=== PATIENT | male | born 1940 | race Caucasian/White ===

== ENCOUNTER → 2018-11-06 | Outpatient (CLI) | payer MEDICARE, BC ==
[2018-11-06 12:53] LABS: HCT 50.4 % (39.0-53.0); HGB 16.2 gm/dL (13.0-17.5); MCH 29.8 pg (25.0-35.0); MCHC 32.2 g/dL (31.0-37.0); MCV 92.6 fL (80.0-100.0); Mean Platelet Volume 7.2; Platelet Count 261 k/uL (150-450); RBC 5.45 m/uL (4.30-5.90); RDW 14.3 % (11.5-15.5)
[2018-11-06 13:05] LABS: Potassium 5.4 mmol/L (3.5-5.1)
== END ==
LOC: LABPAT 12:06
PROVIDERS: ATTEND Internal Medicine Cardiovascular Disease
DX: Z01.812 Encounter for preprocedural laboratory examination (principal); R07.2 Precordial pain
CPT/HCPCS: 36415; 80051; 82565; 84520; 85027

== ENCOUNTER 2018-11-14 06:08 | Day surgery (SDC) | payer MEDICARE, BC ==
[2018-11-06 14:20] VITALS: BMI 28.5
[2018-11-14] MEDS ORDERED: ATORVASTATIN 80 MG TAB PO STA (06:21)
[2018-11-14] MEDS ORDERED: ALPRAZolam 0.5 MG TAB PO PRN (06:21)
[2018-11-14] MEDS ORDERED: ALPRAZolam 0.25 MG TAB PO PRN (06:21)
[2018-11-14] MEDS ORDERED: ASPIRIN 325 MG TAB PO STA (06:21)
[2018-11-14] MEDS ORDERED: SODIUM CHLORIDE 0.9% 1,000 ML in EMPTY BAG 1 BAG IV ONE (06:21)
[2018-11-14] MEDS ORDERED: NITROGLYCERIN SL TABS 0.4 MG TAB SUBLINGUAL PRN ×2 (06:21→13:53)
[2018-11-14] MEDS ORDERED: SODIUM CHLORIDE 0.9% 1,000 ML IV ONE (07:06)
[2018-11-14 07:09] VITALS: TEMP 97.9
[2018-11-14] MEDS ORDERED: fentaNYL (PF) 50 MCG/ML 2 ML AMP IV ONE (07:35)
[2018-11-14] MEDS: MIDAZOLAM 2 MG/2 ML VIAL IV ONE ×2 (07:36→08:01)
[2018-11-14] MEDS ORDERED: LIDOCAINE 1% INJ 10MG/ML (20 ML MDV) SQ ONE (07:37)
[2018-11-14] MEDS ORDERED: RX INFO: IV CONTRAST WAS GIVEN 1 EACH MISC MISCELLANE PRN (08:11)
[2018-11-14] MEDS ORDERED: SODIUM CHLORIDE 0.9% 1,000 ML IV SCH (08:15)
--- NOTE | 2018-11-14 08:36 | CC ---
CARDIAC CATHETERIZATION REPORT INDICATION: Unstable angina. This is a 78-year-old gentleman with history of coronary artery disease, status post CABG, who presented to me with symptoms of progressively worsening shortness of breath and episodes of chest tightness for which he was taking sublingual nitroglycerin. Due to this, I advised him to undergo cardiac catheterization to evaluate his coronary anatomy and streamline his management. The patient was explained of risks, benefits and alternatives, understood and accepted. PROCEDURE NOTE: After obtaining informed consent, left heart catheterization and coronary angiogram are performed via the right femoral artery using standard Belkis catheters. Patient tolerated the procedure well without any obvious immediate complications. A femoral angiogram was performed and Angio-Seal was deployed for hemostasis. Patient received moderate conscious sedation. Total sedation time was 22. FINDINGS: 1. HEMODYNAMICS: Left ventricular end-diastolic pressure is 14 mm. There is no significant gradient across aortic valve. 2. LEFT VENTRICULOGRAM: Left ventriculogram is not performed. 3. ANGIOGRAPHIC DATA: [place] CORONARIES: Left main coronary artery appears calcified shows 30% to 40% stenosis. Divides into left anterior descending coronary artery and circumflex coronary artery. Circumflex coronary artery shows a focal 95% stenosis in the proximal portion. LAD appears totally occluded in its midportion with severe disease proximally. Right coronary artery is a large dominant vessel that is heavily calcified and shows diffuse disease. There are multiple segmental lesions involving the ostial proximal mid and distal portions and more significant lesion seems to be just as it bifurcates into PDA and PLV. SELECTIVE INJECTION OF THE BYPASS GRAFTS: 1. FREEDMAN to LAD: FREEDMAN appears patent. Both proximal and distal anastomotic sites are free of disease and [place] LAD is free of significant disease. 2. Venous graft to the OM branch appears patent. Proximal and distal anastomotic sites and the body of the graft are free of disease. [place]-Na OM shows mild disease. 3. Venous graft to the PDA, PLV appears occluded. CONCLUSIONS: 1. Cheesh-Na 3-vessel coronary artery disease as described above. 2. Patent FREEDMAN to LAD and venous graft to OM. 3. Occluded venous graft to PDA, PLV. PLAN: I reviewed angiographic data with Dr. Arlene Walls the on-call hydro plant technician. The right coronary artery appears diffusely diseased and heavily calcified and not easily amenable to angioplasty. The plan at this stage is to treat him with medical therapy and encourage him to quit smoking and if symptoms persist, bring him back and do high risk angioplasty of the right coronary artery. I did review these issues at length with the patient. He understands and is in agreement with the plans. The patient has been intolerant of statins. He is currently on aspirin, nitrates and beta blockers, which I am going to continue. LORETA / HIWOT: [id number] /
[2018-11-14 13:26] VITALS: RESP 16
[2018-11-14 13:27] VITALS: BP 121/69; PULSE 69
[2018-11-14] MEDS ORDERED: ISOSORBIDE MONONITRATE ER 30 MG TAB.ER.24H PO SCH (21:00)
[2018-11-15] MEDS ORDERED: ASPIRIN 325 MG TAB PO SCH (09:00)
[2018-11-15] MEDS ORDERED: ATENOLOL 25 MG PO SCH (09:00)
== END 2018-11-14 14:38 | disposition home or self-care (01) ==
LOC: CATHCVL 06:08
PROVIDERS: ATTEND Internal Medicine Cardiovascular Disease
DX: I25.720 Atherosclerosis of autologous artery coronary artery bypass graft(s) with unstable angina pectoris (principal); I25.82 Chronic total occlusion of coronary artery; I25.5 Ischemic cardiomyopathy; I10 Essential (primary) hypertension; Z88.8 Allergy status to other drugs, medicaments and biological substances; Z79.82 Long term (current) use of aspirin; Z95.1 Presence of aortocoronary bypass graft; Z91.041 Radiographic dye allergy status; Z79.899 Other long term (current) drug therapy
CPT/HCPCS: 93459; 84132; C1760; C1894; C1769; J2250; J2001; J3010

== ENCOUNTER 2018-11-27 08:55 | Day surgery (SDC) | payer MEDICARE, BC ==
[~2018-11-27 08:55] MED LIST: ALPRAZolam 0.25 MG TAB PO PRN; ALPRAZolam 0.5 MG TAB PO PRN; ASPIRIN 325 MG TAB PO STA; ATORVASTATIN 80 MG TAB PO STA; NITROGLYCERIN SL TABS 0.4 MG TAB SUBLINGUAL PRN; SODIUM CHLORIDE 0.9% 1,000 ML in EMPTY BAG 1 BAG IV ONE
[2018-11-27] MEDS ORDERED: SODIUM CHLORIDE 0.9% 1,000 ML IV ONE (09:37)
[2018-11-27] MEDS ORDERED: LIDOCAINE 1% INJ 10MG/ML (20 ML MDV) ONE (10:30)
[2018-11-27] MEDS ORDERED: MIDAZOLAM 2 MG/2 ML VIAL IVP ONE (10:51)
[2018-11-27] MEDS ORDERED: LIDOCAINE 1% INJ 10MG/ML (20 ML MDV) SQ ONE (10:52)
[2018-11-27] MEDS: LIDOCAINE 1% INJ 10MG/ML (20 ML MDV) SQ ONE ×2 (10:52→10:56)
[2018-11-27] MEDS ORDERED: HEPARIN SODIUM 1,000 UN/ML (10ML VL) ONE (11:02)
[2018-11-27] MEDS: HEPARIN SODIUM 1,000 UN/ML (10ML VL) IV ONE ×2 (11:03→12:15)
[2018-11-27] MEDS ORDERED: IOPAMIDOL-370 100ML BTL INJ ONE ×2 (11:32→12:28)
[2018-11-27] MEDS: NITROGLYCERIN 1000MCG/10ML SYRINGE INTRACORON ONE ×3 (11:36→12:24)
[2018-11-27] MEDS ORDERED: niCARdipine Syringe (1,000 mcg/10 mL) INTRACORON ONE (12:23)
[2018-11-27] MEDS ORDERED: TICAGRELOR 90 MG TAB ONE (12:26)
[2018-11-27] MEDS ORDERED: TICAGRELOR 90 MG TAB PO ONE (12:28)
[2018-11-27] MEDS ORDERED: HYDROmorphone 2 MG/ML 1 ML SYRINGE IVP ONE (12:30)
[2018-11-27] MEDS ORDERED: MAG HYDROX/AL HYDROX/SIMETH 30 ML CUP PO PRN (12:42)
[2018-11-27] MEDS ORDERED: NITROGLYCERIN SL TABS 0.4 MG TAB SUBLINGUAL PRN ×2 (12:42→13:08)
[2018-11-27] MEDS ORDERED: ATROPINE SULFATE 0.1 MG/ML 10ML SYRINGE IV PRN (12:42)
[2018-11-27] MEDS ORDERED: RX INFO: IV CONTRAST WAS GIVEN 1 EACH MISC MISCELLANE PRN (12:42)
[2018-11-27] MEDS ORDERED: ZOLPIDEM 5 MG TAB PO PRN (12:42)
[2018-11-27 16:08] VITALS: BMI 29.0
[2018-11-27] MEDS: SODIUM CHLORIDE 0.9% 1,000 ML IV SCH (16:50)
[2018-11-27] MEDS: METOPROLOL TARTRATE 25 MG TAB PO SCH (20:36)
[2018-11-27] MEDS: ISOSORBIDE MONONITRATE ER 30 MG TAB.ER.24H PO SCH (20:36)
[2018-11-27] MEDS ORDERED: ATORVASTATIN 80 MG TAB PO SCH (21:00)
--- NOTE | 2018-11-27 23:24 | PTCA ---
PERCUTANEOUSTRANS CORORONARY ANGIOGRAPHY DATE OF SERVICE: 11/27/2018. 1. Transvenous temporary pacemaker from right femoral venous approach. 2. Orbital atherectomy of proximal calcified right coronary artery. 3. PTCA and stenting of distal RCA with a drug-eluting stent and 2 separate drug- eluting stents in the proximal RCA. PERFORMED BY: Dr. Rolf Walls. SEDATION: Moderate conscious sedation time was 97 minutes. Patient was administered Versed. Oxygen saturation, hemodynamics and EKG were monitored closely. CLINICAL INFORMATION: Mr. Emmanuel Zabala is a 78-year-old gentleman, a patient of Dr. Horowitz, who also sees Dr. Pink as his primary care physician. This gentleman underwent aortocoronary bypass surgery a few years ago with a FREEDMAN to LAD, vein graft to the obtuse marginal and a jump vein graft to the 2 branches of RCA. Recent cardiac cath about 10 days ago revealed that the vein graft to the branches of RCA was occluded. The FREEDMAN to LAD as well as a vein graft to the obtuse marginal were patent. Distal RCA had a significant lesion and proximal RCA had a heavily calcified tortuous segment with 60-70 percent lesion. The patient was advised intervention. I explained to the patient the high- risk nature of the procedure, the distal location of the RCA lesion and heavy calcification and tortuosity. The patient and family understood all details and wished to proceed with the procedure. PROCEDURE NOTE: Under local anesthesia and strict aseptic precautions, a 6-Malawian introducer was placed in the left femoral artery. A 4-[place]awian introducer was placed in the right femoral vein under strict aseptic precautions and local anesthesia. I used a All Right 3.5 guide catheter to cannulate the right coronary artery. I used a run-through wire to get it distally beyond the lesion in the distal RCA into the secondary branches. I tried to advance a 2.5 caliber NC Trek balloon of 12 mm length without success. I then used another whisper wire as a jennifer wire and this wire was kept alongside the run-through wire. Over the whisper wire, I advanced a 2.5 caliber 12 mm NC Trek balloon. With this, I was able to pre-dilate the lesion. I then deployed a 2.0 caliber 12 mm on [place] stent in the distal RCA. This stent was postdilated with a 2.75 caliber 12 mm long NC Trek balloon at 14 atmospheres. Excellent angiographic result was achieved. I then turned my attention to the proximal RCA. Prior to the intervention of the proximal RCA with orbital atherectomy, I exchanged the right femoral venous sheath over a wire to a 6-Malawian sheath and placed a balloon tipped pacemaker in the right ventricular apex. I have made sure the capture and thresholds were very good. This pacemaker was set at a backup rate of 40 with a mA of 5. I then proceeded to perform orbital atherectomy. I exchanged the existing short wire for 1 long run-through wire and using a Teleport exchange catheter, I advanced a Viper wire into the distal RCA. Over the ViperWire an orbital atherectomy catheter was advanced and I did multiple passes in the entire length of the RCA lesion. After multiple passes, I then took the orbital atherectomy catheter out and over the same wire, I deployed a 15 mm long 3.5 caliber Xience stent in the distal aspect and another 15 mm long 3.5 caliber Xience stent in the proximal aspect of the proximal RCA lesion. These stents were deployed at 13 to 14 atmospheres. Excellent angiographic result without complication was achieved. I gave some additional nitroglycerin and nicardipine and the entire vessel had a remarkably good angiographic appearance and flow. Patient never used a backup pacemaker. He developed some mild chest discomfort with some bradycardia during inflations. Excellent angiographic result without complication was achieved. He received intravenous heparin and ACT was kept between 250 and 300. Excellent angiographic result without complication was achieved. I took the left femoral arterial sheath out and used a Perclose device to secure hemostasis but because of some oozing, I used a Femstop. The right femoral venous sheath will be pulled after 2 hours. Results were then discussed in great detail with the patient as well as family members and I expect he will be discharged home tomorrow if he remains stable. Excellent angiographic result without complication was achieved. MMODL / IJN: [id number] /
[2018-11-28] MEDS: SODIUM CHLORIDE 0.9% 1,000 ML IV SCH (03:36)
[2018-11-28 07:00] LABS: Basophils # (A) 0.1 k/uL (0-0.2); Basophils % (A) 1 %; Eosinophils % (A) 0 %; HCT 43.5 % (39.0-53.0); HGB 14.3 gm/dL (13.0-17.5); Lymphocytes % (A) 15 %; MCH 29.9 pg (25.0-35.0); MCHC 32.8 g/dL (31.0-37.0); MCV 91.1 fL (80.0-100.0); Mean Platelet Volume 6.7; Monocytes # (A) 0.6 k/uL (0-1.0); Monocytes % (A) 5 %; Neutrophils # (A) 10.7 k/uL (1.3-7.7); Neutrophils % (A) 79 %; Platelet Count 223 k/uL (150-450); RBC 4.77 m/uL (4.30-5.90); RDW 14.1 % (11.5-15.5); WBC 13.5 k/uL (3.8-10.6)
[2018-11-28 07:19] LABS: Calcium 8.9 mg/dL (8.4-10.2); Potassium 4.5 mmol/L (3.5-5.1)
[2018-11-28] MEDS ORDERED: ASCORBIC ACID 500 MG TAB PO SCH (09:00)
[2018-11-28] MEDS ORDERED: ASPIRIN 81 MG PO SCH (09:00)
[2018-11-28] MEDS ORDERED: TICAGRELOR 90 MG TAB PO SCH (09:00)
[2018-11-28] MEDS ORDERED: NIACIN TR 500 MG CAPLET PO SCH (09:00)
[2018-11-28] MEDS ORDERED: NICOTINE 21MG/24HR PATCH TRANSDERM SCH (09:00)
[2018-11-28] MEDS: ISOSORBIDE MONONITRATE ER 30 MG TAB.ER.24H PO SCH (09:18)
[2018-11-28] MEDS: METOPROLOL TARTRATE 25 MG TAB PO SCH (09:18)
[2018-11-28 11:10] VITALS: BP 122/76; PULSE 66; RESP 22; TEMP 98.1
== END 2018-11-28 12:27 | disposition home or self-care (01) ==
LOC: CATHCVL 08:55 → 3SCARD 12:28 → CATHCVL 11-28 12:27
PROVIDERS: ATTEND Internal Medicine Interventional Cardiology
DX: I25.10 Atherosclerotic heart disease of native coronary artery without angina pectoris (principal); I25.84 Coronary atherosclerosis due to calcified coronary lesion; I10 Essential (primary) hypertension; I77.1 Stricture of artery; Z95.1 Presence of aortocoronary bypass graft; F17.210 Nicotine dependence, cigarettes, uncomplicated; Z79.82 Long term (current) use of aspirin; Z79.899 Other long term (current) drug therapy; Z88.8 Allergy status to other drugs, medicaments and biological substances; Z91.048 Other nonmedicinal substance allergy status
CPT/HCPCS: 92933; 80048; 85025; C1769 ×6; C1887; C1725 ×2; C1894 ×2; C1714; C1760; C1874 ×2; J2250; J1170; J2001; J1644; Q9967

== ENCOUNTER 2019-03-29 07:44 | Emergency (ER) | payer MEDICARE, BC ==
[2019-03-29 07:52] VITALS: BP 104/64; PULSE 97; RESP 18; TEMP 98.3
--- NOTE | 2019-03-29 08:24 | ED ---
General Adult HPI - General Chief complaint: Urogenital Stated complaint: Blocked catheter Time Seen by Provider: 03/29/19 07:57 Source: patient Mode of arrival: ambulatory Limitations: no limitations - History of Present Illness Initial comments: 78-year-old male patient with past history significant for BPH, patient had a catheter placed yesterday and comprehensive urology due to urinary retention. Patient reports today to ED because his catheter is not draining. Patient visits his bladder is very full. Patient denies any pain, denies any other co mplaints. Systemic: Pt denies fatigue, fever/chills, rash. Pt denies weakness, night sweats, weight loss. Neuro: Pt denies headache, visual disturbances, syncope or pre-syncope. HEENT: Pt denies ocular discharge or irritation, otalgia, rhinorrhea, pharyngitis or notable lymphadenopathy. Cardiopulmonary: Pt denies chest pain, SOB, heart palpitations, dyspnea on exertion. Abdominal/GI: Pt denies abdominal pain, n/v/d. : Pt denies dysuria, burning w/ urination, frequency/urgency. Denies new onset urinary or bowel incontinence. MSK: Pt denies myalgia, loss of strength or function in extremities. Neuro: Pt denies new onset weakness, paresthesias. - Related Data Home Medications Medication Instructions Recorded Confirmed Atenolol 25 mg PO QAM 11/06/18 11/27/18 Ascorbic Acid [Vitamin C] 500 mg PO DAILY 11/22/18 11/27/18 Niacin [Slo-Niacin] 500 mg PO DAILY 11/22/18 11/27/18 Nicotine 21Mg/24Hr Patch [Habitrol] 1 each TRANSDERM DAILY 11/22/18 11/27/18 Ranolazine [Ranexa] 500 mg PO BID 11/22/18 11/27/18 Vitamin E (Dl,Tocopheryl Acet) 400 unit PO DAILY 11/22/18 11/27/18 [Vitamin E] Previous Rx's Medication Instructions Recorded Isosorbide Mononitrate [Isosorbide 30 mg PO BID #60 tab 11/14/18 Mononitrate ER] Nitroglycerin Sl Tabs [Nitrostat] 0.4 mg SUBLINGUAL Q5M PRN #25 tab 11/14/18 Aspirin 81 mg PO DAILY chew 11/28/18 Rosuvastatin Calcium [Crestor] 10 mg PO DAILY #90 tab 11/28/18 Ticagrelor [Brilinta] 90 mg PO BID #60 tab 11/28/18 Allergies Allergy/AdvReac Type Severity Reaction Status Date / Time Iodinated Contrast- Oral and Allergy my face Verified 03/29/19 07:49 IV Dye turned red and broke out." "Had dye since and no rx Yvfcphg-Opb-Olc Reductase AdvReac "Had every Verified 03/29/19 07:49 Inhibitor side effect listed on list of possible side effec Review of Systems ROS Statement: Those systems with pertinent positive or pertinent negative responses have been documented in the HPI. ROS Other: All systems not noted in ROS Statement are negative. Past Medical History Past Medical History: Chest Pain / Angina, COPD, Hearing Disorder / Deafness, Myocardial Infarction ([place]), Prostate Disorder Additional Past Medical History / Comment(s): current SOB with exertiona and intermittent chest pain. Steroid November 2018,Hx irregular heartbeat,enlarged prostate,[place] x 2,[place], [place] 9 years ago. Last Myocardial Infarction Date:: 1998 History of Any Multi-Drug Resistant Organisms: None Reported Past Surgical History: Coronary Bypass/CABG, Heart Catheterization, Heart Catheterization With Stent, Tonsillectomy Additional Past Surgical History / Comment(s): quadruple bypass 8-9 years ago,cardiac stents x2,angioplasty x2 Past Anesthesia/Blood Transfusion Reactions: No Reported Reaction Additional Past Anesthesia/Blood Transfusion Reaction / Comment(s): no known hx blood transfusion Date of Last Stent Placement:: unk Past Psychological History: No Psychological Hx Reported Smoking Status: Current every day smoker Past Alcohol Use History: None Reported Past Drug Use History: None Reported - Past Family History Father Family Medical History: No Reported History General Exam - General Exam Comments Initial Comments: Constitutional: NAD, AOX3, Pt has pleasant affect. HEENT: NC/AT, trachea midline, neck supple, no lymphadenopathy. Posterior pharynx non erythematous, without exudates. External ears appear normal, without discharge. Mucous membranes moist. Eyes PERRLA, EOM intact. There is no scleral icterus. No pallor noted. Cardiopulmonary: RRR, no murmurs, rubs or gallops, no JVD noted. Lungs CTAB in anterior and posterior thompson. No peripheral edema. Abdominal exam: Abdomen soft and non-distended. Abdomen non-tender to palpation in all 4 quadrants. Bowel sounds active in LLQ. No hepatosplenomegaly. No ecchymosis Neuro: CN II-XII grossly intact. No nuchal rigidity. No raccon eyes, no bautista sign, no hemotympanum. No cervical spinal tenderness. MSK: No posterior calf tenderness bilaterally, homans sign negative bilaterally. Posterior tibialis and radial pulse +2 bilaterally. Sensation intact in upper and lower extremities. Full active ROM in upper and lower extremities, 5/5 stregnth. Limitations: no limitations Course Vital Signs 03/29/19 07:49 Temperature 98.3 F Pulse Rate 97 Respiratory 18 Rate Blood Pressure 104/64 O2 Sat by Pulse 95 Oximetry Medical Decision Making - Medical Decision Making 78-year-old male patient presents to the chief complaint of catheter dysfunction, not draining properly. Patient vital signs stable, afebrile. Physical exam didn't display acute pathology. Catheter is flushed and replaced in ED. Clot was noted and catheter. Catheter not draining well. Patient is currently taking prophylactic Bactrim prescribed as to after catheter placement. Patient will be discharged, will follow up with urologist for further care. Case discussed with Dr. Peck. Disposition Clinical Impression: Urinary catheter dysfunction Disposition: HOME SELF-CARE Condition: Stable Instructions (If sedation given, give patient instructions): Enlarged Prostate (BPH) (ED), Ayala Catheter Placement and Care (ED) Additional Instructions: Patient to adhere to previously discussed treatment plan and will take medication(s) as directed. Patient to follow up with PCP in 1-2 days. Patient to return to ED if symptoms do not improve. Follow-up with urologist today, return to ER if condition worsens. Is patient prescribed a controlled substance at d/c from ED?: No Referrals: None,Stated [Primary Care Provider] - 1-2 days Jaylon Daniels MD [STAFF PHYSICIAN] - 1-2 days Rafael Villegas MD [STAFF PHYSICIAN] - 1-2 days
== END 2019-03-29 08:26 | disposition home or self-care (01) ==
LOC: EC 07:44
DX: T83.098A Other mechanical complication of other urinary catheter, initial encounter (principal); I25.2 Old myocardial infarction; F17.200 Nicotine dependence, unspecified, uncomplicated; Z79.899 Other long term (current) drug therapy; Z91.041 Radiographic dye allergy status; Z88.8 Allergy status to other drugs, medicaments and biological substances; Z95.1 Presence of aortocoronary bypass graft; Z95.5 Presence of coronary angioplasty implant and graft
CPT/HCPCS: 51702; 99283

== ENCOUNTER 2019-03-30 16:09 | Emergency (ER) | payer MEDICARE, BC ==
--- NOTE | 2019-03-30 17:27 | ED ---
General Adult HPI - General Chief complaint: Urogenital Stated complaint: BLOCKED CATHETER Time Seen by Provider: 03/30/19 16:24 Source: patient Mode of arrival: ambulatory Limitations: no limitations - History of Present Illness Initial comments: Patient is a 78-year-old male presents emergency Department with a chief complaint of a blocked Ayala catheter. Patient reports he was in emergency department yesterday for the same complaint. Patient reports that today he noticed a blood clot in the urine bag which is causing him back up of urine. Patient reports increased suprapubic pressure. Patient denies any nausea or vomiting. Patient denies any hematuria. Patient reports the pain is an 8 and constant. - Related Data Home Medications Medication Instructions Recorded Confirmed Atenolol 25 mg PO QAM 11/06/18 03/29/19 Sulfamethox-Tmp 800-160Mg [Bactrim 1 tab PO Q12HR 03/29/19 03/29/19 DS 800-160 mg] Tamsulosin [Flomax] 0.4 mg PO DAILY 03/29/19 03/29/19 Previous Rx's Medication Instructions Recorded Isosorbide Mononitrate [Isosorbide 30 mg PO BID #60 tab 11/14/18 Mononitrate ER] Nitroglycerin Sl Tabs [Nitrostat] 0.4 mg SUBLINGUAL Q5M PRN #25 tab 11/14/18 Aspirin 81 mg PO DAILY chew 11/28/18 Ticagrelor [Brilinta] 90 mg PO BID #60 tab 11/28/18 Allergies Allergy/AdvReac Type Severity Reaction Status Date / Time Iodinated Contrast- Oral and Allergy my face Verified 03/30/19 16:15 IV Dye turned red and broke out." "Had dye since and no rx Igqxezh-Yoc-Gxh Reductase AdvReac "Had every Verified 03/30/19 16:15 Inhibitor side effect listed on list of possible side effec Review of Systems ROS Statement: Those systems with pertinent positive or pertinent negative responses have been documented in the HPI. ROS Other: All systems not noted in ROS Statement are negative. Past Medical History Past Medical History: Chest Pain / Angina, COPD, Hearing Disorder / Deafness, Myocardial Infarction ([place]), Prostate Disorder Additional Past Medical History / Comment(s): current SOB with exertiona and intermittent chest pain. Steroid November 2018,Hx irregular heartbeat,enlarged prostate,[place] x 2,[place], [place] 9 years ago. Last Myocardial Infarction Date:: 1998 History of Any Multi-Drug Resistant Organisms: None Reported Past Surgical History: Coronary Bypass/CABG, Heart Catheterization, Heart Catheterization With Stent, Tonsillectomy Additional Past Surgical History / Comment(s): quadruple bypass 8-9 years ago,cardiac stents x2,angioplasty x2 Past Anesthesia/Blood Transfusion Reactions: No Reported Reaction Additional Past Anesthesia/Blood Transfusion Reaction / Comment(s): no known hx blood transfusion Date of Last Stent Placement:: unk Past Psychological History: No Psychological Hx Reported Smoking Status: Current every day smoker Past Alcohol Use History: None Reported Past Drug Use History: None Reported - Past Family History Father Family Medical History: No Reported History General Exam Limitations: no limitations General appearance: alert, in no apparent distress Head exam: Present: atraumatic, normocephalic, normal inspection Eye exam: Present: normal appearance, PERRL, EOMI Pupils: Present: normal accommodation ENT exam: Present: normal exam, mucous membranes moist, normal external ear exam Neck exam: Present: normal inspection, full ROM Respiratory exam: Present: normal lung sounds bilaterally Cardiovascular Exam: Present: regular rate, normal rhythm, normal heart sounds GI/Abdominal exam: Present: soft, normal bowel sounds exam: Present: normal inspection, circumcision, other (Ayala catheter appears to be kinked and causing blockage of urine.). Absent: testicular tenderness, urethral discharge, scrotal swelling, vertical testicular lie Extremities exam: Present: normal inspection, full ROM Back exam: Present: normal inspection, full ROM Neurological exam: Present: alert, oriented X3 Psychiatric exam: Present: normal affect, normal mood Skin exam: Present: warm, intact, normal color Course Vital Signs 03/30/19 03/30/19 16:12 17:32 Temperature 98.2 F 98.1 F Pulse Rate 88 70 Respiratory 16 17 Rate Blood Pressure 113/76 114/74 O2 Sat by Pulse 98 97 Oximetry Medical Decision Making - Medical Decision Making patient is a 78-year-old male presenting to emergency Department with a chief complaint of a blockage of the full catheter. Upon initial physical examination with the nurse Livia, the Ayala catheter appears to be kinked. The kink was fixed and the patient was able to evacuate. Initial bladder scan prior to fixing the catheter was approximately 700 milliliters. Post void bladder scan was approximately 100 mL. Patient reports she feels much better with decreased suprapubic pressure. Patient reports the pain is a 3 at this point. Patient advised to follow with primary care. Strict return parameters were thoroughly discussed the patient was a nursing and agreeable. Case discussed with physician. Disposition Clinical Impression: Urinary catheter dysfunction Disposition: HOME SELF-CARE Condition: Stable Instructions (If sedation given, give patient instructions): Ayala Catheter Placement and Care (ED), Ayala Catheter Removal (DC) Additional Instructions: Please follow proper Ayala catheter care. He is follow with primary care. Marni ent to emergency department if symptoms worsen. Is patient prescribed a controlled substance at d/c from ED?: No Referrals: None,Stated [Primary Care Provider] - 1-2 days Time of Disposition: 17:26
[2019-03-30 17:34] VITALS: BP 114/74; PULSE 70; RESP 17; TEMP 98.1
== END 2019-03-30 17:35 | disposition home or self-care (01) ==
LOC: EC 16:09
DX: T83.098A Other mechanical complication of other urinary catheter, initial encounter (principal); I25.2 Old myocardial infarction; N40.0 Benign prostatic hyperplasia without lower urinary tract symptoms; F17.200 Nicotine dependence, unspecified, uncomplicated; Z95.1 Presence of aortocoronary bypass graft; Z95.818 Presence of other cardiac implants and grafts; Z95.5 Presence of coronary angioplasty implant and graft; Z79.899 Other long term (current) drug therapy; Z91.041 Radiographic dye allergy status; Z88.8 Allergy status to other drugs, medicaments and biological substances; Y84.6 Urinary catheterization as the cause of abnormal reaction of the patient, or of later complication, without mention of misadventure at the time of the procedure
CPT/HCPCS: 99283

== ENCOUNTER 2019-04-08 22:51 | Emergency (ER) | payer MEDICARE, BC ==
--- NOTE | 2019-04-08 23:08 | ED ---
General Adult HPI - General Chief complaint: Urogenital Stated complaint: Urine Retention Time Seen by Provider: 04/08/19 23:01 Source: patient, RN notes reviewed Mode of arrival: ambulatory Limitations: no limitations - History of Present Illness Initial comments: Patient is a pleasant 78-year-old male presenting to the emergency department with urinary retention. This is a chronic problem for him. Under direction of his urologist patient removed his catheter this morning. Patient has only urinated a very small amount, proximally and out since that time. Patient did go to the urologist this afternoon however was still unable to urinate. Patient is now having more fullness in the suprapubic region similar to previous urinary retention. No fevers. No vomiting. - Related Data Home Medications Medication Instructions Recorded Confirmed Atenolol 25 mg PO QAM 11/06/18 04/08/19 Tamsulosin [Flomax] 0.4 mg PO DAILY 03/29/19 04/08/19 Previous Rx's Medication Instructions Recorded Isosorbide Mononitrate [Isosorbide 30 mg PO BID #60 tab 11/14/18 Mononitrate ER] Nitroglycerin Sl Tabs [Nitrostat] 0.4 mg SUBLINGUAL Q5M PRN #25 tab 11/14/18 Aspirin 81 mg PO DAILY chew 11/28/18 Ticagrelor [Brilinta] 90 mg PO BID #60 tab 11/28/18 Allergies Allergy/AdvReac Type Severity Reaction Status Date / Time Iodinated Contrast- Oral and Allergy my face Verified 04/08/19 23:24 IV Dye turned red and broke out." "Had dye since and no rx Paazyla-Dig-Otc Reductase AdvReac "Had every Verified 04/08/19 23:24 Inhibitor side effect listed on list of possible side effec Review of Systems ROS Statement: Those systems with pertinent positive or pertinent negative responses have been documented in the HPI. ROS Other: All systems not noted in ROS Statement are negative. Constitutional: Denies: fever Eyes: Denies: eye pain ENT: Denies: ear pain Respiratory: Denies: cough Cardiovascular: Denies: chest pain Endocrine: Denies: as per HPI Gastrointestinal: Reports: as per HPI Genitourinary: Reports: urgency Musculoskeletal: Denies: back pain Skin: Denies: rash Neurological: Denies: weakness Past Medical History Past Medical History: Chest Pain / Angina, COPD, Hearing Disorder / Deafness, Myocardial Infarction ([place]), Prostate Disorder Additional Past Medical History / Comment(s): current SOB with exertiona and intermittent chest pain. Steroid November 2018,Hx irregular heartbeat,enlarged prostate,[place] x 2,[place], CABAG 9 years ago. Last Myocardial Infarction Date:: 1998 History of Any Multi-Drug Resistant Organisms: None Reported Past Surgical History: Coronary Bypass/CABG, Heart Catheterization, Heart Catheterization With Stent, Tonsillectomy Additional Past Surgical History / Comment(s): quadruple bypass 8-9 years ago,cardiac stents x2,angioplasty x2 Past Anesthesia/Blood Transfusion Reactions: No Reported Reaction Additional Past Anesthesia/Blood Transfusion Reaction / Comment(s): no known hx blood transfusion Date of Last Stent Placement:: unk Past Psychological History: No Psychological Hx Reported Smoking Status: Current every day smoker Past Alcohol Use History: None Reported Past Drug Use History: None Reported - Past Family History Father Family Medical History: No Reported History General Exam Limitations: no limitations General appearance: alert, in no apparent distress Head exam: Present: atraumatic Eye exam: Present: normal appearance, PERRL ENT exam: Present: normal oropharynx Neck exam: Present: normal inspection Respiratory exam: Present: normal lung sounds bilaterally Cardiovascular Exam: Present: regular rate, normal rhythm Expanded Peripheral pulses: 2+: Dorsalis Pedis (R), Dorsalis Pedis (L) GI/Abdominal exam: Present: soft, tenderness (Mild tenderness and fullness in the suprapubic region) exam: Present: normal inspection. Absent: testicular tenderness, scrotal swelling Extremities exam: Present: normal inspection. Absent: calf tenderness Neurological exam: Present: alert Psychiatric exam: Present: normal affect, normal mood Skin exam: Present: normal color Course Vital Signs 04/08/19 22:54 Temperature 97.8 F Pulse Rate 84 Respiratory 16 Rate Blood Pressure 184/87 O2 Sat by Pulse 98 Oximetry Medical Decision Making - Medical Decision Making Patient reevaluated and symptom-free following Ayala catheter placement. Greater than 1 L output. Patient updated on need for follow-up and states he will call Dr. Knight tomorrow as he had previously planned follow-up at noon. Disposition Clinical Impression: Urinary retention Disposition: HOME SELF-CARE Condition: Stable Instructions (If sedation given, give patient instructions): Urinary Retention in Men (ED) Additional Instructions: Please follow-up with primary care physician in the next couple days for recheck. Please follow-up with your urologist, Dr. Knight tomorrow as planned. Return for abdominal pain, fever, worsening symptoms or other concerns. Is patient prescribed a controlled substance at d/c from ED?: No Referrals: Estrella Pruett MD [STAFF PHYSICIAN] - 1-2 days Emmanuel Tavares MD [STAFF PHYSICIAN] - 1-2 days Time of Disposition: 00:15
[2019-04-09 01:18] VITALS: BP 123/77; PULSE 68; RESP 20; TEMP 98.1
== END 2019-04-09 01:18 | disposition home or self-care (01) ==
LOC: EC 22:51
DX: R33.9 Retention of urine, unspecified (principal); I25.2 Old myocardial infarction; N40.0 Benign prostatic hyperplasia without lower urinary tract symptoms; H91.90 Unspecified hearing loss, unspecified ear; F17.200 Nicotine dependence, unspecified, uncomplicated; Z79.899 Other long term (current) drug therapy; Z91.041 Radiographic dye allergy status; Z88.8 Allergy status to other drugs, medicaments and biological substances; Z95.1 Presence of aortocoronary bypass graft; Z95.5 Presence of coronary angioplasty implant and graft
CPT/HCPCS: 51702; 99283

== ENCOUNTER → 2019-05-05 | Outpatient (CLI) | payer MEDICARE, BC ==
[2019-05-05 16:00] LABS: Basophils # (A) 0.1 k/uL (0-0.2); Basophils % (A) 1 %; Eosinophils # (A) 0.4 k/uL (0-0.7); Eosinophils % (A) 4 %; HCT 46.5 % (39.0-53.0); HGB 15.5 gm/dL (13.0-17.5); Lymphocytes # (A) 1.6 k/uL (1.0-4.8); Lymphocytes % (A) 18 %; MCH 30.9 pg (25.0-35.0); MCHC 33.3 g/dL (31.0-37.0); MCV 92.7 fL (80.0-100.0); Monocytes # (A) 0.5 k/uL (0-1.0); Monocytes % (A) 5 %; Neutrophils % (A) 69 %; Platelet Count 184 k/uL (150-450); RBC 5.01 m/uL (4.30-5.90); RDW 13.8 % (11.5-15.5); WBC 8.7 k/uL (3.8-10.6)
[2019-05-05 16:09] LABS: Calcium 9.9 mg/dL (8.4-10.2); Potassium 4.8 mmol/L (3.5-5.1)
[2019-05-05 16:31] LABS: Appearance,Urine Cloudy (Clear); Bilirubin,Urine Negative (Negative); Blood,Urine Large (Negative); Color,Urine Light Red; Glucose,Urine (UA) Negative (Negative); Ketones,Urine Negative (Negative); Leukocyte Esterase,Urine Large (Negative); Mucus,Urine Rare /hpf; Nitrite,Urine Negative (Negative); Protein,Urine 1+ (Negative); RBC,Urine >182 /hpf (0-5); Specific Gravity,Urine 1.015 (1.001-1.035); Urobilinogen,Urine <2.0 mg/dL (<2.0)
== END ==
LOC: LABPAT 15:10
PROVIDERS: ATTEND Urology
DX: Z01.818 Encounter for other preprocedural examination (principal); Z01.812 Encounter for preprocedural laboratory examination; N40.1 Benign prostatic hyperplasia with lower urinary tract symptoms; R33.9 Retention of urine, unspecified; I10 Essential (primary) hypertension
CPT/HCPCS: 36415; 80048; 81001; 85025; 87086; 93005

== ENCOUNTER 2019-05-14 07:05 | Day surgery (SDC) | payer MEDICARE, BC ==
[2019-05-08 10:20] VITALS: BMI 29.8
--- NOTE | 2019-05-13 19:52 | P.GSHP ---
History of Present Illness H&P Date: 05/13/19 78 yo male with urine retention due to a large prostate. Hehas failed oral medications He has a 90 gm prostate He comes for a bipolar turp THe alternatives have been discussed as have the risks and complications - Constitutional Constitutional: Denies chills, Denies fever - EENT Eyes: denies blurred vision, denies pain Ears, nose, mouth and throat: Denies headache, Denies sore throat - Cardiovascular Cardiovascular: Denies chest pain, Denies shortness of breath - Respiratory Respiratory: Denies cough, Denies 7 - Gastrointestinal Gastrointestinal: Denies abdominal pain, Denies diarrhea, Denies nausea, Denies vomiting - Genitourinary (Female) Genitourinary: Denies dysuria, Denies hematuria - Genitourinary (Male) Genitourinary: Denies dysuria, Denies hematuria - Musculoskeletal Musculoskeletal: Denies myalgias - Integumentary Integumentary: Denies pruritus, Denies rash - Neurological Neurological: Denies numbness, Denies weakness - Psychiatric Psychiatric: Denies anxiety, Denies depression - Endocrine Endocrine: Denies fatigue, Denies weight change Past Medical History Past Medical History: Coronary Artery Disease (CAD), Chest Pain / Angina, COPD, Hearing Disorder / Deafness, Myocardial Infarction ([place]), Pneumonia, Prostate Disorder Additional Past Medical History / Comment(s): [place] x2, occ irregular heartbeat, SOB with exertion, urinary retention-has indwelling catheter, on rx for UTI Last Myocardial Infarction Date:: 1998 History of Any Multi-Drug Resistant Organisms: None Reported Past Surgical History: Coronary Bypass/CABG, Heart Catheterization, Heart Catheterization With Stent, Tonsillectomy Additional Past Surgical History / Comment(s): quadruple bypass 8-9 years ago, cardiac stents x 5, sesar cataracts Past Anesthesia/Blood Transfusion Reactions: Motion Sickness Additional Past Anesthesia/Blood Transfusion Reaction / Comment(s): no known hx blood transfusion Date of Last Stent Placement:: October 2018 Smoking Status: Current some day smoker - Past Family History Father Family Medical History: No Reported History Mother Family Medical History: Cancer Medications and Allergies Home Medications Medication Instructions Recorded Confirmed Type Atenolol 25 mg PO QAM 11/06/18 05/08/19 History Nitroglycerin Sl Tabs [Nitrostat] 0.4 mg SUBLINGUAL Q5M PRN #25 tab 11/14/18 05/08/19 Rx Aspirin 81 mg PO DAILY chew 11/28/18 05/08/19 Rx Ticagrelor [Brilinta] 90 mg PO BID #60 tab 11/28/18 05/08/19 Rx Tamsulosin [Flomax] 0.4 mg PO DAILY 03/29/19 05/08/19 History Isosorbide Mononitrate ER [Imdur] 60 mg PO BID 05/08/19 05/08/19 History Sulfamethox-Tmp 800-160Mg [Bactrim 1 tab PO Q12HR 05/08/19 05/08/19 History DS 800-160 mg] Allergies Allergy/AdvReac Type Severity Reaction Status Date / Time Iodinated Contrast Media Allergy my face Verified 05/08/19 10:04 [Iodinated Contrast- Oral turned red and IV Dye] and broke out." "Had dye since and no rx Pujtowm-Smx-Yuc Reductase AdvReac "Had every Verified 05/08/19 10:04 Inhibitor side effect listed on list of possible side effec Surgical - Exam - General well developed, well nourished, no distress - Eyes PERRL - ENT no hearing loss - Neck trachea midline - Respiratory normal expansion, normal respiratory effort - Cardiovascular Rhythm: regular - Abdomen Abdomen: soft, non tender - Genitourinary prostate 50 gm benign normal penis with no external lesions, testicles present - Integumentary no rash, no growths - Neurologic normal coordination, normal sensation - Musculoskeletal normal gait, normal posture - Psychiatric oriented to time, oriented to person, oriented to place, memory intact Assessment and Plan Assessment: Impression: Urine retention secondary to bph Plan: Bipolar turp
[~2019-05-14 07:05] MED LIST changes: -ALPRAZolam 0.25 MG TAB PO PRN; -ALPRAZolam 0.5 MG TAB PO PRN; +AMPICILLIN 1,000 MG in SODIUM CHLORIDE 0.9% 50 ML IVPB ONE; -ASPIRIN 325 MG TAB PO STA; -ATORVASTATIN 80 MG TAB PO STA; +DEXAMETHASONE SOD PHOSPHATE 10 MG/ML 1 ML VIAL IV ONE; +LACTATED RINGERS 1,000 ML IV SCH; +LIDOCAINE 1% 20 ML VIAL (10MG/ML) FOR IV START INTRADERMA PRN; +MIDAZOLAM 2 MG/2 ML VIAL IV PRN; -NITROGLYCERIN SL TABS 0.4 MG TAB SUBLINGUAL PRN; -SODIUM CHLORIDE 0.9% 1,000 ML in EMPTY BAG 1 BAG IV ONE; +fentaNYL (PF) 50 MCG/ML 2 ML AMP IV PRN
[2019-05-14] MEDS ORDERED: fentaNYL (PF) 50 MCG/ML 2 ML AMP ONE (08:17)
[2019-05-14] MEDS ORDERED: ePHEDrine SULFATE/0.9% NACL/PF 50 MG/5 ML SYRINGE IV ONE (08:17)
[2019-05-14] MEDS ORDERED: PROPOFOL 10 MG/ML 20 ML VIAL IV ONE (08:17)
[2019-05-14] MEDS ORDERED: MIDAZOLAM 2 MG/2 ML VIAL ONE (08:17)
[2019-05-14 10:35] VITALS: TEMP 98.1
--- NOTE | 2019-05-14 10:38 | P.OP ---
Date of Procedure: 05/14/19 Preoperative Diagnosis: BPH with urinary retention Postoperative Diagnosis: Same Procedure(s) Performed: Bipolar TURP Anesthesia: spinal Surgeon: Emmanuel Tavares Estimated Blood Loss (ml): 100 Pathology: other (Prostate) Condition: stable Disposition: PACU Indications for Procedure: The patient is 78. His urine retention. He is unable to void with alpha blockers. He comes for a bipolar TURP. His prostate is enlarged. Description of Procedure: Patient is brought to the operating suite. He is given a spinal anesthetic with IV sedation. He's placed lithotomy position with a sterile prep and drape. Under direct vision the 25-Marshallese sheath and direct vision obturator and Foroblique lenses introduced in the urethra is normal the prostatic urethra shows a large long prostate with an large intravesical middle lobe. The bladder is severely trabeculated. With the Seismo-Shelf resectoscope bipolar loop and Foroblique lens I first resect the middle lobe of. I then moved to the left lateral lobe resect from 12 to 6:00 first at the base and then apically. I do the same on the right side. I then resect the redundant floor tissue. I freed the bladder of prostatic chips with the JuanaPicmonic evacuator. I cauterize the inside of the prostate thoroughly. At the end of the procedure there is no active bleeding. There is no chips remaining in the bladder. I removed the resectoscope and cred the bladder with good strong stream. An 18-Marshallese coud-tip catheter 5 mL balloon is introduced in the bladder. The patient's awake and returned recovery room good condition. He tolerated procedure well be discharged home upon recovery. He'll follow-up in the office in a few days for catheter removal. Blood loss is approximately 100 mL
[2019-05-14] MEDS ORDERED: LACTATED RINGERS 1,000 ML IV ONE (11:04)
[2019-05-14 12:15] VITALS: BP 112/72; PULSE 64; RESP 16
== END 2019-05-14 12:45 | disposition home or self-care (01) ==
LOC: OR 07:05
PROVIDERS: ATTEND Urology
DX: N40.1 Benign prostatic hyperplasia with lower urinary tract symptoms (principal); R33.8 Other retention of urine; N13.8 Other obstructive and reflux uropathy; N39.0 Urinary tract infection, site not specified; I25.810 Atherosclerosis of coronary artery bypass graft(s) without angina pectoris; I25.5 Ischemic cardiomyopathy; I25.2 Old myocardial infarction; I10 Essential (primary) hypertension; F17.210 Nicotine dependence, cigarettes, uncomplicated; J44.9 Chronic obstructive pulmonary disease, unspecified; H91.90 Unspecified hearing loss, unspecified ear; Z79.82 Long term (current) use of aspirin; Z79.899 Other long term (current) drug therapy; Z91.041 Radiographic dye allergy status; Z88.8 Allergy status to other drugs, medicaments and biological substances; Z95.1 Presence of aortocoronary bypass graft; Z95.5 Presence of coronary angioplasty implant and graft; Z90.89 Acquired absence of other organs; Z87.440 Personal history of urinary (tract) infections; Z99.89 Dependence on other enabling machines and devices; Z87.01 Personal history of pneumonia (recurrent); Z98.41 Cataract extraction status, right eye; Z98.42 Cataract extraction status, left eye; Z80.9 Family history of malignant neoplasm, unspecified
CPT/HCPCS: 88305; 52601; J2250; J1100; J3010; J0290; J2704

== ENCOUNTER → 2020-04-02 | Outpatient (CLI) | payer MEDICARE, BC ==
[2020-04-02 11:13] LABS: Potassium 4.5 mmol/L (3.5-5.1)
[2020-04-02 11:22] LABS: HCT 47.9 % (39.0-53.0); HGB 15.8 gm/dL (13.0-17.5); MCH 30.7 pg (25.0-35.0); Mean Platelet Volume 7.3; Platelet Count 218 k/uL (150-450); RBC 5.15 m/uL (4.30-5.90); RDW 13.8 % (11.5-15.5); WBC 9.9 k/uL (3.8-10.6)
== END | disposition home or self-care (01) ==
LOC: LABPAT 09:52
PROVIDERS: ATTEND Internal Medicine Cardiovascular Disease
DX: Z01.818 Encounter for other preprocedural examination (principal); I20.0 Unstable angina
CPT/HCPCS: 36415; 80051; 82565; 84520; 85027

== ENCOUNTER 2020-04-05 06:14 | Day surgery (SDC) | payer MEDICARE, BC ==
[2020-04-02 14:39] VITALS: BMI 29.8
[~2020-04-05 06:14] MED LIST changes: +ALPRAZolam 0.25 MG TAB PO PRN; +ALPRAZolam 0.5 MG TAB PO PRN; -AMPICILLIN 1,000 MG in SODIUM CHLORIDE 0.9% 50 ML IVPB ONE; -DEXAMETHASONE SOD PHOSPHATE 10 MG/ML 1 ML VIAL IV ONE; -LACTATED RINGERS 1,000 ML IV SCH; -LIDOCAINE 1% 20 ML VIAL (10MG/ML) FOR IV START INTRADERMA PRN; -MIDAZOLAM 2 MG/2 ML VIAL IV PRN; +NITROGLYCERIN SL TABS 0.4 MG TAB SUBLINGUAL PRN; +SODIUM CHLORIDE 0.9% 1,000 ML IV SCH; +SODIUM CHLORIDE 0.9% 1,000 ML in EMPTY BAG 1 BAG IV ONE; -fentaNYL (PF) 50 MCG/ML 2 ML AMP IV PRN
[2020-04-05 06:58] VITALS: TEMP 98.1
[2020-04-05] MEDS ORDERED: ASPIRIN 325 MG TAB PO ONE (07:00)
[2020-04-05] MEDS ORDERED: LIDOCAINE 1% INJ 10MG/ML (20 ML MDV) ONE (07:19)
[2020-04-05] MEDS ORDERED: fentaNYL (PF) 50 MCG/ML 2 ML AMP ONE (07:34)
[2020-04-05] MEDS: fentaNYL (PF) 50 MCG/ML 2 ML AMP IVP ONE ×2 (07:39→07:41)
[2020-04-05] MEDS ORDERED: MIDAZOLAM 2 MG/2 ML VIAL IVP ONE (07:39)
[2020-04-05] MEDS ORDERED: LIDOCAINE 1% INJ 10MG/ML (20 ML MDV) SQ ONE (07:40)
[2020-04-05] MEDS ORDERED: IOPAMIDOL-370 125ML BTL INJ ONE (07:55)
[2020-04-05] MEDS ORDERED: RX INFO: IV CONTRAST WAS GIVEN 1 EACH MISC MISCELLANE PRN (08:00)
[2020-04-05] MEDS ORDERED: SODIUM CHLORIDE 0.9% 1,000 ML IV SCH (08:00)
--- NOTE | 2020-04-05 10:59 | CC ---
CARDIAC CATHETERIZATION REPORT INDICATION: Unstable angina. PROCEDURE NOTE: After obtaining informed consent, left heart catheterization and coronary angiogram were performed via the right femoral artery using standard Belkis catheters. Patient tolerated the procedure well without any immediate complications. A femoral angiogram was performed and decision was made for manual hemostasis. FINDIN. HEMODYNAMICS: Left ventricular end-diastolic pressure is 12-14 mm. There is no significant gradient across the aortic valve. 2. LEFT VENTRICULOGRAM: Left ventriculogram is not performed. 3. ANGIOGRAPHIC DATA: RIGHT CORONARY ARTERY: Right coronary artery is a large dominant vessel that appears calcified and was previously stented starting from ostium all the way to the mid to distal RCA. The stent appears patent and there is no dampening of the pressure wave on engaging the right and there is good efflux of the dye. Distally, there is mild to moderate diffuse disease noted. 1. LEFT MAIN CORONARY ARTERY: Left main is a short vessel, divides into left anterior descending coronary artery and circumflex coronary artery. 2. Circumflex coronary artery is a nondominant vessel that shows moderate to severe diffuse disease. LAD appears chronically occluded in its midportion with a focal area of 95% stenosis in the more proximally. 3. Venous graft to OM appears patent. Proximal and distal anastomotic sites are free of significant disease and the body of the graft is free of significant stenosis. The distal bed appears similar to the vessel on a previous catheterization. 4. FREEDMAN to LAD is subselectively engaged, appears patent as appears free of significant disease. CONCLUSION: 1. Severe three-vessel coronary artery disease with patent venous graft to OM and FREEDMAN to LAD. 2. Patent stent within the ostium and the midportion of the right coronary artery. PLAN: I reviewed angiographic data with the patient and told him that his management is going to be with continued medical therapy and risk factor modification. The patient is intolerant of statins and has not been taking them. MMODL / IJN: [id number] /
[2020-04-05 12:16] VITALS: PULSE 58
[2020-04-05 12:17] VITALS: BP 119/61; RESP 18
== END 2020-04-05 14:55 | disposition home or self-care (01) ==
LOC: CATHCVL 06:14
PROVIDERS: ATTEND Internal Medicine Cardiovascular Disease
DX: I25.110 Atherosclerotic heart disease of native coronary artery with unstable angina pectoris (principal); I25.82 Chronic total occlusion of coronary artery; I25.5 Ischemic cardiomyopathy; I10 Essential (primary) hypertension; E78.5 Hyperlipidemia, unspecified; F17.210 Nicotine dependence, cigarettes, uncomplicated; Z95.1 Presence of aortocoronary bypass graft; Z79.82 Long term (current) use of aspirin; Z79.899 Other long term (current) drug therapy; Z88.8 Allergy status to other drugs, medicaments and biological substances; Z91.041 Radiographic dye allergy status; Z82.49 Family history of ischemic heart disease and other diseases of the circulatory system
CPT/HCPCS: 93458; C1769 ×2; C1894; J2250; J2001; J3010; Q9967

== ENCOUNTER 2021-04-29 13:12 | Emergency (ER) | payer MEDICARE, BC ==
[2021-04-29 13:19] VITALS: RESP 18
[2021-04-29] MEDS ORDERED: DIPH,PERTUS(ACELL)TETVAC-LF 0.5 ML VIAL IM ONE (14:08)
[2021-04-29] MEDS ORDERED: AMOXIC-POT CLAV 875-125MG 1 EACH TAB PO STA (14:08)
[2021-04-29] MEDS ORDERED: LIDOCAINE 1% INJ 10MG/ML (20 ML MDV) SQ ONE (14:09)
[2021-04-29] MEDS ORDERED: Acetaminophen-Codeine 300-30mg TAB PO STA (14:09)
--- NOTE | 2021-04-29 15:52 | ED ---
Animal Bite HPI - General Chief Complaint: Animal Bite Stated Complaint: dog bite rt arm Time Seen by Provider: 04/29/21 13:58 Source: patient Mode of arrival: wheelchair Limitations: no limitations - History of Present Illness Initial Comments: 80-year-old male presents to emergency department with a chief complaint of a dog bite. States this occurred around 11:30 this morning. States he attempted to pry away his dog that was attacked by several other dogs. These are his neighbors dogs and he states they are vaccinated. States his tetanus is not up-to-date. States she was bitten multiple times on the right forearm but he has full range of motion distal to the injury. Denies any associated paresthesias reports pain and bleeding from the injured site. He is not on blood thinners. States that he was also bitten on the left groin region. He denies any paresthesias or weakness in the left leg. He reports some bleeding that continued since the injury. - Related Data Home Medications Medication Instructions Recorded Confirmed atenoloL 25 mg PO QAM 11/06/18 04/05/20 Isosorbide Mononitrate ER [Imdur] 60 mg PO BID 05/08/19 04/05/20 Previous Rx's Medication Instructions Recorded Nitroglycerin Sl Tabs [Nitrostat] 0.4 mg SUBLINGUAL Q5M PRN #25 tab 11/14/18 Aspirin 81 mg PO DAILY chew 11/28/18 Ticagrelor [Brilinta] 90 mg PO BID #60 tab 11/28/18 Amoxicillin/Potassium Clav 1 tab PO Q12HR #20 tab 04/29/21 [Augmentin 875-125 Tablet] Allergies Allergy/AdvReac Type Severity Reaction Status Date / Time Iodinated Contrast Media Allergy my face Verified 04/29/21 13:19 [Iodinated Contrast- Oral turned red and IV Dye] and broke out." "Had dye since and no rx Xkthfuu-Vxa-Rtv Reductase AdvReac "Had every Verified 04/29/21 13:19 Inhibitor side effect listed on list of possible side effec Review of Systems ROS Statement: Those systems with pertinent positive or pertinent negative responses have been documented in the HPI. ROS Other: All systems not noted in ROS Statement are negative. Past Medical History Past Medical History: Chest Pain / Angina, COPD, Myocardial Infarction ([place]), Prostate Disorder Additional Past Medical History / Comment(s): Current SOB with exertiona and intermittent chest pain. Hx irregular heartbeat, enlarged prostate, [place] x 2, CABG 9 years ago. Last Myocardial Infarction Date:: 1998 History of Any Multi-Drug Resistant Organisms: None Reported Past Surgical History: Coronary Bypass/CABG, Heart Catheterization, Heart Catheterization With Stent, Tonsillectomy Additional Past Surgical History / Comment(s): Quadruple bypass 9 years ago, cardiac stents x2. Past Anesthesia/Blood Transfusion Reactions: No Reported Reaction Additional Past Anesthesia/Blood Transfusion Reaction / Comment(s): no known hx blood transfusion Date of Last Stent Placement:: unk Past Psychological History: No Psychological Hx Reported Smoking Status: Former smoker Past Alcohol Use History: None Reported Past Drug Use History: None Reported - Past Family History Father Family Medical History: No Reported History Mother Family Medical History: Cancer General Exam Limitations: no limitations General appearance: alert, in no apparent distress Head exam: Present: atraumatic, normocephalic, normal inspection Eye exam: Present: normal appearance, PERRL Pupils: Present: normal accommodation ENT exam: Present: normal exam, normal oropharynx, mucous membranes moist, TM's normal bilaterally, normal external ear exam Neck exam: Present: normal inspection, full ROM. Absent: tenderness Respiratory exam: Present: normal lung sounds bilaterally. Absent: respiratory distress, wheezes, rales Cardiovascular Exam: Present: regular rate, normal rhythm, normal heart sounds. Absent: systolic murmur GI/Abdominal exam: Present: soft, tenderness (Bite wound in the left groin and medial to the femoral artery. The wound is not also Tylenol. This does not appear to be an arterial bleed but he does have a small hematoma in the region. No significant bleeding). Absent: distended, guarding, rebound, rigid Extremities exam: Present: full ROM, tenderness, normal capillary refill, other (Sensation intact in her right arm). Absent: normal inspection (Bite once in the right forearm, mostly proximally. He has full range of motion in the right arm. No paresthesias distal to the injury.), pedal edema, joint swelling Back exam: Present: normal inspection, full ROM. Absent: tenderness Neurological exam: Present: alert, oriented X3 Psychiatric exam: Present: normal affect, normal mood Skin exam: Present: warm, dry, intact, normal color Course Vital Signs 04/29/21 04/29/21 13:14 16:09 Temperature 98 F 98.0 F Pulse Rate 82 84 Respiratory 18 18 Rate Blood Pressure 157/99 153/83 O2 Sat by Pulse 97 97 Oximetry Procedures - Laceration Laceration #1 Consent Obtained: verbal consent Indication: laceration Site: upper extremity Size (cm): 10 Description: irregular, clean Depth: simple, single layer Sedation/Analgesia: none Anesthetic Used: lidocaine 1% Anesthesia Technique: local infiltration Amount (mls): 5 Pre-repair: irrigated extensively, deep structures intact Type of Sutures: nylon Size of Sutures: 4-0 Number of Sutures: 5 Technique: simple, interrupted Patient Tolerated Procedure: well, no complications Laceration #2 Consent Obtained: verbal consent Indication: laceration Site: other (Left groin) Description: linear, clean Depth: simple, single layer Sedation/Analgesia: none Anesthetic Used: lidocaine 1% Anesthesia Technique: local infiltration Amount (mls): 5 Pre-repair: irrigated extensively, deep structures intact Type of Sutures: nylon Size of Sutures: 4-0 Number of Sutures: 2 Technique: simple, interrupted Patient Tolerated Procedure: well, no complications Medical Decision Making - Medical Decision Making 80-year-old male presents to the emergency department with a chief complaint of a dog bite. The dogs were vaccinated. His tetanus was updated. Patient was given an analgesic here. Dog wounds were thoroughly irrigated and the forearm and the left groin with saline and Betadine. He is otherwise neurovascularly intact in the right arm. Considering the size of the wound, I approximated the wound with 5 sutures. The bite chelo on the left groin also left a larger wound about 3 cm. This does not appear to have injured the femoral artery as it is located medially to it. Also reports some swelling to the region. There was no pulsatile like bleeding. No pulsatile sensation near the injured site. He has palpable DP and PT bilaterally. Sensation intact in the left leg. That one was also thoroughly cleaned with saline and Betadine and repaired with 2 sutures. He tolerated the procedure well. Patient was advised to return for suture removal. Patient was started on Augmentin and will be discharged with a 10 day course of Augmentin. Return parameters were thoroughly discussed the patient was understanding and agreeable. Case discussed with Dr. Graves Disposition Clinical Impression: Bite by animal, Dog bite Disposition: HOME SELF-CARE Condition: Stable Instructions (If sedation given, give patient instructions): Animal Bite (ED) Additional Instructions: Please return to the Emergency Department if symptoms worsen or any other concerns. Prescriptions: Amoxicillin/Potassium Clav [Augmentin 875-125 Tablet] 1 tab PO Q12HR #20 tab Is patient prescribed a controlled substance at d/c from ED?: No Referrals: None,Stated [Primary Care Provider] - 1-2 days Time of Disposition: 15:52
[2021-04-29 16:10] VITALS: BP 153/83; PULSE 84; TEMP 98
== END 2021-04-29 16:09 | disposition home or self-care (01) ==
LOC: EC 13:12
DX: S41.151A Open bite of right upper arm, initial encounter (principal); S31.154A Open bite of abdominal wall, left lower quadrant without penetration into peritoneal cavity, initial encounter; Z87.891 Personal history of nicotine dependence; J44.9 Chronic obstructive pulmonary disease, unspecified; I25.2 Old myocardial infarction; Z88.8 Allergy status to other drugs, medicaments and biological substances; Z91.041 Radiographic dye allergy status; Z23 Encounter for immunization; W54.0XXA Bitten by dog, initial encounter
CPT/HCPCS: 90715; 99283; 90471; 12005; J2001

== ENCOUNTER 2024-06-26 14:31 | Inpatient (IN) | payer MEDICARE, BC ==
--- NOTE | 2024-06-26 14:40 | ED ---
Chest Pain HPI - General Source: patient, RN notes reviewed Mode of arrival: ambulatory Limitations: no limitations - History of Present Illness MD Complaint: chest pain <Jessenia Sibley - Last Filed: 06/26/24 14:39> - General Source: patient, RN notes reviewed Limitations: no limitations <Noel Salazar - Last Filed: 06/26/24 16:16> - General Chief Complaint: Chest Pain Stated Complaint: Chest pain Time Seen by Provider: 06/26/24 14:35 - History of Present Illness Initial Comments: Quick Note: This is an 83-year-old male who presents to the emergency department for chest pain. States that it started yesterday. Reports chronic shortness of breath due to COPD. He saw his art dealer, Dr. Horowitz today, and was advised to come to the emergency department. Reports a history of quadruple bypass and 3 stents. (Jessenia Sibley) Patient is an 83-year-old male presenting to the emergency department with chest discomfort. Onset of symptoms was 2 days ago. Patient is hard of hearing and somewhat a poor historian. Patient states he was sent by his art dealer Dr. Malin. Patient states his heart rate was high and advised to come to the emergency department. Patient has no reported history of high heart rate. No history of dysrhythmia. Patient took nitroglycerin without much improvement (Noel Salazar) - Related Data Home Medications Medication Instructions Recorded Confirmed atenoloL 25 mg PO QAM 11/06/18 04/05/20 Isosorbide Mononitrate ER [Imdur] 60 mg PO BID 05/08/19 04/05/20 Previous Rx's Medication Instructions Recorded Nitroglycerin Sl Tabs [Nitrostat] 0.4 mg SUBLINGUAL Q5M PRN #25 tab 11/14/18 Aspirin 81 mg PO DAILY chew 11/28/18 Ticagrelor [Brilinta] 90 mg PO BID #60 tab 11/28/18 Amoxicillin/Potassium Clav 1 tab PO Q12HR #20 tab 04/29/21 [Augmentin 875-125 Tablet] Allergies Allergy/AdvReac Type Severity Reaction Status Date / Time Iodinated Contrast Media Allergy my face Verified 06/26/24 16:07 [Iodinated Contrast- Oral turned red and IV Dye] and broke out." "Had dye since and no rx Scdbbaf-EMV-YiB Reductase AdvReac "Had every Verified 06/26/24 16:07 Inhibitor side [Bgpzoax-Pak-Qkk Reductase effect Inhibitor] listed on list of possible side effec Review of Systems ROS Other: All systems not noted in ROS Statement are negative. <Jessenia Sibley - Last Filed: 06/26/24 14:39> ROS Other: All systems not noted in ROS Statement are negative. Constitutional: Denies: fever Eyes: Denies: eye pain ENT: Denies: ear pain Respiratory: Reports: dyspnea (COPD which is chronic for him). Denies: cough Cardiovascular: Reports: as per HPI, chest pain Endocrine: Denies: fatigue Gastrointestinal: Denies: abdominal pain <Noel Salazar - Last Filed: 06/26/24 16:16> ROS Statement: Those systems with pertinent positive or pertinent negative responses have been documented in the HPI. EKG Findings - EKG Results: EKG: interpreted by ERMD (Right axis. Right bundle branch block. Nonspecific ST-T. Q waves 3 and aVF.) EKG shows: tachycardia, atrial fibrillation <Noel Salazar - Last Filed: 06/26/24 16:16> Past Medical History Past Medical History: Chest Pain / Angina, COPD, Myocardial Infarction (SD), Prostate Disorder Additional Past Medical History / Comment(s): Current SOB with exertiona and intermittent chest pain. Hx irregular heartbeat, enlarged prostate, SD x 2, CABG 9 years ago. Last Myocardial Infarction Date:: 1998 History of Any Multi-Drug Resistant Organisms: None Reported Past Surgical History: Coronary Bypass/CABG, Heart Catheterization, Heart Catheterization With Stent, Tonsillectomy Additional Past Surgical History / Comment(s): Quadruple bypass 9 years ago, cardiac stents x2. Past Anesthesia/Blood Transfusion Reactions: No Reported Reaction Additional Past Anesthesia/Blood Transfusion Reaction / Comment(s): no known hx blood transfusion Date of Last Stent Placement:: unk Past Psychological History: No Psychological Hx Reported Smoking Status: Former smoker Past Alcohol Use History: None Reported Past Drug Use History: None Reported - Past Family History Father Family Medical History: No Reported History Mother Family Medical History: Cancer <Jessenia Sibley - Last Filed: 06/26/24 14:39> General Exam <Jessenia Sibley - Last Filed: 06/26/24 14:39> Limitations: no limitations General appearance: alert, in no apparent distress Head exam: Present: normocephalic Eye exam: Present: normal appearance Neck exam: Present: normal inspection Respiratory exam: Present: decreased breath sounds Cardiovascular Exam: Present: tachycardia GI/Abdominal exam: Present: soft. Absent: tenderness Extremities exam: Present: pedal edema (Trace bilateral which patient states is chronic). Absent: calf tenderness Neurological exam: Present: alert Psychiatric exam: Present: normal affect, normal mood Skin exam: Present: normal color <Noel Salazar - Last Filed: 06/26/24 16:16> - General Exam Comments Initial Comments: Visual Physical Exam Vital signs reviewed General: Well-appearing, nontoxic, no acute distress. Head: Normocephalic, atraumatic Eyes: PERRLA, EOMI ENT: Airway patent Chest: Nonlabored breathing Skin: No visual rash, normal skin tone Neuro: Alert and oriented 3 Musculoskeletal: No gross abnormalities (Jessenia Sibley) Course Vital Signs 06/26/24 06/26/24 06/26/24 14:35 14:51 15:01 Temperature 97.4 F L Pulse Rate 57 L 147 H 146 H Respiratory 28 H Rate Blood Pressure 107/62 O2 Sat by Pulse 79 L Oximetry 06/26/24 15:40 Temperature Pulse Rate 137 H Respiratory 22 Rate Blood Pressure 126/89 O2 Sat by Pulse 96 Oximetry Chest Pain [facility] <Jessenia Sibley - Last Filed: 06/26/24 14:39> <Noel Salazar - Last Filed: 06/26/24 16:16> - MDM I performed the QuickNote portion of this chart. Signed Jessenia Sibley PA-C. (Jessenia Sibley) Was pt. sent in by a medical professional or institution (LESLIE Birch, PLANT BIOLOGY PROFESSOR, urgent care, hospital, or intermediate...) When possible be specific @ -[Patient was sent in by cardiology did you speak to anyone other than the patient for history (EMS, parent, family, police, friend...)? What history was obtained from this source @ -No Did you review nursing and triage notes (agree or disagree)? Why? @ -I reviewed and agree with nursing and triage notes Were old charts reviewed (outside hosp., previous admission, EMS record, old EKG, old radiological studies, urgent care reports/EKG's, intermediate records)? Report findings @ -No old charts were reviewed Differential Diagnosis (chest pain, altered mental status, abdominal pain women, abdominal pain men, vaginal bleeding, weakness, fever, dyspnea, syncope, headache, dizziness, GI bleed, back pain, seizure, CVA, palpatations, mental health, musculoskeletal)? @ -Differential Palpitations Ventricular arrhythmias, atrial arrhythmias, myocardial infarction, anemia, thyrotoxicosis, electrolyte imbalance, hypokalemia, pulmonary embolism, pulmonary disease, drugs, alcohol, anxiety, stress.... This is not meant to be an all-inclusive list. EKG interpreted by me (3pts min.). @ -As above X-rays interpreted by me (1pt min.). @ -Chest x-ray shows no acute process CT interpreted by me (1pt min.). @ -None done U/S interpreted by me (1pt. min.). @ -None done What testing was considered but not performed or refused? (CT, X-rays, U/S, labs)? Why? @ -None What meds were considered but not given or refused? Why? @ -Considered heparin however patient is already on Brilinta Did you discuss the management of the patient with other professionals (professionals i.e. , PA, PLANT BIOLOGY PROFESSOR, lab, RT, psych nurse, criminal justice social worker, accounting coordinator, teacher, youth officer, case repairer)? Give summary @ -Case discussed with Reza who will admit covering hospital call Was smoking cessation discussed for >3mins.? @ -No Was critical care preformed (if so, how long)? @ -32 minutes critical care Were there social determinants of health that impacted care today? How? (Homelessness, low income, unemployed, alcoholism, drug addiction, transportation, low edu. Level, literacy, decrease access to med. care, fdc, rehab)? @ -No Was there de-escalation of care discussed even if they declined (Discuss DNR or withdrawal of care, Hospice)? DNR status @ -No What co-morbidities impacted this encounter? (DM, HTN, Smoking, COPD, CAD, Cancer, CVA, ARF, Chemo, Hep., AIDS, mental health diagnosis, sleep apnea, morbid obesity)? @ -History of coronary artery disease Was patient admitted / discharged? Hospital course, mention meds given and route, prescriptions, significant lab abnormalities, going to OR and other pertinent info. @ -Patient presents with new onset A-fib RVR. Symptoms improved with Cardizem drip. Patient reevaluated and updated. Patient will be admitted with cardiac consult. Admission orders written. Undiagnosed new problem with uncertain prognosis? @ -No Drug Therapy requiring intensive monitoring for toxicity (Heparin, Nitro, Insulin, Cardizem)? @ -Patient is on Cardizem drip Were any procedures done? @ -No Diagnosis/symptom? @ -A-fib with RVR Acute, or Chronic, or Acute on Chronic? @ -Acute Uncomplicated (without systemic symptoms) or Complicated (systemic symptoms)? @ -Default Side effects of treatment? @ -No Exacerbation, Progression, or Severe Exacerbation? @ -No Poses a threat to life or bodily function? How? (Chest pain, [place], SD, pneumonia, PE, COPD, DKA, ARF, appy, cholecystitis, CVA, Diverticulitis, Homicidal, Suicidal, threat to staff... and all critical care pts) @ -Threat to cardiac function (Noel Salazar) Critical Care Time Critical Care Time: Yes <Noel Salazar - Last Filed: 06/26/24 16:16> Disposition <Jessenia Sibley - Last Filed: 06/26/24 14:39> Is patient prescribed a controlled substance at d/c from ED?: No Time of Disposition: 16:15 <Noel Salazar - Last Filed: 06/26/24 16:16> Clinical Impression: Atrial fibrillation with RVR Disposition: ADMITTED IP TO THIS HOSP Referrals: None,Stated [Primary Care Provider] - 1-2 days
[2024-06-26] MEDS: IPRATROPIUM-ALBUTEROL 3 ML NEB INHALATION STA (14:51)
[2024-06-26] MEDS: DILTIAZEM 125 MG in SODIUM CHLORIDE 0.9% 100 ML IV SCH (15:09)
[2024-06-26] MEDS: DILTIAZEM DRIP BOLUS FROM BAG 1 MG SOLN IV ONE (15:09)
[2024-06-26 15:10] LABS: Basophils % (A) 0 %; Eosinophils # (A) 0.2 k/uL (0-0.7); Eosinophils % (A) 2 %; HCT 41.2 % (39.0-53.0); HGB 13.7 gm/dL (13.0-17.5); Lymphocytes # (A) 1.7 k/uL (1.0-4.8); Lymphocytes % (A) 14 %; MCH 28.6 pg (25.0-35.0); MCHC 33.2 g/dL (31.0-37.0); MCV 86.1 fL (80.0-100.0); Mean Platelet Volume 6.8; Monocytes # (A) 0.6 k/uL (0-1.0); Monocytes % (A) 5 %; Neutrophils # (A) 9.4 k/uL (1.3-7.7); Neutrophils % (A) 78 %; Platelet Count 347 k/uL (150-450); RBC 4.78 m/uL (4.30-5.90); RDW 15.8 % (11.5-15.5); WBC 12.1 k/uL (3.8-10.6)
[2024-06-26 15:19] LABS: Partial Thromboplastin Time 28.7 sec (22.0-30.0); Prothrombin Time 11.3 sec (10.0-12.5)
[2024-06-26 15:21] LABS: ALT 13 U/L (4-49); AST 20 U/L (17-59); African American GFR (CKD) 37 (>60 ml/min/1.73 sqM); Albumin 4.1 g/dL (3.5-5.0); Alkaline Phosphatase 73 U/L (38-126); Anion Gap 9 mmol/L; Blood Urea Nitrogen 22 mg/dL (9-20); Calcium 9.1 mg/dL (8.4-10.2); Carbon Dioxide 20 mmol/L (22-30); Chloride 109 mmol/L (98-107); Glucose 142 mg/dL (74-99); Magnesium 1.9 mg/dL (1.6-2.3); Non-African American GFR(CKD) 32 (>60 ml/min/1.73 sqM); Potassium 5.1 mmol/L (3.5-5.1); Sodium 138 mmol/L (137-145); Total Bilirubin 0.6 mg/dL (0.2-1.3); Total Protein 8.1 g/dL (6.3-8.2)
[2024-06-26 15:37] LABS: T4, Free (Free Thyroxine) 1.07 ng/dL (0.78-2.19)
--- NOTE | 2024-06-26 15:57 | XR ---
EXAMINATION TYPE: XR chest 2V DATE OF EXAM: 06/26/2024 3:43 PM COMPARISON: 03/16/2012 CLINICAL INDICATION: Male, 83 years old with history of Chest Pain, TECHNIQUE: XR chest 2V view(s) obtained. FINDINGS: The heart size is normal. Sternotomy wires are in the midline The pulmonary vasculature is normal. The lungs are clear. IMPRESSION: 1. No acute pulmonary process. [facility], , 06/26/2024 3:55 PM
[2024-06-26] MEDS ORDERED: NITROGLYCERIN SL TABS 0.4 MG TAB SUBLINGUAL PRN (16:16)
[2024-06-26] MEDS ORDERED: HEPARIN SODIUM 1,000 UN/ML (10ML VL) IV PRN (20:44)
[2024-06-26] MEDS: TICAGRELOR 90 MG TAB PO SCH (20:45)
[2024-06-26] MEDS: ISOSORBIDE MONONITRATE ER 60 MG TAB.ER.24H PO SCH (20:45)
[2024-06-26] MEDS: atenoloL 25 MG TAB PO SCH (20:45)
[2024-06-26] MEDS: HEPARIN SOD,PORK IN 0.45% NACL 25,000 UNIT in 0.45% NACL 1 250ML.BAG IV SCH (20:53)
[2024-06-26] MEDS: HEPARIN SODIUM 1,000 UN/ML (10ML VL) IV ONE (20:54)
--- NOTE | 2024-06-27 00:03 | HP ---
HISTORY AND PHYSICAL CHIEF COMPLAINT: Chest pain and palpitation. HISTORY OF PRESENT ILLNESS: This is an 83-year-old gentleman with a past medical history of COPD, myocardial infarction, presented to Cardiology with chest pain. No palpitations. The patient had atrial fibrillation with fast ventricular rate. The patient came to [facility] and admitted for further evaluation and treatment. The patient has seen Dr. Horowitz previously. There is no history of any fever, rigors, or chills at this time. Cardizem has been initiated. PAST MEDICAL HISTORY: Chest pain, COPD, myocardial infarction. Dose and rest of medications noted. MEDICATIONS: Reviewed, atenolol. ALLERGIES: Iodinated contrast dyes. FAMILY HISTORY: No history of heart disease, or strokes in the family. SOCIAL HISTORY: Previous history of smoking. REVIEW OF SYSTEMS: Fourteen-point review is negative except as mentioned earlier. PHYSICAL EXAMINATION: VITAL SIGNS: Pulse is 147, irregular, blood pressure 106/61, respirations 20. HEENT: Conjunctivae normal. NECK: No JVD. CARDIOVASCULAR: S1, S2 irregular, tachycardic. RESPIRATIONS: A few scattered rhonchi. ABDOMEN: Soft. LEGS: No edema. NERVOUS SYSTEM: Nonfocal. LABORATORY DATA: Creatinine 1.91. ASSESSMENT: 1. Atrial fibrillation with fast ventricular rate. 2. Chest pain, possible unstable angina. 3. Chronic kidney disease, stage 3. 4. Chronic obstructive pulmonary disease. 5. History of myocardial infarction. 6. History of coronary artery disease, coronary artery bypass graft stent. RECOMMENDATIONS AND DISCUSSION: This is an 83-year-old gentleman, who presented with multiple medical problems. We will monitor the patient closely. Continue the current medications and continue symptomatic treatment. I would recommend Josué domingo. Cardiology consultation. Check TSH. Repeat labs in the morning. Resume the home medications once they are confirmed. Prognosis guarded. Further recommendations to follow. MMODL / IJN: [id number] /
[2024-06-27 03:37] LABS: Basophils # (A) 0.1 k/uL (0-0.2); Basophils % (A) 1 %; Eosinophils # (A) 0.2 k/uL (0-0.7); Eosinophils % (A) 2 %; HCT 34.7 % (39.0-53.0); HGB 11.4 gm/dL (13.0-17.5); Lymphocytes % (A) 22 %; MCH 28.3 pg (25.0-35.0); MCHC 32.8 g/dL (31.0-37.0); MCV 86.5 fL (80.0-100.0); Monocytes # (A) 0.5 k/uL (0-1.0); Monocytes % (A) 6 %; Neutrophils % (A) 67 %; Platelet Count 260 k/uL (150-450); RBC 4.02 m/uL (4.30-5.90); RDW 15.6 % (11.5-15.5); WBC 8.9 k/uL (3.8-10.6)
[2024-06-27 03:48] LABS: African American GFR (CKD) 39 (>60 ml/min/1.73 sqM); Anion Gap 7 mmol/L; Blood Urea Nitrogen 23 mg/dL (9-20); Calcium 8.4 mg/dL (8.4-10.2); Carbon Dioxide 22 mmol/L (22-30); Chloride 109 mmol/L (98-107); Glucose 112 mg/dL (74-99); Non-African American GFR(CKD) 34 (>60 ml/min/1.73 sqM); Potassium 4.5 mmol/L (3.5-5.1); Sodium 138 mmol/L (137-145)
[2024-06-27] MEDS: RANOLAZINE 500 MG TAB.ER.12H PO SCH (08:27)
[2024-06-27] MEDS: ASPIRIN 81 MG PO SCH (08:27)
[2024-06-27] MEDS: atenoloL 25 MG TAB PO SCH (08:34)
[2024-06-27] MEDS: EZETIMIBE 10 MG TAB PO SCH (08:34)
[2024-06-27 08:55] LABS: Chol/HDL Ratio 4.89 Ratio; LDL Cholesterol,Calculated 96.9 mg/dL (0.0-131.0)
--- NOTE | 2024-06-27 10:15 | P.CRDCN ---
History of Present Illness History of present illness: HISTORY OF PRESENT ILLNESS: This is a 83-year-old male with a past medical history significant for coronary artery disease with previous CABG and stent placement, COPD, hypertension, hype rlipidemia with statin intolerance, and former nicotine dependence. Patient follows in the office with Dr. Horowitz. We have been asked to see the patient in consultation for atrial fibrillation. Patient examined at the bedside. [facility]. Patient was having palpitations and shortness of breath. An EKG was completed revealing a tachyarrhythmia and the patient was directed to come to the emergency room. EKG on admission reveals atrial flutter. The patient has since converted to sinus mechanism. Patient states he has been having the symptoms for over a year but every time he went into the office they were never able to capture anything on EKG. He reports shortness of breath that baseline due to his COPD. Denies any worsening shortness of breath. Denies any chest pain or pressure. Patient was started on IV Cardizem which has since been stopped. Patient was also started on IV heparin. According to the patient's nurse, patient was having hematuria overnight so his IV heparin was stopped. Hemoglobin this morning is 11.4 down from 13.7 yesterday. According to patient's home medication list he is taking aspirin and Brilinta. The patient states that he still is taking aspirin twice a day but states he has stopped taking aspirin. DIAGNOSTICS: - EKG reveals atrial flutter with RVR. Repeat EKG reveals sinus mechanism with PACs. - Chest xray negative for acute process. - Laboratory data: WBC 8.9. Hemoglobin 11.4. Platelet count 260. Sodium 138. Potassium 4.5. BUN 28. Creatinine 1.81. Magnesium 1.9. Troponin negative x 3. TSH 8.020. Free T41.07. - Current home cardiac medications include atenolol 25 mg at night, Brilinta 90 mg twice a day, Ranexa 500 mg in the morning, Imdur 60 mg twice a day, aspirin 81 mg daily - Most recent echocardiogram obtained in January 2021 revealed ejection fraction 45 to 50%, mild MR, mild TR - Patient underwent Lexiscan stress test in January 2023 revealing abnormal nuclear scan showing evidence of prior inferior wall myocardial infarction with preserved LV function without ischemia - Cardiac catheterization history: March 2020 revealing severe three-vessel coronary artery disease with patent venous graft to OM and FREEDMAN to LAD. Patent stent within the ostium in the midportion of the RCA. REVIEW OF SYSTEMS: At the time of my exam: CONSTITUTIONAL: Denies fever or chills. HEENT: Denies blurred vision, vision changes, or eye pain. Denies hemoptysis CARDIOVASCULAR: Denies chest pain. Denies orthopnea. Denies PND. Denies palpitations RESPIRATORY: Denies shortness of breath. GASTROINTESTINAL: Denies abdominal pain. Denies nausea or vomiting. HEMATOLOGIC: Denies bleeding disorders. GENITOURINARY: Denies any blood in urine. SKIN: Denies pruitis. Denies rash. PHYSICAL EXAM: VITAL SIGNS: Reviewed. GENERAL: Well-developed in no acute distress. HEENT: Head is normocephalic. Pupils are equal, round. Sclerae anicteric. Mucous membranes of the mouth are moist. Neck supple. No JVD or thyromegaly LUNGS: Respirations even and unlabored. Lungs essentially clear to auscultation bilaterally. HEART: Regular rate and rhythm. S1 and S2 heard. ABDOMEN: Soft. Nondistended. Nontender. EXTREMITIES: Normal range of motion. No clubbing or cyanosis. Peripheral pulses intact. No lower extremity edema NEUROLOGIC: Awake and alert. Oriented x 3. ASSESSMENT: Palpitations New onset typical atrial flutter with RVR, currently maintaining sinus mechanism with PACs New onset hematuria with decrease in hemoglobin Coronary artery disease with previous CABG and stenting Acute kidney injury Hypertension Hyperlipidemia with statin intolerance former nicotine dependence COPD PLAN: Obtain 2D echo to assess cardiac structure and function Continue aspirin 81 mg daily. Discontinue Brilinta as patient stenting was greater than 1 year ago. Continue additional cardiac medications Patient with statin intolerance. Begin Zetia 10 mg daily Discontinue IV Cardizem Continue to hold IV heparin. Consult urology for recommendations regarding hematuria. From a cardiac standpoint, recommend anticoagulation if deemed safe. Repeat CBC and BMP in a.m. Further recommendations pending patient course Nurse practitioner note has been reviewed by physician. Signing provider agrees with the documented findings, assessment, and plan of care documented by ADVISOR [employer] as a scribe. Past Medical History Past Medical History: Chest Pain / Angina, COPD, Myocardial Infarction ([place]), Prostate Disorder Additional Past Medical History / Comment(s): Current SOB with exertiona and intermittent chest pain. Hx irregular heartbeat, enlarged prostate, [place] x 2, CABG 9 years ago. Last Myocardial Infarction Date:: 1998 History of Any Multi-Drug Resistant Organisms: None Reported Past Surgical History: Coronary Bypass/CABG, Heart Catheterization, Heart Catheterization With Stent, Tonsillectomy Additional Past Surgical History / Comment(s): Quadruple bypass 9 years ago, cardiac stents x2. Past Anesthesia/Blood Transfusion Reactions: No Reported Reaction Additional Past Anesthesia/Blood Transfusion Reaction / Comment(s): no known hx blood transfusion Date of Last Stent Placement:: unk Past Psychological History: No Psychological Hx Reported Smoking Status: Former smoker Past Alcohol Use History: None Reported Additional Past Alcohol Use History / Comment(s): started smoking approx 65 yrs ago. Quit smoking 1 month ago. Past Drug Use History: None Reported - Past Family History Father Family Medical History: No Reported History Mother Family Medical History: Cancer Medications and Allergies Home Medications Medication Instructions Recorded Confirmed Type atenoloL 25 mg PO HS 11/06/18 06/26/24 History Nitroglycerin Sl Tabs [Nitrostat] 0.4 mg SUBLINGUAL Q5M PRN #25 tab 11/14/18 06/26/24 Rx Aspirin 81 mg PO DAILY chew 11/28/18 06/26/24 Rx Ticagrelor [Brilinta] 90 mg PO BID #60 tab 11/28/18 06/26/24 Rx Isosorbide Mononitrate ER [Imdur] 60 mg PO BID 05/08/19 06/26/24 History Ranolazine [Ranexa] 500 mg PO QAM 06/26/24 06/26/24 History Allergies Allergy/AdvReac Type Severity Reaction Status Date / Time Iodinated Contrast Media Allergy my face Verified 06/26/24 16:07 [Iodinated Contrast- Oral turned red and IV Dye] and broke out." "Had dye since and no rx Mtqovyu-RFR-JaG Reductase AdvReac "Had every Verified 06/26/24 16:07 Inhibitor side [Umalqqj-Wnv-Vyq Reductase effect Inhibitor] listed on list of possible side effec Physical Exam Vitals: Vital Signs Temp Pulse Pulse Resp BP BP Pulse Ox 06/27/24 03:06 98.1 F 57 L 18 115/64 96 06/26/24 23:17 98.4 F 60 16 99/51 95 06/26/24 20:15 98.3 F 72 18 114/62 98 06/26/24 19:59 98.7 F 63 18 110/65 99 06/26/24 18:45 67 20 141/74 99 06/26/24 18:04 20 06/26/24 18:00 62 32 H 118/86 100 06/26/24 17:50 60 18 118/86 99 06/26/24 17:30 59 L 20 108/66 98 06/26/24 17:00 65 20 108/66 99 06/26/24 16:40 112 H 29 H 133/74 98 06/26/24 15:40 137 H 22 126/89 96 06/26/24 15:01 146 H 06/26/24 14:51 147 H 06/26/24 14:35 97.4 F L 57 L 28 H 107/62 79 L Intake and Output 06/26/24 06/27/24 06/27/24 22:59 06:59 14:59 Intake Total 480 115.0 180 Output Total 400 800 Balance 480 -285.0 -620 Intake: Intake, IV Titration 115.0 Amount Diltiazem 125 mg In 45.5 Sodium Chloride 0.9% 100 ml @ 5 MG/HR 5 mls/hr IV .Q24H [facility] Rx#:[id number] Heparin Sod,Pork in 0.45% 69.5 NaCl 25,000 unit In 0.45 % NaCl 1 250ml.bag @ 10. 548 UNITS/KG/HR 10 mls/hr IV .Q24H [facility] Rx#: [id number] Oral 480 180 Output: Urine 400 800 Other: Voiding Method Urinal Urinal Weight 94.801 kg 94.5 kg Results 06/27/24 03:03 06/27/24 03:03 Cardiac Enzymes 06/26/24 06/26/24 06/26/24 Range/Units 15:00 15:00 17:29 AST 20 (17-59) U/L Troponin I <0.012 <0.012 (0.000-0.034) ng/mL 06/26/24 Range/Units 20:57 AST (17-59) U/L Troponin I 0.014 (0.000-0.034) ng/mL Coagulation 06/26/24 06/27/24 Range/Units 15:00 03:03 PT 11.3 (10.0-12.5) sec APTT 28.7 47.7 H (22.0-30.0) sec Lipids 06/27/24 Range/Units 03:03 Triglycerides 112.00 (0.00-149.00) mg/dL Cholesterol 150.00 (0.00-200.00) mg/dL HDL Cholesterol 30.70 L (40.00-60.00) mg/dL Cholesterol/HDL Ratio 4.89 Ratio CBC 06/26/24 06/27/24 Range/Units 15: 03:03 WBC 12.1 H 8.9 (3.8-10.6) k/uL RBC 4.78 4.02 L (4.30-5.90) m/uL Hgb 13.7 11.4 L (13.0-17.5) gm/dL Hct 41.2 34.7 L (39.0-53.0) % Plt Count 347 260 (150-450) k/uL Comprehensive Metabolic Panel 06/26/24 06/27/24 Range/Units 15:00 03:03 Sodium 138 138 (137-145) mmol/L Potassium 5.1 4.5 (3.5-5.1) mmol/L Chloride 109 H 109 H (98-107) mmol/L Carbon Dioxide 20 L 22 (22-30) mmol/L BUN 22 H 23 H (9-20) mg/dL Creatinine 1.91 H 1.81 H (0.66-1.25) mg/dL Glucose 142 H 112 H (74-99) mg/dL Calcium 9.1 8.4 (8.4-10.2) mg/dL AST 20 (17-59) U/L ALT 13 (4-49) U/L Alkaline Phosphatase 73 (38-126) U/L Total Protein 8.1 (6.3-8.2) g/dL Albumin 4.1 (3.5-5.0) g/dL Current Medications Generic Name Dose Route Start Last Admin Trade Name Freq PRN Reason Stop Dose Admin Aspirin 81 mg 06/27/24 09:00 06/27/24 08:27 Aspirin 81 Mg PO 81 mg DAILY [facility] Administration Atenolol 25 mg 06/27/24 09:00 06/27/24 08:34 Atenolol 25 Mg Tab PO 25 mg BID [facility] Administration Ezetimibe 10 mg 06/27/24 09:00 06/27/24 08:34 Ezetimibe 10 Mg Tab PO 10 mg DAILY [facility] Administration Heparin Sodium (Porcine) 0 unit 06/26/24 20:44 Heparin Sodium 1,000 Un/Ml (10ml Vl) IV PER PROTOCOL PRN Low PTT Protocol Heparin Sodium/Sodium Chloride 250 mls @ 10 mls/hr 06/26/24 20:45 06/27/24 03:50 25,000 unit/ Sodium Chloride IV 0 units/kg/hr .Q24H [facility] 0 mls/hr Titration Protocol 10.548 UNITS/KG/HR Isosorbide Mononitrate 60 mg 06/26/24 21:00 06/27/24 08:27 Isosorbide Mononitrate Er 60 Mg Tab.Er.24h PO 60 mg BID [facility] Administration Nitroglycerin 0.4 mg 06/26/24 16:16 Nitroglycerin Sl Tabs 0.4 Mg Tab SUBLINGUAL Q5M PRN Chest Pain Ranolazine 500 mg 06/27/24 09:00 06/27/24 08:27 Ranolazine 500 Mg Tab.Er.12h PO 500 mg QAM [facility] Administration Intake and Output 06/26/24 06/27/24 06/27/24 22:59 06:59 14:59 Intake Total 480 115.0 180 Output Total 400 800 Balance 480 -285.0 -620 Intake: Intake, IV Titration 115.0 Amount Diltiazem 125 mg In 45.5 Sodium Chloride 0.9% 100 ml @ 5 MG/HR 5 mls/hr IV .Q24H [facility] Rx#:[id number] Heparin Sod,Pork in 0.45% 69.5 NaCl 25,000 unit In 0.45 % NaCl 1 250ml.bag @ 10. 548 UNITS/KG/HR 10 mls/hr IV .Q24H [facility] Rx#: [id number] Oral 480 180 Output: Urine 400 800 Other: Voiding Method Urinal Urinal Weight 94.801 kg 94.5 kg 06/27/24 03:03 06/27/24 03:03
--- NOTE | 2024-06-27 12:28 | CA ---
Transthoracic Echo Report Name: Emmanuel Zabala Age: 83 Gender: M : 1940 Exam Date: 06/27/2024 09:39 Exam Location: [facility] Ht (in): 72 Wt (lb): 209 Ordering Physician: Noel Salazar DO Attending/Referring Phys: Terminal Superintendent Teresita Brooks RDCS Procedure CPT: Indications: a fib Cardiac Hx: CABG Technical Quality: Technically difficult study Contrast 1: Definity Total Dose (mL): 2 Contrast 2: Total Dose (mL): MEASUREMENTS (Male / Female) Normal Values 2D ECHO LV Diastolic Diameter PLAX 5.6 cm 4.2 - 5.9 / 3.9 - 5.3 cm LV Systolic Diameter PLAX 4.3 cm IVS Diastolic Thickness 0.9 cm 0.6 - 1.0 / 0.6 - 0.9 cm LVPW Diastolic Thickness 1.1 cm 0.6 - 1.0 / 0.6 - 0.9 cm LV Relative Wall Thickness 0.4 RV Internal Dim ED PLAX 3.5 cm LVOT Diameter 2.5 cm LA Systolic Diameter LX 4.6 cm 3.0 - 4.0 / 2.7 - 3.8 cm M-MODE Aortic Root Diameter MM 4.0 cm LA Systolic Diameter MM 1.8 cm LA Ao Ratio MM 0.5 DOPPLER AV Peak Velocity 95.6 cm/s AV Peak Gradient 3.7 mmHg Mitral E Point Velocity 68.8 cm/s Mitral A Point Velocity 70.8 cm/s Mitral E to A Ratio 1.0 MV Deceleration Time 397.8 ms MV E' Velocity 6.6 cm/s Mitral E to MV E' Ratio 10.5 FINDINGS Left Ventricle Left ventricular ejection fraction is estimated at 40-45 %. Left ventricular cavity size normal. Left ventricular wall thickness normal. Right Ventricle Mild right ventricular dilatation. Unable to estimate the right ventricular systolic pressure. Right Atrium No right atrial thrombus or mass seen. Left Atrium Mildly increased left atrial diameter. No left atrial thrombus or mass present. Mitral Valve Mitral valve thickened. Trace to mild mitral regurgitation. Mitral annular calcification. Aortic Valve Trileaflet aortic valve. Thickened aortic valve without stenosis. Tricuspid Valve Structurally normal tricuspid valve. No tricuspid stenosis, regurgitation or prolapse. Pulmonic Valve Pulmonic valve not well visualized. Pericardium No pericardial or pleural effusion. Aorta Moderate aortic dilatation at the level of the sinuses of valsalva 40 mm CONCLUSIONS Mildly impaired LV function with EF between 40 to 45% Mildly dilated RV Dilated aorta at the level of sinus of Valsalva Previewed by: Dr. Kane Baum MD (Electronically Signed) Final Date: 27 June 2024 12:28
--- NOTE | 2024-06-27 13:41 | CT ---
EXAMINATION TYPE: CT abdomen pelvis wo con CT DLP: 791.7 mGycm, Automated exposure control for dose reduction was used. DATE OF EXAM: 06/27/2024 1:28 PM COMPARISON: None CLINICAL INDICATION:Male, 83 years old with history of Hematuria; gross hematuria TECHNIQUE: Standard CT of the abdomen and pelvis without IV or oral contrast. Lack of IV or oral co ntrast limits evaluation of solid and hollow organ viscera. Coronal and sagittal reformats were perfo rmed. FINDINGS: LOWER CHEST: Trace right pleural effusion. Advanced centrilobular emphysematous changes with bilatera l lower lobe bronchiectasis with reticular fibrotic changes. Anterior right midlung 7 mm pulmonary no dule (series 204, image 3). Additional right middle lobe lateral 4 mm pulmonary nodule (series 204, i mage 13). Median sternotomy wires. Aortic valvular calcifications. Coronary artery calcifications. ABDOMEN LIVER: Unremarkable noncontrast appearance GALLBLADDER AND BILE DUCTS: Unremarkable noncontrast appearance PANCREAS: Unremarkable noncontrast appearance SPLEEN: Unremarkable noncontrast appearance ADRENAL GLANDS: Right adrenal gland 3.2 cm lesion with Hounsfield unit of 17. Left adrenal gland 3.2 cm lesion with a Hounsfield unit of 13. Additional left adrenal gland lesion measuring 3.0 cm with pu nctate calcification. The measures a Hounsfield unit of 17. KIDNEYS AND URETERS: No right renal hydronephrosis. Bilateral renal calcifications. Represent vascula r calcifications. Moderate left hydronephrosis with hyperdense material. No hydroureter or obstructin g calculus. Nonspecific bilateral perinephric fat stranding. PELVIS BLADDER: Unremarkable REPRODUCTIVE: Prostate is enlarged in size measuring 5.9 cm in transverse dimension. ABDOMEN & PELVIS STOMACH AND BOWEL: Stomach and duodenum are unremarkable. Left inguinal hernia containing unobstructe d sigmoid colon. Distal colonic diverticulosis without evidence for acute diverticulitis. The appendi x is within normal limits. No focal bowel wall thickening or surrounding inflammatory changes. No naina dence of bowel obstruction. PERITONEUM: No evidence of pneumoperitoneum or free fluid. VASCULATURE: Mild to moderate atherosclerotic calcifications are present throughout the abdominal aor ta and its branches. No evidence of aortic aneurysm. MUSCULOSKELETAL: No acute osseous abnormalities. Advanced degenerative changes of the SI joints and r ight greater the left. Prominent right anterior bridging. Multilevel degenerative disc disease of the visualized spine. DISH of the lower thoracic spine. LYMPH NODES: No gross evidence for lymphadenopathy. SOFT TISSUE/ABDOMINAL WALL: Left inguinal hernia containing nonobstructive sigmoid colon. IMPRESSION: 1. Moderate left hydronephrosis without obstructing calculus. Hyperdense appearance to the hydroneph rosis suggesting possible underlying blood products. Underlying malignancy is not excluded. Limited e valuation due to lack of intravenous contrast. Consider further evaluation with CT urogram versus dir ect visualization. 2. Indeterminate bilateral adrenal gland masses. Further evaluation with CT abdomen adrenal mass pro tocol is recommended. 3. Left inguinal hernia containing nonobstructed sigmoid colon. 4. Distal colonic diverticulosis without evidence for acute diverticulitis. 5. Prostatomegaly. Correlate with PSA values. [facility], , 06/27/2024 1:39 PM
--- NOTE | 2024-06-27 17:10 | P.GSCN ---
History of Present Illness Consult date: 06/27/24 Reason for Consult: Hematuria Requesting physician: Jazmin Alvarado History of present illness: The patient is an 83-year-old white male who underwent a TURP by Dr. Tavares in May 2019 for urinary retention. He was last seen in our office in July 2019, and was confirmed to be emptying his bladder adequately at that time. He presented to the ER and was admitted with palpitations and dyspnea. He has been diagnosed with atrial flutter. Cardiology wishes for him to receive anticoagulation, but he has experienced intermittent gross painless hematuria for approximately 2 years. He has quit taking aspirin, as the hematuria improves when he is not taking aspirin. He has passed clots that time. CT scan performed earlier today showed evidence of left hydronephrosis with hyperdense material within the left intrarenal collecting system, consistent with blood. Review of Systems - Constitutional Denies chills, Denies fever - Cardiovascular Reports as per HPI - Genitourinary Reports hematuria, Denies dysuria, Denies flank pain Past Medical History Past Medical History: Chest Pain / Angina, COPD, Myocardial Infarction (MD), Prostate Disorder Additional Past Medical History / Comment(s): Current SOB with exertiona and intermittent chest pain. Hx irregular heartbeat, enlarged prostate, MD x 2, CABG 9 years ago. Last Myocardial Infarction Date:: 1998 History of Any Multi-Drug Resistant Organisms: None Reported Past Surgical History: Coronary Bypass/CABG, Heart Catheterization, Heart Catheterization With Stent, Tonsillectomy Additional Past Surgical History / Comment(s): Quadruple bypass 9 years ago, cardiac stents x2. Past Anesthesia/Blood Transfusion Reactions: No Reported Reaction Additional Past Anesthesia/Blood Transfusion Reaction / Comm: no known hx blood transfusion Date of Last Stent Placement:: unk Past Psychological History: No Psychological Hx Reported Smoking Status: Former smoker Past Alcohol Use History: None Reported Additional Past Alcohol Use History / Comment(s): started smoking approx 65 yrs ago. Quit smoking 1 month ago. Past Drug Use History: None Reported - Past Family History Father Family Medical History: No Reported History Mother Family Medical History: Cancer Medications and Allergies Home Medications Medication Instructions Recorded Confirmed Type atenoloL 25 mg PO HS 11/06/06/26/24 History Nitroglycerin Sl Tabs [Nitrostat] 0.4 mg SUBLINGUAL Q5M PRN #25 tab 11/14/18 06/26/24 Rx Aspirin 81 mg PO DAILY chew 11/28/18 06/26/24 Rx Ticagrelor [Brilinta] 90 mg PO BID #60 tab 11/28/18 06/26/24 Rx Isosorbide Mononitrate ER [Imdur] 60 mg PO BID 05/08/19 06/26/24 History Ranolazine [Ranexa] 500 mg PO QAM 06/26/24 06/26/24 History Allergies Allergy/AdvReac Type Severity Reaction Status Date / Time Iodinated Contrast Media Allergy my face Verified 06/26/24 16:07 [Iodinated Contrast- Oral turned red and IV Dye] and broke out." "Had dye since and no rx Hfgnmpr-YTU-ZvW Reductase AdvReac "Had every Verified 06/26/24 16:07 Inhibitor side [Egpqzml-Cgv-Olv Reductase effect Inhibitor] listed on list of possible side effec Surgical - Exam Vital Signs Temp Pulse Resp BP Pulse Ox 97.4 F L 57 L 28 H 107/62 79 L 06/26/24 14:35 06/26/24 14:35 06/26/24 14:35 06/26/24 14:35 06/26/24 14:35 - General well developed, well nourished, no distress - Respiratory normal respiratory effort - Abdomen Abdomen: soft, non tender, no guarding, no rigid, no rebound Hernia: inguinal - Genitourinary normal penis with no external lesions, testicles non-tender - Psychiatric oriented to time, oriented to person, oriented to place, speech is normal, memory intact Results - Labs 06/27/24 03:03 06/27/24 03:03 Abnormal Lab Results - Last 24 Hours (Table) 06/26/24 06/27/24 06/27/24 Range/Units 15:00 03:03 03:03 RBC 4.02 L (4.30-5.90) m/uL Hgb 11.4 L (13.0-17.5) gm/dL Hct 34.7 L (39.0-53.0) % RDW 15.6 H (11.5-15.5) % APTT (22.0-30.0) sec Chloride 109 H (98-107) mmol/L BUN 23 H (9-20) mg/dL Creatinine 1.81 H (0.66-1.25) mg/dL Glucose 112 H (74-99) mg/dL HDL Cholesterol 30.70 L (40.00-60.00) mg/dL TSH 8.020 H (0.465-4.680) mIU/L 06/27/24 Range/Units 03:03 RBC (4.30-5.90) m/uL Hgb (13.0-17.5) gm/dL Hct (39.0-53.0) % RDW (11.5-15.5) % APTT 47.7 H (22.0-30.0) sec Chloride (98-107) mmol/L BUN (9-20) mg/dL Creatinine (0.66-1.25) mg/dL Glucose (74-99) mg/dL HDL Cholesterol (40.00-60.00) mg/dL TSH (0.465-4.680) mIU/L Diabetes panel 06/27/24 Range/Units 03:03 Sodium 138 (137-145) mmol/L Potassium 4.5 (3.5-5.1) mmol/L Chloride 109 H (98-107) mmol/L Carbon Dioxide 22 (22-30) mmol/L BUN 23 H (9-20) mg/dL Creatinine 1.81 H (0.66-1.25) mg/dL Glucose 112 H (74-99) mg/dL Calcium 8.4 (8.4-10.2) mg/dL Triglycerides 112.00 (0.00-149.00) mg/dL HDL Cholesterol 30.70 L (40.00-60.00) mg/dL Thyroid panel 06/26/24 Range/Units 15:00 TSH 8.020 H (0.465-4.680) mIU/L Calcium panel 06/27/24 Range/Units 03:03 Calcium 8.4 (8.4-10.2) mg/dL Pituitary panel 06/26/24 06/27/24 Range/Units 15:00 03:03 Sodium 138 (137-145) mmol/L Potassium 4.5 (3.5-5.1) mmol/L Chloride 109 H (98-107) mmol/L Carbon Dioxide 22 (22-30) mmol/L BUN 23 H (9-20) mg/dL Creatinine 1.81 H (0.66-1.25) mg/dL Glucose 112 H (74-99) mg/dL Calcium 8.4 (8.4-10.2) mg/dL TSH 8.020 H (0.465-4.680) mIU/L Adrenal panel 06/27/24 Range/Units 03:03 Sodium 138 (137-145) mmol/L Potassium 4.5 (3.5-5.1) mmol/L Chloride 109 H (98-107) mmol/L Carbon Dioxide 22 (22-30) mmol/L BUN 23 H (9-20) mg/dL Creatinine 1.81 H (0.66-1.25) mg/dL Glucose 112 H (74-99) mg/dL Calcium 8.4 (8.4-10.2) mg/dL - Imaging CT scan - abdomen: report reviewed, image reviewed Assessment and Plan (1) Gross hematuria Current Visit: Yes Status: Acute Code(s): R31.0 - GROSS HEMATURIA SNOMED Code(s): 048057172 Plan: I have explained to Mr. Zabala that the source of hematuria appears to be the left kidney, and that the differential diagnosis includes malignancy. He has been scheduled to undergo cystoscopy, possible bladder biopsy, retrograde pyelog marry, ureteroscopy with possible biopsy, possible ureteral stent insertion tomorrow morning. Potential risks have been reviewed, including anesthesia, bleeding, infection, and ureteral injury. Time with Patient: Greater than 30
--- NOTE | 2024-06-28 05:27 | PN ---
PROGRESS NOTE DATE OF SERVICE: 06/27/2024 SUBJECTIVE: This is an 83-year-old gentleman admitted with atrial fibrillation with fast ventricular rate, started on heparin as well as Cardizem. The patient improved significantly. However, the patient developed hematuria, which is ongoing for some time according to him. CT scan of the abdomen and pelvis showed moderate left-sided hydronephrosis without any obstructing calculi and hyperdense appearance of the hydronephrosis with possible underlying blood products. Underlying malignancy is not indeterminate. Bilateral adrenal mass is also noted. PAST MEDICAL HISTORY: Reviewed. REVIEW OF SYSTEMS: A 14-point review of systems is negative except as mentioned above. CURRENT MEDICATIONS: Noted. PHYSICAL EXAMINATION: VITAL SIGNS: Pulse is 59, blood pressure 119/60, respirations 16. HEENT: Conjunctivae normal. NECK: No JVD. CARDIOVASCULAR: S1, S2. RESPIRATIONS: Breath sounds diminished at the bases. ABDOMEN: Soft, nontender. NERVOUS SYSTEM: Nonfocal. LABORATORY DATA: Hemoglobin 11.4, creatinine 1.81. ASSESSMENT: 1. Atrial fibrillation with fast ventricular rate. 2. Hematuria with moderate left hydronephrosis. 3. Indeterminate bilateral adrenal gland masses. 4. Chest pain, possible unstable angina. 5. Chronic kidney, stage 3. 6. Chronic obstructive pulmonary disease. 7. History of myocardial infarction. 8. History of coronary artery disease, coronary artery bypass graft stent. RECOMMENDATIONS AND DISCUSSION: I recommend to continue current management and continue symptomatic treatment. Continue with antiplatelet agents. Otherwise, recommend closely follow with Cardiology. Hold anticoagulants and consult with Urology. Guarded prognosis because of multiple complex medical issues. Further recommendations to follow. Repeat labs will be ordered. MMODL / IJN: [id number] /
[2024-06-28 08:15] LABS: Basophils # (A) 0.1 k/uL (0-0.2); Basophils % (A) 1 %; Eosinophils # (A) 0.2 k/uL (0-0.7); Eosinophils % (A) 2 %; HCT 39.9 % (39.0-53.0); HGB 12.5 gm/dL (13.0-17.5); Lymphocytes # (A) 1.6 k/uL (1.0-4.8); Lymphocytes % (A) 18 %; MCH 27.4 pg (25.0-35.0); MCHC 31.2 g/dL (31.0-37.0); MCV 87.7 fL (80.0-100.0); Mean Platelet Volume 7.1; Monocytes # (A) 0.5 k/uL (0-1.0); Monocytes % (A) 6 %; Neutrophils # (A) 6.7 k/uL (1.3-7.7); Neutrophils % (A) 72 %; Platelet Count 289 k/uL (150-450); RBC 4.56 m/uL (4.30-5.90); RDW 15.7 % (11.5-15.5); WBC 9.2 k/uL (3.8-10.6)
[2024-06-28 09:09] LABS: ALT 11 U/L (4-49); AST 17 U/L (17-59); African American GFR (CKD) 38 (>60 ml/min/1.73 sqM); Albumin 3.4 g/dL (3.5-5.0); Alkaline Phosphatase 64 U/L (38-126); Anion Gap 7 mmol/L; Blood Urea Nitrogen 27 mg/dL (9-20); Carbon Dioxide 23 mmol/L (22-30); Chloride 107 mmol/L (98-107); Glucose 121 mg/dL (74-99); Non-African American GFR(CKD) 33 (>60 ml/min/1.73 sqM); Potassium 5.3 mmol/L (3.5-5.1); Sodium 137 mmol/L (137-145); Total Bilirubin 0.6 mg/dL (0.2-1.3); Total Protein 6.9 g/dL (6.3-8.2)
[2024-06-28] MEDS: IV FLUID CONTINUATION 1,000 ML IV ONE (09:18)
[2024-06-28] MEDS: ONDANSETRON 4 MG/2 ML VIAL IVP STA (09:37)
[2024-06-28] MEDS ORDERED: fentaNYL (PF) 50 MCG/ML 2 ML AMP ONE (09:44)
[2024-06-28] MEDS ORDERED: PHENYLEPHRINE 10 MG/ML VIAL ONE (09:44)
[2024-06-28] MEDS ORDERED: LIDOCAINE 1% INJ 10MG/ML (20 ML MDV) ONE (09:44)
[2024-06-28] MEDS ORDERED: PROPOFOL 10 MG/ML 20 ML VIAL IV ONE (09:44)
[2024-06-28] MEDS: IOPAMIDOL-370 50ML BTL MISCELLANE ONE (10:11)
--- NOTE | 2024-06-28 11:02 | P.OP ---
Date of Procedure: 06/28/24 Preoperative Diagnosis: Gross hematuria Postoperative Diagnosis: Gross hematuria, left renal pelvic tumor Procedure(s) Performed: Cystoscopy, bilateral retrograde pyelograms, left ureteroscopy with biopsies, left ureteral stent insertion Anesthesia: SUNNY Surgeon: Rafael Villegas Estimated Blood Loss (ml): 20 IV fluids (ml): 800 Pathology: other (Left renal pelvic biopsies) Condition: stable Disposition: PACU Indications for Procedure: The patient is an 83-year-old white male who underwent a TURP by Dr. Tavares in May 2019 for urinary retention. He was last seen in our office in July 2019, and was confirmed to be emptying his bladder adequately at that time. He presented to the ER and was admitted with palpitations and dyspnea. He has been diagnosed with atrial flutter. Cardiology wishes for him to receive anticoagulation, but he has experienced intermittent gross painless hematuria for approximately 2 years. He has quit taking aspirin, as the hematuria improves when he is not taking aspirin. He has passed clots at times. CT scan showed evidence of left hydronephrosis with hyperdense material within the left intrarenal collecting system, consistent with blood. He now comes for further evaluation. Operative Findings: Left renal pelvic tumor, actively bleeding. Description of Procedure: The patient was taken to the operating room and placed in the dorsolithotomy position, with legs supported in Wiliam stirrups. The external genitalia was prepped and draped sterilely. The 30 lens was used to introduce the 22-[place] Stortz cystoscopic sheath through the urethra and into the bladder under direct vision. The prostatic urethra showed evidence of prior TURP, with an open prostatic fossa. The bladder was examined in its entirety. Both ureteral orifices were of normal anatomic location and configuration. Bloody urine effluxed from the left ureteral orifice. No tumors or foreign bodies were seen. Using an 8 [place] cone-tip catheter, bilateral retrograde pyelograms were performed. The ureters were both normal in course and caliber, with no filling defects seen. The right intrarenal collecting system appeared normal, with no evidence of hydronephrosis or filling defects. On the left side, only the lower pole calyces opacified. A 0.035 inch Glidewire was passed through the cystoscope. The left ureteral orifice was cannulated, and the Glidewire was sl owly advanced up to the renal pelvis. The cystoscope was removed, and an 11/13 [place] ureteral access catheter was passed over the wire, up to the mid ureter. The flexible ureteroscope was then passed through the ureteral access catheter sheath and advanced under direct vision up to the left renal pelvis, where a tumor was seen. Piranha forceps were used to obtain multiple biopsies. After this was completed, the Glidewire was passed through the ureteral access catheter sheath, which was removed. The Glidewire was backloaded into the cystoscope, which was passed into the bladder. A 28 cm, 6-[place] double-J ureteral stent was placed over the wire. Proper stent positioning was verified fluoroscopically and endoscopically. The bladder was emptied and the cystoscope removed. The patient tolerated the procedure well and was taken to the recovery room in stable condition.
--- NOTE | 2024-06-28 11:16 | FL ---
Fluoroscopy INDICATION: Pain FINDINGS: Fluoroscopy time: 37 seconds. Total dose area product (DAP) in uGy*m?, mGy*cm? (or similar): 5.36 Images obtained: 14. Bilateral retrograde ureterogram performed. IMPRESSION: 1. Documentation of fluoroscopy. [facility], , 06/28/2024 11:13 AM
--- NOTE | 2024-06-28 13:37 | P.PN ---
Subjective HISTORY OF PRESENT ILLNESS: This is a 83-year-old male with a past medical history significant for coronary artery disease with previous CABG and stent placement, COPD, hypertension, hyperlipidemia with statin intolerance, and former nicotine dependence. Patient follows in the office with Dr. Horowitz. We have been asked to see the patient in consultation for atrial fibrillation. Patient examined at the bedside. [facility]. Patient was having palpitations and shortness of breath. An EKG was completed revealing a tachyarrhythmia and the patient was directed to come to the emergency room. EKG on admission reveals atrial flutter. The patient has since converted to sinus mechanism. Patient states he has been having the symptoms for over a year but every time he went into the office they were never able to capture anything on EKG. He reports shortness of breath that baseline due to his COPD. Denies any worsening shortness of breath. Denies any chest pain or pressure. Patient was started on IV Cardizem which has since been stopped. Patient was also started on IV heparin. According to the patient's nurse, patient was having hematuria overnight so his IV heparin was stopped. Hemoglobin this morning is 11.4 down from 13.7 yesterday. According to patient's home medication list he is taking aspirin and Brilinta. The patient states that he still is taking aspirin twice a day but states he has stopped taking aspirin. DIAGNOSTICS: - EKG reveals atrial flutter with RVR. Repeat EKG reveals sinus mechanism with PACs. - Chest xray negative for acute process. - Laboratory data: WBC 8.9. Hemoglobin 11.4. Platelet count 260. Sodium 138. Potassium 4.5. BUN 28. Creatinine 1.81. Magnesium 1.9. Troponin negative x 3. TSH 8.020. Free T41.07. - Current home cardiac medications include atenolol 25 mg at night, Brilinta 90 mg twice a day, Ranexa 500 mg in the morning, Imdur 60 mg twice a day, aspirin 81 mg daily - Most recent echocardiogram obtained in January 2021 revealed ejection fraction 45 to 50%, mild MR, mild TR - Patient underwent Lexiscan stress test in January 2023 revealing abnormal nuclear scan showing evidence of prior inferior wall myocardial infarction with preserved LV function without ischemia - Cardiac catheterization history: March 2020 revealing severe three-vessel coronary artery disease with patent venous graft to OM and FREEDMAN to LAD. Patent stent within the ostium in the midportion of the RCA. 06/28/2024 Patient underwent cystoscopy this morning with left ureteral stent insertion by Dr. Villegas. Patient examined this morning at the bedside. Patient currently denies chest pain or pressure. He denies shortness of breath. Hemoglobin this morning is stable at 12.5. BUN 27. Creatinine 1.85. Telemetry reveals sinus mechanism. Echocardiogram completed revealing ejection fraction 40 to 45%, trace to mild MR PHYSICAL EXAM: VITAL SIGNS: Reviewed. GENERAL: Well-developed in no acute distress. HEENT: Head is normocephalic. Pupils are equal, round. Sclerae anicteric. Mucous membranes of the mouth are moist. Neck supple. No JVD or thyromegaly LUNGS: Respirations even and unlabored. Lungs essentially clear to auscultation bilaterally. HEART: Regular rate and rhythm. S1 and S2 heard. ABDOMEN: Soft. Nondistended. Nontender. EXTREMITIES: Normal range of motion. No clubbing or cyanosis. Peripheral pulses intact. No lower extremity edema NEUROLOGIC: Awake and alert. Oriented x 3. ASSESSMENT: Palpitations New onset typical atrial flutter with RVR, currently maintaining sinus mechanism with PACs New onset hematuria with decrease in hemoglobin, status post cystoscopy with left ureteral stent insertion Left renal pelvic tumor, actively bleeding, biopsy pending Coronary artery disease with previous CABG and stenting Ischemic cardiomyopathy, 45% Acute kidney injury Hypertension Hyperlipidemia with statin intolerance former nicotine dependence COPD PLAN: Continue aspirin 81 mg daily. Brilinta discontinued as patient stenting was greater than 1 year ago. Continue additional cardiac medications Patient with statin intolerance. Patient started on Zetia 10 mg daily Urology following. 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 Biopsy pending. Anticoagulation will likely be contraindicated. Further recommendations pending patient course Nurse practitioner note has been reviewed by physician. Signing provider agrees with the documented findings, assessment, and plan of care documented by [employer]ER as a scribe. Objective - Vital Signs Vital signs: Vital Signs Temp 97.2 F L 06/28/24 11:03 Pulse 49 L 06/28/24 11:33 Resp 16 06/28/24 11:33 BP 163/80 06/28/24 11:33 Pulse Ox 100 06/28/24 11:33 FiO2 Intake & Output 1106/28/24 06/28/24 18:59 06:59 18:59 Intake Total 540 250 Output Total 1500 400 570 Balance -960 -400 -320 Weight 91.8 kg Intake: IV 250 Oral 540 Output: Urine 1500 400 550 Estimated Blood Loss 20 Other: Voiding Method Urinal Urinal Urinal # Voids 2 - Labs CBC & Chem 7: 06/28/24 07:56 06/28/24 07:56 Labs: Abnormal Lab Results - Last 24 Hours (Table) 06/28/24 06/28/24 Range/Units 07:56 07:56 Hgb 12.5 L (13.0-17.5) gm/dL RDW 15.7 H (11.5-15.5) % Potassium 5.3 H (3.5-5.1) mmol/L BUN 27 H (9-20) mg/dL Creatinine 1.85 H (0.66-1.25) mg/dL Glucose 121 H (74-99) mg/dL Albumin 3.4 L (3.5-5.0) g/dL
[2024-06-28] MEDS: ACETAMINOPHEN TAB 325 MG TAB PO PRN (21:04)
--- NOTE | 2024-06-29 03:53 | PN ---
PROGRESS NOTE DATE OF SERVICE: 06/28/2024 SUBJECTIVE: This is an 83-year-old gentleman, who was admitted with atrial fibrillation with fast ventricular rate, also had hematuria with moderate left hydronephrosis. The patient underwent cystoscopy, bilateral retrograde pyelograms, left ureteroscopy with biopsies of the left ureteral stent insertion by Dr. Villegas. No chest pain. No palpitations. Left renal pelvis tumor biopsy was also done. PAST MEDICAL HISTORY: Reviewed. REVIEW OF SYSTEMS: A 14-point review is negative except as mentioned earlier. CURRENT MEDICATIONS: Reviewed. PHYSICAL EXAMINATION: VITAL SIGNS: Pulse is 62, blood pressure 119/76, respirations 16. CHEST: A few scattered rhonchi and crackles. ABDOMEN: Soft. NERVOUS SYSTEM: Nonfocal. LABORATORY DATA: Creatinine 1.85. Rest of the labs are noted. ASSESSMENT: 1. Atrial fibrillation with fast ventricular rate, present on admission. 2. Hematuria with moderate left hydronephrosis, left pelvis tumor, status post cystoscopy and biopsy. 3. Indeterminate bilateral adrenal gland masses. 4. Chest pain, possible unstable angina. 5. Chronic kidney disease. 6. Chronic obstructive pulmonary disease. 7. History of myocardial infarction. 8. History of coronary artery disease, coronary artery bypass graft stent. RECOMMENDATIONS AND DISCUSSION: Recommend to continue current management and continue symptomatic treatment. Otherwise, I would recommend to continue the current medications. Continue symptomatic treatment. Otherwise, closely follow with Cardiology. The patient is on Tylenol. Repeat labs will be ordered. Watch for any hematuria. Await biopsy reports. Guarded prognosis. Further recommendations to follow. MMODL / IJN: [id number] /
[2024-06-29] MEDS: SODIUM CHLORIDE 0.9% 500 ML 500 ML IV STA (03:59)
[2024-06-29 07:39] LABS: Anisocytosis Slight; Basophils % (A) 0 %; Eosinophils # (A) 0.2 k/uL (0-0.7); Eosinophils % (A) 2 %; HCT 35.6 % (39.0-53.0); HGB 11.4 gm/dL (13.0-17.5); Lymphocytes # (A) 1.3 k/uL (1.0-4.8); Lymphocytes % (A) 14 %; MCH 27.6 pg (25.0-35.0); MCHC 32.1 g/dL (31.0-37.0); MCV 85.9 fL (80.0-100.0); Mean Platelet Volume 7.7; Monocytes # (A) 0.5 k/uL (0-1.0); Monocytes % (A) 5 %; Neutrophils # (A) 7.5 k/uL (1.3-7.7); Neutrophils % (A) 78 %; Platelet Count 256 k/uL (150-450); RBC 4.14 m/uL (4.30-5.90); WBC 9.7 k/uL (3.8-10.6)
[2024-06-29 07:56] LABS: African American GFR (CKD) 37 (>60 ml/min/1.73 sqM); Anion Gap 5 mmol/L; Blood Urea Nitrogen 26 mg/dL (9-20); Calcium 8.3 mg/dL (8.4-10.2); Carbon Dioxide 22 mmol/L (22-30); Chloride 107 mmol/L (98-107); Glucose 112 mg/dL (74-99); Non-African American GFR(CKD) 32 (>60 ml/min/1.73 sqM); Potassium 4.9 mmol/L (3.5-5.1); Sodium 134 mmol/L (137-145)
--- NOTE | 2024-06-29 13:03 | P.PN ---
Subjective HISTORY OF PRESENT ILLNESS: This is a 83-year-old male with a past medical history significant for coronary artery disease with previous CABG and stent placement, COPD, hypertension, hyperlipidemia with statin intolerance, and former nicotine dependence. Patient follows in the office with Dr. Horowitz. We have been asked to see the patient in consultation for atrial fibrillation. Patient examined at the bedside. [facility]. Patient was having palpitations and shortness of breath. An EKG was completed revealing a tachyarrhythmia and the patient was directed to come to the emergency room. EKG on admission reveals atrial flutter. The patient has since converted to sinus mechanism. Patient states he has been having the symptoms for over a year but every time he went into the office they were never able to capture anything on EKG. He reports shortness of breath that baseline due to his COPD. Denies any worsening shortness of breath. Denies any chest pain or pressure. Patient was started on IV Cardizem which has since been stopped. Patient was also started on IV heparin. According to the patient's nurse, patient was having hematuria overnight so his IV heparin was stopped. Hemoglobin this morning is 11.4 down from 13.7 yesterday. According to patient's home medication list he is taking aspirin and Brilinta. The patient states that he still is taking aspirin twice a day but states he has stopped taking aspirin. DIAGNOSTICS: - EKG reveals atrial flutter with RVR. Repeat EKG reveals sinus mechanism with PACs. - Chest xray negative for acute process. - Laboratory data: WBC 8.9. Hemoglobin 11.4. Platelet count 260. Sodium 138. Potassium 4.5. BUN 28. Creatinine 1.81. Magnesium 1.9. Troponin negative x 3. TSH 8.020. Free T41.07. - Current home cardiac medications include atenolol 25 mg at night, Brilinta 90 mg twice a day, Ranexa 500 mg in the morning, Imdur 60 mg twice a day, aspirin 81 mg daily - Most recent echocardiogram obtained in January 2021 revealed ejection fraction 45 to 50%, mild MR, mild TR - Patient underwent Lexiscan stress test in January 2023 revealing abnormal nuclear scan showing evidence of prior inferior wall myocardial infarction with preserved LV function without ischemia - Cardiac catheterization history: March 2020 revealing severe three-vessel coronary artery disease with patent venous graft to OM and FREEDMAN to LAD. Patent stent within the ostium in the midportion of the RCA. 06/28/2024 Patient underwent cystoscopy this morning with left ureteral stent insertion by Dr. Villegas. Patient examined this morning at the bedside. Patient currently denies chest pain or pressure. He denies shortness of breath. Hemoglobin this morning is stable at 12.5. BUN 27. Creatinine 1.85. Telemetry reveals sinus mechanism. Echocardiogram completed revealing ejection fraction 40 to 45%, trace to mild MR 06/29/2024 Patient examined this morning at bedside. Patient currently denies chest pain or pressure. He denies shortness of breath. Telemetry reveals sinus mechanism with frequent PACs. Patient was hypotensive overnight and required IV fluid bolus with improvement in his blood pressure. However blood pressures are soft again this morning with a reading of 88/51. PHYSICAL EXAM: VITAL SIGNS: Reviewed. GENERAL: Well-developed in no acute distress. HEENT: Head is normocephalic. Pupils are equal, round. Sclerae anicteric. Mucous membranes of the mouth are moist. Neck supple. No JVD or thyromegaly LUNGS: Respirations even and unlabored. Lungs essentially clear to auscultation bilaterally. HEART: Mildly tachycardic. Regular rate and rhythm. S1 and S2 heard. ABDOMEN: Soft. Nondistended. Nontender. EXTREMITIES: Normal range of motion. No clubbing or cyanosis. Peripheral pulses intact. No lower extremity edema NEUROLOGIC: Awake and alert. Oriented x 3. ASSESSMENT: Palpitations New onset typical atrial flutter with RVR, currently maintaining sinus mechanism with PACs New onset hematuria with decrease in hemoglobin, status post cystoscopy with left ureteral stent insertion Left renal pelvic tumor, actively bleeding, biopsy pending Coronary artery disease with previous CABG and stenting Ischemic cardiomyopathy, 45% Acute kidney injury Hypertension Hyperlipidemia with statin intolerance former nicotine dependence COPD PLAN: Continue aspirin 81 mg daily. Brilinta discontinued as patient stenting was greater than 1 year ago. Discontinue Imdur secondary to hypotension Continue additional cardiac medications Patient with statin intolerance. Patient started on Zetia 10 mg daily Urology following. 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 Biopsy pending. Anticoagulation will likely be contraindicated. Further recommendations pending patient course Nurse practitioner note has been reviewed by physician. Signing provider agrees with the documented findings, assessment, and plan of care documented by BED TEACHER as a scribe. Objective - Vital Signs Vital signs: Vital Signs Temp 98.2 F 06/29/24 08:10 Pulse 105 H 06/29/24 08:10 Resp 16 06/29/24 08:10 BP 88/51 06/29/24 08:10 Pulse Ox 98 06/29/24 08:10 FiO2 Intake & Output 06/28/24 06/29/24 06/29/24 18:59 06:59 18:59 Intake Total 966 358 Output Total 770 625 Balance 196 -625 358 Weight 85.5 kg Intake: IV 250 Oral 716 358 Output: Urine 750 625 Estimated Blood Loss 20 Other: Voiding Method Urinal Urinal Urinal # Voids 2 - Labs CBC & Chem 7: 06/29/24 06:53 06/29/24 06:53 Labs: Abnormal Lab Results - Last 24 Hours (Table) 06/29/24 06/29/24 Range/Units 06:53 06:53 RBC 4.14 L (4.30-5.90) m/uL Hgb 11.4 L (13.0-17.5) gm/dL Hct 35.6 L (39.0-53.0) % RDW 16.0 H (11.5-15.5) % Sodium 134 L (137-145) mmol/L BUN 26 H (9-20) mg/dL Creatinine 1.92 H (0.66-1.25) mg/dL Glucose 112 H (74-99) mg/dL Calcium 8.3 L (8.4-10.2) mg/dL
--- NOTE | 2024-06-29 14:29 | P.PN ---
Subjective Progress Note Date: 06/29/24 Principal diagnosis: Hematuria, left renal pelvic neoplasm The patient underwent cystoscopy, bilateral retrograde pyelograms, and left ureteroscopy yesterday. He was found to have a left renal pelvic tumor, and biopsies were obtained. This is suspicious for urothelial carcinoma. Unfortunately, there is no way to control the bleeding at this time. Patient does state that his gross hematuria is somewhat improved in severity. Objective - Vital Signs Vital signs: Vital Signs Temp 98.9 F 06/28/24 20:17 Pulse 87 06/29/24 03:56 Resp 22 06/29/24 03:56 BP 103/63 06/29/24 03:56 Pulse Ox 93 L 06/29/24 03:56 FiO2 Intake & Output 06/28/24 06/29/24 06/29/24 18:59 06:59 18:59 Intake Total 966 Output Total 770 625 Balance 196 -625 Weight 85.5 kg Intake: IV 250 Oral 716 Output: Urine 750 625 Estimated Blood Loss 20 Other: Voiding Method Urinal Urinal # Voids 2 - Constitutional General appearance: Present: average body habitus, cooperative, no acute distress - Psychiatric Psychiatric: Present: A&O x's 3 - Labs CBC & Chem 7: 06/29/24 06:53 06/29/24 06:53 Labs: Abnormal Lab Results - Last 24 Hours (Table) 06/28/24 06/28/24 Range/Units 07:56 07:56 Hgb 12.5 L (13.0-17.5) gm/dL RDW 15.7 H (11.5-15.5) % Potassium 5.3 H (3.5-5.1) mmol/L BUN 27 H (9-20) mg/dL Creatinine 1.85 H (0.66-1.25) mg/dL Glucose 121 H (74-99) mg/dL Albumin 3.4 L (3.5-5.0) g/dL Assessment and Plan (1) Gross hematuria Current Visit: Yes Status: Acute Code(s): R31.0 - GROSS HEMATURIA SNOMED Code(s): 495713321 (2) 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 I am unable to make any further recommendations until the biopsy results are completed. If he is confirmed to have urothelial carcinoma of the left renal pelvis, he will be advised to undergo a left nephroureterectomy.
[2024-06-29] MEDS: SODIUM CHLORIDE 0.9% 1,000 ML IV SCH (18:02)
--- NOTE | 2024-06-30 05:06 | PN ---
PROGRESS NOTE DATE OF SERVICE: 06/29/2024 SUBJECTIVE: This is an 83-year-old gentleman, who was admitted with atrial fibrillation with fast ventricular rate, also had hematuria. No chest pain. No palpitation. No fever. The patient is not on anticoagulation. He is on aspirin. PHYSICAL EXAMINATION: VITAL SIGNS: Pulse is 69, blood pressure 100/61, respirations 16. CHEST: Clear to auscultation. CARDIOVASCULAR: S1 and S2. ABDOMEN: Soft. NERVOUS SYSTEM: Nonfocal. LABORATORY DATA: Hemoglobin 11.4. Rest of labs are noted. ASSESSMENT: 1. Atrial fibrillation with fast ventricular rate present on admission. 2. Hematuria with moderate left hydronephrosis, left pelvic tumor status post cystoscopy and biopsy. 3. Indeterminate bilateral adrenal gland masses. 4. Chest pain with possible unstable angina, improved. 5. History of chronic kidney disease. 6. Chronic obstructive pulmonary disease. 7. History of myocardial infarction. 8. History of coronary artery disease, coronary artery bypass grafting with stent. RECOMMENDATIONS AND DISCUSSION: Recommend to continue current management and continue symptomatic treatment. Monitor hemoglobin closely hematuria appears to be abating at this time. We will closely monitor. Follow with Cardiology. Further recommendations to follow. MMODL / IJN: [id number] /
[2024-06-30 07:42] LABS: Basophils % (A) 0 %; Eosinophils # (A) 0.1 k/uL (0-0.7); Eosinophils % (A) 2 %; HCT 36.5 % (39.0-53.0); HGB 11.8 gm/dL (13.0-17.5); Lymphocytes # (A) 1.5 k/uL (1.0-4.8); Lymphocytes % (A) 17 %; MCH 28.4 pg (25.0-35.0); MCHC 32.4 g/dL (31.0-37.0); MCV 87.5 fL (80.0-100.0); Mean Platelet Volume 7.3; Monocytes # (A) 0.6 k/uL (0-1.0); Monocytes % (A) 6 %; Neutrophils # (A) 6.5 k/uL (1.3-7.7); Neutrophils % (A) 73 %; Platelet Count 280 k/uL (150-450); RBC 4.17 m/uL (4.30-5.90); RDW 15.9 % (11.5-15.5); WBC 8.9 k/uL (3.8-10.6)
[2024-06-30 08:03] LABS: African American GFR (CKD) 36 (>60 ml/min/1.73 sqM); Anion Gap 5 mmol/L; Blood Urea Nitrogen 27 mg/dL (9-20); Calcium 8.7 mg/dL (8.4-10.2); Carbon Dioxide 24 mmol/L (22-30); Chloride 106 mmol/L (98-107); Glucose 103 mg/dL (74-99); Non-African American GFR(CKD) 31 (>60 ml/min/1.73 sqM); Potassium 4.7 mmol/L (3.5-5.1); Sodium 135 mmol/L (137-145)
--- NOTE | 2024-06-30 14:40 | P.PN ---
Subjective Progress Note Date: 06/30/24 HISTORY OF PRESENT ILLNESS: This is a 83-year-old male with a past medical history significant for coronary artery disease with previous CABG and stent placement, COPD, hypertension, hyperlipidemia with statin intolerance, and former nicotine dependence. Patient follows in the office with Dr. Horowitz. We have been asked to see the patient in consultation for atrial fibrillation. Patient examined at the bedside. [facility] an [facility]. Patient was having palpitations and shortness of breath. An EKG was completed revealing a tachyarrhythmia and the patient was directed to come to the emergency room. EKG on admission reveals atrial flutter. The patient has since converted to sinus mechanism. Patient states he has been having the symptoms for over a year but every time he went into the office they were never able to capture anything on EKG. He reports shortness of breath that baseline due to his COPD. Denies any worsening shortness of breath. Denies any chest pain or pressure. Patient was started on IV Cardizem which has since been stopped. Patient was also started on IV heparin. According to the patient's nurse, patient was having hematuria overnight so his IV heparin was stopped. Hemoglobin this morning is 11.4 down from 13.7 yesterday. According to patient's home medication list he is taking aspirin and Brilinta. The patient states that he still is taking aspirin twice a day but states he has stopped taking aspirin. DIAGNOSTICS: - EKG reveals atrial flutter with RVR. Repeat EKG reveals sinus mechanism with PACs. - Chest xray negative for acute process. - Laboratory data: WBC 8.9. Hemoglobin 11.4. Platelet count 260. Sodium 138. Potassium 4.5. BUN 28. Creatinine 1.81. Magnesium 1.9. Troponin negative x 3. TSH 8.020. Free T41.07. - Current home cardiac medications include atenolol 25 mg at night, Brilinta 90 mg twice a day, Ranexa 500 mg in the morning, Imdur 60 mg twice a day, aspirin 81 mg daily - Most recent echocardiogram obtained in January 2021 revealed ejection fraction 45 to 50%, mild MR, mild TR - Patient underwent Lexiscan stress test in January 2023 revealing abnormal nuclear scan showing evidence of prior inferior wall myocardial infarction with preserved LV function without ischemia - Cardiac catheterization history: March 2020 revealing severe three-vessel coronary artery disease with patent venous graft to OM and FREEDMAN to LAD. Patent stent within the ostium in the midportion of the RCA. 06/28/2024 Patient underwent cystoscopy this morning with left ureteral stent insertion by Dr. Villegas. Patient examined this morning at the bedside. Patient currently denies chest pain or pressure. He denies shortness of breath. Hemoglobin this morning is stable at 12.5. BUN 27. Creatinine 1.85. Telemetry reveals sinus mechanism. Echocardiogram completed revealing ejection fraction 40 to 45%, trace to mild MR 06/29/2024 Patient examined this morning at bedside. Patient currently denies chest pain or pressure. He denies shortness of breath. Telemetry reveals sinus mechanism with frequent PACs. Patient was hypotensive overnight and required IV fluid bolus with improvement in his blood pressure. However blood pressures are soft again this morning with a reading of 88/51. 06/30/2024 Patient seen and examined. Patient states that he had a little bit of chest pain this morning that lasted a few minutes. He did not receive nitroglycerin as it was gone by the time the nurse came back. Blood pressure 95/45. He states he always has shortness of breath due to his COPD and history of smoking for 70 years. He states he has some lightheadedness and dizziness when he goes to a standing position and takes a few steps. He did not have this problem this morning though Imdur was discontinued yesterday due to low blood pressure. PHYSICAL EXAM: VITAL SIGNS: Reviewed. GENERAL: Well-developed in no acute distress. HEENT: Head is normocephalic. Pupils are equal, round. Sclerae anicteric. Mucous membranes of the mouth are moist. Neck supple. No JVD or thyromegaly LUNGS: Respirations even and unlabored. Lungs essentially clear to auscultation bilaterally. HEART: Mildly tachycardic. Regular rate and rhythm. S1 and S2 heard. ABDOMEN: Soft. Nondistended. Nontender. EXTREMITIES: No clubbing or cyanosis. Peripheral pulses intact. No lower extremity edema NEUROLOGIC: Awake and alert. Oriented x 3. ASSESSMENT: Palpitations New onset typical atrial flutter with RVR, currently maintaining sinus mechanism with PACs New onset hematuria with decrease in hemoglobin, status post cystoscopy with left ureteral stent insertion Left renal pelvic tumor, actively bleeding, biopsy pending Coronary artery disease with previous CABG and stenting Ischemic cardiomyopathy, 45% Acute kidney injury Hypertension Hyperlipidemia with statin intolerance former nicotine dependence COPD PLAN: Continue aspirin 81 mg daily. Brilinta discontinued as patient stenting was greater than 1 year ago. Resume Imdur at lower dose of 30 mg daily Continue additional cardiac medications: Atenolol 25 mg twice daily, Ranexa 500 mg daily Patient with statin intolerance. Patient started on Zetia 10 mg daily Urology following. 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 Biopsy pending. Anticoagulation will likely be contraindicated. Continue court recording monitor and anticipate discharge home tomorrow Further recommendations pending patient course Nurse practitioner note has been reviewed by physician. Signing provider agrees with the documented findings, assessment, and plan of care documented by FURNITURE FINISHER APPRENTICE as a scribe. Objective - Vital Signs Vital signs: Vital Signs Temp 97.7 F 06/30/24 12:17 Pulse 60 06/30/24 12:17 Resp 18 06/30/24 12:17 BP 116/66 06/30/24 12:17 Pulse Ox 94 L 06/30/24 12:17 FiO2 Intake & Output 06/29/24 06/30/24 06/30/24 18:59 06:59 18:59 Intake Total 956 600 Output Total 300 600 Balance 656 -600 600 Weight 91.3 kg Intake: Oral 956 600 Output: Urine 300 600 Other: Voiding Method Urinal Urinal # Voids 2 1 2 - Labs CBC & Chem 7: 06/30/24 06:11 06/30/24 06:11 Labs: Abnormal Lab Results - Last 24 Hours (Table) 06/30/24 06/30/24 Range/Units 06:11 06:11 RBC 4.17 L (4.30-5.90) m/uL Hgb 11.8 L (13.0-17.5) gm/dL Hct 36.5 L (39.0-53.0) % RDW 15.9 H (11.5-15.5) % Sodium 135 L (137-145) mmol/L BUN 27 H (9-20) mg/dL Creatinine 1.96 H (0.66-1.25) mg/dL Glucose 103 H (74-99) mg/dL
[2024-06-30] MEDS: ISOSORBIDE MONONITRATE ER 30 MG TAB.ER.24H PO SCH (15:00)
[2024-07-01 07:05] LABS: Anisocytosis Slight; Basophils # (A) 0.1 k/uL (0-0.2); Basophils % (A) 1 %; Eosinophils # (A) 0.2 k/uL (0-0.7); Eosinophils % (A) 2 %; HCT 38.1 % (39.0-53.0); HGB 12.6 gm/dL (13.0-17.5); Hypochromasia Slight; Lymphocytes # (A) 1.7 k/uL (1.0-4.8); Lymphocytes % (A) 19 %; MCH 29.4 pg (25.0-35.0); MCV 89.2 fL (80.0-100.0); Mean Platelet Volume 7.4; Monocytes # (A) 0.5 k/uL (0-1.0); Monocytes % (A) 6 %; Neutrophils # (A) 6.2 k/uL (1.3-7.7); Neutrophils % (A) 70 %; Platelet Count 264 k/uL (150-450); RBC 4.27 m/uL (4.30-5.90); WBC 8.8 k/uL (3.8-10.6)
[2024-07-01 07:10] LABS: African American GFR (CKD) 39 (>60 ml/min/1.73 sqM); Anion Gap 8 mmol/L; Blood Urea Nitrogen 28 mg/dL (9-20); Calcium 8.5 mg/dL (8.4-10.2); Carbon Dioxide 22 mmol/L (22-30); Chloride 106 mmol/L (98-107); Glucose 105 mg/dL (74-99); Non-African American GFR(CKD) 34 (>60 ml/min/1.73 sqM); Sodium 136 mmol/L (137-145)
--- NOTE | 2024-07-01 08:23 | PN ---
PROGRESS NOTE DATE OF SERVICE: 06/30/2024 SUBJECTIVE: This is an 83-year-old gentleman admitted with atrial fibrillation, also had hematuria and renal tumor. Cardiology adjusted the medications. No chest pain. No palpitations. No fever. OBJECTIVE: VITAL SIGNS: Pulse 59, blood pressure 119/64, respirations 18. CHEST: A few scattered rhonchi. ABDOMEN: Soft. NERVOUS SYSTEM: Nonfocal. LABORATORY DATA: Creatinine 1.96. ASSESSMENT: 1. Atrial flutter with fast ventricular rate, present on admission, improved. 2. Hematuria with moderate left hydronephrosis, left pelvic tumor, status post cystoscopy and biopsy. 3. Indeterminate bilateral adrenal gland mass. 4. Chest pain with possible unstable angina, improved. 5. History of chronic kidney disease. 6. Multiple complex medical issues. RECOMMENDATIONS AND DISCUSSION: Recommend to continue current management and continue symptomatic treatment. Repeat labs. Cardiology suggests medications. Guarded prognosis. Further recommendations to follow. MMODL / IJN: [id number] /
[2024-07-01] MEDS: ISOSORBIDE MONONITRATE ER 30 MG TAB.ER.24H PO STA (11:44)
[2024-07-01 15:39] VITALS: BP 114/67; PULSE 64; RESP 18; TEMP 98.1
[2024-07-01] MEDS ORDERED: ISOSORBIDE MONONITRATE ER 60 MG TAB.ER.24H PO SCH (21:00)
--- NOTE | 2024-07-02 12:06 | P.PN ---
Subjective Progress Note Date: 07/01/24 HISTORY OF PRESENT ILLNESS: This is a 83-year-old male with a past medical history significant for coronary artery disease with previous CABG and stent placement, COPD, hypertension, hyperlipidemia with statin intolerance, and former nicotine dependence. Patient follows in the office with Dr. Horowitz. We have been asked to see the patient in consultation for atrial fibrillation. Patient examined at the bedside. [facility]. Patient was having palpitations and shortness of breath. An EKG was completed revealing a tachyarrhythmia and the patient was directed to come to the emergency room. EKG on admission reveals atrial flutter. The patient has since converted to sinus mechanism. Patient states he has been having the symptoms for over a year but every time he went into the office they were never able to capture anything on EKG. He reports shortness of breath that baseline due to his COPD. Denies any worsening shortness of breath. Denies any chest pain or pressure. Patient was started on IV Cardizem which has since been stopped. Patient was also started on IV heparin. According to the patient's nurse, patient was having hematuria overnight so his IV heparin was stopped. Hemoglobin this morning is 11.4 down from 13.7 yesterday. According to patient's home medication list he is taking aspirin and Brilinta. The patient states that he still is taking aspirin twice a day but states he has stopped taking aspirin. DIAGNOSTICS: - EKG reveals atrial flutter with RVR. Repeat EKG reveals sinus mechanism with PACs. - Chest xray negative for acute process. - Laboratory data: WBC 8.9. Hemoglobin 11.4. Platelet count 260. Sodium 138. Potassium 4.5. BUN 28. Creatinine 1.81. Magnesium 1.9. Troponin negative x 3. TSH 8.020. Free T41.07. - Current home cardiac medications include atenolol 25 mg at night, Brilinta 90 mg twice a day, Ranexa 500 mg in the morning, Imdur 60 mg twice a day, aspirin 81 mg daily - Most recent echocardiogram obtained in January 2021 revealed ejection fraction 45 to 50%, mild MR, mild TR - Patient underwent Lexiscan stress test in January 2023 revealing abnormal nuclear scan showing evidence of prior inferior wall myocardial infarction with preserved LV function without ischemia - Cardiac catheterization history: March 2020 revealing severe three-vessel coronary artery disease with patent venous graft to OM and FREEDMAN to LAD. Patent stent within the ostium in the midportion of the RCA. 06/28/2024 Patient underwent cystoscopy this morning with left ureteral stent insertion by Dr. Villegas. Patient examined this morning at the bedside. Patient currently denies chest pain or pressure. He denies shortness of breath. Hemoglobin this morning is stable at 12.5. BUN 27. Creatinine 1.85. Telemetry reveals sinus mechanism. Echocardiogram completed revealing ejection fraction 40 to 45%, trace to mild MR 06/29/2024 Patient examined this morning at bedside. Patient currently denies chest pain or pressure. He denies shortness of breath. Telemetry reveals sinus mechanism with frequent PACs. Patient was hypotensive overnight and required IV fluid bolus with improvement in his blood pressure. However blood pressures are soft again this morning with a reading of 88/51. 06/30/2024 Patient seen and examined. Patient states that he had a little bit of chest pain this morning that lasted a few minutes. He did not receive nitroglycerin as it was gone by the time the nurse came back. Blood pressure 95/45. He states he always has shortness of breath due to his COPD and history of smoking for 70 years. He states he has some lightheadedness and dizziness when he goes to a standing position and takes a few steps. He did not have this problem this morning though Imdur was discontinued yesterday due to low blood pressure. 07/01/24 Patient is seen and examined. Right now he is feeling well. He did have some chest pain last night when he was having a bowel movement but none now. Patient was resumed on Imdur yesterday. He states he has been up walking 3-4 times and doing okay. Blood pressure 114/67, heart rate in the 60s and 70s, pulse ox 98% on room air. Repeat blood work reveals hemoglobin 12.6, BUN 28 creatinine 1.83. PHYSICAL EXAM: VITAL SIGNS: Reviewed. GENERAL: Well-developed in no acute distress. HEENT: Head is normocephalic. Pupils are equal, round. Sclerae anicteric. Mucous membranes of the mouth are moist. Neck supple. No JVD or thyromegaly LUNGS: Respirations even and unlabored. Lungs essentially clear to auscultation bilaterally. HEART: Mildly tachycardic. Regular rate and rhythm. S1 and S2 heard. ABDOMEN: Soft. Nondistended. Nontender. EXTREMITIES: No clubbing or cyanosis. Peripheral pulses intact. No lower extremity edema NEUROLOGIC: Awake and alert. Oriented x 3. ASSESSMENT: Palpitations New onset typical atrial flutter with RVR, currently maintaining sinus mechanism with PACs New onset hematuria with decrease in hemoglobin, status post cystoscopy with left ureteral stent insertion Atrial tachycardia with 2:1 conduction Left renal pelvic tumor, actively bleeding, biopsy pending Coronary artery disease with previous CABG and stenting Ischemic cardiomyopathy, 45% Acute kidney injury Hypertension Hyperlipidemia with statin intolerance former nicotine dependence COPD PLAN: Continue aspirin 81 mg daily. Brilinta discontinued as patient stenting was greater than 1 year ago. Resume Imdur at lower dose of 30 mg daily Continue additional cardiac medications: Atenolol 25 mg twice daily, Ranexa 500 mg daily Patient with statin intolerance. Patient started on Zetia 10 mg daily Urology following. 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 Biopsy pending. Anticoagulation will likely be contraindicated. Patient is cleared for discharge from cardiology and may follow-up in the office with Dr. Horowitz in 1 to 2 weeks. Nurse practitioner note has been reviewed by physician. Signing provider agrees with the documented findings, assessment, and plan of care documented by ACCESS DIRECTOR as a scribe. Objective - Vital Signs Vital signs: Vital Signs Temp 97.7 F 07/01/24 08:00 Pulse 72 07/01/24 08:00 Resp 20 07/01/24 08:00 BP 108/64 07/01/24 08:00 Pulse Ox 97 07/01/24 08:00 FiO2 Intake & Output 06/30/24 07/01/24 07/01/24 18:59 06:59 18:59 Intake Total 718 180 Output Total 250 Balance 718 -250 180 Weight 90.7 kg Intake: Oral 718 180 Output: Urine 250 Other: Voiding Method Toilet Urinal # Voids 2 1 - Labs CBC & Chem 7: 07/01/24 06:34 07/01/24 06:34 Labs: Abnormal Lab Results - Last 24 Hours (Table) 07/01/24 07/01/24 Range/Units 06:34 06:34 RBC 4.27 L (4.30-5.90) m/uL Hgb 12.6 L (13.0-17.5) gm/dL Hct 38.1 L (39.0-53.0) % RDW 16.0 H (11.5-15.5) % Sodium 136 L (137-145) mmol/L BUN 28 H (9-20) mg/dL Creatinine 1.83 H (0.66-1.25) mg/dL Glucose 105 H (74-99) mg/dL
--- NOTE | 2024-07-03 11:10 | CDI ---
Documentation Clarification Form Date: 07/03/2024 11:02:54 AM From: Digna Perdue Admit Date: 06/30/2024 01:06:00 PM Patient Name: Emmanuel Zabala Visit Number: [id number] Discharge Date: 07/01/2024 03:40:00 PM ATTENTION: The Clinical Documentation Specialists (CDI) and [facility] Coding Staff appreciate your assistance in clarifying documentation. Please respond to the clarification below the line at the bottom and electronically sign. The CDI & [facility] Coding staff will review the response and follow-up if needed. Please note: Queries are made part of the Legal Health Record. If you have any questions, please contact the author of this message via ITS. Doctor/Provider: Rafael Villegas, The final diagnosis of the pathology report states Low grade non-invasive papillary urothelialcarcinoma. Coding guidelines do not allow coding professionals to code based on pathology results; therefore, clarification is requested. History/risk factors: Typical atrial flutter and fibrillation, LEXII, left hydronephrosis, HTN w CKD stage 3, CAD Clinical Indicators: Patient started on heparin as well as Cardizem for typical atrial flutter and fibrillation. He developed hematuria, which is ongoing for some time according to him. Treatment: Cystoscopy, bilateral retrograde pyelogram, left ureteroscopy with left stent insertion. Please clarify if you agree with the pathology report diagnosis of Low grade non-invasive papillary urothelialcarcinoma: [ x] Yes [ ] No [ ] Other (please specify) [ ] Unable to determine MTDD
--- NOTE | 2024-07-04 10:23 | P.DS ---
Providers Date of admission: 06/30/24 13:06 Expected date of discharge: 07/01/24 Attending physician: Darron Reza Consults: 06/26/24 16:16 Consult Physician Urgent Consulting Provider: Kane Baum Consult Reason/Comments: a fib Do you want consulting provider notified?: Yes 06/27/24 08:16 Consult Physician Routine Consulting Provider: Rafael Villegas Consult Reason/Comments: hematuria, needs anticoag for new a flutter Do you want consulting provider notified?: Yes Primary care physician: Stated None Hospital Course: Final diagnosis Atrial flutter with fast ventricular rate, present on admission, improved Hematuria with moderate left hydronephrosis, left pelvic tuner, status post cystoscopy with biopsy Indeterminate bilateral adrenal gland mass Chest pain with possible unstable angina, improved History of chronic kidney disease GI prophylaxis DVT prophylaxis Full code Discharge disposition Patient is being discharged in a stable condition with guarded prognosis to home. Patient will follow-up with cardiology and urology in the outpatient setting upon discharge. Patient is to continue with current medications. Total time taken is greater than 35 minutes. Hospital course This is a 83-year-old male who was recently admitted with atrial fibrillation with RVR being followed by cardiology. Adjustments to medications made and patient instructed to follow-up with primary care provider on discharge. Patient also evaluated by urology status post cystoscopy with biopsy as patient has hematuria with left sided hydronephrosis. Patient will follow-up with urology outpatient regarding biopsy results. Patient has been cleared by consultations for discharge and patient would like to go home. Currently no reports of chest pain, shortness of breath, or palpitations. Patient is afebrile. No reports of nausea or vomiting and patient is tolerating diet. Patient will be discharged home. Guarded prognosis and high risk for readmissions given patient's significant comorbidities. Physical exam: Gen: This is a 83-year-old male who is awake, alert and oriented x 3, well- developed, elderly appearing HEENT: Head is atraumatic, normocephalic. Pupils equal, round. Sclerae is anicteric. NECK: Supple. No JVD. No lymphadenopathy. No thyromegaly. LUNGS: Clear to auscultation. No wheezes or rhonchi. No intercostal retractions. HEART: S1, S2 are muffled ABDOMEN: Soft. Bowel sounds are present. No masses. No tenderness. EXTREMITIES: No pedal edema. No calf tenderness. NEUROLOGICAL: Patient is awake, alert and oriented x3. Cranial nerves 2 through 12 are grossly intact. Please refer to medication reconciliation sheet for a list of medications. The impression and plan of care has been dictated by Ping Dean, Nurse Practitioner as directed. Dr. Juaquin MD I have performed a history and examination and MDM of this patient, discussed the same with the dictator, and agree with the dictator's assessment and plan as written ,documented as a scribe. Based on total visit time, I have performed more than 50% of the visit. Patient Condition at Discharge: Fair Plan - Discharge Summary Discharge Rx Participant: No New Discharge Prescriptions: New Acetaminophen Tab [Tylenol] 650 mg PO Q6HR PRN tab PRN Reason: Fever and/ or Mild Pain Ezetimibe [Zetia] 10 mg PO DAILY #30 tab Continue Aspirin 81 mg PO DAILY chew Isosorbide Mononitrate ER [Imdur] 60 mg PO BID Ranolazine [Ranexa] 500 mg PO QAM Nitroglycerin Sl Tabs [Nitrostat] 0.4 mg SUBLINGUAL Q5M PRN #25 tab PRN Reason: Chest Pain Changed atenoloL 25 mg PO BID #60 tab Discontinued Ticagrelor [Brilinta] 90 mg PO BID #60 tab Discharge Medication List Aspirin 81 mg PO DAILY chew 11/28/18 [Rx] Isosorbide Mononitrate ER [Imdur] 60 mg PO BID 05/08/19 [History] Ranolazine [Ranexa] 500 mg PO QAM 06/26/24 [History] Acetaminophen Tab [Tylenol] 650 mg PO Q6HR PRN tab 07/01/24 [Rx] Ezetimibe [Zetia] 10 mg PO DAILY #30 tab 07/01/24 [Rx] Nitroglycerin Sl Tabs [Nitrostat] 0.4 mg SUBLINGUAL Q5M PRN #25 tab 07/01/24 [Rx] atenoloL 25 mg PO BID #60 tab 07/01/24 [Rx] Follow up Appointment(s)/Referral(s): aRfael Villegas MD [STAFF PHYSICIAN] - 1 Week (please call to be seen Dr. Villegas i 1 wek ) [facility] [NON-STAFF] - 07/18/24 11:00 am Benigno Horowitz MD [STAFF PHYSICIAN] - 1 Week (Please call and set up follow up appointment to be seen in 1 week.) Patient Instructions/Handouts: A-fib (Atrial Fibrillation) (DC) Activity/Diet/Wound Care/Special Instructions: Activity limited until follow-up Follow-up with primary care provider on discharge Follow-up with cardiology outpatient Continue taking medications as prescribed Do not take nitro for A-fib Discharge Disposition: HOME SELF-CARE
== END 2024-07-01 15:40 | disposition home or self-care (01) | DRG 264 ==
LOC: EC 14:31 → 3SCARD 16:16 → OBSVTOIN 06-30 13:06
PROVIDERS: ADMIT Hospitalist; ATTEND Hospitalist
PROC: 3E033RZ Introduction of Antiarrhythmic into Peripheral Vein, Percutaneous Approach (ICD-10-PCS; 2024-06-26)
PROC: 0TB48ZX Excision of Left Kidney Pelvis, Via Natural or Artificial Opening Endoscopic, Diagnostic (ICD-10-PCS; principal; 2024-06-28 09:30)
PROC: BT141ZZ Fluoroscopy of Kidneys, Ureters and Bladder using Low Osmolar Contrast (ICD-10-PCS; principal; 2024-06-28 09:30)
PROC: 0T778DZ Dilation of Left Ureter with Intraluminal Device, Via Natural or Artificial Opening Endoscopic (ICD-10-PCS; principal; 2024-06-28 09:30)
DX: I25.110 Atherosclerotic heart disease of native coronary artery with unstable angina pectoris (principal); I48.3 Typical atrial flutter; N17.9 Acute kidney failure, unspecified; N13.1 Hydronephrosis with ureteral stricture, not elsewhere classified; R71.0 Precipitous drop in hematocrit; C65.2 Malignant neoplasm of left renal pelvis; Z95.1 Presence of aortocoronary bypass graft; I12.9 Hypertensive chronic kidney disease with stage 1 through stage 4 chronic kidney disease, or unspecified chronic kidney disease; N18.30 Chronic kidney disease, stage 3 unspecified; J44.9 Chronic obstructive pulmonary disease, unspecified; I48.91 Unspecified atrial fibrillation; E27.9 Disorder of adrenal gland, unspecified; I95.9 Hypotension, unspecified; I25.5 Ischemic cardiomyopathy; E78.5 Hyperlipidemia, unspecified; K57.30 Diverticulosis of large intestine without perforation or abscess without bleeding; I25.2 Old myocardial infarction; R31.0 Gross hematuria; N40.0 Benign prostatic hyperplasia without lower urinary tract symptoms; Z79.82 Long term (current) use of aspirin; Z79.02 Long term (current) use of antithrombotics/antiplatelets; Z79.899 Other long term (current) drug therapy; Z87.891 Personal history of nicotine dependence; Z95.5 Presence of coronary angioplasty implant and graft; Z88.8 Allergy status to other drugs, medicaments and biological substances; Z91.041 Radiographic dye allergy status
CPT/HCPCS: 36415; 71046; 74176; 74420; 80048; 80053; 80061; 83735; 84439; 84443; 84481; 84484; 85025; 85610; 85730; 88305; 93005; 93306; 94640; 96374; 99291

== ENCOUNTER → 2024-08-01 | Outpatient (CLI) | payer MEDICARE, BC ==
[2024-08-01 18:58] LABS: BUN/Creat Ratio 13.68 Ratio (12.00-20.00); Calcium 8.9 mg/dL (8.7-10.3); Carbon Dioxide 20.3 mmol/L (21.6-31.8); Chloride 108 mmol/L (96-109); Glucose 129 mg/dL (70-110); Potassium 5.1 mmol/L (3.5-5.5); Sodium 140 mmol/L (135-145)
[2024-08-01 19:00] LABS: Appearance,Urine Turbid (Clear); Bilirubin,Urine Small (Negative); Blood,Urine Small (Negative); Color,Urine Red (Yellow); Ketones,Urine Negative (Negative); Nitrite,Urine Positive (Negative); PH, Urine 5.5; Specific Gravity,Urine 1.022 (1.001-1.030)
[2024-08-01 19:23] LABS: Bacteria,Urine 3+ (None Seen); Calcium Oxalate Crystals,Urine Present (None Seen)
[2024-08-01 19:36] LABS: Basophils # (A) 0.04 X 10*3/uL (0.00-0.10); Basophils % (A) 0.5 %; Eosinophils # (A) 0.05 X 10*3/uL (0.04-0.35); Eosinophils % (A) 0.6 %; HCT 33.1 % (39.6-50.0); HGB 10.2 g/dL (13.0-17.0); Lymphocytes # (A) 1.38 X 10*3/uL (0.90-5.00); Lymphocytes % (A) 15.7 %; MCH 26.5 pg (27.0-32.0); MCHC 30.8 g/dL (32.0-37.0); Mean Platelet Volume 10.2 FL (9.5-12.2); Monocytes # (A) 0.63 X 10*3/uL (0.20-1.00); Monocytes % (A) 7.2 %; NRBC Per 100 WBC 0 X 10*3/uL (0.00-0.01); Neutrophils # (A) 6.63 X 10*3/uL (1.80-7.70); Neutrophils % (A) 75.5 %; Platelet Count 357 X 10*3/uL (140-440); RBC 3.85 X 10*6/uL (4.40-5.60); RDW 15.9 % (11.5-14.5); WBC 8.77 X 10*3/uL (4.50-10.00)
== END | disposition home or self-care (01) ==
LOC: LABPAT 13:12
PROVIDERS: ATTEND Urology
DX: Z01.818 Encounter for other preprocedural examination (principal); C66.2 Malignant neoplasm of left ureter
CPT/HCPCS: 80048; 81001; 85025; 86850; 86900; 86901; 87086

== ENCOUNTER 2024-08-08 09:58 | Inpatient (IN) | payer MEDICARE, BC ==
--- NOTE | 2024-08-06 11:43 | P.GSHP ---
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 Underwent a biopsy by Dr. Villegas which confirmed the finding of TCC. Patient was having gross hematuria secondary to his tumor, he has been subsequently taken off his blood thinners to control his gross hematuria. Discussed with him the lesion is not amenable to endoscopic approach, given extensive involvement. Discussed option of left robotic nephro ureterectomy. Aware of the risk which includes but not limited to bleeding, infection, injury to nearby organs. Potential of cancer recurrence and need of additional treatment was also discussed. He is aware given his baseline CKD he is at a higher risk of needing hemodialysis in the short and the long-term. Medical complications of surgery was also discussed in details. He understood all the risk and agreed to proceed Past Medical History Past Medical History: Atrial Fibrillation, Coronary Artery Disease (CAD), Chest Pain / Angina, COPD, GERD/Reflux, Hearing Disorder / Deafness, Hyperlipidemia, Myocardial Infarction (TX), Prostate Disorder Additional Past Medical History / Comment(s): Current SOB with exertion and intermittent chest pain. Hx irregular heartbeat, enlarged prostate, [place] x 2, CABG 9 years ago. Occasional acid reflux. Last Myocardial Infarction Date:: 1998 History of Any Multi-Drug Resistant Organisms: None Reported Past Surgical History: Coronary Bypass/CABG, Heart Catheterization, Heart Catheterization With Stent, Tonsillectomy Additional Past Surgical History / Comment(s): Quadruple bypass 9 years ago, cardiac stents x2. Past Anesthesia/Blood Transfusion Reactions: No Reported Reaction Additional Past Anesthesia/Blood Transfusion Reaction / Comment(s): no known hx blood transfusion to date. Date of Last Stent Placement:: unk Smoking Status: Former smoker - Past Family History Father Family Medical History: No Reported History Mother Family Medical History: Cancer Additional Family Medical History / Comment(s): Unknown type of cancer Medications and Allergies Home Medications Medication Instructions Recorded Confirmed Type Isosorbide Mononitrate ER [Imdur] 60 mg PO BID 05/08/19 08/01/24 History Ranolazine [Ranexa] 500 mg PO QAM 06/26/24 08/01/24 History Acetaminophen Tab [Tylenol] 650 mg PO Q6HR PRN tab 07/01/24 08/01/24 Rx Nitroglycerin Sl Tabs [Nitrostat] 0.4 mg SUBLINGUAL Q5M PRN #25 tab 07/01/24 08/01/24 Rx atenoloL 25 mg PO BID #60 tab 07/01/24 08/01/24 Rx Aspirin 81 mg PO QAM 08/01/24 08/01/24 History Allergies Allergy/AdvReac Type Severity Reaction Status Date / Time Iodinated Contrast Media Allergy my face Verified 08/01/24 08:52 [Iodinated Contrast- Oral turned red and IV Dye] and broke out." "Had dye since and no rx Npznxnc-NDR-[id number] Reductase AdvReac "Had every Verified 08/01/24 08:52 Inhibitor side [Thvnirl-Eks-Xqv Reductase effect Inhibitor] listed on list of possible side effec Surgical - Exam - General no distress, no pain - Eyes normal ocular movement, no pale - ENT normal nares, normal mucosa - Respiratory normal expansion, normal respiratory effort - Abdomen Abdomen: soft, non tender Assessment and Plan Assessment: OR for robotic left nephro ureterectomy
[2024-08-08] MEDS: DEXAMETHASONE SOD PHOSPHATE 4 MG/ML 1 ML VIAL IV ONE (11:05)
[2024-08-08] MEDS: LACTATED RINGERS 1,000 ML IV SCH (11:05)
[2024-08-08] MEDS: ONDANSETRON 4 MG/2 ML VIAL IVP ONE (11:06)
[2024-08-08] MEDS: fentaNYL (PF) 50 MCG/ML 2 ML AMP IVP PRN (11:11)
[2024-08-08] MEDS: MIDAZOLAM 2 MG/2 ML VIAL IV PRN (11:11)
[2024-08-08] MEDS: IV FLUID CONTINUATION 1,000 ML IV ONE ×3 (11:31→18:11)
[2024-08-08] MEDS: BUPIVACAINE (PF) 0.5% 30 ML VIAL SQ ONE ×3 (13:25→17:08)
--- NOTE | 2024-08-08 13:47 | P.ANPRN ---
Procedure Note - Anesthesia - Nerve Block Performed Bilateral Erector Spinae Single Time Out Performed: Yes (1111) Date of Procedure: 08/08/24 Procedure Start Time: 11:12 Procedure Stop Time: 11:16 Location of Patient: PreOp Indication: Acute Post-Operative Pain, Requested by Surgeon Specifically requested for management of pain by DrLinda: Cooper Ordaz Sedation Type: Sedate with meaningful contact maintained Preparation: Sterile Prep Position: Sitting Catheter: None Needle Types: Pajunk Needle Gauge: 21 Ultrasound used to visualize needle placement: Yes Ultrasound used to observe medication spread: Yes Injectate: 0.5% Ropivacaine (see comment for volume) (15CC + 10CC NACL PF EACH SIDE) Blood Aspirated: No Pain Paresthesia on Injection Noted: No Resistance on Injection: Normal Image Stored and Saved: Yes Events: Uneventful and Well Tolerated
[2024-08-08] MEDS: LACTATED RINGERS 1,000 ML IV ONE (15:25)
[2024-08-08] MEDS: SODIUM CHLORIDE 0.9% 100 ML with ceFAZolin 2,000 MG IV ONE (16:47)
[2024-08-08] MEDS ORDERED: NITROGLYCERIN SL TABS 0.4 MG TAB SUBLINGUAL PRN (17:08)
[2024-08-08] MEDS ORDERED: ACETAMINOPHEN TAB 325 MG TAB PO PRN (17:08)
--- NOTE | 2024-08-08 17:39 | P.OP ---
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 Underwent a biopsy by Dr. Villegas which confirmed the finding of TCC. Patient was having gross hematuria secondary to his tumor, he has been subsequently taken off his blood thinners to control his gross hematuria. Discussed with him the lesion is not amenable to endoscopic approach, given extensive involvement. Discussed option of left robotic nephro ureterectomy. Aware of the risk which includes but not limited to bleeding, infection, injury to nearby organs. Potential of cancer recurrence and need of additional treatment was also discussed. He is aware given his baseline CKD he is at a higher risk of needing hemodialysis in the short and the long-term. Medical complications of surgery was also discussed in details. He understood all the risk and agreed to proceed Description of Procedure: The patient was taken to the operating room . General anesthesia was induced. He was prepped and draped in sterile fashion, she was placed in modified flank position . All pressure points were padded. The abdominal insufflation was achieved with the Veress needle. A 8 mm camera port was placed. Robotic trocars and physician assistant certified ports were placed under direct vision. The robot was docked into place. Patient had a large left-sided inguinal hernia, the sigmoid colon was herniating through the opening. At this point I started with mobilizing the colon more superiorly, the colon was mobilized medially by incising along the white line of Toldt. After the colon was mobilized more superiorly, attention was carried to dissecting the hernia sac, I was able to remove the hernia sac and the sigmoid out of the inguinal canal, at this point in the sigmoid was medialized, which allowed to perform the nephrectomy. But of note there was significant redundancy of the sigmoid colon. Next the spleen and the pancrease were mobilized. Once the bowel, spleen and pancreas were mobilized. At this time the gonadal vessel was visualized. Once the gonadal vessel and ureter was visualized , next after the psoas plane was developed the ureter and gonadal vessel was retracted anteriorly off the psoas muscle. Dissection proceeded cranially towards the renal hilum. The upper pole attachments were dissected. Care was taken to safely mobilize the kidney free of all visceral structures.The renal vessels were dissected. At this point the renal vessels were exposed. Next the renal hilum was ligated using the vascular stapler. The adrenal gland was mobilized. Lateral and remaining kidney attachments were released. The ureter was dissected further distally. I carried the dissection all the way down past the iliac and into the the transluminal ureter. Of note the redundant sigmoid did make the dissection more challenging, I carried the ureter all the way down to the level of the bladder and the ureter and bladder cuff was obtained. At this point the stent was also removed with the ureter. Of note along the posterior peritoneum below the bladder there is an area of bleeding, I attempted to control it with hemostat but there continues to be venous oozing, at this point I placed a usxmkj-ia-tjqin suture using 3 oh V-Loc. Hemostatic agents were applied at that level, and near the adrenal gland. The kidney and the ureter was placed in an Endo Catch bag. JAMAL drain was placed through the lowest incision. The robot was then de-docked and the specimen was then removed by extending the physician assistant certified port. Fascia was closed with one layer using #1 PDS, skin was closed with Monocryl. Patient was awakened from anesthesia and taken to recovery in stable condition
[2024-08-08] MEDS: HYDROmorphone 0.5 MG/0.5 ML SYRINGE IVP PRN (17:47)
[2024-08-08] MEDS: DEXTROSE 5%-0.45% NACL 1,000 ML IV SCH (20:22)
[2024-08-08] MEDS: ISOSORBIDE MONONITRATE ER 60 MG TAB.ER.24H PO SCH (22:16)
[2024-08-08] MEDS: atenoloL 25 MG TAB PO SCH (22:16)
[2024-08-08] MEDS: ONDANSETRON 4 MG/2 ML VIAL IVP PRN (23:42)
[2024-08-08] MEDS: HYDROmorphone 1 MG/ML 1 ML SYRINGE IVP PRN (23:43)
[2024-08-09] MEDS: HEPARIN SODIUM,PORCINE 5,000 UNIT/ML 1 ML VIAL SQ SCH (00:12)
[2024-08-09] MEDS: RANOLAZINE 500 MG TAB.ER.12H PO SCH (09:13)
[2024-08-09 09:14] LABS: Basophils # (A) 0.02 X 10*3/uL (0.00-0.10); Basophils % (A) 0.1 %; Eosinophils # (A) 0 X 10*3/uL (0.04-0.35); Eosinophils % (A) 0 %; HCT 29.3 % (39.6-50.0); HGB 8.5 g/dL (13.0-17.0); Lymphocytes # (A) 1.23 X 10*3/uL (0.90-5.00); MCH 25.1 pg (27.0-32.0); MCV 86.7 FL (80.0-97.0); Mean Platelet Volume 10.1 FL (9.5-12.2); Monocytes # (A) 1.07 X 10*3/uL (0.20-1.00); Monocytes % (A) 7.9 %; NRBC Per 100 WBC 0 X 10*3/uL (0.00-0.01); Neutrophils # (A) 11.25 X 10*3/uL (1.80-7.70); Neutrophils % (A) 82.7 %; Platelet Count 301 X 10*3/uL (140-440); RBC 3.38 X 10*6/uL (4.40-5.60); RDW 15.9 % (11.5-14.5); WBC 13.61 X 10*3/uL (4.50-10.00)
--- NOTE | 2024-08-09 10:45 | P.PN ---
Subjective Progress Note Date: 08/09/24 Status post left nephro ureterectomy, doing well this morning is having incisional pain. Denies any nausea or vomiting Objective - Vital Signs Vital signs: Vital Signs Temp 98.2 F 08/09/24 07:32 Pulse 53 L 08/09/24 07:32 Resp 24 08/09/24 07:32 BP 100/54 08/09/24 07:32 Pulse Ox 100 08/09/24 07:32 FiO2 Intake & Output 08/08/24 08/09/24 08/09/24 18:59 06:59 18:59 Intake Total 3400 340 Output Total 275 385 Balance 3125 -45 Weight 95.8 kg Intake: IV 3400 Intake, IV Titration 290 Amount Lactated Ringers 1,000 ml 240 @ 20 mls/hr IV .Q24H [facility] Rx#:[id number] ceFAZolin 2 gm In Sodium 50 Chloride 0.9% 50 ml @ 100 mls/hr IVPB ONCE PRN Rx# :[id number] Oral 50 Output: Drainage 10 Left Lower Abdomen 10 Urine 225 375 Estimated Blood Loss 50 Other: Voiding Method Indwelling Catheter - Constitutional General appearance: Present: no acute distress - Gastrointestinal General gastrointestinal: Present: soft. Absent: distended, tenderness - Labs CBC & Chem 7: 08/09/24 05:39 08/08/24 10:51 Labs: Abnormal Lab Results - Last 24 Hours (Table) 08/09/24 Range/Units 05:39 WBC 13.61 H (4.50-10.00) X 10*3/uL RBC 3.38 L (4.40-5.60) X 10*6/uL Hgb 8.5 L (13.0-17.0) g/dL Hct 29.3 L (39.6-50.0) % MCH 25.1 L (27.0-32.0) pg MCHC 29.0 L (32.0-37.0) g/dL RDW 15.9 H (11.5-14.5) % Neutrophils # 11.25 H (1.80-7.70) X 10*3/uL Monocytes # 1.07 H (0.20-1.00) X 10*3/uL Eosinophils # 0 L (0.04-0.35) X 10*3/uL Assessment and Plan Assessment: Status post left nephro ureterectomy -Keep Ayala and JAMAL drain for now -Follow-up on nephrology recs -Repeat labs tomorrow
[2024-08-09 13:51] LABS: African American GFR (CKD) 32 (>60 ml/min/1.73 sqM); Anion Gap 8 mmol/L; Blood Urea Nitrogen 27 mg/dL (9-20); Calcium 8.2 mg/dL (8.4-10.2); Carbon Dioxide 22 mmol/L (22-30); Chloride 105 mmol/L (98-107); Glucose 154 mg/dL (74-99); Non-African American GFR(CKD) 27 (>60 ml/min/1.73 sqM); Sodium 135 mmol/L (137-145)
--- NOTE | 2024-08-09 14:42 | P.NPCON ---
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 Underwent a biopsy by Dr. Villegas which confirmed the finding of TCC. Patient was having gross hematuria secondary to his tumor, he has been subsequently taken off his blood thinners to control his gross hematuria. Underwent left nephroureterctoy yesterday. Having some post operative pain today. No other complaints. Making good urine with Ayala. Vital signs are stable. General: No acute distress. HEENT: Head exam is unremarkable. LUNGS: No audible rhonchi or wheezes. HEART: Rate and Rhythm are regular. ABDOMEN: Nontender. EXTREMITITES: No edema. Review of Systems Constitutional: Reports as per HPI Past Medical History Past Medical History: Atrial Fibrillation, Coronary Artery Disease (CAD), Chest Pain / Angina, COPD, GERD/Reflux, Hearing Disorder / Deafness, Hyperlipidemia, Myocardial Infarction ([place]), Prostate Disorder Additional Past Medical History / Comment(s): Current SOB with exertion and intermittent chest pain. Hx irregular heartbeat, enlarged prostate, [place] x 2, CABG 9 years ago. Occasional acid reflux. Last Myocardial Infarction Date:: 1998 History of Any Multi-Drug Resistant Organisms: None Reported Past Surgical History: Coronary Bypass/CABG, Heart Catheterization, Heart Catheterization With Stent, Tonsillectomy Additional Past Surgical History / Comment(s): Quadruple bypass 9 years ago, cardiac stents x2. Past Anesthesia/Blood Transfusion Reactions: No Reported Reaction Additional Past Anesthesia/Blood Transfusion Reaction / Comment(s): no known hx blood transfusion to date. Date of Last Stent Placement:: unk Smoking Status: Former smoker - Past Family History Father Family Medical History: No Reported History Mother Family Medical History: Cancer Additional Family Medical History / Comment(s): Unknown type of cancer Medications and Allergies Home Medications Medication Instructions Recorded Confirmed Type Isosorbide Mononitrate ER [Imdur] 60 mg PO BID 05/08/19 08/08/24 History Ranolazine [Ranexa] 500 mg PO QAM 06/26/24 08/08/24 History Acetaminophen Tab [Tylenol] 650 mg PO Q6HR PRN tab 07/01/24 08/08/24 Rx Nitroglycerin Sl Tabs [Nitrostat] 0.4 mg SUBLINGUAL Q5M PRN #25 tab 07/01/24 08/08/24 Rx atenoloL 25 mg PO BID #60 tab 07/01/24 08/08/24 Rx Aspirin 81 mg PO QAM 08/01/24 08/08/24 History Allergies Allergy/AdvReac Type Severity Reaction Status Date / Time Iodinated Contrast Media Allergy my face Verified 08/08/24 11:46 [Iodinated Contrast- Oral turned red and IV Dye] and broke out." "Had dye since and no rx Jqdzctw-POF-SgY Reductase AdvReac "Had every Verified 08/08/24 11:46 Inhibitor side [Ycozkjj-Bcd-Rje Reductase effect Inhibitor] listed on list of possible side effec Physical Exam Vitals: Vital Signs Temp Pulse Pulse Resp BP BP Pulse Ox 08/09/24 07:32 98.2 F 53 L 24 100/54 100 08/09/24 01:13 98.4 F 74 19 115/67 92 L 08/08/24 22:15 70 104/64 08/08/24 22:00 72 112/64 08/08/24 21:45 69 110/67 08/08/24 21:30 66 110/65 08/08/24 21:15 72 109/62 08/08/24 21:00 73 111/65 08/08/24 20:45 74 119/55 08/08/24 20:30 77 123/70 08/08/24 20:15 97.8 F 83 17 140/70 92 L 08/08/24 19:58 81 16 135/68 95 08/08/24 19:47 85 16 136/70 95 08/08/24 19:32 84 16 133/73 95 08/08/24 19:17 87 16 146/73 94 L 08/08/24 19:02 82 16 142/63 98 08/08/24 18:44 90 18 148/82 98 08/08/24 18:29 92 18 148/84 97 08/08/24 18:14 68 18 156/83 97 08/08/24 17:59 56 L 18 142/70 97 08/08/24 17:44 79 18 134/64 95 08/08/24 17:29 97.1 F L 96 18 156/74 95 Intake and Output 12/08/09/24 08/09/24 22:59 06:59 14:59 Intake Total 1550 340 Output Total 425 235 Balance 1125 105 Intake: IV 1550 Intake, IV Titration 290 Amount Lactated Ringers 1,000 ml 240 @ 20 mls/hr IV .Q24H [facility] Rx#:[id number] ceFAZolin 2 gm In Sodium 50 Chloride 0.9% 50 ml @ 100 mls/hr IVPB ONCE PRN Rx# :[id number] Oral 50 Output: Drainage 10 Left Lower Abdomen 10 Urine 375 225 Estimated Blood Loss 50 Other: Voiding Method Indwelling Catheter Results - Lab Results 08/09/24 05:39 08/09/24 13:17 Assessment and Plan Assessment: 1. CKD Stage 3b baseline creatinine 1.8-1.9 mg/dL. 2. Left transition cell CA 3. s/p left nephroureterectomy by urology 08/08 4. Anemia with CKD. Goal Hb 10-11.5 5. 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
[2024-08-09] MEDS: HYDROcodone/APAP 5-325MG 1 EACH TAB PO PRN (14:52)
--- NOTE | 2024-08-09 15:58 | XR ---
EXAMINATION TYPE: XR chest 1V portable DATE OF EXAM: 08/09/2024 3:21 PM COMPARISON: Chest radiographs from 06/26/2024 CLINICAL INDICATION: Male, 83 years old with history of hypoxia, dyspnea; [facility] TECHNIQUE: XR chest 1V portable Frontal view of the chest. FINDINGS: Lungs/Pleura: Multifocal airspace opacities. No evidence of pneumothorax or pleural effusion. Pulmonary vascularity: Unremarkable. Heart/mediastinum: Cardiomediastinal silhouette is unremarkable. Musculoskeletal: No acute osseous pathology. IMPRESSION: Multifocal airspace opacities concerning for pneumonia. [facility], , 08/09/2024 3:55 PM
[2024-08-09] MEDS: methylPREDNISolone SOD SUCCI 125 MG/2 ML VIAL IV SCH (17:07)
[2024-08-09] MEDS: FUROSEMIDE 10 MG/ML 4 ML VIAL IV STA (17:08)
[2024-08-09] MEDS: IPRATROPIUM-ALBUTEROL 3 ML NEB INHALATION PRN (17:12)
--- NOTE | 2024-08-09 17:35 | P.CNPUL ---
History of Present Illness Consult date: 08/09/24 Requesting physician: Cooper Ordaz Reason for consult: dyspnea, cough, pneumonia Chief complaint: Left kidney mass/transitional cell carcinoma History of present illness: This is an 83-year-old white male with history of multiple medical problems including chronic atrial fibrillation, coronary artery disease, COPD, hearing disorder, patient was diagnosed with transitional cell carcinoma involving the left kidney, patient had biopsy done by urology, as the patient was having gross hematuria secondary to his tumor. Patient was advised to undergo left robotic assisted laparoscopic nephro ureterectomy, and this was done today. Patient was sent back to the medical floor and he has been complaining of cough, shortness of breath, wheezing, chest x-ray is quite abnormal showing multiple opacities in both lungs, concerning for pneumonia or pulmonary edema, even the possibility of metastatic disease in the lungs, however patient had recent chest x-ray in the last month which was relatively unremarkable, this makes metastatic disease to the lungs less likely when I evaluated the patient, patient was constantly coughing, wheezing, and he was bringing up significant amount of sputum thick yellow sputum noted. Hence I recommended a trial of bronchodilators, antibiotics, steroids, and patient to receive 1 dose of Lasix. Review of Systems REVIEW OF SYSTEMS: CONSTITUTIONAL: Negative. EYES: Negative. ENT: Negative. CARDIAC: Negative. PULMONARY: Cough wheezing shortness of breath GI: Negative. GENITOURINARY: Gross hematuria MUSCULOSKELETAL: Negative. SKIN: Negative. NEUROPSYCH: Negative. ENDOCRINE: Negative. HEMATOLOGIC: Negative. Past Medical History Past Medical History: Atrial Fibrillation, Coronary Artery Disease (CAD), Chest Pain / Angina, COPD, GERD/Reflux, Hearing Disorder / Deafness, Hyperlipidemia, Myocardial Infarction ([place]), Prostate Disorder Additional Past Medical History / Comment(s): Current SOB with exertion and intermittent chest pain. Hx irregular heartbeat, enlarged prostate, [place] x 2, CABG 9 years ago. Occasional acid reflux. Last Myocardial Infarction Date:: 1998 History of Any Multi-Drug Resistant Organisms: None Reported Past Surgical History: Coronary Bypass/CABG, Heart Catheterization, Heart Catheterization With Stent, Tonsillectomy Additional Past Surgical History / Comment(s): Quadruple bypass 9 years ago, cardiac stents x2. Past Anesthesia/Blood Transfusion Reactions: No Reported Reaction Additional Past Anesthesia/Blood Transfusion Reaction / Comment(s): no known hx blood transfusion to date. Date of Last Stent Placement:: unk Smoking Status: Former smoker - Past Family History Father Family Medical History: No Reported History Mother Family Medical History: Cancer Additional Family Medical History / Comment(s): Unknown type of cancer Medications and Allergies Home Medications Medication Instructions Recorded Confirmed Type Isosorbide Mononitrate ER [Imdur] 60 mg PO BID 05/08/19 08/08/24 History Ranolazine [Ranexa] 500 mg PO QAM 06/26/24 08/08/24 History Acetaminophen Tab [Tylenol] 650 mg PO Q6HR PRN tab 07/01/24 08/08/24 Rx Nitroglycerin Sl Tabs [Nitrostat] 0.4 mg SUBLINGUAL Q5M PRN #25 tab 07/01/24 08/08/24 Rx atenoloL 25 mg PO BID #60 tab 07/01/24 08/08/24 Rx Aspirin 81 mg PO QAM 08/01/24 08/08/24 History Allergies Allergy/AdvReac Type Severity Reaction Status Date / Time Iodinated Contrast Media Allergy my face Verified 08/08/24 11:46 [Iodinated Contrast- Oral turned red and IV Dye] and broke out." "Had dye since and no rx Npyuigo-KIC-QyT Reductase AdvReac "Had every Verified 08/08/24 11:46 Inhibitor side [Jtvkvtd-Sve-Dqv Reductase effect Inhibitor] listed on list of possible side effec Physical Exam Vitals: Vital Signs Temp Pulse Pulse Pulse Resp BP BP 08/09/24 17:12 96 08/09/24 16:23 20 08/09/24 15:07 96 40 H 08/09/24 13:17 98.2 F 65 24 08/09/24 07:32 98.2 F 53 L 24 100/54 08/09/24 01:13 98.4 F 74 19 115/67 08/08/24 22:15 70 104/64 08/08/24 22:00 72 112/64 08/08/24 21:45 69 110/67 08/08/24 21:30 66 110/65 08/08/24 21:15 72 109/62 08/08/24 21:00 73 111/65 08/08/24 20:45 74 119/55 08/08/24 20:30 77 123/70 08/08/24 20:15 97.8 F 83 17 140/70 08/08/24 19:58 81 16 135/68 08/08/24 19:47 85 16 136/70 08/08/24 19:32 84 16 133/73 08/08/24 19:17 87 16 146/73 08/08/24 19:02 82 16 142/63 08/08/24 18:44 90 18 148/82 08/08/24 18:29 92 18 148/84 08/08/24 18:14 68 18 156/83 08/08/24 17:59 56 L 18 142/70 08/08/24 17:44 79 18 134/64 08/08/24 17:29 97.1 F L 96 18 156/74 BP Pulse Ox 08/09/24 17:12 08/09/24 16:23 92 L 08/09/24 15:07 142/73 91 L 08/09/24 13:17 152/72 94 L 08/09/24 07:32 100 08/09/24 01:13 92 L 08/08/24 22:15 08/08/24 22:00 08/08/24 21:45 08/08/24 21:30 08/08/24 21:15 08/08/24 21:00 08/08/24 20:45 08/08/24 20:30 08/08/24 20:15 92 L 08/08/24 19:58 95 08/08/24 19:47 95 08/08/24 19:32 95 08/08/24 19:17 94 L 08/08/24 19:02 98 08/08/24 18:44 98 08/08/24 18:29 97 08/08/24 18:14 97 08/08/24 17:59 97 08/08/24 17:44 95 08/08/24 17:29 95 Intake and Output 08/09/24 08/09/24 08/09/24 06:59 14:59 22:59 Intake Total 340 Output Total 235 Balance 105 Intake: Intake, IV Titration 290 Amount Lactated Ringers 1,000 ml 240 @ 20 mls/hr IV .Q24H [facility] Rx#:[id number] ceFAZolin 2 gm In Sodium 50 Chloride 0.9% 50 ml @ 100 mls/hr IVPB ONCE PRN Rx# :[id number] Oral 50 Output: Drainage 10 Left Lower Abdomen 10 Urine 225 Other: Voiding Method Indwelling Catheter General: Revealed 83-year-old white male in mild distress with ongoing cough wheezing and short of breath on few liters nasal cannula Skin: Skin is warm and dry and no rashes or lesions are noted. Eye: Pupils are equal, round and reactive to light, extra-ocular movements are intact; there is normal conjunctiva bilaterally. Ears, nose, mouth and throat: There are moist mucous membranes and no oral lesions. Neck: The neck is supple, there is no tenderness or JVD. Cardiovascular: There is a regular rate and rhythm. No murmur, rub or gallop is appreciated. Respiratory: Diffuse expiratory rhonchi and wheezes bilaterally Gastrointestinal: Postsurgical, slightly tender, no rebound no guarding Musculoskeletal: No deformities, normal range of motion Neurological: Alert oriented x 3 no gross focal neurologic deficit Psychiatric: Cooperative, appropriate mood & affect, normal judgment. Results - Laboratory Findings CBC and BMP: 08/09/24 05:39 08/09/24 13:17 Abnormal lab findings: Abnormal Labs 08/09/24 08/09/24 05:39 13:17 WBC 13.61 H RBC 3.38 L Hgb 8.5 L Hct 29.3 L MCH 25.1 L MCHC 29.0 L RDW 15.9 H Neutrophils # 11.25 H Monocytes # 1.07 H Eosinophils # 0 L Sodium 135 L BUN 27 H Creatinine 2.17 H Glucose 154 H Calcium 8.2 L - Diagnostic Findings Chest x-ray: image reviewed (Chest x-ray was reviewed, as noted in HPI) Assessment and Plan Assessment: Impression: Acute hypoxic respiratory failure, multifactorial Acute exacerbation of COPD Possible pulmonary edema as noted on chest x-ray Underlying pneumonia is not entirely ruled out, Acute on chronic kidney disease Paroxysmal atrial fibrillation Coronary artery disease, previous [place] GERD without esophagitis renal cell carcinoma involving left kidney Status post left robotic assisted laparoscopic nephro ureterectomy Recommendation: Continue oxygen and titrate accordingly Gentle diuresis trial Reviewed chest x-ray and recommended 1 dose of Lasix 40 mg IV push Recommended bronchodilators, including DuoNeb, Pulmicort, Perforomist Recommended sputum cultures Start patient on Zosyn empirically Recommended Solu-Medrol 60 mg IV push every 6 hours Recommend repeat chest x-ray in a.m. Will continue to follow Time with Patient: Greater than 30
[2024-08-09] MEDS: BUDESONIDE 1 MG/2 ML NEBU INHALATION SCH (19:25)
[2024-08-09] MEDS: FORMOTEROL FUMARATE 20 MCG/2 ML NEBU INHALATION SCH (19:25)
[2024-08-09] MEDS: IPRATROPIUM-ALBUTEROL 3 ML NEB INHALATION SCH (19:25)
[2024-08-09] MEDS: PIPERACILLIN-TAZOBACTAM 3.375 GM in SODIUM CHLORIDE 0.9% 100 ML IVPB SCH (20:10)
[2024-08-10 07:48] LABS: Basophils % (A) 0 %; Eosinophils % (A) 0 %; Hypochromasia Marked; Lymphocytes # (A) 0.6 k/uL (1.0-4.8); Lymphocytes % (A) 4 %; MCH 26.3 pg (25.0-35.0); MCHC 31.6 g/dL (31.0-37.0); Mean Platelet Volume 7.7; Monocytes # (A) 0.5 k/uL (0-1.0); Monocytes % (A) 3 %; Neutrophils # (A) 13.3 k/uL (1.3-7.7); Neutrophils % (A) 92 %; Platelet Count 286 k/uL (150-450); Poikilocytosis Slight; RBC 3.61 m/uL (4.30-5.90); RDW 15.8 % (11.5-15.5); WBC 14.5 k/uL (3.8-10.6)
[2024-08-10 08:10] LABS: African American GFR (CKD) 29 (>60 ml/min/1.73 sqM); Anion Gap 13 mmol/L; Blood Urea Nitrogen 34 mg/dL (9-20); Calcium 8.3 mg/dL (8.4-10.2); Carbon Dioxide 19 mmol/L (22-30); Chloride 104 mmol/L (98-107); Glucose 207 mg/dL (74-99); Non-African American GFR(CKD) 25 (>60 ml/min/1.73 sqM); Potassium 4.7 mmol/L (3.5-5.1); Sodium 136 mmol/L (137-145)
[2024-08-10 08:11] LABS: HGB 9.5 gm/dL (13.0-17.5); MCV 83.2 fL (80.0-100.0)
[2024-08-10] MEDS: atenoloL 25 MG TAB PO SCH (08:59)
--- NOTE | 2024-08-10 09:08 | XR ---
EXAMINATION TYPE: XR chest 1V portable DATE OF EXAM: 08/10/2024 8:58 AM COMPARISON: Chest radiograph from one day prior. CLINICAL INDICATION: Male, 83 years old with history of CHF; [facility] TECHNIQUE: XR chest 1V portable Frontal view of the chest. FINDINGS: Lungs/Pleura: Multifocal airspace opacities. No evidence of pneumothorax or pleural effusion. Pulmonary vascularity: Unremarkable. Heart/mediastinum: Cardiomediastinal silhouette is unremarkable. Musculoskeletal: No acute osseous pathology. Other findings: Subcutaneous emphysema in the left neck.. IMPRESSION: 1. Similar multifocal airspace opacities given differences in respiratory effort. 2. Subcutaneous lucencies in the left neck possibly representing subcutaneous emphysema, correlate f or recent intervention. [facility], , 08/10/2024 9:06 AM
--- NOTE | 2024-08-10 10:28 | P.PN ---
Subjective Progress Note Date: 08/10/24 Patient did have worsening respiratory distress yesterday, subsequently pulmonary service was consulted. His respiratory status improved this morning. Denies any nausea or vomiting, he is out of bed into chair this morning. Pain is controlled his creatinine is at 2.3 at this time, he is making good urine output Objective - Vital Signs Vital signs: Vital Signs Temp 97.6 F 08/10/24 07:26 Pulse 100 08/10/24 08:21 Resp 24 08/10/24 07:26 BP 141/88 08/10/24 07:26 Pulse Ox 95 08/10/24 07:26 FiO2 Intake & Output 08/09/24 08/10/24 08/10/24 18:59 06:59 18:59 Intake Total 444 Output Total 525 1400 Balance -81 -1400 Intake: Oral 444 Output: Urine 525 1400 Other: Voiding Method Indwelling Catheter Indwelling Catheter Indwelling Catheter - Constitutional General appearance: Present: no acute distress - Gastrointestinal General gastrointestinal: Present: soft. Absent: distended, tenderness - Psychiatric Psychiatric: Present: A&O x's 3 - Labs CBC & Chem 7: 08/10/24 07:11 08/10/24 07:11 Labs: Abnormal Lab Results - Last 24 Hours (Table) 08/09/24 08/10/24 08/10/24 Range/Units 13:17 07:11 07:11 WBC 14.5 H (3.8-10.6) k/uL RBC 3.61 L (4.30-5.90) m/uL Hgb 9.5 L D (13.0-17.5) gm/dL Hct 30.0 L (39.0-53.0) % RDW 15.8 H (11.5-15.5) % Neutrophils # 13.3 H (1.3-7.7) k/uL Lymphocytes # 0.6 L (1.0-4.8) k/uL Sodium 135 L 136 L (137-145) mmol/L Carbon Dioxide 19 L (22-30) mmol/L BUN 27 H 34 H (9-20) mg/dL Creatinine 2.17 H 2.31 H (0.66-1.25) mg/dL Glucose 154 H 207 H (74-99) mg/dL Calcium 8.2 L 8.3 L (8.4-10.2) mg/dL Assessment and Plan Assessment: Status post left nephro ureterectomy -He will keep the Ayala for 1 week -JAMAL drain will be removed prior to discharge -Follow-up on nephrology and pulmonary recs
[2024-08-10] MEDS ORDERED: DEXTROSE 50% SYRINGE 50 ML IVP PRN ×2 (10:53)
--- NOTE | 2024-08-10 10:54 | P.CONS ---
History of Present Illness - Reason for Consult Consult date: 08/10/24 - History of Present Illness Patient is a 83-year-old male with history of COPD, CAD status post CABG and stents, hypertension, dyslipidemia, atrial flutter presented for elective left robotic laparoscopic nephroureterectomy. [facility] physicians consulted for medical management. Currently patient denies any chest pain, occasional shortness of breath. No oxygen at home. Occasional cough, with white/clear sputum production. Complaining of some abdominal pain around the incisional site. Denies any nausea or vomiting, difficulty eating or drinking. Currently temperature is 97.6, pulse 107, respiratory 24, blood pressure 141/88, saturating at 95% on 5 L. Patient also being followed by nephrology and pulmo nology. Currently on IV steroids, bronchodilators and IV antibiotics. Chest x- ray independently interpreted, shows bilateral interstitial opacities worsened to prior. WBC 14.5, hemoglobin 9.5, platelet 286, sodium 136, bicarb 19, creatinine 2.31. Blood glucose 207. Pertinent positives and negatives as discussed in HPI, a complete review of systems was performed and all other systems are negative. Patient seen and examined at bedside. Vital signs reviewed General: nontoxic, no distress, appears at stated age, chronically ill-appearing Derm: warm, dry, dressing clean, dry, intact Head: atraumatic, normocephalic, symmetric Eyes: EOMI, no lid lag, anicteric sclera, pupils equal round reactive to light ENT: Nose and ears atraumatic Neck: No thyromegaly, supple Mouth: no lip lesion, mucus membranes moist Cardiovascular: S1S2 reg, no murmur, no edema Lungs: clear to auscultation bilateral, no rhonchi, no rales, no wheeze, no accessory muscle use Abdominal: soft, nontender to palpation, no guarding, no appreciable organomegaly, JAMAL drain in place Ext: no gross muscle atrophy, muscle strength muscle strength 5 out of 5 in all 4 extremities, no contractures Neuro: CN II-XII grossly intact Psych: Alert, oriented, appropriate affect Assessment/Plan: Active: Acute COPD exacerbation Acute hypoxic respiratory failure Multi focal pneumonia -Continue to wean oxygen -Continue Solu-Medrol IV 60 mg every 6 hours, DuoNebs scheduled 4 times daily, every 2 hours as needed, Perforomist twice daily, Pulmicort twice daily -Was given 1 dose of IV Lasix 40 mg yesterday -Also continued on IV Zosyn 3.375 g every 12 hours, CT chest without contrast pending, sputum cultures pending -Procalcitonin negative -Pulmonology recommendations pending Leukocytosis, multifactorial -Possibly reactive versus steroid induced versus secondary to infection -Continue to monitor Acute on chronic normocytic anemia, anticipated outcome of surgery -No active bleeding -Monitor LEXII on CKD -Nephrology following -Ayala catheter in place -Continue to monitor urine output Status post nephroureterectomy Renal cell cancer -Urology following, note reviewed, Ayala catheter to be continued for 1 week Hypertension -Continue atenolol 25 mg daily, Imdur 60 mg twice daily History of CAD -Holding aspirin, patient not able to tolerate statins -Continue Ranexa 500 mg every morning Hyperglycemia, likely steroid-induced -ACHS with low sliding scale insulin, monitor for hypoglycemia DVT prophylaxis: Subcu heparin Thank you for allowing us to participate in the care of this pleasant patient. Do not hesitate to contact us with questions. Someone can be reached from the [facility] hospitalist group all hours of the day at [phone] or via [employer]. Past Medical History Past Medical History: Atrial Fibrillation, Coronary Artery Disease (CAD), Chest Pain / Angina, COPD, GERD/Reflux, Hearing Disorder / Deafness, Hyperlipidemia, Myocardial Infarction ([place]), Prostate Disorder Additional Past Medical History / Comment(s): Current SOB with exertion and intermittent chest pain. Hx irregular heartbeat, enlarged prostate, [place] x 2, CABG 9 years ago. Occasional acid reflux. Last Myocardial Infarction Date:: 1998 History of Any Multi-Drug Resistant Organisms: None Reported Past Surgical History: Coronary Bypass/CABG, Heart Catheterization, Heart Catheterization With Stent, Tonsillectomy Additional Past Surgical History / Comment(s): Quadruple bypass 9 years ago, cardiac stents x2. Past Anesthesia/Blood Transfusion Reactions: No Reported Reaction Additional Past Anesthesia/Blood Transfusion Reaction / Comm: no known hx blood transfusion to date. Date of Last Stent Placement:: unk Smoking Status: Former smoker - Past Family History Father Family Medical History: No Reported History Mother Family Medical History: Cancer Additional Family Medical History / Comment(s): Unknown type of cancer Medications and Allergies Home Medications Medication Instructions Recorded Confirmed Type Isosorbide Mononitrate ER [Imdur] 60 mg PO BID 05/08/19 08/08/24 History Ranolazine [Ranexa] 500 mg PO QAM 06/26/24 08/08/24 History Acetaminophen Tab [Tylenol] 650 mg PO Q6HR PRN tab 07/01/24 08/08/24 Rx Nitroglycerin Sl Tabs [Nitrostat] 0.4 mg SUBLINGUAL Q5M PRN #25 tab 07/01/24 08/08/24 Rx atenoloL 25 mg PO BID #60 tab 07/01/24 08/08/24 Rx Aspirin 81 mg PO QAM 08/01/24 08/08/24 History Allergies Allergy/AdvReac Type Severity Reaction Status Date / Time Iodinated Contrast Media Allergy my face Verified 08/08/24 11:46 [Iodinated Contrast- Oral turned red and IV Dye] and broke out." "Had dye since and no rx Ybfgjmp-TPP-FwI Reductase AdvReac "Had every Verified 08/08/24 11:46 Inhibitor side [Zcdcxaz-Ier-Din Reductase effect Inhibitor] listed on list of possible side effec Physical Exam Vitals: Vital Signs Temp Pulse Pulse Resp BP Pulse Ox 08/10/24 08:21 100 08/10/24 08:12 102 H 08/10/24 08:11 100 08/10/24 07:59 98 08/10/24 07:26 97.6 F 107 H 24 141/88 95 08/10/24 00:46 97.3 F L 114 H 19 121/68 92 L 08/09/24 20:00 109 H 19 08/09/24 19:50 100 08/09/24 19:39 98 08/09/24 19:38 98 08/09/24 19:26 97 08/09/24 19:02 99.6 F 109 H 19 117/71 91 L 08/09/24 17:26 94 08/09/24 17:12 96 08/09/24 16:23 20 92 L 08/09/24 15:07 96 40 H 142/73 91 L 08/09/24 13:17 98.2 F 65 24 152/72 94 L Intake and Output 08/09/24 08/10/24 08/10/24 22:59 06:59 14:59 Intake Total 444 Output Total 525 1400 Balance -81 -1400 Intake: Oral 444 Output: Urine 525 1400 Other: Voiding Method Indwelling Catheter Indwelling Catheter Results CBC & Chem 7: 08/10/24 07:11 08/10/24 07:11 Labs: Abnormal Lab Results - Last 24 Hours (Table) 08/09/24 08/10/24 08/10/24 Range/Units 13:17 07:11 07:11 WBC 14.5 H (3.8-10.6) k/uL RBC 3.61 L (4.30-5.90) m/uL Hgb 9.5 L D (13.0-17.5) gm/dL Hct 30.0 L (39.0-53.0) % RDW 15.8 H (11.5-15.5) % Neutrophils # 13.3 H (1.3-7.7) k/uL Lymphocytes # 0.6 L (1.0-4.8) k/uL Sodium 135 L 136 L (137-145) mmol/L Carbon Dioxide 19 L (22-30) mmol/L BUN 27 H 34 H (9-20) mg/dL Creatinine 2.17 H 2.31 H (0.66-1.25) mg/dL Glucose 154 H 207 H (74-99) mg/dL Calcium 8.2 L 8.3 L (8.4-10.2) mg/dL
--- NOTE | 2024-08-10 11:26 | P.PN ---
Subjective Progress Note Date: 08/10/24 Patient seen in follow-up for CKD. Breathing improved today and patient sitting up in chair this morning. Vital signs are stable. General: No acute distress. HEENT: Head exam is unremarkable. LUNGS: No audible rhonchi or wheezes. HEART: Rate and Rhythm are regular. ABDOMEN: Nontender. EXTREMITITES: no edema. Objective - Vital Signs Vital signs: Vital Signs Temp 97.6 F 08/10/24 07:26 Pulse 100 08/10/24 08:21 Resp 24 08/10/24 07:26 BP 141/88 08/10/24 07:26 Pulse Ox 95 08/10/24 07:26 FiO2 Intake & Output 08/09/24 08/10/24 08/10/24 18:59 06:59 18:59 Intake Total 444 Output Total 525 1400 Balance -81 -1400 Intake: Oral 444 Output: Urine 525 1400 Other: Voiding Method Indwelling Catheter Indwelling Catheter Indwelling Catheter - Labs CBC & Chem 7: 08/10/24 07:11 08/10/24 07:11 Labs: Abnormal Lab Results - Last 24 Hours (Table) 08/09/24 08/10/24 08/10/24 Range/Units 13:17 07:11 07:11 WBC 14.5 H (3.8-10.6) k/uL RBC 3.61 L (4.30-5.90) m/uL Hgb 9.5 L D (13.0-17.5) gm/dL Hct 30.0 L (39.0-53.0) % RDW 15.8 H (11.5-15.5) % Neutrophils # 13.3 H (1.3-7.7) k/uL Lymphocytes # 0.6 L (1.0-4.8) k/uL Sodium 135 L 136 L (137-145) mmol/L Carbon Dioxide 19 L (22-30) mmol/L BUN 27 H 34 H (9-20) mg/dL Creatinine 2.17 H 2.31 H (0.66-1.25) mg/dL Glucose 154 H 207 H (74-99) mg/dL Calcium 8.2 L 8.3 L (8.4-10.2) mg/dL Assessment and Plan Assessment: 1. CKD Stage 3b baseline creatinine 1.8-2.0 mg/dL. Creatinine stable today around 2.3. 2. Left transition cell CA 3. s/p left nephroureterectomy by urology 08/08 4. Anemia with CKD. Goal Hb 10-11.5 5. 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
[2024-08-10 12:37] LABS: Glucose,Whole Blood 258 mg/dL (70-110)
--- NOTE | 2024-08-10 12:49 | P.PN ---
Subjective Progress Note Date: 08/10/24 This is an 83-year-old white male with history of multiple medical problems including chronic atrial fibrillation, coronary artery disease, COPD, hearing disorder, patient was diagnosed with transitional cell carcinoma involving the left kidney, patient had biopsy done by urology, as the patient was having gross hematuria secondary to his tumor. Patient was advised to undergo left robotic assisted laparoscopic nephro ureterectomy, and this was done today. Patient was sent back to the medical floor and he has been complaining of cough, shortness of breath, wheezing, chest x-ray is quite abnormal showing multiple opacities in both lungs, concerning for pneumonia or pulmonary edema, even the possibility of metastatic disease in the lungs, however patient had recent chest x-ray in the last month which was relatively unremarkable, this makes metastatic disease to the lungs less likely when I evaluated the patient, patient was constantly coughing, wheezing, and he was bringing up significant amount of sputum thick yellow sputum noted. Hence I recommended a trial of bronchodilators, antibiotic s, steroids, and patient to receive 1 dose of Lasix. The patient is seen today August 10, 2024 in follow-up on the regular medical floor. He is sitting up in bed having breakfast. Awake and alert in no acute distress. Maintaining O2 saturation in the mid 90s on 5 L/min per nasal cannula. He is afebrile. Hemodynamically stable. Breathing quite a bit better today compared to yesterday. Chest x-ray revealing similar multifocal airspace opacities. CT scan of the chest pending. White count 14.5. Hemoglobin 9.5. Platelets 286. Sodium 136. Potassium 4.7. Bicarb 19. BUN 34. Creatinine 2.31. Glucose 207. proBNP 14,900. Procalcitonin negative at 0.50. He remains on DuoNeb inhalations, Pulmicort and Perforomist inhalations, Solu-Medrol. Antibiotics in the form of Zosyn. Heparin for DVT prophylaxis. Objective - Vital Signs Vital signs: Vital Signs Temp 97.6 F 08/10/24 07:26 Pulse 100 08/10/24 11:31 Resp 24 08/10/24 07:26 BP 141/88 08/10/24 07:26 Pulse Ox 95 08/10/24 07:26 FiO2 Intake & Output 08/09/24 08/10/24 08/10/24 18:59 06:59 18:59 Intake Total 444 Output Total 525 1400 20 Balance -81 -1400 -20 Intake: Oral 444 Output: Drainage 20 Left Lower Abdomen 20 Urine 525 1400 Other: Voiding Method Indwelling Catheter Indwelling Catheter Indwelling Catheter - Exam GENERAL EXAM: Alert, 83-year-old male patient, on 5 L nasal cannula, fairly comfortable in no apparent distress. HEAD: Normocephalic. EYES: Normal reaction of pupils, equal size. NOSE: Clear with pink turbinates. THROAT: No erythema or exudates. NECK: No masses, no JVD. CHEST: No chest wall deformity. LUNGS: Equal air entry with bilateral scattered rhonchi. CVS: S1 and S2 normal with no audible murmur, regular rhythm. ABDOMEN: No hepatosplenomegaly, normal bowel sounds, no guarding or rigidity. SPINE: No scoliosis or deformity SKIN: No rashes CENTRAL NERVOUS SYSTEM: No focal deficits, tone is normal in all 4 extremities. EXTREMITIES: There is no peripheral edema. No clubbing, no cyanosis. Peripheral pulses are intact. - Labs CBC & Chem 7: 08/10/24 07:11 08/10/24 07:11 Labs: Abnormal Lab Results - Last 24 Hours (Table) 08/09/24 08/10/24 08/10/24 Range/Units 13:17 07:11 07:11 WBC 14.5 H (3.8-10.6) k/uL RBC 3.61 L (4.30-5.90) m/uL Hgb 9.5 L D (13.0-17.5) gm/dL Hct 30.0 L (39.0-53.0) % RDW 15.8 H (11.5-15.5) % Neutrophils # 13.3 H (1.3-7.7) k/uL Lymphocytes # 0.6 L (1.0-4.8) k/uL Sodium 135 L 136 L (137-145) mmol/L Carbon Dioxide 19 L (22-30) mmol/L BUN 27 H 34 H (9-20) mg/dL Creatinine 2.17 H 2.31 H (0.66-1.25) mg/dL Glucose 154 H 207 H (74-99) mg/dL POC Glucose (mg/dL) (70-110) mg/dL Calcium 8.2 L 8.3 L (8.4-10.2) mg/dL 08/10/24 Range/Units 12:36 WBC (3.8-10.6) k/uL RBC (4.30-5.90) m/uL Hgb (13.0-17.5) gm/dL Hct (39.0-53.0) % RDW (11.5-15.5) % Neutrophils # (1.3-7.7) k/uL Lymphocytes # (1.0-4.8) k/uL Sodium (137-145) mmol/L Carbon Dioxide (22-30) mmol/L BUN (9-20) mg/dL Creatinine (0.66-1.25) mg/dL Glucose (74-99) mg/dL POC Glucose (mg/dL) 258 H (70-110) mg/dL Calcium (8.4-10.2) mg/dL Assessment and Plan Assessment: Acute hypoxemic respiratory failure secondary to an acute exacerbation of COPD. Calcitonin negative Possible pulmonary edema as noted on chest x-ray. BNP level 14,900 Acute on chronic kidney disease Paroxysmal atrial fibrillation Coronary artery disease, previous [place] GERD without esophagitis renal cell carcinoma involving left kidney Status post left robotic assisted laparoscopic nephro ureterectomy, postoperative day #2 Plan: The patient was seen and evaluated Chest x-ray, labs and medications reviewed CT scan of the chest pending Continue bronchodilators, steroids Continue antibiotics for now Continue utilizing the incentive spirometer Increase his activity as tolerated Titrate down the FiO2 as tolerated We will continue to follow I have personally seen and examined the patient, performed the documentation and the assessment and plan as written. Number of minutes spent on the visit: 10 Dictation was produced using [employer] dictation software. Please excuse any grammatical, word or spelling errors.
[2024-08-10] MEDS: INSULIN ASPART (NovoLOG) 100 UNIT/ML VIAL SQ SCH (13:05)
[2024-08-10] MEDS: SODIUM CHLORIDE 0.9% 500 ML 500 ML IV ONE (13:13)
--- NOTE | 2024-08-10 14:10 | CT ---
EXAMINATION TYPE: CT chest wo con DATE OF EXAM: 08/10/2024 12:31 PM COMPARISON: CT 06/27/2024. CLINICAL INDICATION: Male, 83 years old with history of Pulmonary nodules; PHH, Pulmonary nodules, hx malignant neoplasm ureter robotic surgery 2 days ago. TECHNIQUE: Multiple axial images were obtained through the chest. Sagittal and coronal reformats were created for review. MIP was performed on a separate workstation. Contrast used: mL of (None if empty) Oral contrast used: (None if empty) CT DLP: 462.60 mGycm, Automated exposure control for dose reduction was used. FINDINGS: LUNGS/ PLEURA: No focal consolidation, pneumothorax or pleural effusion. Moderate to severe emphysema changes bilaterally with scarring. Small bilateral pleural effusions. There is increased opacities a long the left major fissure compared to prior. AIRWAY: Patent and unremarkable. HEART: Size within normal limits. Severe coronary artery atherosclerosis. Mild aortic valve calcifica tions. MEDIASTINUM: No gross evidence of adenopathy. VASCULATURE: No aortic aneurysm. MUSCULOSKELETAL: No acute osseous abnormalities sternotomy wires are present. SOFT TISSUES/LYMPH NODES: Subcutaneous emphysema scattered throughout the chest wall extending down i nto the abdomen. LOWER NECK: No significant findings. UPPER ABDOMEN: Bilateral adrenal nodules on the right measuring 31 mm and on the left measuring up to 33 mm. Free air is seen under the diaphragm and around the liver IMPRESSION: 1. Subcutaneous emphysema bilaterally extending down into the anterior abdominal wall. Additionally there is free air under the diaphragm concerning for hollow viscus perforation. Further evaluation wi CT of the abdomen and pelvis with IV and water-soluble oral contrast recommended. Findings could b e compatible with recent robotic surgery 2 days ago. 2. Moderate to severe emphysema with possible superimposed airspace disease in the left lung. 3. Small bilateral pleural effusions. 4. No suspicious pulmonary nodules at this time Findings communicated to Dr. Cooper Ordaz MD on 08/10/2024 2:[address] Romain Goetz. [facility], , 08/10/2024 2:08 PM
[2024-08-10] MEDS: MIDODRINE 5 MG TAB PO SCH (16:35)
[2024-08-10 17:17] LABS: Glucose,Whole Blood 195 mg/dL (70-110)
[2024-08-10 20:22] LABS: Glucose,Whole Blood 258 mg/dL (70-110)
[2024-08-11 07:12] LABS: Glucose,Whole Blood 190 mg/dL (70-110)
--- NOTE | 2024-08-11 08:51 | P.PN ---
Subjective Progress Note Date: 08/11/24 Principal diagnosis: POD #3, s/p robotic-assisted laparoscopic left nephroureterectomy The patient underwent an uncomplicated robotic assisted laparoscopic left nephroureterectomy on August 08, 2024. He states that he is not feeling as well this morning as he did yesterday, but is unable to verbalize what might be wrong. He is tolerating diet and denies nausea. He is passing flatus but has not had a bowel movement. JAMAL drainage is minimal. The Ayala catheter is draining clear yellow urine. Objective - Vital Signs Vital signs: Vital Signs Temp 98.3 F 08/11/24 07:08 Pulse 42 L 08/11/24 07:08 Resp 20 08/11/24 07:08 BP 93/61 08/11/24 07:08 Pulse Ox 94 L 08/11/24 07:08 FiO2 Intake & Output 08/10/24 08/11/24 08/11/24 18:59 06:59 18:59 Intake Total 820 600 Output Total 370 710 Balance 450 -110 Intake: Intake, IV Titration 100 Amount Piperacillin-Tazobactam 3 100 .375 gm In Sodium Chloride 0.9% 100 ml @ 25 mls/hr IVPB Q12HR [facility] Rx #:[id number] Oral 820 500 Output: Drainage 20 10 Left Lower Abdomen 20 10 Urine 350 700 Other: Voiding Method Indwelling Catheter Indwelling Catheter - Constitutional General appearance: Present: average body habitus, cooperative, no acute distress - Gastrointestinal Gastrointestinal Comment(s): Soft, non-distended. Incisions clean, dry, and intact. - Psychiatric Psychiatric: Present: A&O x's 3 - Labs CBC & Chem 7: 08/10/24 07:11 08/10/24 07:11 Labs: Abnormal Lab Results - Last 24 Hours (Table) 08/10/24 08/10/24 08/10/24 Range/Units 12:36 17:16 20:19 POC Glucose (mg/dL) 258 H 195 H 258 H (70-110) mg/dL 08/11/24 Range/Units 07:11 POC Glucose (mg/dL) 190 H (70-110) mg/dL Microbiology - Last 24 Hours (Table) 08/09/24 17:16 Gram Stain - Preliminary Sputum Assessment and Plan Plan: The patient is urologically stable for discharge. Anticoagulants may be resumed on August 13, 2024.
[2024-08-11] MEDS: FUROSEMIDE 40 MG TAB PO SCH (08:56)
--- NOTE | 2024-08-11 09:09 | CONS ---
CONSULTATION HISTORY OF PRESENT ILLNESS: Emmanuel is an 83-year-old gentleman with history of coronary artery disease, status post prior bypass surgery, status post prior stenting, who is admitted to hospital following nephrectomy, and Cardiology had been consulted for postop followup. He complains of some discomfort at the surgical site. Hematuria has resolved. The patient is otherwise feeling well. PAST MEDICAL HISTORY: Significant for coronary artery disease, status post bypass surgery; history of paroxysmal atrial fibrillation. CURRENT MEDICATIONS: Include: 1. Atenolol 25 mg b.i.d. 2. Ranexa. 3. Imdur. 4. Aspirin. 5. Sublingual nitroglycerin. ALLERGIES: To IV dye and statins. FAMILY HISTORY: Negative for premature coronary artery disease. SOCIAL HISTORY: Negative for current smoking, EtOH abuse, or drug abuse. REVIEW OF SYSTEMS: HEENT: Unremarkable. CARDIAC: As described above. RESPIRATORY: As described above. GI: Negative. GENITOURINARY: Negative. ALLERGY/IMMUNOLOGY: Negative. SKIN: Negative. MUSCULOSKELETAL: Negative. PHYSICAL EXAMINATION: GENERAL: Comfortable at rest. VITAL SIGNS: Stable. CHEST: Reveals good air entry bilaterally. HEART: Reveals first and second heart sounds. No gallop. ABDOMEN: Soft, status post nephrectomy. EXTREMITIES: Did not reveal any edema. ASSESSMENT: 1. Status post nephrectomy. 2. Coronary artery disease, status post coronary artery bypass graft. 3. Paroxysmal atrial fibrillation. PLAN: The patient is not on oral anticoagulant because of the hematuria, and his blood pressure is little soft, so I am going to cut back on the dose of Tenormin. MMODL / IJN: [id number] /
--- NOTE | 2024-08-11 09:09 | PN ---
PROGRESS NOTE SUBJECTIVE: Emmanuel is an 83-year-old gentleman, who underwent nephrectomy for suspected renal cancer. Today is postop day #2. He had mild respiratory insufficiency with shortness of breath yesterday. He is doing better this morning on Tenormin 25 mg daily, inhalers and nebulizers, Imdur 30 mg daily, and Solu-Medrol along with Ranexa. OBJECTIVE: VITAL SIGNS: Heart rate is 100 beats per minute, blood pressure is 140/80, respiratory rate is 18. CHEST: Reveals multifocal air space disease. HEART: Reveals first and second heart sounds. Systolic murmur at the apex. ABDOMEN: Soft. EXTREMITIES: Reveals mild edema. LABORATORY DATA: Labs show that the potassium is 4.7, creatinine is 2.3. Hemoglobin is 9.5, platelet count is 286. ASSESSMENT AND PLAN: Paroxysmal atrial fibrillation; coronary artery disease, status post coronary artery bypass graft, status post stenting; history of renal cancer, status post nephrectomy. The patient will resume the anticoagulant whenever it is okay from the surgeon. MMODL / IJN: [id number] /
[2024-08-11 12:16] LABS: Glucose,Whole Blood 217 mg/dL (70-110)
--- NOTE | 2024-08-11 12:32 | P.PN ---
Subjective Progress Note Date: 08/11/24 Subjective: Patient seen and examined at bedside. No acute events overnight. Pertinent positives and negatives as discussed above, a complete review of systems was performed and all other systems are negative. Vitals Signs Reviewed. General: nontoxic, no distress, appears at stated age, chronically ill-appearing Derm: warm, dry, dressing clean, dry, intact Head: atraumatic, normocephalic, symmetric Eyes: EOMI, no lid lag, anicteric sclera, pupils equal round reactive to light ENT: Nose and ears atraumatic Neck: No thyromegaly, supple Mouth: no lip lesion, mucus membranes moist Cardiovascular: S1S2 reg, no murmur, no edema Lungs: clear to auscultation bilateral, no rhonchi, no rales, no wheeze, no accessory muscle use Abdominal: soft, nontender to palpation, no guarding, no appreciable organomegaly, JAMAL drain in place Ext: no gross muscle atrophy, muscle strength muscle strength 5 out of 5 in all 4 extremities, no contractures Neuro: CN II-XII grossly intact Psych: Alert, oriented, appropriate affect Data Reviewed Today: Pertinent Labs: Blood sugars range between 1 92-58, CBC and BMP pending Imaging: CT chest showed subcutaneous emphysema free air under the diaphragm concerning for hollow viscus perforation, findings compatible with recent robotic surgery, moderate to severe emphysema, bilateral small pleural effusions Assessment and Plan: Active: Acute COPD exacerbation Acute hypoxic respiratory failure Multi focal pneumonia, less likely -Continue to wean oxygen -Continue Solu-Medrol IV 60 mg every 6 hours, DuoNebs scheduled 4 times daily, every 2 hours as needed, Perforomist twice daily, Pulmicort twice daily -Started on Lasix oral 40 daily by pulmonology, IV antibiotics discontinued -Procalcitonin negative -Pulmonology following Leukocytosis, multifactorial -Possibly reactive versus steroid induced -Continue to monitor Acute on chronic normocytic anemia, anticipated outcome of surgery -No active bleeding -Monitor LEXII on CKD -Nephrology following -Ayala catheter in place -Continue to monitor urine output -BMP pending Status post nephroureterectomy Renal cell cancer -Urology note reviewed, restart antiplatelet on 13 August Hypertension -Continue atenolol 25 mg daily, Imdur 60 mg twice daily History of CAD -Holding aspirin, patient not able to tolerate statins -Continue Ranexa 500 mg every morning New diagnosis of type 2 diabetes, A1c 6.5 Hyperglycemia -ACHS with low sliding scale insulin, monitor for hypoglycemia DVT prophylaxis: Subcu heparin Thank you for allowing us to participate in the care of this pleasant patient. Do not hesitate to contact us with questions. Someone can be reached from the [facility] [place] hospitalist group all hours of the day at [phone] or via perfect serve. Objective - Vital Signs Vital signs: Vital Signs Temp 98.3 F 08/11/24 07:08 Pulse 90 08/11/24 12:02 Resp 18 08/11/24 09:50 BP 111/64 08/11/24 09:50 Pulse Ox 91 L 08/11/24 09:50 FiO2 Intake & Output 08/10/24 08/11/24 08/11/24 18:59 06:59 18:59 Intake Total 820 600 Output Total 370 710 Balance 450 -110 Intake: Intake, IV Titration 100 Amount Piperacillin-Tazobactam 3 100 .375 gm In Sodium Chloride 0.9% 100 ml @ 25 mls/hr IVPB Q12HR [facility] Rx #:[id number] Oral 820 500 Output: Drainage 20 10 Left Lower Abdomen 20 10 Urine 350 700 Other: Voiding Method Indwelling Catheter Indwelling Catheter Indwelling Catheter - Labs CBC & Chem 7: 08/10/24 07:11 08/10/24 07:11 Labs: Abnormal Lab Results - Last 24 Hours (Table) 08/10/24 08/10/24 08/10/24 Range/Units 07:11 12:36 17:16 POC Glucose (mg/dL) 258 H 195 H (70-110) mg/dL Hemoglobin A1c 6.5 H (<=6.0) % 08/10/24 08/11/24 08/11/24 Range/Units 20:19 07:11 12:14 POC Glucose (mg/dL) 258 H 190 H 217 H (70-110) mg/dL Hemoglobin A1c (<=6.0) % Microbiology - Last 24 Hours (Table) 08/09/24 17:16 Gram Stain - Preliminary Sputum Sputum Culture - Preliminary Pseudomonas aeruginosa Serratia marcescens ssp marces
--- NOTE | 2024-08-11 12:51 | P.PN ---
Subjective Progress Note Date: 08/11/24 Patient seen in follow-up for CKD. Breathing continues to improve. Vital signs are stable. General: No acute distress. HEENT: Head exam is unremarkable. LUNGS: No audible rhonchi or wheezes. HEART: Rate and Rhythm are regular. ABDOMEN: Nontender. EXTREMITITES: no edema. Objective - Vital Signs Vital signs: Vital Signs Temp 98.3 F 08/11/24 07:08 Pulse 95 08/11/24 09:50 Resp 18 08/11/24 09:50 BP 111/64 08/11/24 09:50 Pulse Ox 91 L 08/11/24 09:50 FiO2 Intake & Output 08/10/24 08/11/24 08/11/24 18:59 06:59 18:59 Intake Total 820 600 Output Total 370 710 Balance 450 -110 Intake: Intake, IV Titration 100 Amount Piperacillin-Tazobactam 3 100 .375 gm In Sodium Chloride 0.9% 100 ml @ 25 mls/hr IVPB Q12HR [facility] Rx #:[id number] Oral 820 500 Output: Drainage 20 10 Left Lower Abdomen 20 10 Urine 350 700 Other: Voiding Method Indwelling Catheter Indwelling Catheter - Labs CBC & Chem 7: 08/10/24 07:11 08/10/24 07:11 Labs: Abnormal Lab Results - Last 24 Hours (Table) 08/10/24 08/10/24 08/10/24 Range/Units 07:11 12:36 17:16 POC Glucose (mg/dL) 258 H 195 H (70-110) mg/dL Hemoglobin A1c 6.5 H (<=6.0) % 08/10/24 08/11/24 Range/Units 20:19 07:11 POC Glucose (mg/dL) 258 H 190 H (70-110) mg/dL Hemoglobin A1c (<=6.0) % Microbiology - Last 24 Hours (Table) 08/09/24 17:16 Gram Stain - Preliminary Sputum Sputum Culture - Preliminary Gram Neg Bacilli Assessment and Plan Assessment: 1. CKD Stage 3b baseline creatinine 1.8-2.0 mg/dL. Creatinine stable around 2.3. Urine output 1.0L. Feeling weaker this morning. 2. Left transition cell CA 3. s/p left nephroureterectomy by urology 08/08 4. Anemia with CKD. Goal Hb 10-11.5 5. 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
[2024-08-11 13:18] LABS: Basophils % (A) 0 %; Eosinophils % (A) 0 %; HCT 28.9 % (39.0-53.0); HGB 9.1 gm/dL (13.0-17.5); Hypochromasia Marked; Lymphocytes # (A) 0.7 k/uL (1.0-4.8); Lymphocytes % (A) 3 %; MCHC 31.4 g/dL (31.0-37.0); MCV 82.7 fL (80.0-100.0); Mean Platelet Volume 7.5; Monocytes # (A) 0.6 k/uL (0-1.0); Monocytes % (A) 3 %; Neutrophils # (A) 19.8 k/uL (1.3-7.7); Neutrophils % (A) 94 %; Platelet Count 315 k/uL (150-450); Poikilocytosis Slight; RBC 3.49 m/uL (4.30-5.90); RDW 15.8 % (11.5-15.5); WBC 21.1 k/uL (3.8-10.6)
--- NOTE | 2024-08-11 13:18 | P.PN ---
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 Patient was advised to undergo left robotic assisted laparoscopic nephro ureterectomy, and this was done today. Patient was sent back to the medical floor and he has been complaining of cough, shortness of breath, wheezing, chest x-ray is quite abnormal showing multiple opacities in both lungs, concerning for pneumonia or pulmonary edema, even the possibility of metastatic disease in the lungs, however patient had recent chest x-ray in the last month which was relatively unremarkable, this makes metastatic disease to the lungs less likely when I evaluated the patient, patient was constantly coughing, wheezing, and he was bringing up significant amount of sputum thick yellow sputum noted. Hence I recommended a trial of bronchodilators, antibiotic s, steroids, and patient to receive 1 dose of Lasix. The patient is seen today August 10, 2024 in follow-up on the regular medical floor. He is sitting up in bed having breakfast. Awake and alert in no acute distress. Maintaining O2 saturation in the mid 90s on 5 L/min per nasal cannula. He is afebrile. Hemodynamically stable. Breathing quite a bit better today compared to yesterday. Chest x-ray revealing similar multifocal airspace opacities. CT scan of the chest pending. White count 14.5. Hemoglobin 9.5. Platelets 286. Sodium 136. Potassium 4.7. Bicarb 19. BUN 34. Creatinine 2.31. Glucose 207. proBNP 14,900. Procalcitonin negative at 0.50. He remains on DuoNeb inhalations, Pulmicort and Perforomist inhalations, Solu-Medrol. Antibiotics in the form of Zosyn. Heparin for DVT prophylaxis. The patient is seen today August 11, 2024 in follow-up on the regular medical floor. He is currently resting comfortably in bed. Awake and alert in no acute distress. Denies any worsening shortness of breath, cough or congestion. He is maintaining O2 saturation in the 90s on 5 L/min per nasal cannula. He remains on DuoNeb inhalations, Pulmicort and Perforomist inhalations, IV Solu-Medrol. Continued on oral diuretics. Continued on Zosyn. His procalcitonin was neg ative at 0.50. CT scan of the chest revealed subcutaneous emphysema bilaterally extending down into the anterior abdominal wall. Additionally there is free air under the diaphragm most likely postop changes. Moderate to severe emphysema with small bilateral effusions. Objective - Vital Signs Vital signs: Vital Signs Temp 97.2 F L 08/11/24 12:13 Pulse 82 08/11/24 12:13 Resp 20 08/11/24 12:13 BP 114/67 08/11/24 12:13 Pulse Ox 92 L 08/11/24 12:13 FiO2 Intake & Output 08/10/24 08/11/24 08/11/24 18:59 06:59 18:59 Intake Total 820 600 Output Total 370 710 Balance 450 -110 Intake: Intake, IV Titration 100 Amount Piperacillin-Tazobactam 3 100 .375 gm In Sodium Chloride 0.9% 100 ml @ 25 mls/hr IVPB Q12HR [facility] Rx #:[id number] Oral 820 500 Output: Drainage 20 10 Left Lower Abdomen 20 10 Urine 350 700 Other: Voiding Method Indwelling Catheter Indwelling Catheter Indwelling Catheter - Exam GENERAL EXAM: Alert, 83-year-old male, sitting up in bed, on 5 L nasal cannula, comfortable in no apparent distress. HEAD: Normocephalic. EYES: Normal reaction of pupils, equal size. NOSE: Clear with pink turbinates. THROAT: No erythema or exudates. NECK: No masses, no JVD. CHEST: No chest wall deformity. LUNGS: Equal air entry with bilateral scattered rhonchi. CVS: S1 and S2 normal with no audible murmur, regular rhythm. ABDOMEN: No hepatosplenomegaly, normal bowel sounds, no guarding or rigidity. SPINE: No scoliosis or deformity SKIN: No rashes CENTRAL NERVOUS SYSTEM: No focal deficits, tone is normal in all 4 extremities. EXTREMITIES: There is no peripheral edema. No clubbing, no cyanosis. Peripheral pulses are intact. - Labs CBC & Chem 7: 08/10/24 07:11 08/10/24 07:11 Labs: Abnormal Lab Results - Last 24 Hours (Table) 08/10/24 08/10/24 08/10/24 Range/Units 07:11 17:16 20:19 POC Glucose (mg/dL) 195 H 258 H (70-110) mg/dL Hemoglobin A1c 6.5 H (<=6.0) % 08/11/24 08/11/24 Range/Units 07:11 12:14 POC Glucose (mg/dL) 190 H 217 H (70-110) mg/dL Hemoglobin A1c (<=6.0) % Microbiology - Last 24 Hours (Table) 08/09/24 17:16 Gram Stain - Preliminary Sputum Sputum Culture - Preliminary Pseudomonas aeruginosa Serratia marcescens ssp marces Assessment and Plan Assessment: Status post left robotic assisted laparoscopic nephro ureterectomy, postoperativ e day #3 Acute hypoxemic respiratory failure secondary to an acute exacerbation of COPD suspected systolic versus diastolic congestive heart failure. BNP level 14,900. Procalcitonin negative Acute on chronic kidney disease Paroxysmal atrial fibrillation Coronary artery disease, previous [place] GERD without esophagitis renal cell carcinoma involving left kidney Plan: The patient was seen and evaluated Labs and medications reviewed CT scan of the chest reviewed Continue bronchodilators, steroids Continue Lasix 40 mg daily Procalcitonin was negative Antibiotics discontinued Continue utilizing the incentive spirometer Increase his activity as tolerated Titrate down the FiO2 as tolerated We will continue to follow This patient was seen independently by the pulmonary nurse practitioner greg herediang pulmonary issues I have personally seen and examined the patient, performed the documentation and the assessment and plan as written. Number of minutes spent on the visit: 25 Dictation was produced using [employer] dictation software. Please excuse any grammatical, word or spelling errors.
[2024-08-11 17:01] LABS: Glucose,Whole Blood 168 mg/dL (70-110)
[2024-08-11 20:58] LABS: Glucose,Whole Blood 200 mg/dL (70-110)
[2024-08-12 07:51] LABS: Glucose,Whole Blood 170 mg/dL (70-110)
[2024-08-12 08:50] LABS: BUN/Creat Ratio 21.83 Ratio (12.00-20.00); Blood Urea Nitrogen 52.4 mg/dL (9.0-27.0); Carbon Dioxide 21.2 mmol/L (21.6-31.8); Chloride 106 mmol/L (96-109); Glucose 171 mg/dL (70-110); Potassium 4.4 mmol/L (3.5-5.5); Sodium 139 mmol/L (135-145)
[2024-08-12 08:51] LABS: Calcium 8.2 mg/dL (8.7-10.3)
[2024-08-12 09:07] LABS: Basophils # (A) 0.02 X 10*3/uL (0.00-0.10); Basophils % (A) 0.1 %; Eosinophils # (A) 0 X 10*3/uL (0.04-0.35); Eosinophils % (A) 0 %; HCT 26.5 % (39.6-50.0); HGB 8.2 g/dL (13.0-17.0); Lymphocytes # (A) 0.63 X 10*3/uL (0.90-5.00); Lymphocytes % (A) 3.5 %; MCH 25.9 pg (27.0-32.0); MCHC 30.9 g/dL (32.0-37.0); MCV 83.9 FL (80.0-97.0); Mean Platelet Volume 10.7 FL (9.5-12.2); Monocytes # (A) 0.41 X 10*3/uL (0.20-1.00); Monocytes % (A) 2.3 %; NRBC Per 100 WBC 0 X 10*3/uL (0.00-0.01); Neutrophils # (A) 16.89 X 10*3/uL (1.80-7.70); Neutrophils % (A) 93.2 %; Platelet Count 286 X 10*3/uL (140-440); RBC 3.16 X 10*6/uL (4.40-5.60); RDW 15.9 % (11.5-14.5); WBC 18.11 X 10*3/uL (4.50-10.00)
[2024-08-12] MEDS: predniSONE 20 MG TAB PO SCH (09:34)
[2024-08-12 12:02] LABS: Glucose,Whole Blood 223 mg/dL (70-110)
--- NOTE | 2024-08-12 13:18 | P.PN ---
Subjective Progress Note Date: 08/12/24 Subjective: Patient seen and examined at bedside. No acute events overnight. Pertinent positives and negatives as discussed above, a complete review of systems was performed and all other systems are negative. Vitals Signs Reviewed. General: nontoxic, no distress, appears at stated age, chronically ill-appearing Derm: warm, dry, dressing clean, dry, intact Head: atraumatic, normocephalic, symmetric Eyes: EOMI, no lid lag, anicteric sclera, pupils equal round reactive to light ENT: Nose and ears atraumatic Neck: No thyromegaly, supple Mouth: no lip lesion, mucus membranes moist Cardiovascular: S1S2 reg, no murmur, no edema Lungs: clear to auscultation bilateral, no rhonchi, no rales, no wheeze, no accessory muscle use Abdominal: soft, nontender to palpation, no guarding, no appreciable organomegaly, JAMAL drain in place Ext: no gross muscle atrophy, muscle strength muscle strength 5 out of 5 in all 4 extremities, no contractures Neuro: CN II-XII grossly intact Psych: Alert, oriented, appropriate affect Data Reviewed Today: Pertinent Labs: Blood sugars range between 1 92-58, CBC and BMP pending Imaging: CT chest showed subcutaneous emphysema free air under the diaphragm concerning for hollow viscus perforation, findings compatible with recent robotic surgery, moderate to severe emphysema, bilateral small pleural effusions Assessment and Plan: Active: Acute COPD exacerbation Acute hypoxic respiratory failure Multi focal pneumonia, less likely -Continue to wean oxygen -IV steroids has been changed to prednisone oral daily 40, DuoNebs scheduled 4 times daily, every 2 hours as needed, Perforomist twice daily, Pulmicort twice daily -Continue Lasix oral 40 daily by pulmonology, IV antibiotics discontinued -Procalcitonin negative -Pulmonology following Leukocytosis, multifactorial, improving -Possibly reactive versus steroid induced -Continue to monitor Acute on chronic normocytic anemia, anticipated outcome of surgery -No active bleeding -Monitor LEXII on CKD -Nephrology following -Ayala catheter in place -Continue to monitor urine output Status post nephroureterectomy Renal cell cancer -Urology following, restart antiplatelet on 13 August Hypertension -Continue atenolol 25 mg daily, Imdur 60 mg twice daily History of CAD History of a flutter -Holding aspirin, patient not able to tolerate statins -Continue Ranexa 500 mg every morning -Patient on continuous telemetry, continue atenolol New diagnosis of type 2 diabetes, A1c 6.5 Hyperglycemia -ACHS with low sliding scale insulin, monitor for hypoglycemia DVT prophylaxis: Subcu heparin Thank you for allowing us to participate in the care of this pleasant patient. Do not hesitate to contact us with questions. Someone can be reached from the [place] hospitalist group all hours of the day at [phone] or via perfect serve. Objective - Vital Signs Vital signs: Vital Signs Temp 97.7 F 08/12/24 08:00 Pulse 74 08/12/24 11:14 Resp 17 08/12/24 08:00 BP 124/68 08/12/24 08:00 Pulse Ox 94 L 08/12/24 08:00 FiO2 Intake & Output 08/11/24 08/12/24 08/12/24 18:59 06:59 18:59 Intake Total 118 Output Total 1010 370 400 Balance -8556 -758 -602 Intake: Oral 118 Output: Drainage 10 20 Left Lower Abdomen 10 20 Urine 1000 350 400 Other: Voiding Method Indwelling Catheter Indwelling Catheter Indwelling Catheter # Voids 2 - Labs CBC & Chem 7: 08/12/24 04:03 08/12/24 04:03 Labs: Abnormal Lab Results - Last 24 Hours (Table) 08/11/24 08/11/24 08/11/24 Range/Units 12:51 17:00 20:56 WBC 21.1 H (3.8-10.6) k/uL RBC 3.49 L (4.30-5.90) m/uL Hgb 9.1 L (13.0-17.5) gm/dL Hct 28.9 L (39.0-53.0) % MCH (27.0-32.0) pg MCHC (32.0-37.0) g/dL RDW 15.8 H (11.5-15.5) % Immature Gran # (0.00-0.04) X 10*3/uL Neutrophils # 19.8 H (1.3-7.7) k/uL Lymphocytes # 0.7 L (1.0-4.8) k/uL Eosinophils # (0.04-0.35) X 10*3/uL Carbon Dioxide (21.6-31.8) mmol/L BUN (9.0-27.0) mg/dL Creatinine (0.6-1.5) mg/dL Est GFR (CKD-EPI) (>=60) BUN/Creatinine Ratio (12.00-20.00) Ratio Glucose (70-110) mg/dL POC Glucose (mg/dL) 168 H 200 H (70-110) mg/dL Calcium (8.7-10.3) mg/dL 08/12/24 08/12/24 08/12/24 Range/Units 04:03 04:03 07:49 WBC 18.11 H (3.8-10.6) k/uL RBC 3.16 L (4.30-5.90) m/uL Hgb 8.2 L (13.0-17.5) gm/dL Hct 26.5 L (39.0-53.0) % MCH 25.9 L (27.0-32.0) pg MCHC 30.9 L (32.0-37.0) g/dL RDW 15.9 H (11.5-15.5) % Immature Gran # 0.16 H (0.00-0.04) X 10*3/uL Neutrophils # 16.89 H (1.3-7.7) k/uL Lymphocytes # 0.63 L (1.0-4.8) k/uL Eosinophils # 0 L (0.04-0.35) X 10*3/uL Carbon Dioxide 21.2 L (21.6-31.8) mmol/L BUN 52.4 H (9.0-27.0) mg/dL Creatinine 2.4 H (0.6-1.5) mg/dL Est GFR (CKD-EPI) 26 L (>=60) BUN/Creatinine Ratio 21.83 H (12.00-20.00) Ratio Glucose 171 H (70-110) mg/dL POC Glucose (mg/dL) 170 H (70-110) mg/dL Calcium 8.2 L (8.7-10.3) mg/dL 08/12/24 Range/Units 12:00 WBC (3.8-10.6) k/uL RBC (4.30-5.90) m/uL Hgb (13.0-17.5) gm/dL Hct (39.0-53.0) % MCH (27.0-32.0) pg MCHC (32.0-37.0) g/dL RDW (11.5-15.5) % Immature Gran # (0.00-0.04) X 10*3/uL Neutrophils # (1.3-7.7) k/uL Lymphocytes # (1.0-4.8) k/uL Eosinophils # (0.04-0.35) X 10*3/uL Carbon Dioxide (21.6-31.8) mmol/L BUN (9.0-27.0) mg/dL Creatinine (0.6-1.5) mg/dL Est GFR (CKD-EPI) (>=60) BUN/Creatinine Ratio (12.00-20.00) Ratio Glucose (70-110) mg/dL POC Glucose (mg/dL) 223 H (70-110) mg/dL Calcium (8.7-10.3) mg/dL Microbiology - Last 24 Hours (Table) 08/09/24 17:16 Gram Stain - Final Sputum Sputum Culture - Final Pseudomonas aeruginosa Serratia marcescens ssp marces
--- NOTE | 2024-08-12 14:34 | P.PN ---
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 Patient was advised to undergo left robotic assisted laparoscopic nephro ureterectomy, and this was done today. Patient was sent back to the medical floor and he has been complaining of cough, shortness of breath, wheezing, chest x-ray is quite abnormal showing multiple opacities in both lungs, concerning for pneumonia or pulmonary edema, even the possibility of metastatic disease in the lungs, however patient had recent chest x-ray in the last month which was relatively unremarkable, this makes metastatic disease to the lungs less likely when I evaluated the patient, patient was constantly coughing, wheezing, and he was bringing up significant amount of sputum thick yellow sputum noted. Hence I recommended a trial of bronchodilators, antibiotic s, steroids, and patient to receive 1 dose of Lasix. The patient is seen today August 10, 2024 in follow-up on the regular medical floor. He is sitting up in bed having breakfast. Awake and alert in no acute distress. Maintaining O2 saturation in the mid 90s on 5 L/min per nasal cannula. He is afebrile. Hemodynamically stable. Breathing quite a bit better today compared to yesterday. Chest x-ray revealing similar multifocal airspace opacities. CT scan of the chest pending. White count 14.5. Hemoglobin 9.5. Platelets 286. Sodium 136. Potassium 4.7. Bicarb 19. BUN 34. Creatinine 2.31. Glucose 207. proBNP 14,900. Procalcitonin negative at 0.50. He remains on DuoNeb inhalations, Pulmicort and Perforomist inhalations, Solu-Medrol. Antibiotics in the form of Zosyn. Heparin for DVT prophylaxis. The patient is seen today August 11, 2024 in follow-up on the regular medical floor. He is currently resting comfortably in bed. Awake and alert in no acute distress. Denies any worsening shortness of breath, cough or congestion. He is maintaining O2 saturation in the 90s on 5 L/min per nasal cannula. He remains on DuoNeb inhalations, Pulmicort and Perforomist inhalations, IV Solu-Medrol. Continued on oral diuretics. Continued on Zosyn. His procalcitonin was neg ative at 0.50. CT scan of the chest revealed subcutaneous emphysema bilaterally extending down into the anterior abdominal wall. Additionally there is free air under the diaphragm most likely postop changes. Moderate to severe emphysema with small bilateral effusions. The patient is seen today August 12, 2024 in follow-up on the regular medical floor. He is awake and alert in no acute distress. He is still requiring 5 L of oxygen per minute per nasal cannula to maintain O2 saturations in the 90s. He remains on DuoNeb inhalations, Pulmicort and Perforomist inhalations, IV Solu-Medrol. Remains on oral diuretics. Sputum culture is now showing Pseudomonas aeruginosa and Serratia marcescens. Procalcitonin was negative. White count 18.1. Hemoglobin 8.2. Platelets 286. Sodium 139. Potassium 4.4. Bicarb 21. BUN 52. Creatinine 2.4. Glucose 171. Objective - Vital Signs Vital signs: Vital Signs Temp 97.7 F 08/12/24 08:00 Pulse 74 08/12/24 11:14 Resp 17 08/12/24 08:00 BP 124/68 08/12/24 08:00 Pulse Ox 94 L 08/12/24 08:00 FiO2 Intake & Output 08/11/24 08/12/24 08/12/24 18:59 06:59 18:59 Intake Total 236 Output Total 1010 370 400 Balance -1010 -370 -164 Intake: Oral 236 Output: Drainage 10 20 Left Lower Abdomen 10 20 Urine 1000 350 400 Other: Voiding Method Indwelling Catheter Indwelling Catheter Indwelling Catheter # Voids 2 - Exam GENERAL EXAM: Alert, hard of hearing 83-year-old male, sitting up in bed, on 5 L nasal cannula, in no apparent distress. HEAD: Normocephalic. EYES: Normal reaction of pupils, equal size. NOSE: Clear with pink turbinates. THROAT: No erythema or exudates. NECK: No masses, no JVD. CHEST: No chest wall deformity. LUNGS: Equal air entry with bilateral scattered rhonchi. CVS: S1 and S2 normal with no audible murmur, regular rhythm. ABDOMEN: No hepatosplenomegaly, normal bowel sounds, no guarding or rigidity. SPINE: No scoliosis or deformity SKIN: No rashes CENTRAL NERVOUS SYSTEM: No focal deficits, tone is normal in all 4 extremities. EXTREMITIES: There is no peripheral edema. No clubbing, no cyanosis. Peripheral pulses are intact. - Labs CBC & Chem 7: 08/12/24 04:03 08/12/24 04:03 Labs: Abnormal Lab Results - Last 24 Hours (Table) 08/11/24 08/11/24 08/12/24 Range/Units 17:00 20:56 04:03 WBC (4.50-10.00) X 10*3/uL RBC (4.40-5.60) X 10*6/uL Hgb (13.0-17.0) g/dL Hct (39.6-50.0) % MCH (27.0-32.0) pg MCHC (32.0-37.0) g/dL RDW (11.5-14.5) % Immature Gran # (0.00-0.04) X 10*3/uL Neutrophils # (1.80-7.70) X 10*3/uL Lymphocytes # (0.90-5.00) X 10*3/uL Eosinophils # (0.04-0.35) X 10*3/uL Carbon Dioxide 21.2 L (21.6-31.8) mmol/L BUN 52.4 H (9.0-27.0) mg/dL Creatinine 2.4 H (0.6-1.5) mg/dL Est GFR (CKD-EPI) 26 L (>=60) BUN/Creatinine Ratio 21.83 H (12.00-20.00) Ratio Glucose 171 H (70-110) mg/dL POC Glucose (mg/dL) 168 H 200 H (70-110) mg/dL Calcium 8.2 L (8.7-10.3) mg/dL 08/12/24 08/12/24 08/12/24 Range/Units 04:03 07:49 12:00 WBC 18.11 H (4.50-10.00) X 10*3/uL RBC 3.16 L (4.40-5.60) X 10*6/uL Hgb 8.2 L (13.0-17.0) g/dL Hct 26.5 L (39.6-50.0) % MCH 25.9 L (27.0-32.0) pg MCHC 30.9 L (32.0-37.0) g/dL RDW 15.9 H (11.5-14.5) % Immature Gran # 0.16 H (0.00-0.04) X 10*3/uL Neutrophils # 16.89 H (1.80-7.70) X 10*3/uL Lymphocytes # 0.63 L (0.90-5.00) X 10*3/uL Eosinophils # 0 L (0.04-0.35) X 10*3/uL Carbon Dioxide (21.6-31.8) mmol/L BUN (9.0-27.0) mg/dL Creatinine (0.6-1.5) mg/dL Est GFR (CKD-EPI) (>=60) BUN/Creatinine Ratio (12.00-20.00) Ratio Glucose (70-110) mg/dL POC Glucose (mg/dL) 170 H 223 H (70-110) mg/dL Calcium (8.7-10.3) mg/dL Microbiology - Last 24 Hours (Table) 08/09/24 17:16 Gram Stain - Final Sputum Sputum Culture - Final Pseudomonas aeruginosa Serratia marcescens ssp marces Assessment and Plan Assessment: Status post left robotic assisted laparoscopic nephro ureterectomy, postoperative day #4 Acute hypoxemic respiratory failure secondary to an acute exacerbation of COPD suspected systolic versus diastolic congestive heart failure. BNP level 14,900. Procalcitonin negative. The scan of the chest did not reveal any acute pulmonary process. Sputum culture does reveal Pseudomonas aeruginosa and Serratia marcescens. Initiated on oral Levaquin Acute on chronic kidney disease Paroxysmal atrial fibrillation Coronary artery disease, previous [place] GERD without esophagitis renal cell carcinoma involving left kidney Plan: The patient was seen and evaluated Labs and medications reviewed Sputum positive for Pseudomonas and Serratia Initiated on Levaquin Discontinued Pulmicort and Perforomist inhalations Initiated on Symbicort Discontinue Solu-Medrol Initiated on prednisone taper Discontinued diuretics Continue utilizing the incentive spirometer Increase his activity as tolerated Titrate down the FiO2 as tolerated We will continue to follow I have personally seen and examined the patient, performed the documentation and the assessment and plan as written. Dictation was produced using [employer] dictation software. Please excuse any grammatical, word or spelling errors. This patient was seen in coordination with the pulmonary/critical care p tracician, Dr. Conner. He did spend greater than 50% of the time evaluating, examining and developing the plan of care. He agrees to the above HPI, physical exam, assessment and plan of care as dictated by the nurse practitioner.
[2024-08-12] MEDS: LEVOFLOXACIN 500 MG TAB PO SCH (14:50)
[2024-08-12] MEDS: LEVOFLOXACIN 750 MG TAB PO SCH (15:40)
[2024-08-12 17:05] LABS: Glucose,Whole Blood 199 mg/dL (70-110)
[2024-08-12] MEDS: SYMBICORT 160-4.5 MCG INHALER INHALATION SCH (19:53)
[2024-08-12 20:12] LABS: Glucose,Whole Blood 198 mg/dL (70-110)
[2024-08-13 07:15] LABS: Glucose,Whole Blood 185 mg/dL (70-110)
[2024-08-13 09:10] LABS: Basophils # (A) 0.01 X 10*3/uL (0.00-0.10); Basophils % (A) 0.1 %; Eosinophils # (A) 0 X 10*3/uL (0.04-0.35); Eosinophils % (A) 0 %; HCT 27.5 % (39.6-50.0); HGB 8.4 g/dL (13.0-17.0); Lymphocytes # (A) 0.47 X 10*3/uL (0.90-5.00); Lymphocytes % (A) 3.4 %; MCHC 30.5 g/dL (32.0-37.0); MCV 81.8 FL (80.0-97.0); Mean Platelet Volume 9.8 FL (9.5-12.2); Monocytes # (A) 0.75 X 10*3/uL (0.20-1.00); Monocytes % (A) 5.5 %; NRBC Per 100 WBC 0 X 10*3/uL (0.00-0.01); Neutrophils % (A) 90.4 %; Platelet Count 254 X 10*3/uL (140-440); RBC 3.36 X 10*6/uL (4.40-5.60); RDW 15.9 % (11.5-14.5); WBC 13.71 X 10*3/uL (4.50-10.00)
[2024-08-13 09:33] LABS: Blood Urea Nitrogen 59.1 mg/dL (9.0-27.0); Glucose 166 mg/dL (70-110)
[2024-08-13 09:34] LABS: Calcium 8.3 mg/dL (8.7-10.3); Carbon Dioxide 22.4 mmol/L (21.6-31.8); Chloride 104 mmol/L (96-109); Potassium 4.6 mmol/L (3.5-5.5); Sodium 139 mmol/L (135-145)
[2024-08-13 12:09] LABS: Glucose,Whole Blood 138 mg/dL (70-110)
--- NOTE | 2024-08-13 12:33 | P.PN ---
Subjective Progress Note Date: 08/13/24 Subjective: Patient seen and examined at bedside. No acute events overnight. Does claim that shortness of breath has slightly worsened. Pertinent positives and negatives as discussed above, a complete review of systems was performed and all other systems are negative. Vitals Signs Reviewed. General: nontoxic, no distress, appears at stated age, chronically ill-appearing Derm: warm, dry, dressing clean, dry, intact Head: atraumatic, normocephalic, symmetric Eyes: EOMI, no lid lag, anicteric sclera, pupils equal round reactive to light ENT: Nose and ears atraumatic Neck: No thyromegaly, supple Mouth: no lip lesion, mucus membranes moist Cardiovascular: S1S2 reg, no murmur, no edema Lungs: clear to auscultation bilateral, no rhonchi, no rales, no wheeze, no accessory muscle use Abdominal: soft, nontender to palpation, no guarding, no appreciable organomegaly, JAMAL drain in place Ext: no gross muscle atrophy, muscle strength muscle strength 5 out of 5 in all 4 extremities, no contractures Neuro: CN II-XII grossly intact Psych: Alert, oriented, appropriate affect Data Reviewed Today: Pertinent Labs: WBC 13.71, hemoglobin 8.4, creatinine 2.3, blood sugars range between 1 66-1 98 Imaging: No new imaging Assessment and Plan: Active: Acute COPD exacerbation Acute hypoxic respiratory failure Multi focal pneumonia, sputum cultures positive for Pseudomonas and Serratia -Continue to wean oxygen -Continue prednisone oral daily 40, DuoNebs scheduled 4 times daily, every 2 hours as needed, Perforomist twice daily, Pulmicort twice daily -Off of Lasix -Pulmonology following, started on Levaquin 750 acute 48 hours Leukocytosis, multifactorial, improving -Possibly reactive versus steroid induced -Continue to monitor Acute on chronic normocytic anemia, anticipated outcome of surgery -No active bleeding -Monitor LEXII on CKD -Nephrology following -Ayala catheter in place -Continue to monitor urine output Status post nephroureterectomy Renal cell cancer -Urology following,, will consider taking out Ayala catheter Hypertension -Continue atenolol 25 mg daily, Imdur 60 mg twice daily History of CAD History of aflutter -Holding aspirin, patient not able to tolerate statins -Continue Ranexa 500 mg every morning -Patient on continuous telemetry, continue atenolol New diagnosis of type 2 diabetes, A1c 6.5 Hyperglycemia -ACHS with low sliding scale insulin, monitor for hypoglycemia DVT prophylaxis: Subcu heparin Thank you for allowing us to participate in the care of this pleasant patient. Do not hesitate to contact us with questions. Someone can be reached from the [facility] hospitalist group all hours of the day at [phone] or via perfect serve. Objective - Vital Signs Vital signs: Vital Signs Temp 98.1 F 08/13/24 11:56 Pulse 78 08/13/24 12:31 Resp 17 08/13/24 11:56 BP 119/71 08/13/24 11:56 Pulse Ox 94 L 08/13/24 11:56 FiO2 Intake & Output 08/12/24 08/13/24 08/13/24 18:59 06:59 18:59 Intake Total 472 240 Output Total 1215 625 0 Balance -743 -625 240 Intake: Oral 472 240 Output: Drainage 15 0 Left Lower Abdomen 15 0 Urine 1200 625 Other: Voiding Method Indwelling Catheter Indwelling Catheter Indwelling Catheter - Labs CBC & Chem 7: 08/13/24 05:18 08/13/24 05:18 Labs: Abnormal Lab Results - Last 24 Hours (Table) 08/12/24 08/12/24 08/13/24 Range/Units 17:04 20:10 05:18 WBC 13.71 H (4.50-10.00) X 10*3/uL RBC 3.36 L (4.40-5.60) X 10*6/uL Hgb 8.4 L (13.0-17.0) g/dL Hct 27.5 L (39.6-50.0) % MCH 25.0 L (27.0-32.0) pg MCHC 30.5 L (32.0-37.0) g/dL RDW 15.9 H (11.5-14.5) % Immature Gran # 0.08 H (0.00-0.04) X 10*3/uL Neutrophils # 12.40 H (1.80-7.70) X 10*3/uL Lymphocytes # 0.47 L (0.90-5.00) X 10*3/uL Eosinophils # 0 L (0.04-0.35) X 10*3/uL Anion Gap (4.00-12.00) mmol/L BUN (9.0-27.0) mg/dL Creatinine (0.6-1.5) mg/dL Est GFR (CKD-EPI) (>=60) BUN/Creatinine Ratio (12.00-20.00) Ratio Glucose (70-110) mg/dL POC Glucose (mg/dL) 199 H 198 H (70-110) mg/dL Calcium (8.7-10.3) mg/dL 08/13/24 08/13/24 08/13/24 Range/Units 05:18 07:14 12:08 WBC (4.50-10.00) X 10*3/uL RBC (4.40-5.60) X 10*6/uL Hgb (13.0-17.0) g/dL Hct (39.6-50.0) % MCH (27.0-32.0) pg MCHC (32.0-37.0) g/dL RDW (11.5-14.5) % Immature Gran # (0.00-0.04) X 10*3/uL Neutrophils # (1.80-7.70) X 10*3/uL Lymphocytes # (0.90-5.00) X 10*3/uL Eosinophils # (0.04-0.35) X 10*3/uL Anion Gap 12.60 H (4.00-12.00) mmol/L BUN 59.1 H (9.0-27.0) mg/dL Creatinine 2.3 H (0.6-1.5) mg/dL Est GFR (CKD-EPI) 28 L (>=60) BUN/Creatinine Ratio 25.70 H (12.00-20.00) Ratio Glucose 166 H (70-110) mg/dL POC Glucose (mg/dL) 185 H 138 H (70-110) mg/dL Calcium 8.3 L (8.7-10.3) mg/dL Microbiology - Last 24 Hours (Table) 08/09/24 17:16 Gram Stain - Final Sputum Sputum Culture - Final Pseudomonas aeruginosa Serratia marcescens ssp marces
--- NOTE | 2024-08-13 12:58 | P.PN ---
Subjective Patient is seen for follow-up for CKD. No significant complaints today. Patient is hard of hearing. Serum creatinine staying at 2.3 to 2.4 mg/dL. Objective - Vital Signs Vital signs: Vital Signs Temp 98.1 F 08/13/24 11:56 Pulse 78 08/13/24 12:31 Resp 17 08/13/24 11:56 BP 119/71 08/13/24 11:56 Pulse Ox 94 L 08/13/24 11:56 FiO2 Intake & Output 08/12/24 08/13/24 08/13/24 18:59 06:59 18:59 Intake Total 472 240 Output Total 1215 625 0 Balance -743 -625 240 Intake: Oral 472 240 Output: Drainage 15 0 Left Lower Abdomen 15 0 Urine 1200 625 Other: Voiding Method Indwelling Catheter Indwelling Catheter Indwelling Catheter - Exam Patient is awake, comfortable, no acute distress Examination of the heart S1 and S2 Examination of the lungs bilateral breath sounds are heard Abdomen is soft nontender Examination of lower extremities shows no significant edema Moving all 4 extremities. - Labs CBC & Chem 7: 08/13/24 05:18 08/13/24 05:18 Labs: Abnormal Lab Results - Last 24 Hours (Table) 08/12/24 08/12/24 08/13/24 Range/Units 17:04 20:10 05:18 WBC 13.71 H (4.50-10.00) X 10*3/uL RBC 3.36 L (4.40-5.60) X 10*6/uL Hgb 8.4 L (13.0-17.0) g/dL Hct 27.5 L (39.6-50.0) % MCH 25.0 L (27.0-32.0) pg MCHC 30.5 L (32.0-37.0) g/dL RDW 15.9 H (11.5-14.5) % Immature Gran # 0.08 H (0.00-0.04) X 10*3/uL Neutrophils # 12.40 H (1.80-7.70) X 10*3/uL Lymphocytes # 0.47 L (0.90-5.00) X 10*3/uL Eosinophils # 0 L (0.04-0.35) X 10*3/uL Anion Gap (4.00-12.00) mmol/L BUN (9.0-27.0) mg/dL Creatinine (0.6-1.5) mg/dL Est GFR (CKD-EPI) (>=60) BUN/Creatinine Ratio (12.00-20.00) Ratio Glucose (70-110) mg/dL POC Glucose (mg/dL) 199 H 198 H (70-110) mg/dL Calcium (8.7-10.3) mg/dL 08/13/24 08/13/24 08/13/24 Range/Units 05:18 07:14 12:08 WBC (4.50-10.00) X 10*3/uL RBC (4.40-5.60) X 10*6/uL Hgb (13.0-17.0) g/dL Hct (39.6-50.0) % MCH (27.0-32.0) pg MCHC (32.0-37.0) g/dL RDW (11.5-14.5) % Immature Gran # (0.00-0.04) X 10*3/uL Neutrophils # (1.80-7.70) X 10*3/uL Lymphocytes # (0.90-5.00) X 10*3/uL Eosinophils # (0.04-0.35) X 10*3/uL Anion Gap 12.60 H (4.00-12.00) mmol/L BUN 59.1 H (9.0-27.0) mg/dL Creatinine 2.3 H (0.6-1.5) mg/dL Est GFR (CKD-EPI) 28 L (>=60) BUN/Creatinine Ratio 25.70 H (12.00-20.00) Ratio Glucose 166 H (70-110) mg/dL POC Glucose (mg/dL) 185 H 138 H (70-110) mg/dL Calcium 8.3 L (8.7-10.3) mg/dL Microbiology - Last 24 Hours (Table) 08/09/24 17:16 Gram Stain - Final Sputum Sputum Culture - Final Pseudomonas aeruginosa Serratia marcescens ssp marces Assessment and Plan Assessment: 1. CKD stage IIIb with baseline creatinine 1.8 to 2 mg/dL. Serum creatinine stable close to baseline. 2. 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 Anemia with CKD 4. Hypertension with CKD stage IIIb 5. CKD mineral bone disorder Plan: Continue off of diuretics. Avoid hypotension. Patient is maintained on midodrine. He is also maintained on Tenormin at 25 mg daily. Heart rate has been significantly elevated earlier during the admission therefore I will continue with the Tenormin for now. Continue with midodrine as well. Repeat labs in a.m. Follow-up as outpatient for chronic kidney disease.
--- NOTE | 2024-08-13 13:09 | P.PN ---
Subjective Progress Note Date: 08/13/24 This is an 83-year-old white male with history of multiple medical problems including chronic atrial fibrillation, coronary artery disease, COPD, hearing disorder, patient was diagnosed with transitional cell carcinoma involving the left kidney, patient had biopsy done by urology, as the patient was having gross hematuria secondary to his tumor. Patient was advised to undergo left robotic assisted laparoscopic nephro ureterectomy, and this was done today. Patient was sent back to the medical floor and he has been complaining of cough, shortness of breath, wheezing, chest x-ray is quite abnormal showing multiple opacities in both lungs, concerning for pneumonia or pulmonary edema, even the possibility of metastatic disease in the lungs, however patient had recent chest x-ray in the last month which was relatively unremarkable, this makes metastatic disease to the lungs less likely when I evaluated the patient, patient was constantly coughing, wheezing, and he was bringing up significant amount of sputum thick yellow sputum noted. Hence I recommended a trial of bronchodilators, antibiotic s, steroids, and patient to receive 1 dose of Lasix. The patient is seen today August 10, 2024 in follow-up on the regular medical floor. He is sitting up in bed having breakfast. Awake and alert in no acute distress. Maintaining O2 saturation in the mid 90s on 5 L/min per nasal cannula. He is afebrile. Hemodynamically stable. Breathing quite a bit better today compared to yesterday. Chest x-ray revealing similar multifocal airspace opacities. CT scan of the chest pending. White count 14.5. Hemoglobin 9.5. Platelets 286. Sodium 136. Potassium 4.7. Bicarb 19. BUN 34. Creatinine 2.31. Glucose 207. proBNP 14,900. Procalcitonin negative at 0.50. He remains on DuoNeb inhalations, Pulmicort and Perforomist inhalations, Solu-Medrol. Antibiotics in the form of Zosyn. Heparin for DVT prophylaxis. The patient is seen today August 11, 2024 in follow-up on the regular medical floor. He is currently resting comfortably in bed. Awake and alert in no acute distress. Denies any worsening shortness of breath, cough or congestion. He is maintaining O2 saturation in the 90s on 5 L/min per nasal cannula. He remains on DuoNeb inhalations, Pulmicort and Perforomist inhalations, IV Solu-Medrol. Continued on oral diuretics. Continued on Zosyn. His procalcitonin was neg ative at 0.50. CT scan of the chest revealed subcutaneous emphysema bilaterally extending down into the anterior abdominal wall. Additionally there is free air under the diaphragm most likely postop changes. Moderate to severe emphysema with small bilateral effusions. The patient is seen today August 12, 2024 in follow-up on the regular medical floor. He is awake and alert in no acute distress. He is still requiring 5 L of oxygen per minute per nasal cannula to maintain O2 saturations in the 90s. He remains on DuoNeb inhalations, Pulmicort and Perforomist inhalations, IV Solu-Medrol. Remains on oral diuretics. Sputum culture is now showing Pseudomonas aeruginosa and Serratia marcescens. Procalcitonin was negative. White count 18.1. Hemoglobin 8.2. Platelets 286. Sodium 139. Potassium 4.4. Bicarb 21. BUN 52. Creatinine 2.4. Glucose 171. The patient is seen today August 13, 2024 in follow-up on the regular medical floor. He is currently resting in bed. Awake and alert in no acute distress. Very hard of hearing. He is maintaining good O2 saturations in the 90s on 3 L/min per nasal cannula. His sputum culture was positive for Pseudomonas aeruginosa and Serratia marcescens. White count 13.7. Hemoglobin 8.4. Platelets 254. Sodium 139. Potassium 4.6. Bicarb 22. BUN 59. Creatinine 2.3. Glucose 166. He is continued on DuoNeb and elations, Symbicort, prednisone taper. Remains on antibiotics in the form of Levaquin. Heparin for DVT prophylaxis. Objective - Vital Signs Vital signs: Vital Signs Temp 98.1 F 08/13/24 11:56 Pulse 78 08/13/24 12:31 Resp 17 08/13/24 11:56 BP 119/71 08/13/24 11:56 Pulse Ox 94 L 08/13/24 11:56 FiO2 Intake & Output 08/12/24 08/13/24 08/13/24 18:59 06:59 18:59 Intake Total 472 240 Output Total 1215 625 0 Balance -743 -625 240 Intake: Oral 472 240 Output: Drainage 15 0 Left Lower Abdomen 15 0 Urine 1200 625 Other: Voiding Method Indwelling Catheter Indwelling Catheter Indwelling Catheter - Exam GENERAL EXAM: Alert, very hard of hearing 83-year-old male, on 3 L nasal cannula, in no apparent distress. HEAD: Normocephalic. EYES: Normal reaction of pupils, equal size. NOSE: Clear with pink turbinates. THROAT: No erythema or exudates. NECK: No masses, no JVD. CHEST: No chest wall deformity. LUNGS: Equal air entry with bilateral scattered rhonchi. CVS: S1 and S2 normal with no audible murmur, regular rhythm. ABDOMEN: No hepatosplenomegaly, normal bowel sounds, no guarding or rigidity. SPINE: No scoliosis or deformity SKIN: No rashes CENTRAL NERVOUS SYSTEM: No focal deficits, tone is normal in all 4 extremities. EXTREMITIES: There is no peripheral edema. No clubbing, no cyanosis. Peripheral pulses are intact. - Labs CBC & Chem 7: 08/13/24 05:18 08/13/24 05:18 Labs: Abnormal Lab Results - Last 24 Hours (Table) 08/12/24 08/12/24 08/13/24 Range/Units 17:04 20:10 05:18 WBC 13.71 H (4.50-10.00) X 10*3/uL RBC 3.36 L (4.40-5.60) X 10*6/uL Hgb 8.4 L (13.0-17.0) g/dL Hct 27.5 L (39.6-50.0) % MCH 25.0 L (27.0-32.0) pg MCHC 30.5 L (32.0-37.0) g/dL RDW 15.9 H (11.5-14.5) % Immature Gran # 0.08 H (0.00-0.04) X 10*3/uL Neutrophils # 12.40 H (1.80-7.70) X 10*3/uL Lymphocytes # 0.47 L (0.90-5.00) X 10*3/uL Eosinophils # 0 L (0.04-0.35) X 10*3/uL Anion Gap (4.00-12.00) mmol/L BUN (9.0-27.0) mg/dL Creatinine (0.6-1.5) mg/dL Est GFR (CKD-EPI) (>=60) BUN/Creatinine Ratio (12.00-20.00) Ratio Glucose (70-110) mg/dL POC Glucose (mg/dL) 199 H 198 H (70-110) mg/dL Calcium (8.7-10.3) mg/dL 08/13/24 08/13/24 08/13/24 Range/Units 05:18 07:14 12:08 WBC (4.50-10.00) X 10*3/uL RBC (4.40-5.60) X 10*6/uL Hgb (13.0-17.0) g/dL Hct (39.6-50.0) % MCH (27.0-32.0) pg MCHC (32.0-37.0) g/dL RDW (11.5-14.5) % Immature Gran # (0.00-0.04) X 10*3/uL Neutrophils # (1.80-7.70) X 10*3/uL Lymphocytes # (0.90-5.00) X 10*3/uL Eosinophils # (0.04-0.35) X 10*3/uL Anion Gap 12.60 H (4.00-12.00) mmol/L BUN 59.1 H (9.0-27.0) mg/dL Creatinine 2.3 H (0.6-1.5) mg/dL Est GFR (CKD-EPI) 28 L (>=60) BUN/Creatinine Ratio 25.70 H (12.00-20.00) Ratio Glucose 166 H (70-110) mg/dL POC Glucose (mg/dL) 185 H 138 H (70-110) mg/dL Calcium 8.3 L (8.7-10.3) mg/dL Microbiology - Last 24 Hours (Table) 08/09/24 17:16 Gram Stain - Final Sputum Sputum Culture - Final Pseudomonas aeruginosa Serratia marcescens ssp marces Assessment and Plan Assessment: Status post left robotic assisted laparoscopic nephro ureterectomy, postoperative day #5 Acute hypoxemic respiratory failure secondary to an acute exacerbation of COPD suspected systolic versus diastolic congestive heart failure. BNP level 14,900. Procalcitonin negative. The scan of the chest did not reveal any acute pulmonary process. Sputum culture does reveal Pseudomonas aeruginosa and Serratia marcescens. Initiated on oral Levaquin Acute on chronic kidney disease Paroxysmal atrial fibrillation Coronary artery disease, previous NC GERD without esophagitis renal cell carcinoma involving left kidney Plan: The patient was seen and evaluated Labs and medications reviewed Continue the current treatment plan Continue utilizing the incentive spirometer Increase his activity as tolerated Titrate down the FiO2 as tolerated We will continue to follow I have personally seen and examined the patient, performed the documentation and the assessment and plan as written. Time: 10 minutes. Dictation was produced using [employer] dictation software. Please excuse any grammatical, word or spelling errors. This patient was seen in coordination with the pulmonary/critical care physician, Dr. Conner. He did spend greater than 50% of the time evaluating, examining and developing the plan of care. He agrees to the above HPI, physical exam, assessment and plan of care as dictated by the nurse practitioner.
--- NOTE | 2024-08-13 14:38 | P.PN ---
Subjective Progress Note Date: 08/13/24 Principal diagnosis: POD #5, s/p robotic-assisted laparoscopic left nephroureterectomy The patient underwent an uncomplicated robotic assisted laparoscopic left nephroureterectomy on August 08, 2024. He is starting to feel better and wants to ambulate, but feels the catheter is a hindrance. He is tolerating diet. JAMAL drainage is minimal. The Ayala catheter is draining clear yellow urine. Objective - Vital Signs Vital signs: Vital Signs Temp 98.1 F 08/13/24 11:56 Pulse 78 08/13/24 12:31 Resp 17 08/13/24 11:56 BP 119/71 08/13/24 11:56 Pulse Ox 94 L 08/13/24 11:56 FiO2 Intake & Output 08/12/24 08/13/24 08/13/24 18:59 06:59 18:59 Intake Total 472 477 Output Total 1215 625 0 Balance -743 -625 477 Intake: Oral 472 477 Output: Drainage 15 0 Left Lower Abdomen 15 0 Urine 1200 625 Other: Voiding Method Indwelling Catheter Indwelling Catheter Indwelling Catheter - Constitutional General appearance: Present: average body habitus, cooperative, no acute distress - Gastrointestinal Gastrointestinal Comment(s): Soft, non-distended. Incisions clean and dry. - Psychiatric Psychiatric: Present: A&O x's 3 - Labs CBC & Chem 7: 08/13/24 05:18 08/13/24 05:18 Labs: Abnormal Lab Results - Last 24 Hours (Table) 08/12/24 08/12/24 08/13/24 Range/Units 17:04 20:10 05:18 WBC 13.71 H (4.50-10.00) X 10*3/uL RBC 3.36 L (4.40-5.60) X 10*6/uL Hgb 8.4 L (13.0-17.0) g/dL Hct 27.5 L (39.6-50.0) % MCH 25.0 L (27.0-32.0) pg MCHC 30.5 L (32.0-37.0) g/dL RDW 15.9 H (11.5-14.5) % Immature Gran # 0.08 H (0.00-0.04) X 10*3/uL Neutrophils # 12.40 H (1.80-7.70) X 10*3/uL Lymphocytes # 0.47 L (0.90-5.00) X 10*3/uL Eosinophils # 0 L (0.04-0.35) X 10*3/uL Anion Gap (4.00-12.00) mmol/L BUN (9.0-27.0) mg/dL Creatinine (0.6-1.5) mg/dL Est GFR (CKD-EPI) (>=60) BUN/Creatinine Ratio (12.00-20.00) Ratio Glucose (70-110) mg/dL POC Glucose (mg/dL) 199 H 198 H (70-110) mg/dL Calcium (8.7-10.3) mg/dL 08/13/24 08/13/24 08/13/24 Range/Units 05:18 07:14 12:08 WBC (4.50-10.00) X 10*3/uL RBC (4.40-5.60) X 10*6/uL Hgb (13.0-17.0) g/dL Hct (39.6-50.0) % MCH (27.0-32.0) pg MCHC (32.0-37.0) g/dL RDW (11.5-14.5) % Immature Gran # (0.00-0.04) X 10*3/uL Neutrophils # (1.80-7.70) X 10*3/uL Lymphocytes # (0.90-5.00) X 10*3/uL Eosinophils # (0.04-0.35) X 10*3/uL Anion Gap 12.60 H (4.00-12.00) mmol/L BUN 59.1 H (9.0-27.0) mg/dL Creatinine 2.3 H (0.6-1.5) mg/dL Est GFR (CKD-EPI) 28 L (>=60) BUN/Creatinine Ratio 25.70 H (12.00-20.00) Ratio Glucose 166 H (70-110) mg/dL POC Glucose (mg/dL) 185 H 138 H (70-110) mg/dL Calcium 8.3 L (8.7-10.3) mg/dL Microbiology - Last 24 Hours (Table) 08/09/24 17:16 Gram Stain - Final Sputum Sputum Culture - Final Pseudomonas aeruginosa Serratia marcescens ssp marces Assessment and Plan Plan: The patient is urologically stable for discharge. He will be discharged with the Ayala catheter. Anticoagulants may be resumed. The JAMAL drain has been removed, and the Ayala catheter will be connected to a urinary leg bag to make ambulation easier. Pathology is pending at this time.
[2024-08-13 17:11] LABS: Glucose,Whole Blood 213 mg/dL (70-110)
[2024-08-13 20:23] LABS: Glucose,Whole Blood 211 mg/dL (70-110)
[2024-08-14 07:21] LABS: Glucose,Whole Blood 155 mg/dL (70-110)
[2024-08-14 09:09] LABS: BUN/Creat Ratio 30.62 Ratio (12.00-20.00); Blood Urea Nitrogen 64.3 mg/dL (9.0-27.0); Calcium 8.7 mg/dL (8.7-10.3); Carbon Dioxide 19.9 mmol/L (21.6-31.8); Chloride 104 mmol/L (96-109); Glucose 215 mg/dL (70-110); Potassium 4.2 mmol/L (3.5-5.5); Sodium 139 mmol/L (135-145)
[2024-08-14 09:18] LABS: Basophils # (A) 0.01 X 10*3/uL (0.00-0.10); Basophils % (A) 0.1 %; Eosinophils # (A) 0 X 10*3/uL (0.04-0.35); Eosinophils % (A) 0 %; HCT 31.1 % (39.6-50.0); HGB 9.5 g/dL (13.0-17.0); Lymphocytes # (A) 0.98 X 10*3/uL (0.90-5.00); Lymphocytes % (A) 8.1 %; MCH 25.1 pg (27.0-32.0); MCHC 30.5 g/dL (32.0-37.0); MCV 82.1 FL (80.0-97.0); Mean Platelet Volume 10.8 FL (9.5-12.2); Monocytes # (A) 0.97 X 10*3/uL (0.20-1.00); NRBC Per 100 WBC 0.03 X 10*3/uL (0.00-0.01); Neutrophils # (A) 10.01 X 10*3/uL (1.80-7.70); Neutrophils % (A) 83.1 %; Platelet Count 281 X 10*3/uL (140-440); RBC 3.79 X 10*6/uL (4.40-5.60); WBC 12.05 X 10*3/uL (4.50-10.00)
--- NOTE | 2024-08-14 10:44 | CDI ---
Documentation Clarification Form Date: 08/14/2024 09:57:47 AM From: Karen Claros RN CCDS Phone: [phone] Admit Date: 08/08/2024 09:58:00 AM Patient Name: Emmanuel Zabala Visit Number: [id number] Discharge Date: ATTENTION: The Clinical Documentation Specialists (CDI) and [facility] Coding Staff appreciate your assistance in clarifying documentation. Please respond to the clarification below the line at the bottom and electronically sign. The CDI & [facility] Coding staff will review the response and follow-up if needed. Please note: Queries are made part of the Legal Health Record. If you have any questions, please contact the author of this message via ITS. Doctor: Romain Conner Conflicting documentation has been found in the medical record. As attending physician, please provide clarification. Acute hypoxemic respiratory failure secondary to Acute exacerbation of COPD suspected systolic vs diastolic congestive heart failure. 08/13/2024, Respiratory note. Acute COPD exacerbation, Acute hypoxic respiratory failure. Multi focal pneumonia, sputum cultures positive for Pseudomonas and Serratia. 08/13/2024, Medicine note. History/Risk Factors: 83 year old male with Left transitional cell carcinoma involving the left kidney presented for elective Left robotic assisted laparoscopic nephroureterectomy. Medical history: CKD 3b, HTN, CAD, COPD and Atrial fib Clinical Indicators: VSS, 08/08: B/P 140/70; HR 83; RR 17; Temp 97.8F Oral; SpO2 92% 3L nc CXR, 08/08: Multifocal airspace opacities concerning for pneumonia CXR, 08/10: Similar multifocal airspace opacities given differences in respiratory effort CTA, 08/10: Moderate to severe emphysema with possible superimposed airspace disease in the left lung. Small bilateral pleural effusions. Sputum Culture, 08/09: Pseudomonas aeruginosa Serratia marcescens ssp marces Pro-BNP, 08/09: 75647 Procalcitonin, 08/09: 0.50 ECHO, 06/26/2024: Mildly impaired LV function with EF between 40 to 45%, mildly dilated RV, Dilated aorta at the level of sinus of Valsalva Treatment: . Imdur 60mg PO BID; 08/09 Lasix 60mg IV x 1; 08/09 08/12 Solumedorol 60mg IV Q6H; 08/09 Duoenb Inhalation RT QID; 08/09 08/10 Zosyn IVPB Q12H; 08/11 08/12 Lasix 40mg PO Daily; 08/12Levaquin 750mg PO Daily Q48H; 08/12 Symbicort RT Inhaler BID Please clarify which diagnosis is most appropriate: [ x ] Acute exacerbation of COPD with Pneumonia and Acute exacerbation of Systolic CHF [ ] Acute exacerbation of COPD with Pneumonia and Chronic Systolic CHF [ ] Acute exacerbation of COPD with Acute on Chronic Systolic CHF [ ] Acute exacerbation of COPD with Chronic Systolic CHF [ ] Other (please specify) [ ] Unable to determine (Template Last Revised: October 2020) MTDD
--- NOTE | 2024-08-14 11:23 | P.PN ---
Subjective Progress Note Date: 08/14/24 Principal diagnosis: POD #6, s/p robotic-assisted laparoscopic left nephroureterectomy The patient underwent an uncomplicated robotic assisted laparoscopic left nephroureterectomy on August 08, 2024. He continues to feel better. He is tolerating diet. JAMAL drain is out. The Ayala catheter is draining clear yellow urine. Objective - Vital Signs Vital signs: Vital Signs Temp 98.1 F 08/14/24 07:15 Pulse 84 08/14/24 11:14 Resp 16 08/14/24 07:15 BP 102/52 08/14/24 07:15 Pulse Ox 94 L 08/14/24 11:09 FiO2 Intake & Output 08/13/24 08/14/24 08/14/24 18:59 06:59 18:59 Intake Total 1794 237 Output Total 1800 900 Balance -6 -900 237 Intake: Oral 1794 237 Output: Drainage 0 Left Lower Abdomen 0 Urine 1800 900 Uretheral (Ayala) 600 Other: Voiding Method Indwelling Catheter Indwelling Catheter Indwelling Catheter - Constitutional General appearance: Present: average body habitus, cooperative, no acute distress - Gastrointestinal Gastrointestinal Comment(s): Soft, non-distended. Incisions clean, dry, and intact. - Psychiatric Psychiatric: Present: A&O x's 3 - Labs CBC & Chem 7: 08/14/24 05:57 08/14/24 05:57 Labs: Abnormal Lab Results - Last 24 Hours (Table) 08/13/24 08/13/24 08/13/24 Range/Units 12:08 17:09 20:21 WBC (4.50-10.00) X 10*3/uL RBC (4.40-5.60) X 10*6/uL Hgb (13.0-17.0) g/dL Hct (39.6-50.0) % MCH (27.0-32.0) pg MCHC (32.0-37.0) g/dL RDW (11.5-14.5) % Immature Gran # (0.00-0.04) X 10*3/uL Neutrophils # (1.80-7.70) X 10*3/uL Eosinophils # (0.04-0.35) X 10*3/uL NRBC/100 WBC Diff (0.00-0.01) X 10*3/uL Carbon Dioxide (21.6-31.8) mmol/L Anion Gap (4.00-12.00) mmol/L BUN (9.0-27.0) mg/dL Creatinine (0.6-1.5) mg/dL Est GFR (CKD-EPI) (>=60) BUN/Creatinine Ratio (12.00-20.00) Ratio Glucose (70-110) mg/dL POC Glucose (mg/dL) 138 H 213 H 211 H (70-110) mg/dL 08/14/24 08/14/24 08/14/24 Range/Units 05:57 05:57 07:20 WBC 12.05 H (4.50-10.00) X 10*3/uL RBC 3.79 L (4.40-5.60) X 10*6/uL Hgb 9.5 L (13.0-17.0) g/dL Hct 31.1 L (39.6-50.0) % MCH 25.1 L (27.0-32.0) pg MCHC 30.5 L (32.0-37.0) g/dL RDW 16.0 H (11.5-14.5) % Immature Gran # 0.08 H (0.00-0.04) X 10*3/uL Neutrophils # 10.01 H (1.80-7.70) X 10*3/uL Eosinophils # 0 L (0.04-0.35) X 10*3/uL NRBC/100 WBC Diff 0.03 H (0.00-0.01) X 10*3/uL Carbon Dioxide 19.9 L (21.6-31.8) mmol/L Anion Gap 15.10 H (4.00-12.00) mmol/L BUN 64.3 H (9.0-27.0) mg/dL Creatinine 2.1 H (0.6-1.5) mg/dL Est GFR (CKD-EPI) 31 L (>=60) BUN/Creatinine Ratio 30.62 H (12.00-20.00) Ratio Glucose 215 H (70-110) mg/dL POC Glucose (mg/dL) 155 H (70-110) mg/dL Assessment and Plan Plan: The patient is to be discharged home today with the Ayala catheter. He will follow-up with Dr. Ordaz early next week for Ayala catheter removal.
[2024-08-14 12:12] LABS: Glucose,Whole Blood 144 mg/dL (70-110)
--- NOTE | 2024-08-14 12:12 | P.PN ---
Subjective Patient is seen for follow-up for CKD. No significant complaints today. Patient is hard of hearing. Serum creatinine staying at 2.1 today Objective - Vital Signs Vital signs: Vital Signs Temp 98.1 F 08/14/24 07:15 Pulse 80 08/14/24 11:24 Resp 16 08/14/24 07:15 BP 102/52 08/14/24 07:15 Pulse Ox 94 L 08/14/24 11:09 FiO2 Intake & Output 08/13/24 08/14/24 08/14/24 18:59 06:59 18:59 Intake Total 1794 237 Output Total 1800 900 Balance -6 -900 237 Intake: Oral 1794 237 Output: Drainage 0 Left Lower Abdomen 0 Urine 1800 900 Uretheral (Ayala) 600 Other: Voiding Method Indwelling Catheter Indwelling Catheter Indwelling Catheter - Exam Patient is awake, comfortable, no acute distress Examination of the heart S1 and S2 Examination of the lungs bilateral breath sounds are heard Abdomen is soft nontender Examination of lower extremities shows no significant edema Moving all 4 extremities. - Labs CBC & Chem 7: 08/14/24 05:57 08/14/24 05:57 Labs: Abnormal Lab Results - Last 24 Hours (Table) 08/13/24 08/13/24 08/14/24 Range/Units 17:09 20:21 05:57 WBC 12.05 H (4.50-10.00) X 10*3/uL RBC 3.79 L (4.40-5.60) X 10*6/uL Hgb 9.5 L (13.0-17.0) g/dL Hct 31.1 L (39.6-50.0) % MCH 25.1 L (27.0-32.0) pg MCHC 30.5 L (32.0-37.0) g/dL RDW 16.0 H (11.5-14.5) % Immature Gran # 0.08 H (0.00-0.04) X 10*3/uL Neutrophils # 10.01 H (1.80-7.70) X 10*3/uL Eosinophils # 0 L (0.04-0.35) X 10*3/uL NRBC/100 WBC Diff 0.03 H (0.00-0.01) X 10*3/uL Carbon Dioxide (21.6-31.8) mmol/L Anion Gap (4.00-12.00) mmol/L BUN (9.0-27.0) mg/dL Creatinine (0.6-1.5) mg/dL Est GFR (CKD-EPI) (>=60) BUN/Creatinine Ratio (12.00-20.00) Ratio Glucose (70-110) mg/dL POC Glucose (mg/dL) 213 H 211 H (70-110) mg/dL 08/14/24 08/14/24 Range/Units 05:57 07:20 WBC (4.50-10.00) X 10*3/uL RBC (4.40-5.60) X 10*6/uL Hgb (13.0-17.0) g/dL Hct (39.6-50.0) % MCH (27.0-32.0) pg MCHC (32.0-37.0) g/dL RDW (11.5-14.5) % Immature Gran # (0.00-0.04) X 10*3/uL Neutrophils # (1.80-7.70) X 10*3/uL Eosinophils # (0.04-0.35) X 10*3/uL NRBC/100 WBC Diff (0.00-0.01) X 10*3/uL Carbon Dioxide 19.9 L (21.6-31.8) mmol/L Anion Gap 15.10 H (4.00-12.00) mmol/L BUN 64.3 H (9.0-27.0) mg/dL Creatinine 2.1 H (0.6-1.5) mg/dL Est GFR (CKD-EPI) 31 L (>=60) BUN/Creatinine Ratio 30.62 H (12.00-20.00) Ratio Glucose 215 H (70-110) mg/dL POC Glucose (mg/dL) 155 H (70-110) mg/dL Assessment and Plan Assessment: 1. CKD stage IIIb with baseline creatinine 1.8 to 2 mg/dL. Serum creatinine stable close to baseline. 2. 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 Anemia with CKD 4. Hypertension with CKD stage IIIb 5. CKD mineral bone disorder Plan: Continue off of diuretics. Okay for discharge from nephrology standpoint. Avoid hypotension. Patient is maintained on midodrine. He is also maintained on Tenormin at 25 mg daily. Heart rate has been significantly elevated earlier during the admission therefore I will continue with the Tenormin for now. Continue with midodrine as well. Follow-up as outpatient for chronic kidney disease.
--- NOTE | 2024-08-14 12:58 | P.PN ---
Subjective Progress Note Date: 08/14/24 Subjective: Patient seen and examined at bedside. No acute events overnight. Shortness of breath slightly improved at rest. Still having difficulty breathing with ambulation. Using a walker for ambulation. Pertinent positives and negatives as discussed above, a complete review of systems was performed and all other systems are negative. Vitals Signs Reviewed. General: nontoxic, no distress, appears at stated age, chronically ill-appearing Derm: warm, dry, dressing clean, dry, intact Head: atraumatic, normocephalic, symmetric Eyes: EOMI, no lid lag, anicteric sclera, pupils equal round reactive to light ENT: Nose and ears atraumatic Neck: No thyromegaly, supple Mouth: no lip lesion, mucus membranes moist Cardiovascular: S1S2 reg, no murmur, no edema Lungs: clear to auscultation bilateral, no rhonchi, no rales, no wheeze, no accessory muscle use Abdominal: soft, nontender to palpation, no guarding, no appreciable organomegaly, JAMAL drain in place Ext: no gross muscle atrophy, muscle strength muscle strength 5 out of 5 in all 4 extremities, no contractures Neuro: CN II-XII grossly intact Psych: Alert, oriented, appropriate affect Data Reviewed Today: Pertinent Labs: WBC 12.05, hemoglobin 9.5, creatinine 2.1, blood sugars range between 1 44-2 15 Imaging: No new imaging Assessment and Plan: Active: Acute COPD exacerbation Acute hypoxic respiratory failure Multi focal pneumonia, sputum cultures positive for Pseudomonas and Serratia -Continue to wean oxygen -Continue prednisone oral daily 40, DuoNebs scheduled 4 times daily, every 2 hours as needed, Perforomist twice daily, Pulmicort twice daily -Off of Lasix -on Levaquin 750 acute 48 hours -Discussed with pulmonology, best for patient to be weaned further off of oxygen, consider discharge tomorrow Leukocytosis, multifactorial, improving -Possibly reactive versus steroid induced -Continue to monitor Acute on chronic normocytic anemia, anticipated outcome of surgery -No active bleeding -Monitor LEXII on CKD -Nephrology note reviewed, stable from their standpoint, continue beta-silvia and midodrine -Ayala catheter in place -Continue to monitor urine output Status post nephroureterectomy Renal cell cancer -Urology note reviewed, okay to be discharged Hypertension -Continue atenolol 25 mg daily, Imdur 60 mg twice daily History of CAD History of aflutter -Holding aspirin, patient not able to tolerate statins -Continue Ranexa 500 mg every morning -Patient on continuous telemetry, continue atenolol New diagnosis of type 2 diabetes, A1c 6.5 Hyperglycemia -ACHS with low sliding scale insulin, monitor for hypoglycemia -Hold off starting oral antidiabetic medications at the time of discharge as A1c is 6.5, borderline, consider SGLT2 inhibitor outpatient. DVT prophylaxis: Subcu heparin Thank you for allowing us to participate in the care of this pleasant patient. Do not hesitate to contact us with questions. Someone can be reached from the [facility] hospitalist group all hours of the day at [phone] or via [email or web address]. Objective - Vital Signs Vital signs: Vital Signs Temp 97.6 F 08/14/24 12:23 Pulse 74 08/14/24 12:23 Resp 17 08/14/24 12:23 BP 150/61 08/14/24 12:23 Pulse Ox 93 L 08/14/24 12:23 FiO2 Intake & Output 08/13/24 08/14/24 08/14/24 18:59 06:59 18:59 Intake Total 1794 1014 Output Total 1800 900 300 Balance -6 -900 714 Intake: Oral 1794 1014 Output: Drainage 0 Left Lower Abdomen 0 Urine 1800 900 300 Uretheral (Ayala) 600 Other: Voiding Method Indwelling Catheter Indwelling Catheter Indwelling Catheter - Labs CBC & Chem 7: 08/14/24 05:57 08/14/24 05:57 Labs: Abnormal Lab Results - Last 24 Hours (Table) 08/13/24 08/13/24 08/14/24 Range/Units 17:09 20:21 05:57 WBC 12.05 H (4.50-10.00) X 10*3/uL RBC 3.79 L (4.40-5.60) X 10*6/uL Hgb 9.5 L (13.0-17.0) g/dL Hct 31.1 L (39.6-50.0) % MCH 25.1 L (27.0-32.0) pg MCHC 30.5 L (32.0-37.0) g/dL RDW 16.0 H (11.5-14.5) % Immature Gran # 0.08 H (0.00-0.04) X 10*3/uL Neutrophils # 10.01 H (1.80-7.70) X 10*3/uL Eosinophils # 0 L (0.04-0.35) X 10*3/uL NRBC/100 WBC Diff 0.03 H (0.00-0.01) X 10*3/uL Carbon Dioxide (21.6-31.8) mmol/L Anion Gap (4.00-12.00) mmol/L BUN (9.0-27.0) mg/dL Creatinine (0.6-1.5) mg/dL Est GFR (CKD-EPI) (>=60) BUN/Creatinine Ratio (12.00-20.00) Ratio Glucose (70-110) mg/dL POC Glucose (mg/dL) 213 H 211 H (70-110) mg/dL 08/14/24 08/14/24 08/14/24 Range/Units 05:57 07:20 12:11 WBC (4.50-10.00) X 10*3/uL RBC (4.40-5.60) X 10*6/uL Hgb (13.0-17.0) g/dL Hct (39.6-50.0) % MCH (27.0-32.0) pg MCHC (32.0-37.0) g/dL RDW (11.5-14.5) % Immature Gran # (0.00-0.04) X 10*3/uL Neutrophils # (1.80-7.70) X 10*3/uL Eosinophils # (0.04-0.35) X 10*3/uL NRBC/100 WBC Diff (0.00-0.01) X 10*3/uL Carbon Dioxide 19.9 L (21.6-31.8) mmol/L Anion Gap 15.10 H (4.00-12.00) mmol/L BUN 64.3 H (9.0-27.0) mg/dL Creatinine 2.1 H (0.6-1.5) mg/dL Est GFR (CKD-EPI) 31 L (>=60) BUN/Creatinine Ratio 30.62 H (12.00-20.00) Ratio Glucose 215 H (70-110) mg/dL POC Glucose (mg/dL) 155 H 144 H (70-110) mg/dL
--- NOTE | 2024-08-14 13:14 | P.PN ---
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 Patient was advised to undergo left robotic assisted laparoscopic nephro ureterectomy, and this was done today. Patient was sent back to the medical floor and he has been complaining of cough, shortness of breath, wheezing, chest x-ray is quite abnormal showing multiple opacities in both lungs, concerning for pneumonia or pulmonary edema, even the possibility of metastatic disease in the lungs, however patient had recent chest x-ray in the last month which was relatively unremarkable, this makes metastatic disease to the lungs less likely when I evaluated the patient, patient was constantly coughing, wheezing, and he was bringing up significant amount of sputum thick yellow sputum noted. Hence I recommended a trial of bronchodilators, antibiotic s, steroids, and patient to receive 1 dose of Lasix. The patient is seen today August 10, 2024 in follow-up on the regular medical floor. He is sitting up in bed having breakfast. Awake and alert in no acute distress. Maintaining O2 saturation in the mid 90s on 5 L/min per nasal cannula. He is afebrile. Hemodynamically stable. Breathing quite a bit better today compared to yesterday. Chest x-ray revealing similar multifocal airspace opacities. CT scan of the chest pending. White count 14.5. Hemoglobin 9.5. Platelets 286. Sodium 136. Potassium 4.7. Bicarb 19. BUN 34. Creatinine 2.31. Glucose 207. proBNP 14,900. Procalcitonin negative at 0.50. He remains on DuoNeb inhalations, Pulmicort and Perforomist inhalations, Solu-Medrol. Antibiotics in the form of Zosyn. Heparin for DVT prophylaxis. The patient is seen today August 11, 2024 in follow-up on the regular medical floor. He is currently resting comfortably in bed. Awake and alert in no acute distress. Denies any worsening shortness of breath, cough or congestion. He is maintaining O2 saturation in the 90s on 5 L/min per nasal cannula. He remains on DuoNeb inhalations, Pulmicort and Perforomist inhalations, IV Solu-Medrol. Continued on oral diuretics. Continued on Zosyn. His procalcitonin was neg ative at 0.50. CT scan of the chest revealed subcutaneous emphysema bilaterally extending down into the anterior abdominal wall. Additionally there is free air under the diaphragm most likely postop changes. Moderate to severe emphysema with small bilateral effusions. The patient is seen today August 12, 2024 in follow-up on the regular medical floor. He is awake and alert in no acute distress. He is still requiring 5 L of oxygen per minute per nasal cannula to maintain O2 saturations in the 90s. He remains on DuoNeb inhalations, Pulmicort and Perforomist inhalations, IV Solu-Medrol. Remains on oral diuretics. Sputum culture is now showing Pseudomonas aeruginosa and Serratia marcescens. Procalcitonin was negative. White count 18.1. Hemoglobin 8.2. Platelets 286. Sodium 139. Potassium 4.4. Bicarb 21. BUN 52. Creatinine 2.4. Glucose 171. The patient is seen today August 13, 2024 in follow-up on the regular medical floor. He is currently resting in bed. Awake and alert in no acute distress. Very hard of hearing. He is maintaining good O2 saturations in the 90s on 3 L/min per nasal cannula. His sputum culture was positive for Pseudomonas aeruginosa and Serratia marcescens. White count 13.7. Hemoglobin 8.4. Platelets 254. Sodium 139. Potassium 4.6. Bicarb 22. BUN 59. Creatinine 2.3. Glucose 166. He is continued on DuoNeb and elations, Symbicort, prednisone taper. Remains on antibiotics in the form of Levaquin. Heparin for DVT prophylaxis. The patient is seen today August 14, 2024 in follow-up on the regular medical floor. He is currently sitting up in bed. Awake and alert in no acute distress. Very hard of hearing. He is still requiring 5 L of oxygen to maintain O2 saturation in the low 90s. He did test positive for both Pseudomon as aeruginosa and Serratia marcescens in his sputum. He remains on Levaquin. Remains on DuoNeb inhalations, Symbicort, prednisone taper. Heparin for DVT prophylaxis. White count 12.0. Hemoglobin 9.5. Platelets 281. Sodium 139. Potassium 4.2. Bicarb 20. BUN 64. Creatinine 2.1. Glucose 215. Magnesium 2.0. Objective - Vital Signs Vital signs: Vital Signs Temp 97.6 F 08/14/24 12:23 Pulse 74 08/14/24 12:23 Resp 17 08/14/24 12:23 BP 150/61 08/14/24 12:23 Pulse Ox 93 L 08/14/24 12:23 FiO2 Intake & Output 08/13/24 08/14/24 08/14/24 18:59 06:59 18:59 Intake Total 1794 1014 Output Total 1800 900 300 Balance -6 -900 714 Intake: Oral 1794 1014 Output: Drainage 0 Left Lower Abdomen 0 Urine 1800 900 300 Uretheral (Ayala) 600 Other: Voiding Method Indwelling Catheter Indwelling Catheter Indwelling Catheter - Exam GENERAL EXAM: Alert, hard of hearing 83-year-old male, sitting up in bed, comfor table, on 3 L nasal cannula, in no apparent distress. HEAD: Normocephalic. EYES: Normal reaction of pupils, equal size. NOSE: Clear with pink turbinates. THROAT: No erythema or exudates. NECK: No masses, no JVD. CHEST: No chest wall deformity. LUNGS: Equal air entry with bilateral scattered rhonchi. CVS: S1 and S2 normal with no audible murmur, regular rhythm. ABDOMEN: No hepatosplenomegaly, normal bowel sounds, no guarding or rigidity. SPINE: No scoliosis or deformity SKIN: No rashes CENTRAL NERVOUS SYSTEM: No focal deficits, tone is normal in all 4 extremities. EXTREMITIES: There is no peripheral edema. No clubbing, no cyanosis. Peripheral pulses are intact. - Labs CBC & Chem 7: 08/14/24 05:57 08/14/24 05:57 Labs: Abnormal Lab Results - Last 24 Hours (Table) 08/13/24 08/13/24 08/14/24 Range/Units 17:09 20:21 05:57 WBC 12.05 H (4.50-10.00) X 10*3/uL RBC 3.79 L (4.40-5.60) X 10*6/uL Hgb 9.5 L (13.0-17.0) g/dL Hct 31.1 L (39.6-50.0) % MCH 25.1 L (27.0-32.0) pg MCHC 30.5 L (32.0-37.0) g/dL RDW 16.0 H (11.5-14.5) % Immature Gran # 0.08 H (0.00-0.04) X 10*3/uL Neutrophils # 10.01 H (1.80-7.70) X 10*3/uL Eosinophils # 0 L (0.04-0.35) X 10*3/uL NRBC/100 WBC Diff 0.03 H (0.00-0.01) X 10*3/uL Carbon Dioxide (21.6-31.8) mmol/L Anion Gap (4.00-12.00) mmol/L BUN (9.0-27.0) mg/dL Creatinine (0.6-1.5) mg/dL Est GFR (CKD-EPI) (>=60) BUN/Creatinine Ratio (12.00-20.00) Ratio Glucose (70-110) mg/dL POC Glucose (mg/dL) 213 H 211 H (70-110) mg/dL 08/14/24 08/14/24 08/14/24 Range/Units 05:57 07:20 12:11 WBC (4.50-10.00) X 10*3/uL RBC (4.40-5.60) X 10*6/uL Hgb (13.0-17.0) g/dL Hct (39.6-50.0) % MCH (27.0-32.0) pg MCHC (32.0-37.0) g/dL RDW (11.5-14.5) % Immature Gran # (0.00-0.04) X 10*3/uL Neutrophils # (1.80-7.70) X 10*3/uL Eosinophils # (0.04-0.35) X 10*3/uL NRBC/100 WBC Diff (0.00-0.01) X 10*3/uL Carbon Dioxide 19.9 L (21.6-31.8) mmol/L Anion Gap 15.10 H (4.00-12.00) mmol/L BUN 64.3 H (9.0-27.0) mg/dL Creatinine 2.1 H (0.6-1.5) mg/dL Est GFR (CKD-EPI) 31 L (>=60) BUN/Creatinine Ratio 30.62 H (12.00-20.00) Ratio Glucose 215 H (70-110) mg/dL POC Glucose (mg/dL) 155 H 144 H (70-110) mg/dL Assessment and Plan Assessment: Status post left robotic assisted laparoscopic nephro ureterectomy, postoperative day #6 Acute hypoxemic respiratory failure secondary to an acute exacerbation of COPD suspected systolic versus diastolic congestive heart failure. BNP level 14,900. Procalcitonin negative. The scan of the chest did not reveal any acute pulmonary process. Sputum culture does reveal Pseudomonas aeruginosa and Serratia marcescens. Initiated on oral Levaquin Acute on chronic kidney disease Paroxysmal atrial fibrillation Coronary artery disease, previous CT GERD without esophagitis renal cell carcinoma involving left kidney Plan: The patient was seen and evaluated Labs and medications reviewed Not quite ready for discharge Will most likely need home oxygen Continued on bronchodilators, steroids Continued on oral Levaquin Heparin for DVT prophylaxis Continue the incentive spirometer Increase his activity as tolerated Titrate down the FiO2 as tolerated We will continue to follow This patient was seen independently by the pulmonary nurse practitioner armida celestin pulmonary issues I have personally seen and examined the patient, performed the documentation and the assessment and plan as written. Time: 25 minutes. Dictation was produced using [employer] dictation software. Please excuse any grammatical, word or spelling errors.
[2024-08-14 17:12] LABS: Glucose,Whole Blood 254 mg/dL (70-110)
[2024-08-14 20:48] LABS: Glucose,Whole Blood 157 mg/dL (70-110)
[2024-08-15 07:39] LABS: Glucose,Whole Blood 152 mg/dL (70-110)
--- NOTE | 2024-08-15 09:08 | P.PN ---
Subjective Progress Note Date: 08/15/24 Principal diagnosis: POD #7, s/p robotic-assisted laparoscopic left nephroureterectomy The patient underwent an uncomplicated robotic assisted laparoscopic left nephroureterectomy on August 08, 2024. He continues to feel better and is likely to be discharged home today. He is tolerating diet. JAMAL drain is out. The Ayala catheter is draining clear yellow urine. Objective - Vital Signs Vital signs: Vital Signs Temp 97.6 F 08/15/24 00:39 Pulse 107 H 08/15/24 00:39 Resp 19 08/15/24 00:39 BP 117/76 08/15/24 00:39 Pulse Ox 92 L 08/15/24 00:39 FiO2 Intake & Output 08/14/24 08/15/24 08/15/24 18:59 06:59 18:59 Intake Total 2334 Output Total 300 825 Balance 4 -825 Intake: Oral 2334 Output: Urine 300 825 Other: Voiding Method Indwelling Catheter Indwelling Catheter # Voids 1,800 # Bowel Movements 1 - Constitutional General appearance: Present: average body habitus, cooperative, no acute distress - Gastrointestinal Gastrointestinal Comment(s): Soft. Incisions clean, dry, and intact. - Psychiatric Psychiatric: Present: A&O x's 3 - Labs CBC & Chem 7: 08/14/24 05:57 08/14/24 05:57 Labs: Abnormal Lab Results - Last 24 Hours (Table) 08/14/24 08/14/24 08/14/24 Range/Units 05:57 05:57 12:11 WBC 12.05 H (4.50-10.00) X 10*3/uL RBC 3.79 L (4.40-5.60) X 10*6/uL Hgb 9.5 L (13.0-17.0) g/dL Hct 31.1 L (39.6-50.0) % MCH 25.1 L (27.0-32.0) pg MCHC 30.5 L (32.0-37.0) g/dL RDW 16.0 H (11.5-14.5) % Immature Gran # 0.08 H (0.00-0.04) X 10*3/uL Neutrophils # 10.01 H (1.80-7.70) X 10*3/uL Eosinophils # 0 L (0.04-0.35) X 10*3/uL NRBC/100 WBC Diff 0.03 H (0.00-0.01) X 10*3/uL Carbon Dioxide 19.9 L (21.6-31.8) mmol/L Anion Gap 15.10 H (4.00-12.00) mmol/L BUN 64.3 H (9.0-27.0) mg/dL Creatinine 2.1 H (0.6-1.5) mg/dL Est GFR (CKD-EPI) 31 L (>=60) BUN/Creatinine Ratio 30.62 H (12.00-20.00) Ratio Glucose 215 H (70-110) mg/dL POC Glucose (mg/dL) 144 H (70-110) mg/dL 08/14/24 08/14/24 08/15/24 Range/Units 17:08 20:46 07:18 WBC (4.50-10.00) X 10*3/uL RBC (4.40-5.60) X 10*6/uL Hgb (13.0-17.0) g/dL Hct (39.6-50.0) % MCH (27.0-32.0) pg MCHC (32.0-37.0) g/dL RDW (11.5-14.5) % Immature Gran # (0.00-0.04) X 10*3/uL Neutrophils # (1.80-7.70) X 10*3/uL Eosinophils # (0.04-0.35) X 10*3/uL NRBC/100 WBC Diff (0.00-0.01) X 10*3/uL Carbon Dioxide (21.6-31.8) mmol/L Anion Gap (4.00-12.00) mmol/L BUN (9.0-27.0) mg/dL Creatinine (0.6-1.5) mg/dL Est GFR (CKD-EPI) (>=60) BUN/Creatinine Ratio (12.00-20.00) Ratio Glucose (70-110) mg/dL POC Glucose (mg/dL) 254 H 157 H 152 H (70-110) mg/dL Assessment and Plan Plan: The Ayala catheter will be removed today prior to discharge. He will follow-up with Dr. Ordaz in one week.
[2024-08-15 10:29] LABS: HCT 30.3 % (39.0-53.0); HGB 9.6 gm/dL (13.0-17.5); Hypochromasia Marked; MCH 25.6 pg (25.0-35.0); MCHC 31.6 g/dL (31.0-37.0); MCV 81.1 fL (80.0-100.0); Mean Platelet Volume 7.6; Platelet Count 229 k/uL (150-450); Poikilocytosis Slight; RBC 3.73 m/uL (4.30-5.90); RDW 15.7 % (11.5-15.5); WBC 14.1 k/uL (3.8-10.6)
[2024-08-15 10:45] LABS: ALT 38 U/L (4-49); AST 21 U/L (17-59); African American GFR (CKD) 38 (>60 ml/min/1.73 sqM); Albumin 3.1 g/dL (3.5-5.0); Alkaline Phosphatase 78 U/L (38-126); Anion Gap 7 mmol/L; Blood Urea Nitrogen 67 mg/dL (9-20); Calcium 8.9 mg/dL (8.4-10.2); Carbon Dioxide 26 mmol/L (22-30); Chloride 106 mmol/L (98-107); Glucose 149 mg/dL (74-99); Non-African American GFR(CKD) 33 (>60 ml/min/1.73 sqM); Potassium 4.6 mmol/L (3.5-5.1); Sodium 139 mmol/L (137-145); Total Bilirubin 0.6 mg/dL (0.2-1.3); Total Protein 6.1 g/dL (6.3-8.2)
[2024-08-15 12:28] LABS: Glucose,Whole Blood 219 mg/dL (70-110)
--- NOTE | 2024-08-15 12:38 | P.PN ---
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 He was admitted to the hospital and underwent underwent nephroureterectomy with Dr. Ordaz on 08/08/2024 we were consulted for medical management on 08/10/2024. Patient reported worsening shortness of breath and underwent chest x-ray which revealed bilateral interstitial opacities worsening. He was started on IV antibiotics for treatment of multifocal pneumonia and sputum cultures were obtained later resulting positive for Pseudomonas and Serratia. Pulmonology and nephrology also following. Physical exam: Vital signs reviewed and stable. General: Nontoxic, no distress and appears stated age. Derm: Skin warm and dry, normal coloration for ethnicity. Head: Atraumatic, normocephalic and symmetric. Eyes: EOM's intact, no lid lag, and anicteric sclera Mouth: no lip lesions, mucus membranes moist Cardiovascular: regular rate and rhythm with normal S1S2, no murmur, positive posterior tibial pulses bilaterally, and cap refill < 2 seconds. Lungs: Respirations even, regular, and unlabored on 4 L O2 via nasal. Lungs diminished, no rhonchi, no rales, no wheezing, and no accessory muscle usage. Abdominal: soft, nontender to palpation, no guarding, no appreciable organomegaly Ext: ROM intact. No gross muscle atrophy, no edema, no contractures Neuro: Speech clear, face symmetrical and CN II-XII grossly intact with no noted focal neuro deficits Psych: Alert and oriented to person, place, time, and situation. Appropriate and pleasant affect. Assessment and Plan of Care: Acute COPD exacerbation Acute hypoxic respiratory failure Multi focal pneumonia, sputum cultures positive for Pseudomonas and Serratia -Oxygenation to be administered and titrated as needed to maintain SPO2 equal to or greater than 92%. As patient tolerates. -Telemetry monitoring. -Monitor pulse-oximetry -Duonebs scheduled 4 times daily and as needed for SOB and/or wheezing, performist twice daily and Pulmicort twice daily. -Incentive Spirometry -Steroids: Prednisone 40 mg daily -Antibiotics: Continue Levaquin 750 mg every 48 hours per renal dosing -Sputum culture positive for Pseudomonas and Serratia Leukocytosis, multifactorial, improving -Possibly reactive versus steroid induced -Continue to monitor Acute on chronic normocytic anemia, anticipated outcome of surgery -No active bleeding -Monitor LEXII on CKD -Nephrology note reviewed, stable from their standpoint, continue beta-silvia and midodrine -Ayala catheter to remain in place -Continue to monitor urine output Status post nephroureterectomy Renal cell cancer -Urology note reviewed, cleared for discharge from urology standpoint. Hypertension -Continue atenolol 25 mg daily, Imdur 60 mg twice daily History of CAD History of aflutter -Holding aspirin, patient not able to tolerate statins -Continue Ranexa 500 mg every morning -Patient on continuous telemetry, continue atenolol New diagnosis of type 2 diabetes, A1c 6.5 Hyperglycemia -ACHS with low sliding scale insulin, monitor for hypoglycemia -Hold off starting oral antidiabetic medications at the time of discharge as A1c is 6.5, borderline, consider SGLT2 inhibitor outpatient. Data and imaging reviewed: Labs completed and reviewed. CBC showing leukocytosis with WBC count of 14.1 and stable normocytic anemia with hemoglobin of 9.6. BMP showing improvement of renal function with BUN of 67, creatinine 1.88 and GFR of 33. Blood glucose 149. Magnesium 2.0. Liver profile unremarkable. Vital signs reviewed. Blood pressure 116/59, heart rate 70, respiratory rate 16, temp 98.0 F, and SpO2 of 83% on room air but 93% on 4 L. CODE STATUS: Full code DVT prophylaxis: Heparin Anticipated discharge date: Likely 24 to [address]: half-way [facility] Patient was seen independently by Nurse Pracitioner. This document was prepared using [employer] dictation software. Please allow for errors in mixing machine attendant, while rare they do occur. Khai Ocasio NP rendered care for this patient independently, reviewed the findings and plan as documented in the note above and agree with plan. I did not physically speak with or examine the patient on this date. Objective - Vital Signs Vital signs: Vital Signs Temp 98.0 F 08/15/24 08:00 Pulse 70 08/15/24 09:30 Resp 17 08/15/24 09:30 BP 116/59 08/15/24 08:00 Pulse Ox 93 L 08/15/24 09:30 FiO2 Intake & Output 08/14/24 08/15/24 08/15/24 18:59 06:59 18:59 Intake Total 2334 540 Output Total 300 825 Balance 2033 -825 540 Intake: Oral 2334 540 Output: Urine 300 825 Other: Voiding Method Indwelling Catheter Indwelling Catheter # Voids 1,800 # Bowel Movements 1 - Labs CBC & Chem 7: 08/15/24 10:07 08/15/24 10:07 Labs: Abnormal Lab Results - Last 24 Hours (Table) 08/14/24 08/14/24 08/14/24 Range/Units 12:11 17:08 20:46 POC Glucose (mg/dL) 144 H 254 H 157 H (70-110) mg/dL 08/15/24 Range/Units 07:18 POC Glucose (mg/dL) 152 H (70-110) mg/dL
--- NOTE | 2024-08-15 14:35 | P.PN ---
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 Patient was advised to undergo left robotic assisted laparoscopic nephro ureterectomy, and this was done today. Patient was sent back to the medical floor and he has been complaining of cough, shortness of breath, wheezing, chest x-ray is quite abnormal showing multiple opacities in both lungs, concerning for pneumonia or pulmonary edema, even the possibility of metastatic disease in the lungs, however patient had recent chest x-ray in the last month which was relatively unremarkable, this makes metastatic disease to the lungs less likely when I evaluated the patient, patient was constantly coughing, wheezing, and he was bringing up significant amount of sputum thick yellow sputum noted. Hence I recommended a trial of bronchodilators, antibiotic s, steroids, and patient to receive 1 dose of Lasix. The patient is seen today August 10, 2024 in follow-up on the regular medical floor. He is sitting up in bed having breakfast. Awake and alert in no acute distress. Maintaining O2 saturation in the mid 90s on 5 L/min per nasal cannula. He is afebrile. Hemodynamically stable. Breathing quite a bit better today compared to yesterday. Chest x-ray revealing similar multifocal airspace opacities. CT scan of the chest pending. White count 14.5. Hemoglobin 9.5. Platelets 286. Sodium 136. Potassium 4.7. Bicarb 19. BUN 34. Creatinine 2.31. Glucose 207. proBNP 14,900. Procalcitonin negative at 0.50. He remains on DuoNeb inhalations, Pulmicort and Perforomist inhalations, Solu-Medrol. Antibiotics in the form of Zosyn. Heparin for DVT prophylaxis. The patient is seen today August 11, 2024 in follow-up on the regular medical floor. He is currently resting comfortably in bed. Awake and alert in no acute distress. Denies any worsening shortness of breath, cough or congestion. He is maintaining O2 saturation in the 90s on 5 L/min per nasal cannula. He remains on DuoNeb inhalations, Pulmicort and Perforomist inhalations, IV Solu-Medrol. Continued on oral diuretics. Continued on Zosyn. His procalcitonin was neg ative at 0.50. CT scan of the chest revealed subcutaneous emphysema bilaterally extending down into the anterior abdominal wall. Additionally there is free air under the diaphragm most likely postop changes. Moderate to severe emphysema with small bilateral effusions. The patient is seen today August 12, 2024 in follow-up on the regular medical floor. He is awake and alert in no acute distress. He is still requiring 5 L of oxygen per minute per nasal cannula to maintain O2 saturations in the 90s. He remains on DuoNeb inhalations, Pulmicort and Perforomist inhalations, IV Solu-Medrol. Remains on oral diuretics. Sputum culture is now showing Pseudomonas aeruginosa and Serratia marcescens. Procalcitonin was negative. White count 18.1. Hemoglobin 8.2. Platelets 286. Sodium 139. Potassium 4.4. Bicarb 21. BUN 52. Creatinine 2.4. Glucose 171. The patient is seen today August 13, 2024 in follow-up on the regular medical floor. He is currently resting in bed. Awake and alert in no acute distress. Very hard of hearing. He is maintaining good O2 saturations in the 90s on 3 L/min per nasal cannula. His sputum culture was positive for Pseudomonas aeruginosa and Serratia marcescens. White count 13.7. Hemoglobin 8.4. Platelets 254. Sodium 139. Potassium 4.6. Bicarb 22. BUN 59. Creatinine 2.3. Glucose 166. He is continued on DuoNeb and elations, Symbicort, prednisone taper. Remains on antibiotics in the form of Levaquin. Heparin for DVT prophylaxis. The patient is seen today August 14, 2024 in follow-up on the regular medical floor. He is currently sitting up in bed. Awake and alert in no acute distress. Very hard of hearing. He is still requiring 5 L of oxygen to maintain O2 saturation in the low 90s. He did test positive for both Pseudomon as aeruginosa and Serratia marcescens in his sputum. He remains on Levaquin. Remains on DuoNeb inhalations, Symbicort, prednisone taper. Heparin for DVT prophylaxis. White count 12.0. Hemoglobin 9.5. Platelets 281. Sodium 139. Potassium 4.2. Bicarb 20. BUN 64. Creatinine 2.1. Glucose 215. Magnesium 2.0. The patient is seen today August 15, 2024 in follow-up on the regular medical floor. He is awake and alert in no acute distress. Resting comfortably in bed. Remains extremely hard of hearing. Communicating with writing notes. He denies any worsening shortness of breath, cough or congestion. He is maintaining O2 saturations in the 90s on 4 L/min per nasal cannula. He is con tinued on DuoNeb inhalations, Symbicort, prednisone taper. Heparin for DVT prophylaxis. Remains on antibiotics in the form of Levaquin. Sputum culture was positive for Pseudomonas aeruginosa and Serratia marcescens. Count 14.1. Hemoglobin 9.6. Platelets 229. Sodium 139. Potassium 4.6. Bicarb 26. BUN 67. Creatinine 1.88. Glucose 149. Objective - Vital Signs Vital signs: Vital Signs Temp 98.3 F 08/15/24 12:54 Pulse 75 08/15/24 12:54 Resp 17 08/15/24 12:54 BP 131/71 08/15/24 12:54 Pulse Ox 94 L 08/15/24 12:54 FiO2 Intake & Output 08/14/24 08/15/24 08/15/24 18:59 06:59 18:59 Intake Total 2334 777 Output Total 300 825 500 Balance 2034 - 277 Intake: Oral 2334 777 Output: Urine 300 825 500 Uretheral (Ayala) 250 Other: Voiding Method Indwelling Catheter Indwelling Catheter Indwelling Catheter # Voids 1,800 # Bowel Movements 1 - Exam GENERAL EXAM: Alert, hard of hearing 83-year-old male, comfortable, on 4 L nasal cannula, in no apparent distress. HEAD: Normocephalic. EYES: Normal reaction of pupils, equal size. NOSE: Clear with pink turbinates. THROAT: No erythema or exudates. NECK: No masses, no JVD. CHEST: No chest wall deformity. LUNGS: Equal air entry with bilateral scattered rhonchi. CVS: S1 and S2 normal with no audible murmur, regular rhythm. ABDOMEN: No hepatosplenomegaly, normal bowel sounds, no guarding or rigidity. SPINE: No scoliosis or deformity SKIN: No rashes CENTRAL NERVOUS SYSTEM: No focal deficits, tone is normal in all 4 extremities. EXTREMITIES: There is no peripheral edema. No clubbing, no cyanosis. Peripheral pulses are intact. - Labs CBC & Chem 7: 08/15/24 10:07 08/15/24 10:07 Labs: Abnormal Lab Results - Last 24 Hours (Table) 08/14/24 08/14/24 08/15/24 Range/Units 17:08 20:46 07:18 WBC (3.8-10.6) k/uL RBC (4.30-5.90) m/uL Hgb (13.0-17.5) gm/dL Hct (39.0-53.0) % RDW (11.5-15.5) % BUN (9-20) mg/dL Creatinine (0.66-1.25) mg/dL Glucose (74-99) mg/dL POC Glucose (mg/dL) 254 H 157 H 152 H (70-110) mg/dL Total Protein (6.3-8.2) g/dL Albumin (3.5-5.0) g/dL 08/15/24 08/15/24 08/15/24 Range/Units 10:07 10:07 12:27 WBC 14.1 H (3.8-10.6) k/uL RBC 3.73 L (4.30-5.90) m/uL Hgb 9.6 L (13.0-17.5) gm/dL Hct 30.3 L (39.0-53.0) % RDW 15.7 H (11.5-15.5) % BUN 67 H (9-20) mg/dL Creatinine 1.88 H (0.66-1.25) mg/dL Glucose 149 H (74-99) mg/dL POC Glucose (mg/dL) 219 H (70-110) mg/dL Total Protein 6.1 L (6.3-8.2) g/dL Albumin 3.1 L (3.5-5.0) g/dL Assessment and Plan Assessment: Status post left robotic assisted laparoscopic nephro ureterectomy, postoperative day #7 Acute hypoxemic respiratory failure secondary to an acute exacerbation of COPD suspected systolic versus diastolic congestive heart failure. BNP level 14,900. Procalcitonin negative. The scan of the chest did not reveal any acute pulmonary process. Sputum culture does reveal Pseudomonas aeruginosa and Serratia marcescens. Initiated on oral Levaquin Acute on chronic kidney disease Paroxysmal atrial fibrillation Coronary artery disease, previous [place] GERD without esophagitis renal cell carcinoma involving left kidney Plan: The patient was seen and evaluated Labs and medications reviewed Continued on bronchodilators, steroids Continued on oral Levaquin Heparin for DVT prophylaxis Continue the incentive spirometer Increase his activity as tolerated Titrate down the FiO2 as tolerated Will most likely need home oxygen The patient is now willing for subacute rehabilitation [facility] Discharge planning in place This patient was seen independently by the pulmonary nurse practitioner addressing pulmonary issues I have personally seen and examined the patient, performed the documentation and the assessment and plan as written. Time: 24 minutes. Dictation was produced using [employer] dictation software. Please excuse any grammatical, word or spelling errors.
[2024-08-15 15:04] VITALS: BMI 28.6
[2024-08-15 17:12] LABS: Glucose,Whole Blood 186 mg/dL (70-110)
--- NOTE | 2024-08-15 18:38 | P.PN ---
Subjective Patient is seen for follow-up for CKD. No significant complaints today. Patient is hard of hearing. Serum creatinine decreased to 1.8 today. He wants to go home. Objective - Vital Signs Vital signs: Vital Signs Temp 98.3 F 08/15/24 12:54 Pulse 66 08/15/24 15:41 Resp 20 08/15/24 15:41 BP 131/71 08/15/24 12:54 Pulse Ox 94 L 08/15/24 12:54 FiO2 Intake & Output 08/14/24 08/15/24 08/15/24 18:59 06:59 18:59 Intake Total 2334 2557 Output Total 792 100 1522 Balance 2034 -825 807 Weight 95.8 kg Intake: Oral 2334 2557 Output: Urine 415 198 9517 Uretheral (Ayala) 250 Post Void Residual 250 Other: Voiding Method Indwelling Catheter Indwelling Catheter Indwelling Catheter # Voids 1,800 # Bowel Movements 1 1 - Exam Patient is awake, comfortable, no acute distress Examination of the heart S1 and S2 Examination of the lungs bilateral breath sounds are heard Abdomen is soft nontender Examination of lower extremities shows no significant edema Moving all 4 extremities. - Labs CBC & Chem 7: 08/15/24 10:07 08/15/24 10:07 Labs: Abnormal Lab Results - Last 24 Hours (Table) 08/14/24 08/15/24 08/15/24 Range/Units 20:46 07:18 10:07 WBC 14.1 H (3.8-10.6) k/uL RBC 3.73 L (4.30-5.90) m/uL Hgb 9.6 L (13.0-17.5) gm/dL Hct 30.3 L (39.0-53.0) % RDW 15.7 H (11.5-15.5) % BUN (9-20) mg/dL Creatinine (0.66-1.25) mg/dL Glucose (74-99) mg/dL POC Glucose (mg/dL) 157 H 152 H (70-110) mg/dL Total Protein (6.3-8.2) g/dL Albumin (3.5-5.0) g/dL 08/15/24 08/15/24 08/15/24 Range/Units 10:07 12:27 17:11 WBC (3.8-10.6) k/uL RBC (4.30-5.90) m/uL Hgb (13.0-17.5) gm/dL Hct (39.0-53.0) % RDW (11.5-15.5) % BUN 67 H (9-20) mg/dL Creatinine 1.88 H (0.66-1.25) mg/dL Glucose 149 H (74-99) mg/dL POC Glucose (mg/dL) 219 H 186 H (70-110) mg/dL Total Protein 6.1 L (6.3-8.2) g/dL Albumin 3.1 L (3.5-5.0) g/dL Assessment and Plan Assessment: 1. CKD stage IIIb with baseline creatinine 1.8 to 2 mg/dL. Serum creatinine stable close to baseline. 2. 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 Anemia with CKD 4. Hypertension with CKD stage IIIb 5. CKD mineral bone disorder Plan: Continue off of diuretics. Okay for discharge from nephrology standpoint. Avoid hypotension. Midodrine can be discontinued Follow-up as outpatient for chronic kidney disease.
[2024-08-15 20:53] LABS: Glucose,Whole Blood 197 mg/dL (70-110)
[2024-08-16 07:40] LABS: Glucose,Whole Blood 136 mg/dL (70-110)
--- NOTE | 2024-08-16 08:13 | P.PN ---
Subjective Patient is seen in follow-up for chronic kidney disease. Hard of hearing. Denies chest pain or shortness of breath. Oral intake fair. Has Ayala catheter. Nonoliguric. Vital signs are stable. General: No acute distress. HEENT: Head exam is unremarkable. On nasal cannula. LUNGS: No audible rhonchi or wheezes. HEART: Rate and Rhythm are regular. ABDOMEN: Nontender. EXTREMITITES: No edema. Objective - Vital Signs Vital signs: Vital Signs Temp 97.5 F L 08/16/24 08:00 Pulse 68 08/16/24 08:00 Resp 17 08/16/24 08:00 BP 121/64 08/16/24 08:00 Pulse Ox 97 08/16/24 08:00 FiO2 Intake & Output 08/15/24 08/16/24 08/16/24 18:59 06:59 18:59 Intake Total 2557 Output Total 1750 1550 Balance 807 -1550 Weight 95.8 kg Intake: Oral 2557 Output: Urine 1500 1550 Uretheral (Ayala) 250 600 Post Void Residual 250 Other: Voiding Method Indwelling Catheter Urinal # Bowel Movements 1 - Labs CBC & Chem 7: 08/15/24 10:07 08/15/24 10:07 Labs: Abnormal Lab Results - Last 24 Hours (Table) 08/15/24 08/15/24 08/15/24 Range/Units 10:07 10:07 12:27 WBC 14.1 H (3.8-10.6) k/uL RBC 3.73 L (4.30-5.90) m/uL Hgb 9.6 L (13.0-17.5) gm/dL Hct 30.3 L (39.0-53.0) % RDW 15.7 H (11.5-15.5) % BUN 67 H (9-20) mg/dL Creatinine 1.88 H (0.66-1.25) mg/dL Glucose 149 H (74-99) mg/dL POC Glucose (mg/dL) 219 H (70-110) mg/dL Total Protein 6.1 L (6.3-8.2) g/dL Albumin 3.1 L (3.5-5.0) g/dL 08/15/24 08/15/24 08/16/24 Range/Units 17:11 20:50 07:38 WBC (3.8-10.6) k/uL RBC (4.30-5.90) m/uL Hgb (13.0-17.5) gm/dL Hct (39.0-53.0) % RDW (11.5-15.5) % BUN (9-20) mg/dL Creatinine (0.66-1.25) mg/dL Glucose (74-99) mg/dL POC Glucose (mg/dL) 186 H 197 H 136 H (70-110) mg/dL Total Protein (6.3-8.2) g/dL Albumin (3.5-5.0) g/dL Assessment and Plan Plan: Assessment: 1. Chronic kidney disease stage IIIb with baseline creatinine 1.8-2. GFR at baseline. 2. Left transitional cell cancer status post left nephro ureterectomy on August 08, 2024. 3. Hypertension with chronic kidney disease. Controlled. 4. Anemia of chronic kidney disease. 5. Acute kidney injury secondary to vasomotor nephropathy, improved. Plan: Encouraged oral intake. Check iron studies. Avoid nephrotoxins.
[2024-08-16 09:45] LABS: HCT 29.9 % (39.6-50.0); HGB 8.8 g/dL (13.0-17.0); MCH 24.4 pg (27.0-32.0); MCHC 29.4 g/dL (32.0-37.0); MCV 82.8 FL (80.0-97.0); Mean Platelet Volume 10.9 FL (9.5-12.2); NRBC Per 100 WBC 0 X 10*3/uL (0.00-0.01); Platelet Count 236 X 10*3/uL (140-440); RBC 3.61 X 10*6/uL (4.40-5.60); RDW 15.9 % (11.5-14.5); WBC 13.26 X 10*3/uL (4.50-10.00)
[2024-08-16 10:11] LABS: Magnesium 2.2 mg/dL (1.5-2.4)
[2024-08-16 10:23] LABS: BUN/Creat Ratio 33.22 Ratio (12.00-20.00); Blood Urea Nitrogen 59.8 mg/dL (9.0-27.0); Carbon Dioxide 23.1 mmol/L (21.6-31.8); Chloride 105 mmol/L (96-109); Glucose 146 mg/dL (70-110); Potassium 5.4 mmol/L (3.5-5.5); Sodium 139 mmol/L (135-145)
[2024-08-16 10:24] LABS: ALT 36 U/L (10-49); AST 16 U/L (14-35); Albumin 3.1 g/dL (3.8-4.9); Albumin/Globulin Ratio 1.11 Ratio (1.60-3.17); Alkaline Phosphatase 64 U/L (41-126); Calcium 8.9 mg/dL (8.7-10.3); Globulin 2.8 g/dL (1.6-3.3); Total Bilirubin 0.4 mg/dL (0.3-1.2); Total Protein 5.9 g/dL (6.2-8.2)
--- NOTE | 2024-08-16 12:07 | P.PN ---
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 Patient was advised to undergo left robotic assisted laparoscopic nephro ureterectomy, and this was done today. Patient was sent back to the medical floor and he has been complaining of cough, shortness of breath, wheezing, chest x-ray is quite abnormal showing multiple opacities in both lungs, concerning for pneumonia or pulmonary edema, even the possibility of metastatic disease in the lungs, however patient had recent chest x-ray in the last month which was relatively unremarkable, this makes metastatic disease to the lungs less likely when I evaluated the patient, patient was constantly coughing, wheezing, and he was bringing up significant amount of sputum thick yellow sputum noted. Hence I recommended a trial of bronchodilators, antibiotic s, steroids, and patient to receive 1 dose of Lasix. The patient is seen today August 10, 2024 in follow-up on the regular medical floor. He is sitting up in bed having breakfast. Awake and alert in no acute distress. Maintaining O2 saturation in the mid 90s on 5 L/min per nasal cannula. He is afebrile. Hemodynamically stable. Breathing quite a bit better today compared to yesterday. Chest x-ray revealing similar multifocal airspace opacities. CT scan of the chest pending. White count 14.5. Hemoglobin 9.5. Platelets 286. Sodium 136. Potassium 4.7. Bicarb 19. BUN 34. Creatinine 2.31. Glucose 207. proBNP 14,900. Procalcitonin negative at 0.50. He remains on DuoNeb inhalations, Pulmicort and Perforomist inhalations, Solu-Medrol. Antibiotics in the form of Zosyn. Heparin for DVT prophylaxis. The patient is seen today August 11, 2024 in follow-up on the regular medical floor. He is currently resting comfortably in bed. Awake and alert in no acute distress. Denies any worsening shortness of breath, cough or congestion. He is maintaining O2 saturation in the 90s on 5 L/min per nasal cannula. He remains on DuoNeb inhalations, Pulmicort and Perforomist inhalations, IV Solu-Medrol. Continued on oral diuretics. Continued on Zosyn. His procalcitonin was neg ative at 0.50. CT scan of the chest revealed subcutaneous emphysema bilaterally extending down into the anterior abdominal wall. Additionally there is free air under the diaphragm most likely postop changes. Moderate to severe emphysema with small bilateral effusions. The patient is seen today August 12, 2024 in follow-up on the regular medical floor. He is awake and alert in no acute distress. He is still requiring 5 L of oxygen per minute per nasal cannula to maintain O2 saturations in the 90s. He remains on DuoNeb inhalations, Pulmicort and Perforomist inhalations, IV Solu-Medrol. Remains on oral diuretics. Sputum culture is now showing Pseudomonas aeruginosa and Serratia marcescens. Procalcitonin was negative. White count 18.1. Hemoglobin 8.2. Platelets 286. Sodium 139. Potassium 4.4. Bicarb 21. BUN 52. Creatinine 2.4. Glucose 171. The patient is seen today August 13, 2024 in follow-up on the regular medical floor. He is currently resting in bed. Awake and alert in no acute distress. Very hard of hearing. He is maintaining good O2 saturations in the 90s on 3 L/min per nasal cannula. His sputum culture was positive for Pseudomonas aeruginosa and Serratia marcescens. White count 13.7. Hemoglobin 8.4. Platelets 254. Sodium 139. Potassium 4.6. Bicarb 22. BUN 59. Creatinine 2.3. Glucose 166. He is continued on DuoNeb and elations, Symbicort, prednisone taper. Remains on antibiotics in the form of Levaquin. Heparin for DVT prophylaxis. The patient is seen today August 14, 2024 in follow-up on the regular medical floor. He is currently sitting up in bed. Awake and alert in no acute distress. Very hard of hearing. He is still requiring 5 L of oxygen to maintain O2 saturation in the low 90s. He did test positive for both Pseudomon as aeruginosa and Serratia marcescens in his sputum. He remains on Levaquin. Remains on DuoNeb inhalations, Symbicort, prednisone taper. Heparin for DVT prophylaxis. White count 12.0. Hemoglobin 9.5. Platelets 281. Sodium 139. Potassium 4.2. Bicarb 20. BUN 64. Creatinine 2.1. Glucose 215. Magnesium 2.0. The patient is seen today August 15, 2024 in follow-up on the regular medical floor. He is awake and alert in no acute distress. Resting comfortably in bed. Remains extremely hard of hearing. Communicating with writing notes. He denies any worsening shortness of breath, cough or congestion. He is maintaining O2 saturations in the 90s on 4 L/min per nasal cannula. He is con tinued on DuoNeb inhalations, Symbicort, prednisone taper. Heparin for DVT prophylaxis. Remains on antibiotics in the form of Levaquin. Sputum culture was positive for Pseudomonas aeruginosa and Serratia marcescens. Count 14.1. Hemoglobin 9.6. Platelets 229. Sodium 139. Potassium 4.6. Bicarb 26. BUN 67. Creatinine 1.88. Glucose 149. The patient is seen today August 16, 2024 in follow-up on the regular medical floor. He is currently resting comfortably in bed. Awake and alert in no acute distress. Apparently he declined to go to rehab yesterday and remains here today. He is maintaining good O2 saturations up to 99% on 4 L/min per nasal cannula. He is afebrile. Hemodynamically stable. Sputum culture was positive for Pseudomonas aeruginosa and Serratia marcescens. White count 13.2. Hemoglobin 8.8. Platelets 236. Sodium 139. Potassium 5.4. Bicarb 23. BUN 60. Creatinine 1.8. Glucose 146. He is continued on DuoNeb inhalations, Symbicort, prednisone taper. Completing a course of Levaquin. Heparin for DVT prophylaxis. Objective - Vital Signs Vital signs: Vital Signs Temp 97.5 F L 08/16/24 08:00 Pulse 64 08/16/24 09:13 Resp 17 08/16/24 08:00 BP 121/64 08/16/24 08:00 Pulse Ox 99 08/16/24 08:59 FiO2 Intake & Output 08/15/24 08/16/24 08/16/24 18:59 06:59 18:59 Intake Total 2557 240 Output Total 1750 1550 Balance 807 -1550 240 Weight 95.8 kg Intake: Oral 2557 240 Output: Urine 1500 1550 Uretheral (Aayla) 250 600 Post Void Residual 250 Other: Voiding Method Indwelling Catheter Urinal Urinal # Bowel Movements 1 - Exam GENERAL EXAM: Alert, 83-year-old male who is extremely hard of hearing, resting comfortably in bed, on 4 L nasal cannula, in no apparent distress. HEAD: Normocephalic. EYES: Normal reaction of pupils, equal size. NOSE: Clear with pink turbinates. THROAT: No erythema or exudates. NECK: No masses, no JVD. CHEST: No chest wall deformity. LUNGS: Equal air entry with bilateral scattered rhonchi. CVS: S1 and S2 normal with no audible murmur, regular rhythm. ABDOMEN: No hepatosplenomegaly, normal bowel sounds, no guarding or rigidity. SPINE: No scoliosis or deformity SKIN: No rashes CENTRAL NERVOUS SYSTEM: No focal deficits, tone is normal in all 4 extremities. EXTREMITIES: There is no peripheral edema. No clubbing, no cyanosis. Perip heral pulses are intact. - Labs CBC & Chem 7: 08/16/24 03:19 08/16/24 03:19 Labs: Abnormal Lab Results - Last 24 Hours (Table) 08/15/24 08/15/24 08/15/24 Range/Units 12:27 17:11 20:50 WBC (4.50-10.00) X 10*3/uL RBC (4.40-5.60) X 10*6/uL Hgb (13.0-17.0) g/dL Hct (39.6-50.0) % MCH (27.0-32.0) pg MCHC (32.0-37.0) g/dL RDW (11.5-14.5) % BUN (9.0-27.0) mg/dL Creatinine (0.6-1.5) mg/dL Est GFR (CKD-EPI) (>=60) BUN/Creatinine Ratio (12.00-20.00) Ratio Glucose (70-110) mg/dL POC Glucose (mg/dL) 219 H 186 H 197 H (70-110) mg/dL Total Protein (6.2-8.2) g/dL Albumin (3.8-4.9) g/dL Albumin/Globulin Ratio (1.60-3.17) Ratio 08/16/24 08/16/24 08/16/24 Range/Units 03:19 03:19 07:38 WBC 13.26 H (4.50-10.00) X 10*3/uL RBC 3.61 L (4.40-5.60) X 10*6/uL Hgb 8.8 L (13.0-17.0) g/dL Hct 29.9 L (39.6-50.0) % MCH 24.4 L (27.0-32.0) pg MCHC 29.4 L (32.0-37.0) g/dL RDW 15.9 H (11.5-14.5) % BUN 59.8 H (9.0-27.0) mg/dL Creatinine 1.8 H (0.6-1.5) mg/dL Est GFR (CKD-EPI) 37 L (>=60) BUN/Creatinine Ratio 33.22 H (12.00-20.00) Ratio Glucose 146 H (70-110) mg/dL POC Glucose (mg/dL) 136 H (70-110) mg/dL Total Protein 5.9 L (6.2-8.2) g/dL Albumin 3.1 L (3.8-4.9) g/dL Albumin/Globulin Ratio 1.11 L (1.60-3.17) Ratio Assessment and Plan Assessment: Status post left robotic assisted laparoscopic nephro ureterectomy, postoperative day #8 Acute hypoxemic respiratory failure secondary to an acute exacerbation of COPD suspected systolic versus diastolic congestive heart failure. BNP level 14,900. Procalcitonin negative. The scan of the chest did not reveal any acute pulmonary process. Sputum culture does reveal Pseudomonas aeruginosa and Serratia marcescens. Initiated on oral Levaquin Acute on chronic kidney disease Paroxysmal atrial fibrillation Coronary artery disease, previous [place] GERD without esophagitis renal cell carcinoma involving left kidney Plan: The patient was seen and evaluated Labs and medications reviewed Continued on bronchodilators, steroids Continued on oral Levaquin Heparin for DVT prophylaxis Titrate down the FiO2 as tolerated Will most likely need home oxygen Cleared for discharge The patient is now refusing subacute rehabilitation This patient was seen independently by the pulmonary nurse practitioner addressing pulmonary issues I have personally seen and examined the patient, performed the documentation and the assessment and plan as written. Time: 25 minutes. Dictation was produced using [employer] software. Please excuse any grammatical, word or spelling errors.
[2024-08-16 12:18] LABS: Glucose,Whole Blood 204 mg/dL (70-110)
--- NOTE | 2024-08-16 12:51 | P.PN ---
Subjective Progress Note Date: 08/16/24 Principal diagnosis: POD #8, s/p robotic-assisted laparoscopic left nephroureterectomy The patient underwent an uncomplicated robotic assisted laparoscopic left nephroureterectomy on August 08, 2024. His planned discharge yesterday was canceled due to hypoxia. He is currently comfortable. The Ayala catheter was removed yesterday, but replaced due to incomplete bladder emptying. The Ayala catheter is draining clear yellow urine. Pathology shows low-grade, noninvasive urothelial carcinoma with negative surgical margins. Objective - Vital Signs Vital signs: Vital Signs Temp 97.5 F L 08/16/24 08:00 Pulse 60 08/16/24 12:21 Resp 17 08/16/24 08:00 BP 121/64 08/16/24 08:00 Pulse Ox 99 08/16/24 08:59 FiO2 Intake & Output 08/15/24 08/16/24 08/16/24 18:59 06:59 18:59 Intake Total 2557 240 Output Total 1750 1550 Balance 807 -1550 240 Weight 95.8 kg Intake: Oral 2557 240 Output: Urine 1500 1550 Uretheral (Ayala) 250 600 Post Void Residual 250 Other: Voiding Method Indwelling Catheter Urinal Urinal # Bowel Movements 1 - Constitutional General appearance: Present: average body habitus, cooperative, no acute distress - Psychiatric Psychiatric: Present: A&O x's 3 - Labs CBC & Chem 7: 08/16/24 03:19 08/16/24 03:19 Labs: Abnormal Lab Results - Last 24 Hours (Table) 08/15/24 08/15/24 08/16/24 Range/Units 17:11 20:50 03:19 WBC 13.26 H (4.50-10.00) X 10*3/uL RBC 3.61 L (4.40-5.60) X 10*6/uL Hgb 8.8 L (13.0-17.0) g/dL Hct 29.9 L (39.6-50.0) % MCH 24.4 L (27.0-32.0) pg MCHC 29.4 L (32.0-37.0) g/dL RDW 15.9 H (11.5-14.5) % BUN (9.0-27.0) mg/dL Creatinine (0.6-1.5) mg/dL Est GFR (CKD-EPI) (>=60) BUN/Creatinine Ratio (12.00-20.00) Ratio Glucose (70-110) mg/dL POC Glucose (mg/dL) 186 H 197 H (70-110) mg/dL Total Protein (6.2-8.2) g/dL Albumin (3.8-4.9) g/dL Albumin/Globulin Ratio (1.60-3.17) Ratio 08/16/24 08/16/24 08/16/24 Range/Units 03:19 07:38 12:17 WBC (4.50-10.00) X 10*3/uL RBC (4.40-5.60) X 10*6/uL Hgb (13.0-17.0) g/dL Hct (39.6-50.0) % MCH (27.0-32.0) pg MCHC (32.0-37.0) g/dL RDW (11.5-14.5) % BUN 59.8 H (9.0-27.0) mg/dL Creatinine 1.8 H (0.6-1.5) mg/dL Est GFR (CKD-EPI) 37 L (>=60) BUN/Creatinine Ratio 33.22 H (12.00-20.00) Ratio Glucose 146 H (70-110) mg/dL POC Glucose (mg/dL) 136 H 204 H (70-110) mg/dL Total Protein 5.9 L (6.2-8.2) g/dL Albumin 3.1 L (3.8-4.9) g/dL Albumin/Globulin Ratio 1.11 L (1.60-3.17) Ratio Assessment and Plan Plan: Ayala catheter will remain in place. Discharge when medically stable. If the patient continues to experience incomplete bladder emptying, consideration will be given to prescribing tamsulosin. However, for now I will not given that he is unsteady and a fall risk.
--- NOTE | 2024-08-16 15:57 | P.DS ---
Providers Date of admission: 08/08/24 09:58 Expected date of discharge: 08/16/24 Attending physician: Cooper Ordaz MD Consults: 08/08/24 17:11 Consult Physician Routine Consulting Provider: Raul Elam Consult Reason/Comments: HX of CKD S/P radical nephrectomy Do you want consulting provider notified?: Yes, Notify in am 08/09/24 15:12 Consult Physician Urgent Consulting Provider: Nupur Bernardo Consult Reason/Comments: hypoxia, dyspnea Do you want consulting provider notified?: Yes 08/10/24 07:01 Consult Physician Routine Consulting Provider: Nellie Berger Consult Reason/Comments: medical managment Do you want consulting provider notified?: Yes Primary care physician: Stated None Hospital Course: Discharge Diagnosis: Acute COPD exacerbation. Patient requiring discharge on home oxygen. Acute hypoxic respiratory failure. Multi focal pneumonia, sputum cultures positive for Pseudomonas and Serratia. Patient received IV antibiotics with Levaquin 750 mg every 48 hours per renal dosing x 2 doses in the hospital and being discharged home with oral Levaquin 750 mg every 48 hours for an additional 5 doses to total a 7-day treatment course of antibiotics. Patient to follow-up outpatient with flower pot press operator in 1 week. Leukocytosis, multifactorial, improving. Acute on chronic normocytic anemia, anticipated outcome of surgery LEXII on CKD Status post nephroureterectomy. Renal cell cancer Hypertension. Continue atenolol 25 mg daily, Imdur 60 mg twice daily History of CAD History of aflutter New diagnosis of type 2 diabetes, A1c 6.5. Hold off starting oral antidiabetic medications at the time of discharge as A1c is 6.5, borderline, consider SGLT2 inhibitor outpatient. 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 He was admitted to the hospital and underwent underwent nephroureterectomy with Dr. Ordaz on 08/08/2024 we were consulted for medical management on 08/10/2024. During hospitalization pt developed worsening shortness of breath and underwent chest x-ray which revealed bilateral interstitial opacities worsening. He was started on IV antibiotics for treatment of multifocal pneumonia and sputum cultures were obtained later resulting positive for Pseudomonas and Serratia. Pt was followed throughout hospitalization by our hospitalist team, urology, pulmonology, cardiology, and nephrology. His sputum cultures were positive for Pseudomonas and Serratia.Patient received IV antibiotics with Levaquin 750 mg every 48 hours per renal dosing x 2 doses in the hospital and being discharged home with oral Levaquin 750 mg every 48 hours for an additional 5 doses to total a 7-day treatment course of antibiotics. Patient being discharged home with Ayala catheter in place and to follow-up in urology office next week. Patient has been cleared by urology, nephrology, cardiology, and pulmonology. Patient medically optimized for discharge at this time. Patient was recommended to be discharged to snf facility for rehab, however patient adamantly declined. Patient being discharged home with [facility] home care including palliative care, RN, FAMILY PROGRAM SPECIALIST, PT/OT. Patient to follow-up outpatient with residency clinic for establishment of care with local PCP and to follow-up with urologist, software consultant, flower pot press operator, and weaver needle loom in 1 week. Patient discharged home with home oxygen and walker. Physical exam: Vital signs reviewed and stable. General: Nontoxic, no distress and appears stated age. Derm: Skin warm and dry, normal coloration for ethnicity. Head: Atraumatic, normocephalic and symmetric. Eyes: EOM's intact, no lid lag, and anicteric sclera Mouth: no lip lesions, mucus membranes moist Cardiovascular: regular rate and rhythm with normal S1S2, no murmur, positive posterior tibial pulses bilaterally, and cap refill < 2 seconds. Lungs: Respirations even, regular, and unlabored on 4 L O2 via nasal. Lungs diminished, no rhonchi, no rales, no wheezing, and no accessory muscle usage. Abdominal: soft, nontender to palpation, no guarding, no appreciable organomegaly. Ayala Catheter in place. Ext: ROM intact. No gross muscle atrophy, no edema, no contractures Neuro: Speech clear, face symmetrical and CN II-XII grossly intact with no noted focal neuro deficits Psych: Alert and oriented to person, place, time, and situation. Appropriate and pleasant affect. A total of 39 minutes of time were spent preparing this complex discharge summary. Pt was discharged on 08/16/2024 at 3:14 PM. Patient was seen independently by Nurse Practitioner. This document was prepared using Play[employer] dictation software. Please allow for errors in pump oiler while rare they do occur. Khai Ocasio NP rendered care for this patient independently, reviewed the findings and plan as documented in the note above. I did not physically speak with or examine the patient on this date. Patient Condition at Discharge: Stable Plan - Discharge Summary Discharge Rx Participant: No New Discharge Prescriptions: New predniSONE [Deltasone] 40 mg PO DAILY #6 tab Levofloxacin [Levaquin] 750 mg PO Q48H #5 tab Midodrine [ProAmatine] 5 mg PO AC-TID #90 tab Budesonide-Formot 160-4.5 Mcg [Symbicort 160-4.5 Mcg Inhaler] 2 puff INHALATION RT-BID #1 each Continue Isosorbide Mononitrate ER [Imdur] 60 mg PO BID Ranolazine [Ranexa] 500 mg PO QAM Acetaminophen Tab [Tylenol] 650 mg PO Q6HR PRN tab PRN Reason: Fever and/ or Mild Pain Nitroglycerin Sl Tabs [Nitrostat] 0.4 mg SUBLINGUAL Q5M PRN #25 tab PRN Reason: Chest Pain atenoloL 25 mg PO BID #60 tab Aspirin 81 mg PO QAM Discharge Medication List Isosorbide Mononitrate ER [Imdur] 60 mg PO BID 05/08/19 [History] Ranolazine [Ranexa] 500 mg PO QAM 06/26/24 [History] Acetaminophen Tab [Tylenol] 650 mg PO Q6HR PRN tab 07/01/24 [Rx] Nitroglycerin Sl Tabs [Nitrostat] 0.4 mg SUBLINGUAL Q5M PRN #25 tab 07/01/24 [Rx] atenoloL 25 mg PO BID #60 tab 07/01/24 [Rx] Aspirin 81 mg PO QAM 08/01/24 [History] Budesonide-Formot 160-4.5 Mcg [Symbicort 160-4.5 Mcg Inhaler] 2 puff INHALATION RT-BID #1 each 08/14/24 [Rx] Levofloxacin [Levaquin] 750 mg PO Q48H #5 tab 08/14/24 [Rx] Midodrine [ProAmatine] 5 mg PO AC-TID #90 tab 08/14/24 [Rx] predniSONE [Deltasone] 40 mg PO DAILY #6 tab 08/14/24 [Rx] Follow up Appointment(s)/Referral(s): Debbie Beckman MD [STAFF PHYSICIAN] - 1 Week Kane Baum MD [STAFF PHYSICIAN] - 1 Week Cooper Ordaz MD [STAFF PHYSICIAN] - 1 Week Romain Conner DO [Doctor of Osteopathic Medicine] - 1 Week [facility] [NON-STAFF] - 1 Week Patient Instructions/Handouts: Aayla Catheter Placement and Care (DC), Using Oxygen at Home (DC), COPD (Chronic Obstructive Pulmonary Disease) (DC), Pneumonia (DC), Chronic Lung Disease and Infection Prevention (DC), Nephrectomy (DC) Activity/Diet/Wound Care/Special Instructions: Activity: Discharge home with Ayala to leg bag. May shower. No lifting, driving, or strenuous activity. Diet: Heart healthy and carb consistent diet. Avoid salts, or foods with hidden salts such as canned or boxed foods and frozen dinners. Extra salt makes your heart work harder and traps the fluid in your body for longer. Special Instructions: Take all of your medications as directed and remember to keep all of your doctor's appointments and follow-up as needed. You are being discharged home on home oxygen. Please wear at all times including while sleeping and showering. It is important to take medications as prescribed without any changes or missed doses and you will need to follow-up with a primary care physician at [facility], urologist (Dr. Ordaz), flower pot press operator (Dr. Conner), software consultant (Dr. Baum), and weaver needle loom (Dr. Beckman). Being you are discharged on Sunday you will need to call offices first thing Sunday morning to set up these appointments. It was strongly recommended for placement in rehab, however you adamantly declined and are being discharged home per your request. Orders placed for home care including nursing, physical therapy, Occupational Therapy, and palliative care. Thank you for allowing us to participate in your care, it was truly a pleasure having you for our patient!!! . Discharge Disposition: HOME WITH HOME HEALTH SERVICES
[2024-08-16 17:06] LABS: Glucose,Whole Blood 176 mg/dL (70-110)
[2024-08-16 19:09] LABS: % Iron Saturation 7.52 (15.00-50.00); Ferritin 54.5 ng/mL (22.0-322.0)
[2024-08-16 19:48] LABS: Glucose,Whole Blood 131 mg/dL (70-110)
[2024-08-17] MEDS ORDERED: SODIUM CHLORIDE 0.65% NASAL SPRAY 44 ML BTL NASAL PRN (07:41)
[2024-08-17 07:48] LABS: Glucose,Whole Blood 132 mg/dL (70-110)
--- NOTE | 2024-08-17 07:55 | P.PN ---
Subjective Progress Note Date: 08/17/24 This is an 83-year-old white male with history of multiple medical problems including chronic atrial fibrillation, coronary artery disease, COPD, hearing disorder, patient was diagnosed with transitional cell carcinoma involving the left kidney, patient had biopsy done by urology, as the patient was having gross hematuria secondary to his tumor. Patient was advised to undergo left robotic assisted laparoscopic nephro ureterectomy, and this was done today. Patient was sent back to the medical floor and he has been complaining of cough, shortness of breath, wheezing, chest x-ray is quite abnormal showing multiple opacities in both lungs, concerning for pneumonia or pulmonary edema, even the possibility of metastatic disease in the lungs, however patient had recent chest x-ray in the last month which was relatively unremarkable, this makes metastatic disease to the lungs less likely when I evaluated the patient, patient was constantly coughing, wheezing, and he was bringing up significant amount of sputum thick yellow sputum noted. Hence I recommended a trial of bronchodilators, antibiotic s, steroids, and patient to receive 1 dose of Lasix. The patient is seen today August 10, 2024 in follow-up on the regular medical floor. He is sitting up in bed having breakfast. Awake and alert in no acute distress. Maintaining O2 saturation in the mid 90s on 5 L/min per nasal cannula. He is afebrile. Hemodynamically stable. Breathing quite a bit better today compared to yesterday. Chest x-ray revealing similar multifocal airspace opacities. CT scan of the chest pending. White count 14.5. Hemoglobin 9.5. Platelets 286. Sodium 136. Potassium 4.7. Bicarb 19. BUN 34. Creatinine 2.31. Glucose 207. proBNP 14,900. Procalcitonin negative at 0.50. He remains on DuoNeb inhalations, Pulmicort and Perforomist inhalations, Solu-Medrol. Antibiotics in the form of Zosyn. Heparin for DVT prophylaxis. The patient is seen today August 11, 2024 in follow-up on the regular medical floor. He is currently resting comfortably in bed. Awake and alert in no acute distress. Denies any worsening shortness of breath, cough or congestion. He is maintaining O2 saturation in the 90s on 5 L/min per nasal cannula. He remains on DuoNeb inhalations, Pulmicort and Perforomist inhalations, IV Solu-Medrol. Continued on oral diuretics. Continued on Zosyn. His procalcitonin was neg ative at 0.50. CT scan of the chest revealed subcutaneous emphysema bilaterally extending down into the anterior abdominal wall. Additionally there is free air under the diaphragm most likely postop changes. Moderate to severe emphysema with small bilateral effusions. The patient is seen today August 12, 2024 in follow-up on the regular medical floor. He is awake and alert in no acute distress. He is still requiring 5 L of oxygen per minute per nasal cannula to maintain O2 saturations in the 90s. He remains on DuoNeb inhalations, Pulmicort and Perforomist inhalations, IV Solu-Medrol. Remains on oral diuretics. Sputum culture is now showing Pseudomonas aeruginosa and Serratia marcescens. Procalcitonin was negative. White count 18.1. Hemoglobin 8.2. Platelets 286. Sodium 139. Potassium 4.4. Bicarb 21. BUN 52. Creatinine 2.4. Glucose 171. The patient is seen today August 13, 2024 in follow-up on the regular medical floor. He is currently resting in bed. Awake and alert in no acute distress. Very hard of hearing. He is maintaining good O2 saturations in the 90s on 3 L/min per nasal cannula. His sputum culture was positive for Pseudomonas aeruginosa and Serratia marcescens. White count 13.7. Hemoglobin 8.4. Platelets 254. Sodium 139. Potassium 4.6. Bicarb 22. BUN 59. Creatinine 2.3. Glucose 166. He is continued on DuoNeb and elations, Symbicort, prednisone taper. Remains on antibiotics in the form of Levaquin. Heparin for DVT prophylaxis. The patient is seen today August 14, 2024 in follow-up on the regular medical floor. He is currently sitting up in bed. Awake and alert in no acute distress. Very hard of hearing. He is still requiring 5 L of oxygen to maintain O2 saturation in the low 90s. He did test positive for both Pseudomon as aeruginosa and Serratia marcescens in his sputum. He remains on Levaquin. Remains on DuoNeb inhalations, Symbicort, prednisone taper. Heparin for DVT prophylaxis. White count 12.0. Hemoglobin 9.5. Platelets 281. Sodium 139. Potassium 4.2. Bicarb 20. BUN 64. Creatinine 2.1. Glucose 215. Magnesium 2.0. The patient is seen today August 15, 2024 in follow-up on the regular medical floor. He is awake and alert in no acute distress. Resting comfortably in bed. Remains extremely hard of hearing. Communicating with writing notes. He denies any worsening shortness of breath, cough or congestion. He is maintaining O2 saturations in the 90s on 4 L/min per nasal cannula. He is con tinued on DuoNeb inhalations, Symbicort, prednisone taper. Heparin for DVT prophylaxis. Remains on antibiotics in the form of Levaquin. Sputum culture was positive for Pseudomonas aeruginosa and Serratia marcescens. Count 14.1. Hemoglobin 9.6. Platelets 229. Sodium 139. Potassium 4.6. Bicarb 26. BUN 67. Creatinine 1.88. Glucose 149. The patient is seen today August 16, 2024 in follow-up on the regular medical floor. He is currently resting comfortably in bed. Awake and alert in no acute distress. Apparently he declined to go to rehab yesterday and remains here today. He is maintaining good O2 saturations up to 99% on 4 L/min per nasal cannula. He is afebrile. Hemodynamically stable. Sputum culture was positive for Pseudomonas aeruginosa and Serratia marcescens. White count 13.2. Hemoglobin 8.8. Platelets 236. Sodium 139. Potassium 5.4. Bicarb 23. BUN 60. Creatinine 1.8. Glucose 146. He is continued on DuoNeb inhalations, Symbicort, prednisone taper. Completing a course of Levaquin. Heparin for DVT prophylaxis. The patient is seen today August 17, 2024 in follow-up on the regular medical floor. He is currently resting comfortably in bed. Awake and alert in no acute distress. He was planning to go home yesterday however oxygen could not be arranged at his house. He is currently on 2 L/min per nasal cannula. His only complaint today is of sinus dryness from the oxygen. He has been treated for Pseudomonas aeruginosa and Serratia marcescens in his sputum back on 08/09/2024. Glucose 132. He remains on DuoNeb and elations, Symbicort, prednisone taper. Continued on Levaquin. Heparin for DVT prophylaxis. Objective - Vital Signs Vital signs: Vital Signs Temp 98.5 F 08/17/24 02:00 Pulse 107 H 08/17/24 02:00 Resp 20 08/17/24 02:00 BP 105/57 08/17/24 02:00 Pulse Ox 97 08/17/24 02:00 FiO2 Intake & Output 08/16/24 08/17/24 08/17/24 18:59 06:59 18:59 Intake Total 1800 800 Output Total 1000 Balance 800 800 Intake: Oral 1800 800 Output: Urine 1000 Other: Voiding Method Urinal Indwelling Catheter # Bowel Movements 1 - Exam GENERAL EXAM: Alert, pleasant 83-year-old male, hard of hearing, resting comfortably in bed, on 2 L nasal cannula, in no apparent distress. HEAD: Normocephalic. EYES: Normal reaction of pupils, equal size. NOSE: Clear with pink turbinates. THROAT: No erythema or exudates. NECK: No masses, no JVD. CHEST: No chest wall deformity. LUNGS: Equal air entry with no crackles, wheeze or rhonchi. CVS: S1 and S2 normal with no audible murmur, regular rhythm. ABDOMEN: No hepatosplenomegaly, normal bowel sounds, no guarding or rigidity. SPINE: No scoliosis or deformity SKIN: No rashes CENTRAL NERVOUS SYSTEM: No focal deficits, tone is normal in all 4 extremities. EXTREMITIES: There is no peripheral edema. No clubbing, no cyanosis. Peripheral pulses are intact. - Labs CBC & Chem 7: 08/16/24 03:19 08/16/24 03:19 Labs: Abnormal Lab Results - Last 24 Hours (Table) 08/16/24 08/16/24 08/16/24 Range/Units 03:19 03:19 03:19 WBC 13.26 H (4.50-10.00) X 10*3/uL RBC 3.61 L (4.40-5.60) X 10*6/uL Hgb 8.8 L (13.0-17.0) g/dL Hct 29.9 L (39.6-50.0) % MCH 24.4 L (27.0-32.0) pg MCHC 29.4 L (32.0-37.0) g/dL RDW 15.9 H (11.5-14.5) % BUN 59.8 H (9.0-27.0) mg/dL Creatinine 1.8 H (0.6-1.5) mg/dL Est GFR (CKD-EPI) 37 L (>=60) BUN/Creatinine Ratio 33.22 H (12.00-20.00) Ratio Glucose 146 H (70-110) mg/dL POC Glucose (mg/dL) (70-110) mg/dL Iron 24 L (65-175) UG/DL % Saturation 7.52 L (15.00-50.00) Total Protein 5.9 L (6.2-8.2) g/dL Albumin 3.1 L (3.8-4.9) g/dL Albumin/Globulin Ratio 1.11 L (1.60-3.17) Ratio 08/16/24 08/16/24 08/16/24 Range/Units 12:17 17:04 19:46 WBC (4.50-10.00) X 10*3/uL RBC (4.40-5.60) X 10*6/uL Hgb (13.0-17.0) g/dL Hct (39.6-50.0) % MCH (27.0-32.0) pg MCHC (32.0-37.0) g/dL RDW (11.5-14.5) % BUN (9.0-27.0) mg/dL Creatinine (0.6-1.5) mg/dL Est GFR (CKD-EPI) (>=60) BUN/Creatinine Ratio (12.00-20.00) Ratio Glucose (70-110) mg/dL POC Glucose (mg/dL) 204 H 176 H 131 H (70-110) mg/dL Iron (65-175) UG/DL % Saturation (15.00-50.00) Total Protein (6.2-8.2) g/dL Albumin (3.8-4.9) g/dL Albumin/Globulin Ratio (1.60-3.17) Ratio 08/17/24 Range/Units 07:46 WBC (4.50-10.00) X 10*3/uL RBC (4.40-5.60) X 10*6/uL Hgb (13.0-17.0) g/dL Hct (39.6-50.0) % MCH (27.0-32.0) pg MCHC (32.0-37.0) g/dL RDW (11.5-14.5) % BUN (9.0-27.0) mg/dL Creatinine (0.6-1.5) mg/dL Est GFR (CKD-EPI) (>=60) BUN/Creatinine Ratio (12.00-20.00) Ratio Glucose (70-110) mg/dL POC Glucose (mg/dL) 132 H (70-110) mg/dL Iron (65-175) UG/DL % Saturation (15.00-50.00) Total Protein (6.2-8.2) g/dL Albumin (3.8-4.9) g/dL Albumin/Globulin Ratio (1.60-3.17) Ratio Assessment and Plan Assessment: Status post left robotic assisted laparoscopic nephro ureterectomy, post operative day #9 Acute hypoxemic respiratory failure secondary to an acute exacerbation of COPD suspected systolic versus diastolic congestive heart failure. BNP level 14,900. Procalcitonin negative. The scan of the chest did not reveal any acute pulmonary process. Sputum culture does reveal Pseudomonas aeruginosa and Serratia marcescens. Initiated on oral Levaquin Acute on chronic kidney disease Paroxysmal atrial fibrillation Coronary artery disease, previous AR GERD without esophagitis renal cell carcinoma involving left kidney Plan: The patient was seen and evaluated Labs and medications reviewed Continue the current treatment plan Titrate down the FiO2 as tolerated Will most likely need home oxygen Increase his activity as tolerated Cleared for discharge This patient was seen independently by the pulmonary nurse practitioner addressing pulmonary issues I have personally seen and examined the patient, performed the documentation and the assessment and plan as written. Time: 23 minutes. Dictation was produced using [employer] dictation software. Please excuse any grammatical, word or spelling errors.
--- NOTE | 2024-08-17 11:00 | P.PN ---
Subjective Progress Note Date: 08/17/24 Principal diagnosis: POD #9, s/p robotic-assisted laparoscopic left nephroureterectomy The patient underwent an uncomplicated robotic assisted laparoscopic left nephroureterectomy on August 08, 2024. His planned discharge was canceled due to hypoxia. He is currently comfortable. The Ayala catheter was removed, but replaced due to incomplete bladder emptying. The Ayala catheter is draining clear yellow urine. Pathology shows low-grade, noninvasive urothelial carcinoma with negative surgical margins. Objective - Vital Signs Vital signs: Vital Signs Temp 97.8 F 08/17/24 08:00 Pulse 80 08/17/24 08:26 Resp 16 08/17/24 08:00 BP 130/70 08/17/24 08:00 Pulse Ox 90 L 08/17/24 08:00 FiO2 Intake & Output 08/16/24 08/17/24 08/17/24 18:59 06:59 18:59 Intake Total 1800 800 237 Output Total 1000 Balance 800 800 237 Intake: Oral 1800 800 237 Output: Urine 1000 Other: Voiding Method Urinal Indwelling Catheter Indwelling Catheter # Bowel Movements 1 - Constitutional General appearance: Present: average body habitus, cooperative, no acute distress - Gastrointestinal Gastrointestinal Comment(s): Soft, non-tender, non-distended. Incisions clean and dry. - Psychiatric Psychiatric: Present: A&O x's 3 - Labs CBC & Chem 7: 08/16/24 03:19 08/16/24 03:19 Labs: Abnormal Lab Results - Last 24 Hours (Table) 08/16/24 08/16/24 08/16/24 Range/Units 03:19 12:17 17:04 POC Glucose (mg/dL) 204 H 176 H (70-110) mg/dL Iron 24 L (65-175) UG/DL % Saturation 7.52 L (15.00-50.00) 08/16/24 08/17/24 Range/Units 19:46 07:46 POC Glucose (mg/dL) 131 H 132 H (70-110) mg/dL Iron (65-175) UG/DL % Saturation (15.00-50.00) Assessment and Plan Plan: Ayala catheter will remain in place. Discharge home tomorrow after arrangements are made for him to have oxygen delivered to his home. F/U 1-2 weeks.
--- NOTE | 2024-08-17 11:07 | P.PN ---
Subjective Patient is seen in follow-up for chronic kidney disease. Hard of hearing. Denies chest pain or shortness of breath. Oral intake fair. Has Ayala catheter. Nonoliguric. No changes overnight. Vital signs are stable. General: No acute distress. HEENT: Head exam is unremarkable. On nasal cannula. LUNGS: No audible rhonchi or wheezes. HEART: Rate and Rhythm are regular. ABDOMEN: Nontender. EXTREMITITES: No edema. Objective - Vital Signs Vital signs: Vital Signs Temp 97.8 F 08/17/24 08:00 Pulse 80 08/17/24 08:26 Resp 16 08/17/24 08:00 BP 130/70 08/17/24 08:00 Pulse Ox 90 L 08/17/24 08:00 FiO2 Intake & Output 08/16/24 08/17/24 08/17/24 18:59 06:59 18:59 Intake Total 1800 800 237 Output Total 1000 Balance 800 800 237 Intake: Oral 1800 800 237 Output: Urine 1000 Other: Voiding Method Urinal Indwelling Catheter Indwelling Catheter # Bowel Movements 1 - Labs CBC & Chem 7: 08/16/24 03:19 08/16/24 03:19 Labs: Abnormal Lab Results - Last 24 Hours (Table) 08/16/24 08/16/24 08/16/24 Range/Units 03:19 12:17 17:04 POC Glucose (mg/dL) 204 H 176 H (70-110) mg/dL Iron 24 L (65-175) UG/DL % Saturation 7.52 L (15.00-50.00) 08/16/24 08/17/24 Range/Units 19:46 07:46 POC Glucose (mg/dL) 131 H 132 H (70-110) mg/dL Iron (65-175) UG/DL % Saturation (15.00-50.00) Assessment and Plan Plan: Assessment: 1. Chronic kidney disease stage IIIb with baseline creatinine 1.8-2. GFR at baseline. 2. 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 3. Hypertension with chronic kidney disease. Controlled. 4. Anemia of chronic kidney disease. Iron deficiency noted. 5. Acute kidney injury secondary to vasomotor nephropathy, improved. Plan: Encouraged oral intake. Add IV iron. Avoid nephrotoxins. Follow-up outpatient 1 to 2 weeks postdischarge.
[2024-08-17 12:07] LABS: Glucose,Whole Blood 170 mg/dL (70-110)
[2024-08-17] MEDS: FERROUS SULFATE 325 MG TAB PO SCH (13:09)
[2024-08-17] MEDS: SODIUM FERRIC GLUCONAT-SUCROSE 125 MG in SODIUM CHLORIDE 0.9% 100 ML IVPB SCH (13:10)
[2024-08-17 17:07] LABS: Glucose,Whole Blood 211 mg/dL (70-110)
--- NOTE | 2024-08-17 17:18 | P.PN ---
Subjective Progress Note Date: 08/17/24 Hospital course: Patient is a very pleasant 83-year-old male with a past medical history of CAD status post stenting, chronic atrial fibrillation, hypertension, hyperlipidemia, COPD, hearing disorder, and recent diagnosis of left transitional cell carcinoma involving the left kidney. He was admitted to the hospital and underwent underwent nephroureterectomy with Dr. Ordaz on 08/08/2024 we were consulted for medical management on 08/10/2024. During hospitalization pt developed worsening shortness of breath and underwent chest x-ray which revealed bilateral interstitial opacities worsening. He was started on IV antibiotics for treatment of multifocal pneumonia and sputum cultures were obtained later resulting positive for Pseudomonas and Serratia. Pt was followed throughout hospitalization by our hospitalist team, urology, pulmonology, cardiology, and nephrology. His sputum cultures were positive for Pseudomonas and Serratia.Patient received IV antibiotics with Levaquin 750 mg every 48 hours per renal dosing x 2 doses in the hospital and being discharged home with oral Levaquin 750 mg every 48 hours for an additional 5 doses to total a 7-day treatment course of antibiotics. Patient being discharged home with Ayala catheter in place and to follow-up in urology office next week. Patient has been cleared by urology, nephrology, cardiology, and pulmonology. Patient medically optimized for discharge at this time. [facility], however patient adamantly declined. Patient being discharged home with [facility] home care including palliative care, RN, SKIN TOGGLER, PT/OT. Patient to follow-up outpatient with residency clinic for establishment of care with local PCP and to follow-up with urologist, regional vice president life sales, manager cardiac, and pie baker in 1 week. Patient discharged home with home oxygen and walker Initial plan was for discharge on 08/16/2024, however was notified by RN that after arrangements for home O2 delivery was not received by patient or to patient's home and they were unable to contact anyone on the after-hours line. Discharge delayed secondary to pending delivery of home oxygen. Physical exam: Patient seen and fully evaluated at bedside. Patient updated on delay of discharge and reports back understanding. He denies having any complaints, questions, or needs at this time. Vital signs reviewed and stable. General: Nontoxic, no distress and appears stated age. Derm: Skin warm and dry, normal coloration for ethnicity. Head: Atraumatic, normocephalic and symmetric. Eyes: EOM's intact, no lid lag, and anicteric sclera Mouth: no lip lesions, mucus membranes moist Cardiovascular: regular rate and rhythm with normal S1S2, no murmur, positive posterior tibial pulses bilaterally, and cap refill < 2 seconds. Lungs: Respirations even, regular, and unlabored on 4 L O2 via nasal. Lungs diminished, no rhonchi, no rales, no wheezing, and no accessory muscle usage. Abdominal: soft, nontender to palpation, no guarding, no appreciable organomegaly Ext: ROM intact. No gross muscle atrophy, no edema, no contractures Neuro: Speech clear, face symmetrical and CN II-XII grossly intact with no noted focal neuro deficits Psych: Alert and oriented to person, place, time, and situation. Appropriate and pleasant affect. Assessment and Plan of Care: Acute COPD exacerbation Acute hypoxic respiratory failure Multi focal pneumonia, sputum cultures positive for Pseudomonas and Serratia -Oxygenation to be administered and titrated as needed to maintain SPO2 equal to or greater than 92%. As patient tolerates. -Telemetry monitoring. -Monitor pulse-oximetry -Duonebs scheduled 4 times daily and as needed for SOB and/or wheezing, performist twice daily and Pulmicort twice daily. -Incentive Spirometry -Steroids: Prednisone 40 mg daily -Antibiotics: Continue Levaquin 750 mg every 48 hours per renal dosing -Sputum culture positive for Pseudomonas and Serratia Leukocytosis, multifactorial, improving -Likely reactive versus component of multifocal pneumonia Acute on chronic normocytic anemia, anticipated outcome of surgery -No active bleeding LEXII on CKD -Nephrology note reviewed, stable from their standpoint, continue beta-silvia and midodrine -Ayala catheter to remain in place upon discharge -Continue to monitor urine output Status post nephroureterectomy Renal cell cancer -Urology note reviewed, cleared for discharge from urology standpoint. Hypertension -Continue atenolol 25 mg daily, Imdur 60 mg twice daily History of CAD History of aflutter -Holding aspirin, patient not able to tolerate statins -Continue Ranexa 500 mg every morning -Patient on continuous telemetry, continue atenolol New diagnosis of type 2 diabetes, A1c 6.5 Hyperglycemia -ACHS with low sliding scale insulin, monitor for hypoglycemia -Hold off starting oral antidiabetic medications at the time of discharge as A1c is 6.5, borderline, consider SGLT2 inhibitor outpatient. Data and imaging reviewed: Vital signs reviewed. Blood pressure 107/65, heart rate 106, respiratory rate 17, temp 97.6 F, and SpO2 of 94% on 3 L. CODE STATUS: Full code DVT prophylaxis: Heparin Anticipated discharge date: Discharge delayed secondary to delayed oxygen delivery Anticipated discharge place: Home with home care and palliative care Patient was seen independently by Nurse Pracitioner. This document was prepared using cloudswave dictation software. Please allow for errors in molecular geneticist, while rare they do occur. Khai Ocasio NP rendered care for this patient independently, reviewed the findings and plan as documented in the note above and agree with plan. I did not physically speak with or examine the patient on this date. Objective - Vital Signs Vital signs: Vital Signs Temp 97.6 F 08/17/24 12:25 Pulse 68 08/17/24 15:43 Resp 17 08/17/24 12:25 BP 107/65 08/17/24 12:25 Pulse Ox 94 L 08/17/24 12:25 FiO2 Intake & Output 08/16/24 08/17/24 08/17/24 18:59 06:59 18:59 Intake Total 0516 205 2316 Output Total 1000 Balance 045 768 7418 Intake: Oral 3835 979 5461 Output: Urine 1000 Other: Voiding Method Urinal Indwelling Catheter Indwelling Catheter # Bowel Movements 1 - Labs CBC & Chem 7: 08/16/24 03:19 08/16/24 03:19 Labs: Abnormal Lab Results - Last 24 Hours (Table) 08/16/24 08/16/24 08/17/24 Range/Units 03:19 19:46 07:46 POC Glucose (mg/dL) 131 H 132 H (70-110) mg/dL Iron 24 L (65-175) UG/DL % Saturation 7.52 L (15.00-50.00) 08/17/24 08/17/24 Range/Units 12:06 17:06 POC Glucose (mg/dL) 170 H 211 H (70-110) mg/dL Iron (65-175) UG/DL % Saturation (15.00-50.00)
[2024-08-17 20:17] LABS: Glucose,Whole Blood 166 mg/dL (70-110)
[2024-08-18 07:08] LABS: Glucose,Whole Blood 121 mg/dL (70-110)
--- NOTE | 2024-08-18 10:39 | P.DS ---
Providers Date of admission: 08/08/24 09:58 Expected date of discharge: 08/18/24 Attending physician: Cooper Ordaz MD Consults: 08/08/24 17:11 Consult Physician Routine Consulting Provider: Raul Elam Consult Reason/Comments: HX of CKD S/P radical nephrectomy Do you want consulting provider notified?: Yes, Notify in am 08/09/24 15:12 Consult Physician Urgent Consulting Provider: Nupur Bernardo Consult Reason/Comments: hypoxia, dyspnea Do you want consulting provider notified?: Yes 08/10/24 07:01 Consult Physician Routine Consulting Provider: Nellie Berger Consult Reason/Comments: medical managment Do you want consulting provider notified?: Yes Primary care physician: Stated None Hospital Course: Discharge Diagnosis: Acute COPD exacerbation. Patient requiring discharge on home oxygen. Acute hypoxic respiratory failure. Multi focal pneumonia, sputum cultures positive for Pseudomonas and Serratia. Patient received IV antibiotics with Levaquin 750 mg every 48 hours per renal dosing x 2 doses in the hospital and being discharged home with oral Levaquin 750 mg every 48 hours for an additional 5 doses to total a 7-day treatment course of antibiotics. Patient to follow-up outpatient with zumba instructor in 1 week. Leukocytosis, multifactorial, improving. Acute on chronic normocytic anemia, anticipated outcome of surgery LEXII on CKD, improved Status post nephroureterectomy. Renal cell cancer Hypertension. Continue atenolol 25 mg daily, Imdur 60 mg twice daily History of CAD History of aflutter New diagnosis of type 2 diabetes, A1c 6.5. Hold off starting oral antidiabetic medications at the time of discharge as A1c is 6.5, borderline, consider SGLT2 inhibitor outpatient. 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 He was admitted to the hospital and underwent underwent nephroureterectomy with Dr. Ordaz on 08/08/2024 we were consulted for medical management on 08/10/2024. During hospitalization pt developed worsening shortness of breath and underwent chest x-ray which revealed bilateral interstitial opacities worsening. He was started on IV antibiotics for treatment of multifocal pneumonia and sputum cultures were obtained later resulting positive for Pseudomonas and Serratia. Pt was followed throughout hospitalization by our hospitalist team, urology, pulmonology, cardiology, and nephrology. His sputum cultures were positive for Pseudomonas and Serratia.Patient received IV antibiotics with Levaquin 750 mg every 48 hours per renal dosing x 2 doses in the hospital and being discharged home with oral Levaquin 750 mg every 48 hours for an additional 5 doses to total a 7-day treatment course of antibiotics. Patient being discharged home with Ayala catheter in place and to follow-up in urology office next week. Patient has been cleared by urology, nephrology, cardiology, and pulmonology. Patient medically optimized for discharge at this time. Patient was [facility] be [facility] to [facility], however patient adamantly dec lined. Patient being discharged home with [facility] home care including palliative care, RN, [employer] ATHLETE, PT/OT. Patient to follow-up outpatient with residency clinic for establishment of care with local PCP and to follow-up with urologist, filling operator, zumba instructor, and therapist occupational in 1 week. Patient has follow-up appointment with urologist on August 25. Patient discharged home with home oxygen and walker. Physical exam: Vital signs reviewed and stable. General: Nontoxic, no distress and appears stated age. Derm: Skin warm and dry, normal coloration for ethnicity. Head: Atraumatic, normocephalic and symmetric. Eyes: EOM's intact, no lid lag, and anicteric sclera Mouth: no lip lesions, mucus membranes moist Cardiovascular: regular rate and rhythm with normal S1S2, no murmur, positive posterior tibial pulses bilaterally, and cap refill < 2 seconds. Lungs: Respirations even, regular, and unlabored on 4 L O2 via nasal. Lungs diminished, no rhonchi, no rales, no wheezing, and no accessory muscle usage. Abdominal: soft, nontender to palpation, no guarding, no appreciable organomegaly. Ayala Catheter in place. Ext: ROM intact. No gross muscle atrophy, no edema, no contractures Neuro: Speech clear, face symmetrical and CN II-XII grossly intact with no noted focal neuro deficits Psych: Alert and oriented to person, place, time, and situation. Appropriate and pleasant affect. A total of 35 minutes of time were spent preparing this complex discharge summary. Pt was discharged on 08/18/2024 at 10:38 AM Patient was seen independently by Nurse Practitioner. This document was prepared using mBlox dictation software. Please allow for errors in chainstitch hemmer while rare they do occur. Khai Ocasio TEST PULLER rendered care for this patient independently, reviewed the findings and plan as documented in the note above. I did not physically speak with or examine the patient on this date. Patient Condition at Discharge: Stable Plan - Discharge Summary Discharge Rx Participant: No New Discharge Prescriptions: New predniSONE [Deltasone] 40 mg PO DAILY #6 tab Levofloxacin [Levaquin] 750 mg PO Q48H #5 tab Midodrine [ProAmatine] 5 mg PO AC-TID #90 tab Budesonide-Formot 160-4.5 Mcg [Symbicort 160-4.5 Mcg Inhaler] 2 puff INHALATION RT-BID #1 each Continue Isosorbide Mononitrate ER [Imdur] 60 mg PO BID Ranolazine [Ranexa] 500 mg PO QAM Acetaminophen Tab [Tylenol] 650 mg PO Q6HR PRN tab PRN Reason: Fever and/ or Mild Pain Nitroglycerin Sl Tabs [Nitrostat] 0.4 mg SUBLINGUAL Q5M PRN #25 tab PRN Reason: Chest Pain atenoloL 25 mg PO BID #60 tab Aspirin 81 mg PO QAM Discharge Medication List Isosorbide Mononitrate ER [Imdur] 60 mg PO BID 05/08/19 [History] Ranolazine [Ranexa] 500 mg PO QAM 06/26/24 [History] Acetaminophen Tab [Tylenol] 650 mg PO Q6HR PRN tab 07/01/24 [Rx] Nitroglycerin Sl Tabs [Nitrostat] 0.4 mg SUBLINGUAL Q5M PRN #25 tab 07/01/24 [Rx] atenoloL 25 mg PO BID #60 tab 07/01/24 [Rx] Aspirin 81 mg PO QAM 08/01/24 [History] Budesonide-Formot 160-4.5 Mcg [Symbicort 160-4.5 Mcg Inhaler] 2 puff INHALATION RT-BID #1 each 08/14/24 [Rx] Levofloxacin [Levaquin] 750 mg PO Q48H #5 tab 08/14/24 [Rx] Midodrine [ProAmatine] 5 mg PO AC-TID #90 tab 08/14/24 [Rx] predniSONE [Deltasone] 40 mg PO DAILY #6 tab 08/14/24 [Rx] Follow up Appointment(s)/Referral(s): Nupur Bernardo MD [STAFF PHYSICIAN] - 09/01/24 10:00 am (pulmonary) Debbie Beckman MD [STAFF PHYSICIAN] - 09/23/24 1:40 pm (Nephrology - appointment will be with Swapnil MORA ) Cooper Ordaz MD [STAFF PHYSICIAN] - 08/25/24 1:40 pm (Urology) [facility] [NON-STAFF] - 1 Week (Primary care physician. Please call the office to set up a new patient appointment. ) Benigno Horowitz MD [STAFF PHYSICIAN] - 08/26/24 11:30 am (cardiology) Patient Instructions/Handouts: Prednisone (By mouth), Midodrine (By mouth), Levofloxacin (By mouth), Budesonide/Formoterol (By breathing), Ayala Catheter Pl acement and Care (DC), Using Oxygen at Home (DC), COPD (Chronic Obstructive Pulmonary Disease) (DC), Fall Prevention (DC), Pneumonia (DC), Chronic Lung Disease and Infection Prevention (DC), Nephrectomy (DC) Activity/Diet/Wound Care/Special Instructions: Activity: Discharge home with Ayala to leg bag. May shower. No lifting, driving, or strenuous activity. Diet: Heart healthy and carb consistent diet. Avoid salts, or foods with hidden salts such as canned or boxed foods and frozen dinners. Extra salt makes your heart work harder and traps the fluid in your body for longer. Special Instructions: Take all of your medications as directed and remember to keep all of your doctor's appointments and follow-up as needed. You are being discharged home on home oxygen. Please wear at all times including while sleeping and showering. It is important to take medications as prescribed without any changes or missed doses and you will need to follow-up with a primary care physician at [facility] for internal medicine, urologist (Dr. Ordaz), zumba instructor (Dr. Conner), filling operator (Dr. Baum), and therapist occupational (Dr. Beckman). Being you are discharged on Sunday you will need to call offices first thing Sunday morning to set up these appointments. It was strongly recommended for placement in rehab, however you adamantly declined and are being discharged home per your request. Orders placed for home care including nursing, physical therapy, Occupational Therapy, and palliative care. Thank you for allowing us to participate in your care, it was truly a pleasure having you for our patient!!! . Discharge Disposition: HOME WITH HOME HEALTH SERVICES
[2024-08-18 12:06] LABS: Glucose,Whole Blood 127 mg/dL (70-110)
--- NOTE | 2024-08-18 13:48 | P.PN ---
Subjective Patient is seen for follow-up for CKD. No significant complaints today. Patient is hard of hearing. Serum creatinine decreased to 1.8 on 08/16/2024. Plans for discharge today Objective - Vital Signs Vital signs: Vital Signs Temp 97.6 F 08/18/24 07:12 Pulse 68 08/18/24 12:05 Resp 24 08/18/24 07:12 BP 115/69 08/18/24 07:12 Pulse Ox 96 08/18/24 07:12 FiO2 Intake & Output 08/17/24 08/18/24 08/18/24 18:59 06:59 18:59 Intake Total 2277 Output Total 1000 1999 Balance 1277 -2000 Intake: Oral 2277 Output: Urine 1000 1999 Uretheral (Ayala) 1000 1000 Other: Voiding Method Indwelling Catheter Indwelling Catheter Indwelling Catheter - Exam Patient is awake, comfortable, no acute distress Examination of the heart S1 and S2 Examination of the lungs bilateral breath sounds are heard Abdomen is soft nontender Examination of lower extremities shows no significant edema Moving all 4 extremities. - Labs CBC & Chem 7: 08/16/24 03:19 08/16/24 03:19 Labs: Abnormal Lab Results - Last 24 Hours (Table) 08/17/24 08/17/24 08/18/24 Range/Units 17:06 20:13 07:07 POC Glucose (mg/dL) 211 H 166 H 121 H (70-110) mg/dL 08/18/24 Range/Units 12:05 POC Glucose (mg/dL) 127 H (70-110) mg/dL Assessment and Plan Assessment: 1. CKD stage IIIb with baseline creatinine 1.8 to 2 mg/dL. Serum creatinine stable close to baseline. 2. 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 Anemia with CKD 4. Hypertension with CKD stage IIIb 5. CKD mineral bone disorder Plan: Continue off of diuretics. Okay for discharge from nephrology standpoint. Avoid hypotension. Midodrine can be discontinued Follow-up as outpatient for chronic kidney disease.
[2024-08-18 13:51] VITALS: BP 113/71; PULSE 70; RESP 20; TEMP 97.8
--- NOTE | 2024-08-18 13:57 | P.PN ---
Subjective Progress Note Date: 08/18/24 The patient underwent a nephro ureterectomy robotically by Dr. Ordaz. He is recuperating nicely and ready to go home. He has an appointment August 25. He will go home with an indwelling catheter. Objective - Vital Signs Vital signs: Vital Signs Temp 97.8 F 08/18/24 13:24 Pulse 70 08/18/24 13:24 Resp 20 08/18/24 13:24 BP 113/71 08/18/24 13:24 Pulse Ox 95 08/18/24 13:24 FiO2 Intake & Output 08/17/24 08/18/24 08/18/24 18:59 06:59 18:59 Intake Total 2277 Output Total 1000 1999 Balance 1277 -2000 Intake: Oral 2277 Output: Urine 1000 1999 Uretheral (Ayala) 1000 1000 Other: Voiding Method Indwelling Catheter Indwelling Catheter Indwelling Catheter - Labs CBC & Chem 7: 08/16/24 03:19 08/16/24 03:19 Labs: Abnormal Lab Results - Last 24 Hours (Table) 08/17/24 08/17/24 08/18/24 Range/Units 17:06 20:13 07:07 POC Glucose (mg/dL) 211 H 166 H 121 H (70-110) mg/dL 08/18/24 Range/Units 12:05 POC Glucose (mg/dL) 127 H (70-110) mg/dL Assessment and Plan Assessment: 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 Ordaz on August 25
--- NOTE | 2024-08-18 18:33 | P.PN ---
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 Patient was advised to undergo left robotic assisted laparoscopic nephro ureterectomy, and this was done today. Patient was sent back to the medical floor and he has been complaining of cough, shortness of breath, wheezing, chest x-ray is quite abnormal showing multiple opacities in both lungs, concerning for pneumonia or pulmonary edema, even the possibility of metastatic disease in the lungs, however patient had recent chest x-ray in the last month which was relatively unremarkable, this makes metastatic disease to the lungs less likely when I evaluated the patient, patient was constantly coughing, wheezing, and he was bringing up significant amount of sputum thick yellow sputum noted. Hence I recommended a trial of bronchodilators, antibioti cs, steroids, and patient to receive 1 dose of Lasix. The patient is seen today August 10, 2024 in follow-up on the regular medical floor. He is sitting up in bed having breakfast. Awake and alert in no acute distress. Maintaining O2 saturation in the mid 90s on 5 L/min per nasal cannula. He is afebrile. Hemodynamically stable. Breathing quite a bit better today compared to yesterday. Chest x-ray revealing similar multifocal airspace opacities. CT scan of the chest pending. White count 14.5. Hemoglobin 9.5. Platelets 286. Sodium 136. Potassium 4.7. Bicarb 19. BUN 34. Creatinine 2.31. Glucose 207. proBNP 14,900. Procalcitonin negative at 0.50. He remains on DuoNeb inhalations, Pulmicort and Perforomist inhalations, Solu-Medrol. Antibiotics in the form of Zosyn. Heparin for DVT prophylaxis. The patient is seen today August 11, 2024 in follow-up on the regular medical floor. He is currently resting comfortably in bed. Awake and alert in no acute distress. Denies any worsening shortness of breath, cough or congestion. He is maintaining O2 saturation in the 90s on 5 L/min per nasal cannula. He remains on DuoNeb inhalations, Pulmicort and Perforomist inhalations, IV Solu-Medrol. Continued on oral diuretics. Continued on Zosyn. His procalcitonin was ne gative at 0.50. CT scan of the chest revealed subcutaneous emphysema bilaterally extending down into the anterior abdominal wall. Additionally there is free air under the diaphragm most likely postop changes. Moderate to severe emphysema with small bilateral effusions. The patient is seen today August 12, 2024 in follow-up on the regular medical floor. He is awake and alert in no acute distress. He is still requiring 5 L of oxygen per minute per nasal cannula to maintain O2 saturations in the 90s. He remains on DuoNeb inhalations, Pulmicort and Perforomist inhalations, IV Solu-Medrol. Remains on oral diuretics. Sputum culture is now showing Pseudomonas aeruginosa and Serratia marcescens. Procalcitonin was negative. White count 18.1. Hemoglobin 8.2. Platelets 286. Sodium 139. Potassium 4.4. Bicarb 21. BUN 52. Creatinine 2.4. Glucose 171. The patient is seen today August 13, 2024 in follow-up on the regular medical floor. He is currently resting in bed. Awake and alert in no acute distress. Very hard of hearing. He is maintaining good O2 saturations in the 90s on 3 L/min per nasal cannula. His sputum culture was positive for Pseudomonas aeruginosa and Serratia marcescens. White count 13.7. Hemoglobin 8.4. Platelets 254. Sodium 139. Potassium 4.6. Bicarb 22. BUN 59. Creatinine 2.3. Glucose 166. He is continued on DuoNeb and elations, Symbicort, prednisone taper. Remains on antibiotics in the form of Levaquin. Heparin for DVT prophylaxis. The patient is seen today August 14, 2024 in follow-up on the regular medical floor. He is currently sitting up in bed. Awake and alert in no acute distress. Very hard of hearing. He is still requiring 5 L of oxygen to maintain O2 saturation in the low 90s. He did test positive for both Pseudomo karina aeruginosa and Serratia marcescens in his sputum. He remains on Levaquin. Remains on DuoNeb inhalations, Symbicort, prednisone taper. Heparin for DVT prophylaxis. White count 12.0. Hemoglobin 9.5. Platelets 281. Sodium 139. Potassium 4.2. Bicarb 20. BUN 64. Creatinine 2.1. Glucose 215. Magnesium 2.0. The patient is seen today August 15, 2024 in follow-up on the regular medical fl oor. He is awake and alert in no acute distress. Resting comfortably in bed. Remains extremely hard of hearing. Communicating with writing notes. He denies any worsening shortness of breath, cough or congestion. He is maintaining O2 saturations in the 90s on 4 L/min per nasal cannula. He is continued on DuoNeb inhalations, Symbicort, prednisone taper. Heparin for DVT prophylaxis. Remains on antibiotics in the form of Levaquin. Sputum culture was positive for Pseudomonas aeruginosa and Serratia marcescens. Count 14.1. Hemoglobin 9.6. Platelets 229. Sodium 139. Potassium 4.6. Bicarb 26. BUN 67. Creatinine 1.88. Glucose 149. The patient is seen today August 16, 2024 in follow-up on the regular medical floor. He is currently resting comfortably in bed. Awake and alert in no acute distress. Apparently he declined to go to rehab yesterday and remains here today. He is maintaining good O2 saturations up to 99% on 4 L/min per nasal cannula. He is afebrile. Hemodynamically stable. Sputum culture was positive for Pseudomonas aeruginosa and Serratia marcescens. White count 13.2. Hemoglobin 8.8. Platelets 236. Sodium 139. Potassium 5.4. Bicarb 23. BUN 60. Creatinine 1.8. Glucose 146. He is continued on DuoNeb inhalations, Symbicort, prednisone taper. Completing a course of Levaquin. Heparin for DVT prophylaxis. The patient is seen today August 17, 2024 in follow-up on the regular medical floor. He is currently resting comfortably in bed. Awake and alert in no acute distress. He was planning to go home yesterday however oxygen could not be arranged at his house. He is currently on 2 L/min per nasal cannula. His only complaint today is of sinus dryness from the oxygen. He has been treated for Pseudomonas aeruginosa and Serratia marcescens in his sputum back on 08/09/2024. Glucose 132. He remains on DuoNeb and elations, Symbicort, prednisone taper. Continued on Levaquin. Heparin for DVT prophylaxis. On 08/18/2024, the patient is doing well as he recovers from his surgery which involved a robotic assisted left nephro ureterectomy and the patient is postop day #10. He is passing flatus. No nausea or emesis. No abdominal pain. Surgical wound sites are dry clean and intact. The patient has no significant respiratory difficulties. No cough or sputum production. No chest tightness. Limited wheezing still present. No new labs are available from today. He does have a component of chronic kidney disease and the creatinine is currently stable at 1.8. The patient will need a walker at the time of discharge. He will be discharged home on a prednisone burst taper and he will also complete a course of Levaquin as the patient sputum sample was positive for a combination of Serratia and Pseudomonas. Most recent chest x-ray from 08/10/2024 showed multifocal airspace disease and this was also confirmed on a CAT scan of the chest that was done on 08/10/2024. Noted the patient also has moderate to severe emphysematous changes with superimposed airspace disease in the left and small pleural effusions. No follow-up x-rays have been obtained and this can be done on an outpatient basis. Clinically, the patient is stable. Objective - Vital Signs Vital signs: Vital Signs Temp 97.6 F 08/18/24 07:12 Pulse 68 08/18/24 12:05 Resp 24 08/18/24 07:12 BP 115/69 08/18/24 07:12 Pulse Ox 96 08/18/24 07:12 FiO2 Intake & Output 08/17/24 08/18/24 08/18/24 18:59 06:59 18:59 Intake Total 2277 Output Total 1000 2000 Balance 1277 -2000 Intake: Oral 2277 Output: Urine 1000 2000 Uretheral (Ayala) 1000 1000 Other: Voiding Method Indwelling Catheter Indwelling Catheter Indwelling Catheter - Exam GENERAL EXAM: Alert, pleasant 83-year-old male, hard of hearing, resting comfortably in bed, on 2 L nasal cannula, in no apparent distress. HEAD: Normocephalic. EYES: Normal reaction of pupils, equal size. NOSE: Clear with pink turbinates. THROAT: No erythema or exudates. NECK: No masses, no JVD. CHEST: No chest wall deformity. LUNGS: Equal air entry with no crackles, wheeze or rhonchi. CVS: S1 and S2 normal with no audible murmur, regular rhythm. ABDOMEN: No hepatosplenomegaly, normal bowel sounds, no guarding or rigidity. SPINE: No scoliosis or deformity SKIN: No rashes CENTRAL NERVOUS SYSTEM: No focal deficits, tone is normal in all 4 extremities. EXTREMITIES: There is no peripheral edema. No clubbing, no cyanosis. Peripheral pulses are intact. - Labs CBC & Chem 7: 08/16/24 03:19 08/16/24 03:19 Labs: Abnormal Lab Results - Last 24 Hours (Table) 08/17/24 08/17/24 08/18/24 Range/Units 17:06 20:13 07:07 POC Glucose (mg/dL) 211 H 166 H 121 H (70-110) mg/dL 08/18/24 Range/Units 12:05 POC Glucose (mg/dL) 127 H (70-110) mg/dL Assessment and Plan Plan: Status post left robotic assisted laparoscopic nephro ureterectomy, postoperative day # 10 Acute hypoxemic respiratory failure secondary to an acute exacerbation of COPD suspected systolic versus diastolic congestive heart failure. BNP level 14,900. Procalcitonin negative. The scan of the chest did not reveal any acute pulmonary process. Sputum culture does reveal Pseudomonas aeruginosa and Serratia marcescens. Patient is covered with a course of Levaquin Chronic kidney disease Paroxysmal atrial fibrillation Coronary artery disease, previous [place] GERD without esophagitis renal cell carcinoma involving left kidney Plan: Clinically stable. No postsurgical complications. Surgical wound site is dry clean and intact Continue the current treatment plan Titrate down the FiO2 as tolerated Will need home O2 Will need a home nebulizer Will complete a course of Levaquin on outpatient basis Will need a walker Monitor renal function outpatient basis Repeat chest x-ray within next 2 to 3 weeks Possible discharge today.
== END 2024-08-18 16:04 | disposition home health service (06) | DRG 656 ==
LOC: 2ORMAIN 09:58 → EDSTATUS 11:55 → 5NMEDONC 18:39
PROVIDERS: ADMIT Urology; ATTEND Urology
PROC: 0TT14ZZ Resection of Left Kidney, Percutaneous Endoscopic Approach (ICD-10-PCS; 2024-08-08)
PROC: 0DQV4ZZ Repair Mesentery, Percutaneous Endoscopic Approach (ICD-10-PCS; 2024-08-08)
PROC: 8E0W4CZ Robotic Assisted Procedure of Trunk Region, Percutaneous Endoscopic Approach (ICD-10-PCS; 2024-08-08)
PROC: 3E0T3BZ Introduction of Anesthetic Agent into Peripheral Nerves and Plexi, Percutaneous Approach (ICD-10-PCS; 2024-08-08)
PROC: 0TT74ZZ Resection of Left Ureter, Percutaneous Endoscopic Approach (ICD-10-PCS; principal; 2024-08-08 11:55)
DX: C64.2 Malignant neoplasm of left kidney, except renal pelvis (principal); I50.23 Acute on chronic systolic (congestive) heart failure; J18.9 Pneumonia, unspecified organism; J96.01 Acute respiratory failure with hypoxia; J44.1 Chronic obstructive pulmonary disease with (acute) exacerbation; J44.0 Chronic obstructive pulmonary disease with (acute) lower respiratory infection; I48.92 Unspecified atrial flutter; N17.9 Acute kidney failure, unspecified; D63.1 Anemia in chronic kidney disease; N18.32 Chronic kidney disease, stage 3b; I12.9 Hypertensive chronic kidney disease with stage 1 through stage 4 chronic kidney disease, or unspecified chronic kidney disease; I25.10 Atherosclerotic heart disease of native coronary artery without angina pectoris; E11.22 Type 2 diabetes mellitus with diabetic chronic kidney disease; E11.65 Type 2 diabetes mellitus with hyperglycemia; E78.5 Hyperlipidemia, unspecified; T38.0X5A Adverse effect of glucocorticoids and synthetic analogues, initial encounter; R31.0 Gross hematuria; I48.0 Paroxysmal atrial fibrillation; I25.2 Old myocardial infarction; K21.9 Gastro-esophageal reflux disease without esophagitis; B96.5 Pseudomonas (aeruginosa) (mallei) (pseudomallei) as the cause of diseases classified elsewhere; M89.8X9 Other specified disorders of bone, unspecified site; N40.1 Benign prostatic hyperplasia with lower urinary tract symptoms; R33.8 Other retention of urine; Z51.5 Encounter for palliative care; Z91.041 Radiographic dye allergy status; Z79.899 Other long term (current) drug therapy; Z87.891 Personal history of nicotine dependence; Z79.82 Long term (current) use of aspirin; Z88.8 Allergy status to other drugs, medicaments and biological substances; Z95.1 Presence of aortocoronary bypass graft
CPT/HCPCS: 64999; 71045; 71250; 80048; 80053; 82728; 83036; 83540; 83550; 83735; 83880; 84132; 84145; 85025; 85027; 87070; 87077; 87186; 87205; 88307; 94640; 94760